=== PATIENT | female | born 1975 | race African-American/Black ===

== ENCOUNTER 2019-02-20 14:50 | Outpatient (RCR) | payer OTHER, SELFPAY | END 2019-05-21 23:59 | disposition home or self-care (01) | LOC: ANHDMC 14:50 | DX: E11.9 Type 2 diabetes mellitus without complications (principal); Z71.89 Other specified counseling | CPT/HCPCS: G0108; G0109 ==

== ENCOUNTER 2022-06-22 14:30 | Outpatient (RCR) | payer OTHER, SELFPAY | END 2022-07-04 23:59 | disposition home or self-care (01) | LOC: ANHDMC 14:30 | PROVIDERS: PCP Family Medicine; Visit Provider Family Medicine | DX: E11.9 Type 2 diabetes mellitus without complications (principal); Z71.89 Other specified counseling | CPT/HCPCS: 99199; G0108; G0109 ==

== ENCOUNTER 2022-09-01 14:53 | Outpatient (RCR) | payer OTHER, SELFPAY | END 2022-11-21 10:47 | disposition home or self-care (01) | LOC: ANHDMC 14:53 | PROVIDERS: PCP Family Medicine; Visit Provider Family Medicine | DX: E11.9 Type 2 diabetes mellitus without complications (principal); Z71.89 Other specified counseling | CPT/HCPCS: G0109 ==

== ENCOUNTER 2023-05-18 17:23 | Emergency (ER) | payer OTHER, SELFPAY ==
--- NOTE | ~2023-05-18 | CT_ITS ---
EXAMINATION: CT brain wo con DATE: 05/18/2023 18:08 INDICATION: Headache and possible loss of consciousness. TECHNIQUE: Computed tomography (CT) of the head was performed without intravenous contrast. Sagittal and coronal reconstructions were performed. The mA was adjusted according to patient size. Iterative reconstruction technique was employed. The dose-length product was 681.00 mGy-cm. COMPARISON: None FINDINGS: No acute intracranial hemorrhage, acute infarction or abnormal extra axial fluid collection. Ventricl es are normal and symmetric. No mass/mass effect. The orbits, paranasal sinuses and mastoid air cells are normal. IMPRESSION: 1. No acute intracranial process. Reviewed, dictated and finalized at location A. RE ADMINISTRATOR
[2023-05-18 17:24] VITALS: BP 139/78; PULSE 99; RESP 16; TEMP 36.4; O2SAT 99
[2023-05-18] MEDS: ACETAMINOPHEN 500 MG TABLET 1000 MG PO (17:59)
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
== END 2023-05-18 18:53 | disposition home or self-care (01) ==
PROVIDERS: Emergency Provider Physician Assistant; PCP Family Medicine
DX: S09.90XA Unspecified injury of head, initial encounter (principal); I10 Essential (primary) hypertension; E11.9 Type 2 diabetes mellitus without complications; E78.5 Hyperlipidemia, unspecified; M19.90 Unspecified osteoarthritis, unspecified site; X58.XXXA Exposure to other specified factors, initial encounter
CPT/HCPCS: 70450; 99284; A9270

== ENCOUNTER 2023-08-06 20:03 | Emergency (ER) | payer OTHER, SELFPAY ==
--- NOTE | ~2023-08-06 | CT_ITS ---
EXAMINATION: CT brain wo con DATE: 08/06/2023 20:55 INDICATION: Sudden onset headache. TECHNIQUE: Computed tomography (CT) of the head was performed without intravenous contrast. The mA wa s adjusted according to patient size. Iterative reconstruction technique was employed. The dose-lengt h product was 1059.33 mGy-cm. COMPARISON: Head CT 05/18/2023 FINDINGS: There is no intracranial hemorrhage, acute infarction, or abnormal intracranial mass lesion . The ventricles are normal in size. There is mild mucosal thickening in the ethmoid sinuses. The orb its are normal. The mastoid air cells are normal. IMPRESSION: 1. Normal brain. Reviewed, dictated and finalized at location E. IMPRESSION: 1. Normal brain.
[2023-08-06 20:05] VITALS: BP 140/90; PULSE 99; RESP 16; TEMP 36.8; O2SAT 100
--- NOTE | 2023-08-06 20:17 | PC.NURSE ---
patient states they have had a headache for roughly a month and has not tried any OTC medications. patient states they have a hx of migraines but the last one was years ago . they also states this one feels different and feels like a cold sensation in the occipital lobe area
--- NOTE | 2023-08-06 20:25 | ED.GENADULT ---
[facility] - General Adult General Chief complaint: Headache Stated complaint: headache, vision changes Time Seen by Provider: 08/06/23 20:24 Source: patient Mode of arrival: ambulatory Limitations: no limitations History of Present Illness HPI narrative: This is a 48-year-old female presents to the ED with chief complaint of sudden-onset headache this evening. Reports that she has been dealing with on and off headaches for the past month. Reports she was driving today and had a reports sudden onset headache that she is used to. Reports she also normally has headaches in the front today seemed a little bit in the back of the scalp. Endorses some intermittent blurred vision. States the sun was bothering her eyes which may have set the headache off. Denies diplopia. Denies syncope, neck pain, back pain, numbness, weakness, speech change. Related Data Allergies Allergy/AdvReac Type Severity Reaction Status Date / Time ibuprofen Allergy Severe Anaphylaxis Verified 03/02/19 13:34 latex Allergy Swelling Verified 03/02/19 13:35 nitroglycerin Allergy Swelling Verified 03/02/19 14:56 Penicillins Allergy Other Verified 03/02/19 13:35 Review of Systems Review of Systems: All systems as dictated in [facility] Past Medical History Medical History (Updated 08/07/23 @ 00:00 by Roni Stewart) Arthritis Diabetes HLD (hyperlipidemia) HTN (hypertension) Surgical History Surgical History (Updated 03/02/19 @ 14:37 by Jah Durham) No history of previous surgery Social History Social History (Updated 03/02/19 @ 14:46 by Jah Durham) Smoking status: Never smoker Exam Narrative: GENERAL: Well-appearing, well-nourished, and in no acute distress. HEAD: Normocephalic, atraumatic. Mild scalp tenderness throughout the entire scalp. EYES: PERRLA and EOMI. ENT: Nares clear, no rhinorrhea or epistaxis. Mucous membranes moist. Oropharynx without tonsillar hypertrophy exudate or other lesions. NECK: Supple. No adenopathy or masses. no meningeal signs CHEST: No respiratory distress. Clear to auscultation. No wheezes rales or rhonchi HEART: Regular rate and rhythm. No murmur heard. Normal peripheral pulses. ABDOMEN: Soft, nontender, nondistended, normal active bowel sounds. MSK: Normal range of motion. No edema. SKIN: Warm, dry, no rash. NEURO: Alert and oriented x3. No focal deficits. Cranial nerves 2-12 intact. 5/5 strength and sensation in the upper and lower extremities PSYCH: Normal mood and affect. Course Vital Signs Vital signs: Vital Signs Temperature 98.2 F 08/06/23 20:05 Pulse Rate 99 08/06/23 20:05 Respiratory Rate 16 08/06/23 20:05 Blood Pressure 140/90 08/06/23 20:05 Pulse Oximetry 100 08/06/23 20:05 Oxygen Delivery Room Air 08/06/23 20:05 Temperature 98.3 F 08/06/23 23:23 Pulse Rate 81 08/06/23 23:23 Respiratory Rate 17 08/06/23 23:23 Blood Pressure 131/85 08/06/23 23:23 Pulse Oximetry 100 08/06/23 23:23 Oxygen Delivery Room Air 08/06/23 20:05 Medical Decision Making MDM Narrative Medical decision making narrative: This is a 48-year-old female who presents to the ED for chief complaint headache intermittently for the past couple of weeks and worse today. Vitals are normal. Exam is benign. No meningeal signs. Lab work is normal. CT brain is unremarkable. Patient was given migraine cocktail and had good effect with this. Pt will be discharged in stable condition. Return precautions given and supportive measures discussed. Pt is understanding and agreeable with plan for discharge and follow-up with PCP. Vital Signs Vital Signs: Vital Signs Temperature 98.2 F 08/06/23 20:05 Pulse Rate 99 08/06/23 20:05 Respiratory Rate 16 08/06/23 20:05 Blood Pressure 140/90 08/06/23 20:05 Pulse Oximetry 100 08/06/23 20:05 Oxygen Delivery Room Air 08/06/23 20:05 Temperature 98.3 F 08/06/23 23:23 Pulse Rate 81 08/06/23 23
[2023-08-06 20:56] LABS: Basophils Absolute Auto 0.1 K/mm3 (0.0-0.1); Basophils Percent Auto 0.6 % (0.2-1.2); Eosinophils Absolute Auto 0.1 K/mm3 (0-0.3); Eosinophils Percent Auto 0.7 % (0-4.4); Hematocrit 40.2 % (37.0-47.0); Hemoglobin 12.4 g/dL (12.0-15.0); Immature Granulocyte Absolute 0.03 K/mm3 (0.00-0.031); Immature Granulocyte Percent A 0.4 % (0-0.5); Lymphocytes Absolute Auto 2.35 K/mm3 (0.9-3.2); Lymphocytes Percent Auto 27.4 % (18.3-44.2); Mean Corpuscular HGB Conc 30.8 g/dl (32-36); Mean Corpuscular Hemoglobin 24.8 pg (26-34); Mean Corpuscular Volume 80.2 fl (80-100); Mean Platelet Volume 11.3 fl (7.4-10.4); Monocytes Absolute Auto 0.6 K/mm3 (0.1-0.6); Monocytes Percent Auto 7.4 % (2.6-8.5); Neutrophils Absolute Auto 5.5 K/mm3 (1.3-6.7); Neutrophils Percent Auto 63.5 % (45.5-73.1); Platelet Count Result 262 k/mm3 (150-375); Red Blood Count 5.01 M/mm3 (4.2-5.4); Red Cell Distribution Width 14.7 % (11.5-14.5); White Blood Count 8.6 K/mm3 (4.5-10.0)
[2023-08-06 21:08] LABS: Alanine Aminotransferase 37 U/L (6-35); Albumin Level 4.3 g/dL (3.5-5.1); Alkaline Phosphatase 87 U/L (38-126); Anion Gap 5 mmol/L (4-12); Aspartate Amino Transferase 32 U/L (14-36); Bilirubin,Total 0.5 mg/dL (0.2-1.3); Blood Urea Nitrogen 11 mg/dL (7-17); Calcium 9.6 mg/dL (8.4-10.2); Carbon Dioxide 29 mmol/L (22-30); Chloride 103 mmol/L (98-107); Estimated CRCL calculation 124 ml/min; Estimated Glomerular Filt Rate > 60; Glucose 114 mg/dL (65-110); Potassium 3.4 mmol/L (3.4-5.0); Sodium 137 mmol/L (137-145)
[2023-08-06] MEDS: SODIUM CHLORIDE 0.9% IV 1,000 ML 999 ML IV CONT (21:36)
[2023-08-06] MEDS: PROCHLORPERAZINE EDISYLATE 10 MG/2 ML VIAL IV PUSH (21:36)
[2023-08-06] MEDS: ACETAMINOPHEN 500 MG TABLET 1000 MG PO (21:36)
[2023-08-06] MEDS: diphenhydrAMINE HCl INJ 50 MG/ML VIAL 25 MG IV PUSH (21:36)
[2023-08-06 23:23] VITALS: BP 131/85; PULSE 81; RESP 17; TEMP 36.8; O2SAT 100
== END 2023-08-06 23:10 | disposition home or self-care (01) ==
PROVIDERS: Emergency Provider Physician Assistant; PCP Family Medicine
DX: R51.9 Headache, unspecified (principal); I10 Essential (primary) hypertension; E11.9 Type 2 diabetes mellitus without complications; E78.5 Hyperlipidemia, unspecified; M19.90 Unspecified osteoarthritis, unspecified site
CPT/HCPCS: 36415; 70450; 80053; 85025; 96361; 96374; 96375; 99284; A9270; J0780; J1200; J7030

== ENCOUNTER 2023-08-07 23:43 | Emergency (ER) | payer OTHER, SELFPAY ==
--- NOTE | ~2023-08-07 | XR_ITS ---
EXAMINATION: XR chest 2V DATE: 08/08/2023 00:05 INDICATION: Epigastric abdominal pain. TECHNIQUE: Frontal and lateral views of the chest were obtained. COMPARISON: None. FINDINGS: There is no pneumonia, pleural effusion, or pneumothorax. The heart size is normal. IMPRESSION: 1. No acute cardiopulmonary disease. Reviewed, dictated and finalized at location E.
[2023-08-07 23:44] VITALS: BP 152/98; PULSE 93; RESP 16; TEMP 36.4; O2SAT 100
--- NOTE | 2023-08-07 23:44 | ECG_ITS ---
SEE SCANNED COPY FOR CONFIRMED REPORT MTDD
[2023-08-08 00:18] LABS: Basophils Absolute Auto 0.1 K/mm3 (0.0-0.1); Basophils Percent Auto 0.7 % (0.2-1.2); Eosinophils Absolute Auto 0.1 K/mm3 (0-0.3); Eosinophils Percent Auto 0.8 % (0-4.4); Hematocrit 41.9 % (37.0-47.0); Hemoglobin 12.5 g/dL (12.0-15.0); Immature Granulocyte Absolute 0.08 K/mm3 (0.00-0.031); Immature Granulocyte Percent A 0.9 % (0-0.5); Lymphocytes Absolute Auto 3.02 K/mm3 (0.9-3.2); Lymphocytes Percent Auto 35.1 % (18.3-44.2); Mean Corpuscular HGB Conc 29.8 g/dl (32-36); Mean Corpuscular Hemoglobin 24.4 pg (26-34); Mean Corpuscular Volume 81.8 fl (80-100); Mean Platelet Volume 11.4 fl (7.4-10.4); Monocytes Absolute Auto 0.7 K/mm3 (0.1-0.6); Monocytes Percent Auto 8.3 % (2.6-8.5); Neutrophils Absolute Auto 4.7 K/mm3 (1.3-6.7); Neutrophils Percent Auto 54.2 % (45.5-73.1); Platelet Count Result 279 k/mm3 (150-375); Red Blood Count 5.12 M/mm3 (4.2-5.4); Red Cell Distribution Width 14.6 % (11.5-14.5); White Blood Count 8.6 K/mm3 (4.5-10.0)
[2023-08-08 00:27] LABS: Alanine Aminotransferase 42 U/L (6-35); Albumin Level 4.5 g/dL (3.5-5.1); Alkaline Phosphatase 91 U/L (38-126); Anion Gap 7 mmol/L (4-12); Aspartate Amino Transferase 34 U/L (14-36); Bilirubin,Total 0.4 mg/dL (0.2-1.3); Blood Urea Nitrogen 13 mg/dL (7-17); Calcium 10.1 mg/dL (8.4-10.2); Carbon Dioxide 29 mmol/L (22-30); Chloride 102 mmol/L (98-107); Estimated Glomerular Filt Rate > 60; Glucose 85 mg/dL (65-110); INR 0.9; Lipase 54 U/L (23-300); Potassium 3.3 mmol/L (3.4-5.0); Prothrombin Time 12.8 Seconds (11.1-14.7); Sodium 138 mmol/L (137-145)
[2023-08-08 00:28] LABS: Partial Thromboplastin Time 31.5 Seconds (22.3-36.8)
[2023-08-08 00:31] LABS: Hypochromasia 1+; Ovalocytes 1+; Platelet Estimate Adequate (Adequate); Schistocytes None Seen
[2023-08-08 00:38] LABS: Troponin I < 0.012 ng/mL (0.000-0.034)
[2023-08-08 00:54] LABS: Appearance Urine Clear (Clear); Bilirubin Urine Negative (Negative); Blood Urine Negative (Negative); Color Urine Yellow (Yellow); Glucose Urine UA Negative (Negative); Ketones Urine Negative (Negative); Leukocyte Esterase Ur Negative LEU/UL (Negative); Nitrate Urine Negative (Negative); Protein Urine Negative (Negative); pH Urine 6.5 (5.0-9.0)
[2023-08-08 00:58] LABS: Add Urine Microscopic? NO
[2023-08-08 02:20] VITALS: BP 162/90; PULSE 92; RESP 16; O2SAT 97
[2023-08-08 02:47] LABS: D Dimer 0.34 ug/mL (<0.48)
[2023-08-08 02:48] LABS: NT Pro B Type Natriuretic Pept < 20 pg/mL (19.9-100)
--- NOTE | 2023-08-08 03:43 | ED.GENADULT ---
HPI - General Adult General Chief complaint: Chest Pain Stated complaint: cp Time Seen by Provider: 08/08/23 02:06 History of Present Illness HPI narrative: Patient is a 48-year-old female who presents emergency department with chief complaint of chest discomfort and headache patient states that she has had some issues with chest pain recently patient reports not improved by anything reports no diaphoresis denies radiation of the arms or legs. Patient reports no prior cardiac history patient does report that she has history of diabetes hyperlipidemia hypertension Related Data Allergies Allergy/AdvReac Type Severity Reaction Status Date / Time ibuprofen Allergy Severe Anaphylaxis Verified 03/02/19 13:34 latex Allergy Swelling Verified 03/02/19 13:35 nitroglycerin Allergy Swelling Verified 03/02/19 14:56 Penicillins Allergy Other Verified 03/02/19 13:35 Review of Systems Review of Systems: A 10 system review of systems was completed on the patient and is negative except for what is stated in the HPI. Nursing and ancillary documentation was reviewed. PMFSH Past Medical History Medical History Arthritis Diabetes HLD (hyperlipidemia) HTN (hypertension) Surgical History Surgical History No history of previous surgery Social History Social History Smoking status: Never smoker Exam Narrative: GENERAL: Well-appearing, well-nourished, and in no acute distress. HEAD: Normocephalic, atraumatic. EYES: PERRLA and EOMI. ENT: Nares clear, no rhinorrhea or epistaxis. Mucous membranes moist. NECK: Supple. CHEST: Clear to auscultation. No respiratory distress. HEART: Regular rate and rhythm. No murmur heard. Normal peripheral pulses. ABDOMEN: Soft, nontender, nondistended, normal active bowel sounds. EXTREMITIES: Normal range of motion. No edema. SKIN: Warm, dry, no rash. NEURO: No focal deficits. Alert and oriented x3. PSYCH: Normal mood and affect. Course Vital Signs Vital signs: Vital Signs Temperature 36.4 C 08/07/23 23:44 Pulse Rate 93 08/07/23 23:44 Respiratory Rate 16 08/07/23 23:44 Blood Pressure 152/98 H 04/22/24 23:44 Pulse Oximetry 100 08/07/23 23:44 Oxygen Delivery Room Air 08/07/23 23:44 Temperature 36.4 C 08/07/23 23:44 Pulse Rate 92 08/08/23 02:20 Respiratory Rate 16 08/08/23 02:20 Blood Pressure 162/90 H 08/08/23 02:20 Pulse Oximetry 97 08/08/23 02:20 Oxygen Delivery Room Air 08/07/23 23:44 Medical Decision Making [facility] Narrative Medical decision making narrative: Differential diagnosis includes ACS, dysrhythmia, electrolyte abnormality, pneumothorax, pneumonia Chest x-ray showed no focal infiltrate EKG showed no acute ischemic changes Urinalysis showed no evidence UTI electrolytes showed no acute abnormalities troponin initial 1 was negative CBC was within normal limits repeat troponin was negative Vital Signs Vital Signs: Vital Signs Temperature 36.4 C 08/07/23 23:44 Pulse Rate 93 08/07/23 23:44 Respiratory Rate 16 08/07/23 23:44 Blood Pressure 152/98 H 08/07/23 23:44 Pulse Oximetry 100 08/07/23 23:44 Oxygen Delivery Room Air 08/07/23 23:44 Temperature 36.4 C 08/07/23 23:44 Pulse Rate 92 08/08/23 02:20 Respiratory Rate 16 08/08/23 02:20 Blood Pressure 162/90 H 08/08/23 02:20 Pulse Oximetry 97 08/08/23 02:20 Oxygen Delivery Room Air 08/07/23 23:44 Lab Data 08/07/23 23:59 08/07/23 23:59 Labs: Lab Results 08/07/23 08/08/23 08/08/23 Range/Units 23:59 00:46 02:17 WBC 8.6 (4.5-10.0) K/mm3 RBC 5.12 (4.2-5.4) M/mm3 Hgb 12.5 (12.0-15.0) g/dL Hct 41.9 (37.0-47.0) % MCV 81.8 (80-100) fl MCH 24.4 L (26-34) pg MCHC 29.8 L (32-36) g/
[2023-08-08 03:48] LABS: Troponin I < 0.012 ng/mL (0.000-0.034)
[2023-08-08 04:34] VITALS: BP 162/100; PULSE 97; RESP 15; O2SAT 97
[2023-08-08] MEDS: LIDOCAINE 5% PATCH 1 PATCH TRANSDERM (04:34)
== END 2023-08-08 04:35 | disposition home or self-care (01) ==
PROVIDERS: Emergency Provider Emergency Medicine; PCP Family Medicine
DX: R07.9 Chest pain, unspecified (principal); M19.90 Unspecified osteoarthritis, unspecified site; E11.9 Type 2 diabetes mellitus without complications; E78.5 Hyperlipidemia, unspecified; I10 Essential (primary) hypertension
CPT/HCPCS: 36415; 71046; 80053; 81003; 83690; 83880; 84484; 85025; 85380; 85610; 85730; 93005; 99284; A9270

== ENCOUNTER 2023-08-23 06:24 | Emergency (ER) | payer OTHER, SELFPAY ==
--- NOTE | ~2023-08-23 | CT_ITS ---
EXAMINATION: CTA chest PE protocol DATE: 08/23/2023 09:45 INDICATION: Shortness of breath. TECHNIQUE: Computed tomography angiography (CTA) of the chest was performed with 100 mL Omnipaque-350 intravenous contrast timed to evaluate the pulmonary arteries. Coronal maximum intensity projection 3D-reconstructions were created by the technologist. Automated exposure control and iterative reconst ruction technique were employed. The dose-length product was 996.27 mGy-cm. COMPARISON: Chest 2 views 08/08/2023 FINDINGS: The lungs demonstrate mild atelectasis. There are a few small scattered nodules and groundg lass opacities involving the right middle lobe, lingula, and lower lobes, consistent with pneumonia. No pleural effusion. The heart size is normal. No pericardial effusion. There is no pulmonary embolus . There is moderate cervical spondylosis and mild thoracic spondylosis. IMPRESSION: 1. No pulmonary embolus. 2. Groundglass opacities and nodules in the inferior lungs, consistent with pneumonia. Reviewed, dictated and finalized at location A. IMPRESSION: 1. No pulmonary embolus. 2. Groundglass opacities and nodules in the inferior lungs, consistent with pne umonia.
[2023-08-23 06:35] VITALS: BP 139/80; PULSE 100; RESP 18; TEMP 36.6; O2SAT 95
--- NOTE | 2023-08-23 07:09 | ECG_ITS ---
SEE SCANNED COPY FOR CONFIRMED REPORT MTDD
[2023-08-23 07:15] VITALS: PULSE 66
[2023-08-23 07:31] LABS: Influenza A QL RT-PCR Negative (Negative); Influenza B QL RT-PCR Negative (Negative); RSV RNA, RT-PCR Negative (Negative); SARS-CoV-2 RNA PCR Positive (Negative)
--- NOTE | 2023-08-23 07:31 | ED.GENADULT ---
HPI - General Adult General Chief complaint: Unspecified Stated complaint: all over body pain, chills Time Seen by Provider: 08/23/23 06:57 History of Present Illness HPI narrative: 48-year-old female presents to the emergency department for evaluation body aches and chest pain. Patient states this morning she had onset of full body aches and then prior to arrival she began developing some left-sided chest pain. Patient does have a recent diagnosis paroxysmal atrial fibrillation. Patient does take metoprolol and is on Eliquis. On arrival emergency department patient is not in atrial fibrillation. Related Data Allergies Allergy/AdvReac Type Severity Reaction Status Date / Time ibuprofen Allergy Severe Anaphylaxis Verified 08/23/23 17:21 latex Allergy Swelling Verified 08/23/23 17:21 nitroglycerin Allergy Swelling Verified 08/23/23 17:21 Penicillins Allergy Other Verified 08/23/23 17:21 Review of Systems Review of Systems: All systems reviewed & are unremarkable except as noted in HPI and below PMFSH Past Medical History Medical History Arthritis Diabetes HLD (hyperlipidemia) HTN (hypertension) Surgical History Surgical History No history of previous surgery Social History Social History Smoking status: Never smoker Exam Narrative: APPEARANCE: Well appearing, no pain, no distress, well-nourished. HEAD: normocephalic, atraumatic. EYES: PERRLA/EOMI, conjunctivae clear. NOSE: Normal no drainage EARS:TMS clear with good light reflex. THROAT: Pharynx clear, no exudate. NECK: Supple. No adenopathy, no masses. RESPIRATORY: Airway patent, respirations nonlabored. Clear to auscultation bilaterally, no rales, rhonchi, wheezing. CARDIOVASCULAR: Regular rate and rhythm without murmurs rubs or gallops. ABDOMINAL: Soft, nontender, nondistended, normal bowel sounds MUSCULOSKELETAL: Moves all extremities. Strength/ROM intact, No edema, No calf tenderness. NEURO: Alert. Cranial nerves II through XII intact. Grossly intact SKIN: Warm, dry. Normal Color Course Vital Signs Vital signs: Vital Signs Temperature 97.9 F 08/23/23 06:35 Pulse Rate 100 08/23/23 06:35 Respiratory Rate 18 08/23/23 06:35 Blood Pressure 139/80 08/23/23 06:35 Pulse Oximetry 95 08/23/23 06:35 Temperature 97.9 F 08/23/23 06:35 Pulse Rate 82 08/23/23 12:15 Respiratory Rate 20 08/23/23 12:15 Blood Pressure 125/79 08/23/23 12:15 Pulse Oximetry 99 08/23/23 12:15 Medical Decision Making MDM Narrative Medical decision making narrative: 48-year-old female present to the emergency department for evaluation for body aches and intermittent chest pain. Patient was afebrile.. No acute abnormalities on the patient's CMP. Patient had negative serial troponins. Urine was negative for urinary tract infection. Patient was negative for influenza RSV strep was positive for COVID. Due to patient's history atrial fibrillation CTA was ordered to evaluate for pulmonary embolism this was negative. With patient's CT scan showing possible pneumonia which may be bacterial versus viral patient was started p.o. antibiotics. Patient was updated results of her workup patient is comfortable the plan for discharge close follow-up. Differential Diagnosis Differential Diagnosis: Pneumonia, COVID Vital Signs Vital Signs: Vital Signs Temperature 97.9 F 08/23/23 06:35 Pulse Rate 100 08/23/23 06:35 Respiratory Rate 18 08/23/23 06:35 Blood Pressure 139/80 08/23/23 06:35 Pulse Oximetry 95 08/23/23 06:35 Temperature 97.9 F 08/23/23 06:35 Pulse Rate 82 08/23/23 12:15 Respiratory Rate 20 08/23/23 12:15 Blood Pressure 125/79 08/23/23 12:15 Pulse Oximetry 99 08/23/23 12:15 Lab Data Lab results reviewed: Yes I rev
[2023-08-23 07:53] VITALS: RESP 17
[2023-08-23 07:56] LABS: Troponin I < 0.012 ng/mL (0.000-0.034)
[2023-08-23 07:58] LABS: Strep Group A RT-PCR NOT DETECTED (Negative)
[2023-08-23 08:50] LABS: Alanine Aminotransferase 53 U/L (6-35); Albumin Level 4.3 g/dL (3.5-5.1); Alkaline Phosphatase 68 U/L (38-126); Anion Gap 10 mmol/L (4-12); Aspartate Amino Transferase 54 U/L (14-36); Bilirubin,Total 0.7 mg/dL (0.2-1.3); Blood Urea Nitrogen 9 mg/dL (7-17); Calcium 9.4 mg/dL (8.4-10.2); Carbon Dioxide 23 mmol/L (22-30); Chloride 102 mmol/L (98-107); Estimated CRCL calculation 142 ml/min; Estimated Glomerular Filt Rate > 60; Glucose 224 mg/dL (65-110); Potassium 3.7 mmol/L (3.4-5.0); Sodium 135 mmol/L (137-145)
[2023-08-23 09:16] VITALS: BP 123/58; PULSE 72; RESP 16; O2SAT 98
--- NOTE | 2023-08-23 10:07 | ECG_ITS ---
SEE SCANNED COPY FOR CONFIRMED REPORT MTDD
[2023-08-23 10:25] LABS: Appearance Urine Cloudy (Clear); Bacteria Urine 3+ /hpf; Bilirubin Urine Negative (Negative); Blood Urine 1+ (Negative); Color Urine Yellow (Yellow); Glucose Urine UA Negative (Negative); Ketones Urine Negative (Negative); Leukocyte Esterase Ur Negative LEU/UL (Negative); Need Manual Microscopic Reviewed; Nitrate Urine Negative (Negative); Non Pathogenic Casts 0-2; Protein Urine Negative (Negative); RBC Urine 0-2 /hpf (0-2); Squamous Epithelial Cell Urine Few /hpf (Few); Urobilinogen Urine 0.2 mg/dL (<2.0); WBC Urine 0-5 /hpf (0-3); pH Urine 6.5 (5.0-9.0)
[2023-08-23 10:26] LABS: Add Urine Microscopic? YES; Specific Grav Ur 1.002 (1.001-1.035)
[2023-08-23 10:35] VITALS: BP 127/92; PULSE 90; RESP 16; O2SAT 100
[2023-08-23 10:44] LABS: Troponin I < 0.012 ng/mL (0.000-0.034)
[2023-08-23] MEDS: LIDOCAINE 5% PATCH 1 PATCH TRANSDERM (11:03)
[2023-08-23 11:08] LABS: Basophils Percent Auto 0.4 % (0.2-1.2); Hematocrit 41.6 % (37.0-47.0); Hemoglobin 12.7 g/dL (12.0-15.0); Immature Granulocyte Absolute 0.01 K/mm3 (0.00-0.031); Immature Granulocyte Percent A 0.4 % (0-0.5); Lymphocytes Percent Auto 21.4 % (18.3-44.2); Mean Corpuscular HGB Conc 30.5 g/dl (32-36); Mean Corpuscular Hemoglobin 24.2 pg (26-34); Mean Corpuscular Volume 79.4 fl (80-100); Mean Platelet Volume 12.2 fl (7.4-10.4); Monocytes Absolute Auto 0.2 K/mm3 (0.1-0.6); Monocytes Percent Auto 8.2 % (2.6-8.5); Neutrophils Percent Auto 69.6 % (45.5-73.1); Platelet Count Result 206 k/mm3 (150-375); Red Blood Count 5.24 M/mm3 (4.2-5.4); Red Cell Distribution Width 15.9 % (11.5-14.5); White Blood Count 2.8 K/mm3 (4.5-10.0)
[2023-08-23 12:15] VITALS: BP 125/79; PULSE 82; RESP 20; O2SAT 99
== END 2023-08-23 12:16 | disposition home or self-care (01) ==
PROVIDERS: Emergency Medicine; Emergency Provider Emergency Medicine
DX: U07.1 COVID-19 (principal); J18.9 Pneumonia, unspecified organism; I48.0 Paroxysmal atrial fibrillation; I10 Essential (primary) hypertension; E11.9 Type 2 diabetes mellitus without complications; E78.5 Hyperlipidemia, unspecified; M19.90 Unspecified osteoarthritis, unspecified site; Z79.01 Long term (current) use of anticoagulants
CPT/HCPCS: 36415; 71275; 80053; 81001; 81025; 84484; 85025; 87637; 87651; 93005; 99284; A9270; Q9967

== ENCOUNTER 2023-08-23 17:17 | Emergency (ER) | payer OTHER, SELFPAY ==
[2023-08-23 17:17] VITALS: BP 106/77; PULSE 113; RESP 16; TEMP 36.4; O2SAT 100
--- NOTE | 2023-08-23 18:36 | ED.WOUNDLAC ---
HPI - Wound/Laceration General Chief Complaint: Wound/Laceration Stated Complaint: cuts on feet Time Seen by Provider: 08/23/23 18:22 Source: patient Mode of arrival: ambulatory Limitations: no limitations History of Present Illness HPI narrative: Patient is a 48-year-old female, with past medical history of diabetes, who presents the ED with report of wounds to her feet. Patient was seen in the ED earlier today, diagnosed with COVID-19. States she did not notice the wounds on her feet at that time. She is a diabetic and was concerned and returned. 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 Denies fevers. Related Data Allergies Allergy/AdvReac Type Severity Reaction Status Date / Time ibuprofen Allergy Severe Anaphylaxis Verified 08/23/23 17:21 latex Allergy Swelling Verified 08/23/23 17:21 nitroglycerin Allergy Swelling Verified 08/23/23 17:21 Penicillins Allergy Other Verified 08/23/23 17:21 Review of Systems Review of Systems: CONSTITUTIONAL: Denies fever, chills, or sweats. MUSCULOSKELETAL: See HPI. NEUROLOGIC: Denies headache, dizziness, numbness, or weakness. All systems reviewed & are unremarkable except as noted in HPI and below PMFSH Past Medical History Medical History Arthritis Diabetes HLD (hyperlipidemia) HTN (hypertension) Surgical History Surgical History No history of previous surgery Social History Social History Smoking status: Never smoker Exam Narrative: GENERAL: Well appearing, obese with BMI of 38.4, non-toxic, in no acute distress. HEAD: Normocephalic, atraumatic. RESPIRATORY: Airway patent, respirations nonlabored. CARDIOVASCULAR: Regular rate and rhythm without murmurs, rubs, or gallops. Pedal pulses intact. MUSCULOSKELETAL: Moves all extremities. No gross deformities. SKIN: Warm, dry, normal color. Skin on feet is dry bilaterally, areas of callus formation. No wounds. No evidence of tinea pedis. NEURO: A&O X3. Speech clear. Cranial nerves II-XII grossly intact. Steady gait. No ataxic movements. PSYCHIATRIC: Appropriate mood and affect. Normal interaction. Course Vital Signs Vital signs: Vital Signs Temperature 97.6 F 08/23/23 17:17 Pulse Rate 113 H 08/23/23 17:17 Respiratory Rate 16 08/23/23 17:17 Blood Pressure 106/77 08/23/23 17:17 Pulse Oximetry 100 08/23/23 17:17 Oxygen Delivery Room Air 08/23/23 17:17 Temperature 97.8 F 08/23/23 19:07 Pulse Rate 71 08/23/23 19:07 Respiratory Rate 16 08/23/23 19:07 Blood Pressure 139/68 08/23/23 19:07 Pulse Oximetry 98 08/23/23 19:07 Oxygen Delivery Room Air 08/23/23 17:17 MDM - Wound/Laceration MDM Narrative Medical decision making narrative: Exam with dry skin, scattered small areas of callus formation. No wounds. Advised patient to follow-up with podiatry. Discharge Plan Discharge Clinical Impression: Dry skin Diabetes Qualifiers: Diabetes mellitus type: type 2 Diabetes mellitus correction insulin use: without terminal carman use Diabetes mellitus complication status: with other specified complication Qualified Code(s): E11.69 - Type 2 diabetes mellitus with other specified complication Patient Disposition: Home, Self-Care Condition: Stable Instructions: Antibiotic Form, Foot Care for People with Diabetes (ED) Additional Instructions: Follow-up with podiatry for further evaluation upon completion of your COVID-19 isolation. Prescriptions: No Action cefdinir 300 mg capsule 300 mg PO Q12H 7 Days Qty: 14 0RF azithromycin 250 mg tablet See Rx Instructions .ROUTE .COMPLEX Qty: 6 0RF Rx Instructions: For 250 mg dose pack: take 500 mg today (day 1), then 250 mg for 4 days (days 2-5) albuterol sulfate 90 mcg/actuation HFA aer
[2023-08-23 19:07] VITALS: BP 139/68; PULSE 71; RESP 16; TEMP 36.6; O2SAT 98
== END 2023-08-23 19:08 | disposition home or self-care (01) ==
PROVIDERS: Emergency Provider Physician Assistant
DX: E11.69 Type 2 diabetes mellitus with other specified complication (principal); L85.3 Xerosis cutis; U07.1 COVID-19; E78.5 Hyperlipidemia, unspecified; I10 Essential (primary) hypertension; M19.90 Unspecified osteoarthritis, unspecified site
CPT/HCPCS: 99281

== ENCOUNTER 2023-08-24 23:06 | Emergency (ER) | payer OTHER, SELFPAY ==
[2023-08-24 23:10] VITALS: BP 153/94; PULSE 89; RESP 18; TEMP 36.9; O2SAT 98
[2023-08-25 02:23] VITALS: BP 140/92; PULSE 89; RESP 14; O2SAT 100
[2023-08-25 02:31] VITALS: BP 149/90; PULSE 87; RESP 20; O2SAT 100
--- NOTE | 2023-08-25 02:31 | ED.GENADULT ---
HPI - General Adult General Chief complaint: Upper Respiratory Infection Stated complaint: multiple complaints Time Seen by Provider: 08/25/23 02:25 Source: patient Mode of arrival: ambulatory Limitations: no limitations History of Present Illness HPI narrative: 48-year-old female presenting with multiple complaints. She has been seen here multiple times recently. She is currently homeless living out of her car has been coming in for assorted reasons over the last few days. Today she is complaining of feeling like she might have an allergic reaction because she was having some rash she thought on his chest as well as some congestion and swelling around her eyes today. Also is concerned about her asthma issues. Related Data Allergies Allergy/AdvReac Type Severity Reaction Status Date / Time ibuprofen Allergy Severe Anaphylaxis Verified 08/25/23 02:31 latex Allergy Swelling Verified 08/25/23 02:31 nitroglycerin Allergy Swelling Verified 08/25/23 02:31 Penicillins Allergy Other Verified 08/25/23 02:31 Review of Systems Review of Systems: All systems reviewed & are unremarkable except as noted in HPI and below PMFSH Past Medical History Medical History Arthritis Diabetes HLD (hyperlipidemia) HTN (hypertension) Surgical History Surgical History No history of previous surgery Social History Social History Smoking status: Never smoker Exam Narrative: Constitutional: Generally well appearing, no acute distress Head: Atraumatic, no deformities. Eyes: Pupils equal, round, and reactive to light. Neck: Supple, no tracheal deviation, no JVD. ENMT: Mucous membranes moist Cardiovascular: S1, S2 auscultated. No murmurs, rubs, or gallops. No S3/S4. Normal Distal pulses. No peripheral edema. Respiratory: Lung sounds equal. No wheezes, rales, or rhonchi. Gastrointestinal: Abdomen was soft and non-tender. Non-distended. No rebound or guarding. Genitourinary: Deferred Musculoskeletal: Normal muscle tone and bulk. No obvious deformities or tenderness over extremities. Skin: No rashes. Neurological: Strength 5/5 in extremities. Cranial nerves I-XII grossly intact. Distal sensation intact. Mental Status: Awake, alert and oriented x3. Follows commands Course Vital Signs Vital signs: Vital Signs Temperature 36.9 C 08/24/23 23:10 Pulse Rate 89 08/24/23 23:10 Respiratory Rate 18 08/24/23 23:10 Blood Pressure 153/94 H 08/24/23 23:10 Pulse Oximetry 98 08/24/23 23:10 Temperature 36.9 C 08/24/23 23:10 Pulse Rate 89 08/24/23 23:10 Respiratory Rate 18 08/24/23 23:10 Blood Pressure 153/94 H 08/24/23 23:10 Pulse Oximetry 98 08/24/23 23:10 Medical Decision Making MDM Narrative Medical decision making narrative: 48-year-old female presenting with what she is concerned for is an allergic reaction. Reporting having some swelling under her eyes and a rash on her chest. On exam not seeing any of that. Vitals are regular. He well-appearing. Normal cardio respiratory exam. Will give a dose of dexamethasone for presumed allergic reaction. Discussed return precautions. The Pt feeling improved and would like to go home at this point. Return precautions were given to the patient include any new or worsening symptoms or development of and not limited to any chest pain, shortness of breath, lightheadedness, abdominal pain, fevers, chills. Patient understands and agrees. They are to follow-up with her PCP. All questions were answered. I reviewed the patient's vital signs, history, allergies, and labs and imaging workup. Vital Signs Vital Signs: Vital Signs Temperature 36.9 C 08/24/23 23:10 Pulse Rate 89 08/24/23 23:10 Respiratory Rate 18 08/24/23 23:10 Blood Pressure 153/94 H 08/24/23 23:10 Pulse Oximetry
[2023-08-25 02:32] VITALS: BP 149/90; PULSE 106; RESP 15; O2SAT 100; O2SAT 98
[2023-08-25] MEDS: dexAMETHasone SOD PHOS INJ 10 MG/ML 1 ML VIAL IV PUSH (02:36)
[2023-08-25 02:46] VITALS: BP 158/103; PULSE 91; RESP 18; O2SAT 100
== END 2023-08-25 02:54 | disposition home or self-care (01) ==
LOC: ANHED 08-25 02:36
PROVIDERS: Emergency Provider Emergency Medicine
DX: T78.40XA Allergy, unspecified, initial encounter (principal); X58.XXXA Exposure to other specified factors, initial encounter; I10 Essential (primary) hypertension; E11.9 Type 2 diabetes mellitus without complications; E78.5 Hyperlipidemia, unspecified; M19.90 Unspecified osteoarthritis, unspecified site; Z59.00 Homelessness unspecified
CPT/HCPCS: 96374; 99284; J1100

== ENCOUNTER 2023-11-08 12:48 | Emergency (ER) | payer OTHER, SELFPAY ==
--- NOTE | ~2023-11-08 | XR_ITS ---
XR chest 2V Ordering provider: Misa Cortes PA-C History: 48 years Female with . CP . Comparison: August 08, 2023 FINDINGS: MEDIASTINUM: The cardiac silhouette is not enlarged. LUNGS: No infiltrates, effusions or pneumothorax. OTHER: No free air under the diaphragm. IMPRESSION: No acute cardiopulmonary pathology. Reviewed, dictated and finalized at location A.
--- NOTE | ~2023-11-08 | CT_ITS ---
EXAMINATION: CT abdomen pelvis w con DATE: 11/08/2023 18:32 INDICATION: pain in abd, nausea TECHNIQUE: Computed tomography (CT) of the abdomen and pelvis was performed with 100 mL Omnipaque-350 intravenous contrast. Automated exposure control and iterative reconstruction technique were employe d. The dose-length product was 1562.94 mGy-cm. COMPARISON: None. FINDINGS: Lower thorax: Mild dependent scar/atelectasis. Liver: Subcentimeter right lobe hypodensity too small to characterize but likely represents a cyst or hemangioma. Biliary/Gallbladder: Gallbladder is normal. No bile duct dilation. Pancreas: No mass or duct dilation. Spleen: Normal. Adrenals:No mass. Kidneys: No suspicious mass, obstructing stone, or hydronephrosis. Left midpole simple cyst. Bilatera l subcentimeter hypodensities, too small to characterize but also likely represent cysts. Punctate no nobstructing left renal calcifications. GI tract: No small or large bowel dilation. Normal appendix. Diverticulosis without diverticulitis. Mesentery/Peritoneum: No ascites, mass, or free air. Retroperitoneum: No mass. Pelvis: The urinary bladder is mostly empty. Absent uterus. Bilateral ovaries not confidently visuali zed. Soft Tissues: Small fat-containing suprarenal umbilical and umbilical hernias. Bones: No acute osseous finding. IMPRESSION: No acute abdominopelvic process detected Reviewed, dictated and finalized at location K.
--- NOTE | ~2023-11-08 | CT_ITS ---
EXAMINATION: CT brain wo con DATE: 11/08/2023 15:29 INDICATION: Headache and nausea post head injury TECHNIQUE: Computed tomography (CT) of the head was performed without intravenous contrast. Sagittal and coronal reconstructions were performed. The mA was adjusted according to patient size. Iterative reconstruction technique was employed. The dose-length product was 681.00 mGy-cm. COMPARISON: head CT dated 08/06/2023 FINDINGS: No fracture. No acute intracranial hemorrhage, acute infarction or abnormal extra axial fluid collect ion. Symmetric prominence of the sulci consistent with mild diffuse cerebral volume loss. Ventricles are normal and symmetric. No mass/mass effect. The orbits, paranasal sinuses and mastoid air cells ar e normal. IMPRESSION: 1. No fracture or acute intracranial process. Reviewed, dictated and finalized at location A.
[2023-11-08 12:49] VITALS: BP 157/102; PULSE 97; RESP 18; TEMP 37; O2SAT 98
--- NOTE | 2023-11-08 15:07 | ECG_ITS ---
Test Date: 2023-11-08 15:12:23 Measurements Intervals [place] Rate: 72 P: 33 AR: 116 QRS: 23 QRSD: 98 T: 42 QT: 401 QTc: 441 Interpretive Statements SINUS RHYTHM WITH SINUS ARRHYTHMIA WITH SHORT AR INTERVAL BORDERLINE ECG No previous ECG available for comparison Electronically Signed On 11-08-2023 15:25:15 CDT by Tyrell Moreno D.O.
--- NOTE | 2023-11-08 15:08 | ED.ABDPAIN ---
HPI - Abdominal Pain General Chief Complaint: Abdominal Pain <ROSA Pollock Last Filed: 11/09/23 17:15> Stated Complaint: abd pain <Misa Cortes PA-C - Last Filed: 11/09/23 17:15> Time Seen by Provider: 11/08/23 15:08 <Misa Cortes PA-C - Last Filed: 11/09/23 17:15> Focused HPI: This is a 48 year old female that presents to the ER with multiple complaints. Reporting headache after a head injury. Also reporting dull, achy chest pain ongoing since morning. Reporting left-sided abdominal pain. GENERAL: Well-appearing, well-nourished, and in no acute distress. HEAD: Normocephalic, atraumatic. CHEST: Clear to auscultation. ?No respiratory distress. HEART: Regular rate and rhythm.? NEURO: ?Alert and oriented x3. Patient screened in triage and initial orders placed.? ?Additional care and disposition to be based upon?diagnostic testing and treatment. <Misa Cortes PA-C - Last Filed: 11/09/23 17:15> Source: patient <Azra Garsia PA-C - Last Filed: 11/08/23 22:07> Mode of arrival: ambulatory <Azra Garsia PA-C - Last Filed: 11/08/23 22:07> Limitations: no limitations <ROSA Hill Last Filed: 11/08/23 22:07> History of Present Illness HPI narrative: Agree with above HPI. Patient with multiple complaints. Reports pain across her chest since 6:00 a.m. this morning. Notes that she did not take any of her normal medications this morning. She does not have an explanation as to why. History of AFib, on Eliquis. Hx HTN, DM. She does report nausea and diffuse abdominal pain. Denies vomiting, diarrhea, constipation, fevers, SOB. Denies urinary complaints. Has not taken anything for her symptoms. <ROSA Hill Last Filed: 11/08/23 22:07> Related Data Allergies/Adverse Reactions: Allergies Allergy/AdvReac Type Severity Reaction Status Date / Time ibuprofen Allergy Severe Anaphylaxis Verified 08/25/23 02:31 latex Allergy Swelling Verified 08/25/23 02:31 nitroglycerin Allergy Swelling Verified 08/25/23 02:31 Penicillins Allergy Other Verified 08/25/23 02:31 <Misa Cortes PA-C - Last Filed: 11/09/23 17:15> Review of Systems Review of Systems: CONSTITUTIONAL: Denies fever, chills, or sweats. CARDIOVASCULAR: See HPI RESPIRATORY: Denies cough or dyspnea. GASTROINTESTINAL: See HPI GENITOURINARY: Denies dysuria or hematuria. <Azra Garsai PA-C - Last Filed: 11/08/23 22:07> All systems reviewed & are unremarkable except as noted in HPI and below <Azra Garsia PA-C - Last Filed: 11/08/23 22:07> [facility] Past Medical History Medical History: Medical History Arthritis Diabetes HLD (hyperlipidemia) HTN (hypertension) <Misa Cortes PA-C - Last Filed: 11/09/23 17:15> Surgical History Surgical History: Surgical History No history of previous surgery <Misa Cortes PA-C - Last Filed: 11/09/23 17:15> Social History Social History: Social History Smoking status: Never smoker <Misa Cortes PA-C - Last Filed: 11/09/23 17:15> Exam Narrative: GENERAL: Well appearing, obese with BMI of 37.0, non-toxic, in no acute distress. HEAD: Normocephalic, atraumatic. RESPIRATORY: Airway patent, respirations nonlabored. Clear to auscultation bilaterally, no rales, rhonchi, wheezing. CARDIOVASCULAR: Regular rate and rhythm without murmurs, rubs, or gallops. ABDOMINAL: Soft, mild diffuse nonfocal tenderness, no rebound, nondistended. Normoactive BS. MUSCULOSKELETAL: Moves all extremities. No gross deformities. TTP across anterior chest wall and in midsternal region, reproducing pain. SKIN: Warm, dry, normal color. NEURO: A&O X3. Speech clear. Cranial nerves II-XII grossly intact. Steady gait. N
[2023-11-08 15:34] LABS: Basophils Absolute Auto 0.1 K/mm3 (0.0-0.1); Basophils Percent Auto 0.6 % (0.2-1.2); Eosinophils Absolute Auto 0.1 K/mm3 (0-0.3); Eosinophils Percent Auto 0.6 % (0-4.4); Hemoglobin 12.3 g/dL (12.0-15.0); Immature Granulocyte Absolute 0.02 K/mm3 (0.00-0.031); Immature Granulocyte Percent A 0.2 % (0-0.5); Lymphocytes Absolute Auto 2.67 K/mm3 (0.9-3.2); Lymphocytes Percent Auto 28.3 % (18.3-44.2); Mean Corpuscular HGB Conc 30.8 g/dl (32-36); Mean Corpuscular Hemoglobin 24.9 pg (26-34); Mean Corpuscular Volume 81.1 fl (80-100); Mean Platelet Volume 11.2 fl (7.4-10.4); Monocytes Absolute Auto 0.6 K/mm3 (0.1-0.6); Monocytes Percent Auto 6.1 % (2.6-8.5); Neutrophils Absolute Auto 6.1 K/mm3 (1.3-6.7); Neutrophils Percent Auto 64.2 % (45.5-73.1); Platelet Count Result 274 k/mm3 (150-375); Red Blood Count 4.93 M/mm3 (4.2-5.4); White Blood Count 9.5 K/mm3 (4.5-10.0)
[2023-11-08 15:36] LABS: Alanine Aminotransferase 23 U/L (6-35); Albumin Level 4.4 g/dL (3.5-5.1); Alkaline Phosphatase 89 U/L (38-126); Anion Gap 11 mmol/L (4-12); Aspartate Amino Transferase 25 U/L (14-36); Bilirubin,Total 0.7 mg/dL (0.2-1.3); Blood Urea Nitrogen 12 mg/dL (7-17); Calcium 9.6 mg/dL (8.4-10.2); Carbon Dioxide 26 mmol/L (22-30); Chloride 105 mmol/L (98-107); Estimated CRCL calculation 107 ml/min; Estimated Glomerular Filt Rate > 60; Glucose 74 mg/dL (65-110); Lipase 63 U/L (23-300); Potassium 3.9 mmol/L (3.4-5.0); Sodium 142 mmol/L (137-145)
[2023-11-08 15:37] LABS: INR 1.1; Prothrombin Time 14.5 Seconds (11.1-14.7)
[2023-11-08 15:48] LABS: Troponin I < 0.012 ng/mL (0.000-0.034)
[2023-11-08 18:05] LABS: BEDSIDEPREGUCG Negative
--- NOTE | 2023-11-08 18:06 | ECG_ITS ---
Test Date: 2023-11-08 18:48:41 Measurements Intervals [place] Rate: 72 P: 32 MS: 131 QRS: 11 QRSD: 92 T: 30 QT: 417 QTc: 456 Interpretive Statements SINUS RHYTHM NORMAL ECG Compared to ECG 11/08/2023 15:12:23 NO SIGNIFICANT CHANGE Electronically Signed On 11-09-2023 06:17:12 CDT by Tyrell Moreno D.O.
[2023-11-08] MEDS: ACETAMINOPHEN 500 MG TABLET 1000 MG PO (18:07)
[2023-11-08 18:08] VITALS: PULSE 79
[2023-11-08] MEDS: METOPROLOL TARTRATE 25 MG TABLET PO (18:08)
[2023-11-08] MEDS: ONDANSETRON INJ 4 MG/2 ML VIAL IV PUSH (18:09)
[2023-11-08] MEDS: ASPIRIN 81 MG CHEWABLE TABLET 324 MG PO (18:11)
[2023-11-08 18:17] VITALS: BP 156/83; PULSE 82; RESP 16; O2SAT 100
[2023-11-08 18:21] LABS: Appearance Urine Cloudy (Clear); Bacteria Urine 2+ /hpf; Bilirubin Urine Negative (Negative); Blood Urine 2+ (Negative); Color Urine Dark Yellow (Yellow); Glucose Urine UA Negative (Negative); Ketones Urine 1+ mg/dL (Negative); Leukocyte Esterase Ur Negative LEU/UL (Negative); Need Manual Microscopic Reviewed; Nitrate Urine Negative (Negative); Non Pathogenic Casts 0-2; Protein Urine Trace mg/dL (Negative); RBC Urine >100 /hpf (0-2); Specific Grav Ur 1.023 (1.001-1.035); Squamous Epithelial Cell Urine None Seen /hpf (Few); WBC Urine 0-5 /hpf (0-3); pH Urine 5.5 (5.0-9.0)
[2023-11-08 18:23] LABS: Add Urine Microscopic? YES
--- NOTE | 2023-11-08 18:23 | PC.NURSE ---
patient is quietly talking to herself while staff is in the room doing tasks. able to hold a conversation with good eye contact. patient continues to mumble with any break in conversation.
[2023-11-08 18:36] LABS: Troponin I < 0.012 ng/mL (0.000-0.034)
[2023-11-08] MEDS: metFORMIN HCL 500 MG TABLET PO (19:04)
[2023-11-08] MEDS: LOSARTAN POTASSIUM 100 MG TABLET PO (19:04)
[2023-11-08] MEDS: APIXABAN 2.5 MG TABLET 5 MG PO (19:04)
== END 2023-11-08 19:56 | disposition home or self-care (01) ==
PROVIDERS: Physician Assistant; Emergency Provider Physician Assistant
DX: R07.89 Other chest pain (principal); R10.9 Unspecified abdominal pain; T46.5X6A Underdosing of other antihypertensive drugs, initial encounter; T38.3X6A Underdosing of insulin and oral hypoglycemic [antidiabetic] drugs, initial encounter; T45.516A Underdosing of anticoagulants, initial encounter; I10 Essential (primary) hypertension; E11.9 Type 2 diabetes mellitus without complications; I48.91 Unspecified atrial fibrillation; M19.90 Unspecified osteoarthritis, unspecified site; Z79.01 Long term (current) use of anticoagulants; Z79.84 Long term (current) use of oral hypoglycemic drugs; Z79.899 Other long term (current) drug therapy; R94.31 Abnormal electrocardiogram [ECG] [EKG]
CPT/HCPCS: 36415; 70450; 71046; 74177; 80053; 81001; 81025; 83690; 84484; 85025; 85610; 85730; 93005; 96374; 99284; A9270; J2405; Q9967

== ENCOUNTER 2023-11-12 18:10 | Emergency (ER) | payer OTHER, SELFPAY ==
[2023-11-12] VITALS (14 sets, daily range): BP systolic 130–157; BP diastolic 72–91; PULSE 56–78; RESP 17–22; O2SAT 98–100
--- NOTE | ~2023-11-12 | XR_ITS ---
XR chest 1V portable Ordering provider: Martin Chan APRN History: 48 years Female with . chest pain . Comparison: November 08, 2023 FINDINGS: MEDIASTINUM: The cardiac silhouette is not enlarged. LUNGS: No infiltrates, effusions or pneumothorax. OTHER: No free air under the diaphragm. Degenerative changes of the spine. IMPRESSION: No acute cardiopulmonary pathology. Reviewed, dictated and finalized at location A.
--- NOTE | 2023-11-12 18:07 | ED.CHESTPAIN ---
HPI - Chest Pain General Chief Complaint: Chest Pain Stated Complaint: cp Time Seen by Provider: 11/12/23 18:07 Source: patient Mode of arrival: ambulatory Limitations: no limitations History of Present Illness HPI narrative: Mahsa is a 48-year-old female patient presenting to the emergency room today with complaints midsternal chest pain. She rates her pain currently a 7/10. States the pain is sharp and she is having radiation of pain into her neck and down her right arm. She does report some associated shortness of breath. Symptoms started 3 hours ago when she was walking /shopping. EMS gave patient 324 mg of baby aspirin. Patient does have history of diabetes and history of AFib. Takes Eliquis daily. She denies smoking, recreational drug use, cardiac stents, or history of VT Related Data Allergies Allergy/AdvReac Type Severity Reaction Status Date / Time ibuprofen Allergy Severe Anaphylaxis Verified 11/12/23 18:17 latex Allergy Swelling Verified 11/12/23 18:17 lisinopril Allergy Wheezing Verified 11/12/23 18:20 nitroglycerin Allergy Swelling Verified 11/12/23 18:17 Penicillins Allergy Other Verified 11/12/23 18:17 Sulfa (Sulfonamide Allergy Swelling Verified 11/12/23 18:20 Antibiotics) Review of Systems Review of Systems: Pertinent positives per HPI. Patient denies any fever, chills, rash, headache, visual changes, dizziness, cough, runny nose, sore throat, palpitations, nausea, vomiting, diarrhea, constipation, abdominal pain, or any urinary issues. [facility] Past Medical History Medical History Arthritis Diabetes HLD (hyperlipidemia) HTN (hypertension) Surgical History Surgical History No history of previous surgery Social History Social History Smoking status: Never smoker Comments At the time of my signature, I reviewed and agree with the nursing past medical, surgical, social, and family history. There is no relevant family history pertinent to the patient complaint. Exam Narrative: General: Well-developed, obese, in no apparent distress Head: Normocephalic, atraumatic. Cardio: Regular rate and rhythm, s1 and s2 normal, no murmur appreciated. Resp: Clear to auscultation bilaterally, no rhonchi, rales, wheezing or rubs. Extremities: No deformity, no edema, no cyanosis, capillary refill less than 2 seconds, peripheral pulses palpable and strong. Integumentary: [place], warm, and dry, intact without lesion, no rashes. Course Course Emergency Course: Portions of this record may have been created with voice recognition software. Vital Signs Vital signs: Vital Signs Pulse Rate 74 11/12/23 18:03 Respiratory Rate 18 11/12/23 18:03 Blood Pressure 152/91 H 11/12/23 18:03 Pulse Oximetry 100 11/12/23 18:03 Oxygen Delivery Room Air 11/12/23 18:03 Pulse Rate 78 11/12/23 21:04 Respiratory Rate 18 11/12/23 21:04 Blood Pressure 157/79 H 11/12/23 21:04 Pulse Oximetry 100 11/12/23 21:04 Oxygen Delivery Room Air 11/12/23 19:15 Vital signs reviewed MDM - Chest Pain MDM Narrative Medical decision making narrative: At the time of visit patient is resting comfortably on the exam table. Patient appears to be nontoxic. EKG: EKG shows normal sinus rhythm with heart rate of 77 beats per minute without ST elevation, depression, or T-wave inversion. No changes on repeat EKG Labs: White blood cell count 7.8, H&H 11.2 and 36.1, platelet counts 239, anticoagulation stays within normal limits, D-dimers 0.33, chemistry panels unremarkable, BN peptide is less than 20, troponin is negative at less than 0.012, repeat 3 hour troponin is negative at less than 0.012 Diagnostics: Chest x-ray shows no acute cardiopulmonary process Plan: Heart score is 3. Patient has anemia. Discussed
--- NOTE | 2023-11-12 18:16 | ECG_ITS ---
Test Date: 2023-11-12 18:16:40 Measurements Intervals [place] Rate: 77 P: 40 SD: 121 QRS: 17 QRSD: 90 T: 37 QT: 402 QTc: 458 Interpretive Statements SINUS RHYTHM NORMAL ELECTROCARDIOGRAM Compared to ECG 11/08/2023 18:48:41 No significant changes Electronically Signed On 11-17-2023 10:41:33 CDT by Garfield Nelson M.D.
[2023-11-12 18:26] LABS: Basophils Percent Auto 0.5 % (0.2-1.2); Eosinophils Absolute Auto 0.1 K/mm3 (0-0.3); Hematocrit 36.1 % (37.0-47.0); Hemoglobin 11.2 g/dL (12.0-15.0); Immature Granulocyte Absolute 0.02 K/mm3 (0.00-0.031); Immature Granulocyte Percent A 0.3 % (0-0.5); Lymphocytes Absolute Auto 1.94 K/mm3 (0.9-3.2); Lymphocytes Percent Auto 24.8 % (18.3-44.2); Mean Corpuscular Hemoglobin 25.1 pg (26-34); Mean Corpuscular Volume 80.8 fl (80-100); Monocytes Absolute Auto 0.7 K/mm3 (0.1-0.6); Monocytes Percent Auto 9.1 % (2.6-8.5); Neutrophils Percent Auto 64.3 % (45.5-73.1); Platelet Count Result 239 k/mm3 (150-375); Red Blood Count 4.47 M/mm3 (4.2-5.4); Red Cell Distribution Width 16.7 % (11.5-14.5); White Blood Count 7.8 K/mm3 (4.5-10.0)
[2023-11-12 18:36] LABS: Alanine Aminotransferase 21 U/L (6-35); Albumin Level 4.1 g/dL (3.5-5.1); Alkaline Phosphatase 83 U/L (38-126); Anion Gap 8 mmol/L (4-12); Aspartate Amino Transferase 25 U/L (14-36); Bilirubin,Total 0.6 mg/dL (0.2-1.3); Blood Urea Nitrogen 13 mg/dL (7-17); Calcium 9.4 mg/dL (8.4-10.2); Carbon Dioxide 28 mmol/L (22-30); Chloride 105 mmol/L (98-107); Estimated CRCL calculation 106 ml/min; Estimated Glomerular Filt Rate > 60; Glucose 107 mg/dL (65-110); Potassium 3.7 mmol/L (3.4-5.0); Sodium 141 mmol/L (137-145)
[2023-11-12 18:37] LABS: INR 1.1; Prothrombin Time 14.4 Seconds (11.1-14.7)
[2023-11-12 18:38] LABS: Partial Thromboplastin Time 28.1 Seconds (22.3-36.8)
[2023-11-12 18:48] LABS: Troponin I < 0.012 ng/mL (0.000-0.034)
[2023-11-12 18:49] LABS: D Dimer 0.33 ug/mL (<0.48); NT Pro B Type Natriuretic Pept < 20 pg/mL (19.9-100)
--- NOTE | 2023-11-12 21:07 | ECG_ITS ---
Test Date: 2023-11-12 20:07:37 Measurements Intervals [place] Rate: 70 P: 33 MS: 118 QRS: 13 QRSD: 93 T: 31 QT: 414 QTc: 449 Interpretive Statements SINUS RHYTHM WITH SHORT MS INTERVAL EARLY PRECORDIAL R/S TRANSITION BASELINE ARTIFACT- I, II, AVR, AVL, AVF, V1-V6 BORDERLINE ECG Compared to ECG 11/08/2023 18:48:41 Short MS interval now present Electronically Signed On 11-12-2023 21:11:52 CDT by Tyrell Moreon D.O.
[2023-11-12 21:52] LABS: Troponin I < 0.012 ng/mL (0.000-0.034)
== END 2023-11-12 22:30 | disposition home or self-care (01) ==
PROVIDERS: Emergency Provider Nurse Practitioner Family
DX: R07.89 Other chest pain (principal); D64.9 Anemia, unspecified; I10 Essential (primary) hypertension; I48.91 Unspecified atrial fibrillation; E11.9 Type 2 diabetes mellitus without complications; E78.5 Hyperlipidemia, unspecified; M19.90 Unspecified osteoarthritis, unspecified site; Z79.01 Long term (current) use of anticoagulants; R94.31 Abnormal electrocardiogram [ECG] [EKG]
CPT/HCPCS: 36415; 71045; 80053; 83880; 84484; 85025; 85380; 85610; 85730; 93005; 99284

== ENCOUNTER 2023-12-02 08:55 | Emergency (ER) | payer OTHER, SELFPAY ==
--- NOTE | ~2023-12-02 | CT_ITS ---
EXAMINATION: CTA chest PE abdomen pel DATE: 12/02/2023 12:18 INDICATION: Chest pain and abdominal pain. TECHNIQUE: Computed tomography (CT) pulmonary angiogram of the chest was performed with 100 mL Omnipa que-350 intravenous contrast. Additional 3D reconstructions utilizing coronal maximum intensity proje ction (MIP) were performed. CT of the abdomen and pelvis was performed with intravenous contrast util izing the same contrast bolus following a short delay. Automated exposure control and iterative recon struction technique were employed. The dose-length product was 2343.69 mGy-cm. COMPARISON: None FINDINGS: Chest: No pulmonary embolism. Sensitivity decreased in some of the smaller subsegmental pulmonary arteries i n the upper and lower lung zones due to combination of streak and motion artifact. Mild discoid atele ctasis lingula. No pneumonia, pulmonary edema, pleural effusion or pneumothorax. Heart size is normal . No pericardial or pleural effusion. Thoracic aorta is normal in caliber with no dissection. No path ologically enlarged thoracic lymphadenopathy. Mild thoracic spondylosis. Abdomen/pelvis: 7 mm low-attenuation lesion in the right hepatic lobe which could represent a cyst or hemangioma. Gal lbladder, spleen, pancreas and bilateral adrenal glands are normal. Nonobstructing 3 mm stone at the lower pole of the left kidney. Bilateral renal cysts the largest on the left measuring 1.9 cm. There is moderate colonic sigmoid predominant diverticulosis without adjacent inflammatory change to sugges t diverticulitis. Normal small bowel and appendix. Bladder is normal. The uterus is not identified an d has likely been surgically resected. No free intraperitoneal gas or fluid. No pathologically enlarg ed abdominal or pelvic lymphadenopathy. Mild lumbar spondylosis. IMPRESSION: 1. No pulmonary embolism or other acute cardiopulmonary disease. Sensitivity is decreased in some of the smaller subsegmental pulmonary arteries due to streak and motion artifact. 2. 3 mm nonobstructing left renal stone. Reviewed, dictated and finalized at location A.
[2023-12-02 09:04] VITALS: BP 144/98; PULSE 98; RESP 13; TEMP 36.4; O2SAT 99
--- NOTE | 2023-12-02 11:22 | ECG_ITS ---
Test Date: 2023-12-02 11:37:10 Measurements Intervals [place] Rate: 79 P: 40 PA: 127 QRS: 20 QRSD: 98 T: 39 QT: 413 QTc: 475 Interpretive Statements SINUS RHYTHM NORMAL ELECTROCARDIOGRAM Compared to ECG 11/12/2023 20:07:37 Short PA interval no longer present Electronically Signed On 12-02-2023 13:49:43 CDT by Garfield Nelson M.D.
[2023-12-02 12:10] LABS: Basophils Absolute Auto 0.1 K/mm3 (0.0-0.1); Basophils Percent Auto 0.6 % (0.2-1.2); Eosinophils Absolute Auto 0.2 K/mm3 (0-0.3); Eosinophils Percent Auto 2.1 % (0-4.4); Hematocrit 39.3 % (37.0-47.0); Hemoglobin 12.3 g/dL (12.0-15.0); Immature Granulocyte Absolute 0.03 K/mm3 (0.00-0.031); Immature Granulocyte Percent A 0.4 % (0-0.5); Lymphocytes Absolute Auto 2.16 K/mm3 (0.9-3.2); Mean Corpuscular HGB Conc 31.3 g/dl (32-36); Mean Corpuscular Hemoglobin 25.5 pg (26-34); Mean Corpuscular Volume 81.4 fl (80-100); Mean Platelet Volume 11.7 fl (7.4-10.4); Monocytes Absolute Auto 0.7 K/mm3 (0.1-0.6); Monocytes Percent Auto 8.1 % (2.6-8.5); Neutrophils Percent Auto 61.8 % (45.5-73.1); Platelet Count Result 243 k/mm3 (150-375); Red Blood Count 4.83 M/mm3 (4.2-5.4); Red Cell Distribution Width 15.9 % (11.5-14.5)
[2023-12-02 12:18] LABS: Estimated CRCL calculation 112 ml/min; Estimated Glomerular Filt Rate > 60
[2023-12-02 12:22] LABS: INR 0.8; Prothrombin Time 11.8 Seconds (11.1-14.7)
[2023-12-02 12:23] LABS: Partial Thromboplastin Time 27.3 Seconds (22.3-36.8)
[2023-12-02 12:27] LABS: Alanine Aminotransferase 25 U/L (6-35); Albumin Level 4.2 g/dL (3.5-5.1); Alkaline Phosphatase 135 U/L (38-126); Anion Gap 10 mmol/L (4-12); Aspartate Amino Transferase 28 U/L (14-36); Bilirubin,Total 0.4 mg/dL (0.2-1.3); Blood Urea Nitrogen 14 mg/dL (7-17); Calcium 9.3 mg/dL (8.4-10.2); Carbon Dioxide 28 mmol/L (22-30); Chloride 99 mmol/L (98-107); Estimated CRCL calculation 129 ml/min; Estimated Glomerular Filt Rate > 60; Glucose 83 mg/dL (65-110); Lactic Acid Reflex 2.6 mmol/L (0.7-2.0); Lipase 102 U/L (23-300); Magnesium 1.8 mg/dL (1.6-2.3); Potassium 3.4 mmol/L (3.4-5.0); Sodium 137 mmol/L (137-145)
[2023-12-02 12:30] LABS: Add Urine Microscopic? NO; Appearance Urine Clear (Clear); Bilirubin Urine Negative (Negative); Blood Urine Negative (Negative); Color Urine Yellow (Yellow); Glucose Urine UA Negative (Negative); Ketones Urine Negative (Negative); Leukocyte Esterase Ur Negative LEU/UL (Negative); Nitrate Urine Negative (Negative); Protein Urine Negative (Negative); Specific Grav Ur 1.009 (1.001-1.035); pH Urine 5.5 (5.0-9.0)
[2023-12-02 12:34] LABS: Strep Group A RT-PCR NOT DETECTED (Negative)
[2023-12-02 12:38] LABS: NT Pro B Type Natriuretic Pept < 20 pg/mL (19.9-100); Troponin I < 0.012 ng/mL (0.000-0.034)
[2023-12-02 12:46] LABS: Influenza A QL RT-PCR Negative (Negative); Influenza B QL RT-PCR Negative (Negative); RSV RNA, RT-PCR Negative (Negative); SARS-CoV-2 RNA PCR Negative (Negative)
[2023-12-02 12:51] LABS: Amphetamine Screen Urine Negative (Negative); Barbiturate Screen Urine Negative (Negative); Benzodiazepines Screen Urine Negative (Negative); Cannabinoid Screen Urine Negative (Negative); Cocaine Screen Urine Negative (Negative); Methadone Screen Urine Negative (Negative); Opiate Screen Urine Negative (Negative); Phencyclidine Screen Urine Negative (Negative)
--- NOTE | 2023-12-02 13:55 | ED.GENADULT ---
HPI - General Adult General Chief complaint: Abdominal Pain Stated complaint: abd pain Time Seen by Provider: 12/02/23 11:18 History of Present Illness HPI narrative: patient is a 48-year-old female who presents emergency department with chief complaint of sore throat abdominal pain chest pain and multiple other complaints. The patient states the symptoms are not improved by anything reports she has been seen in the emergency department recently for chest discomfort but this feels a little different. The patient reports he has prior history of atrial fibrillation and reports that she has history of hypertension. Related Data Allergies Allergy/AdvReac Type Severity Reaction Status Date / Time ibuprofen Allergy Severe Anaphylaxis Verified 11/12/23 18:17 latex Allergy Swelling Verified 11/12/23 18:17 lisinopril Allergy Wheezing Verified 11/12/23 18:20 nitroglycerin Allergy Swelling Verified 11/12/23 18:17 Penicillins Allergy Other Verified 11/12/23 18:17 Sulfa (Sulfonamide Allergy Swelling Verified 11/12/23 18:20 Antibiotics) Review of Systems Review of Systems: A 10 system review of systems was completed on the patient and is negative except for what is stated in the HPI. Nursing and ancillary documentation was reviewed. [facility] Past Medical History Medical History Arthritis Diabetes HLD (hyperlipidemia) HTN (hypertension) Surgical History Surgical History No history of previous surgery Social History Social History Smoking status: Never smoker Exam Narrative: GENERAL: Well-appearing, well-nourished, and in no acute distress. HEAD: Normocephalic, atraumatic. EYES: PERRLA and EOMI. ENT: Nares clear, no rhinorrhea or epistaxis. Mucous membranes moist. NECK: Supple. CHEST: Clear to auscultation. No respiratory distress. HEART: Regular rate and rhythm. No murmur heard. Normal peripheral pulses. ABDOMEN: Soft, nontender, nondistended, normal active bowel sounds. EXTREMITIES: Normal range of motion. No edema. SKIN: Warm, dry, no rash. NEURO: No focal deficits. Alert and oriented x3. PSYCH: Normal mood and affect. Course Vital Signs Vital signs: Vital Signs Temperature 36.4 C L 12/02/23 09:04 Pulse Rate 98 12/02/23 09:04 Respiratory Rate 13 12/02/23 09:04 Blood Pressure 144/98 H 12/02/23 09:04 Pulse Oximetry 99 12/02/23 09:04 Temperature 36.4 C L 12/02/23 09:04 Pulse Rate 98 12/02/23 09:04 Respiratory Rate 13 12/02/23 09:04 Blood Pressure 144/98 H 12/02/23 09:04 Pulse Oximetry 99 12/02/23 09:04 Medical Decision Making MDM Narrative Medical decision making narrative: Differential diagnosis includes strep pharyngitis, pulmonary embolism, ACS, chest wall pain, atypical chest pain, abdominal pain, intra-abdominal infection, diverticulitis, colitis, constipation, UTI PA chest with abdomen pelvis showed 1. No pulmonary embolism or other acute cardiopulmonary disease. Sensitivity is decreased in some of the smaller subsegmental pulmonary arteries due to streak and motion artifact. 2. 3 mm nonobstructing left renal stone. laboratory studies showed normal urinalysis CBC was within normal limits CMP was within normal limits. Lactic acid was slightly elevated at 2.6. Urine drug screen was negative COVID flu and RSV were negative strep was negative EKG showed sinus rhythm rate of [address] elevation or ST depression Vital Signs Vital Signs: Vital Signs Temperature 36.4 C L 12/02/23 09:04 Pulse Rate 98 12/02/23 09:04 Respiratory Rate 13 12/02/23 09:04 Blood Pressure 144/98 H 12/02/23 09:04 Pulse Oximetry 99 12/02/23 09:04 Temperature 36.4 C L 12/02/23 09:04 Pulse Rate 98 12/02/23 09:04 Respiratory Rate 13 12/02/23 0
[2023-12-02 14:10] VITALS: BP 159/90; PULSE 100; RESP 16; O2SAT 100
[2023-12-02 15:07] LABS: Reflex Lactic Acid Yes or No Add Lactic
== END 2023-12-02 14:10 | disposition home or self-care (01) ==
PROVIDERS: Emergency Provider Emergency Medicine
DX: B34.9 Viral infection, unspecified (principal); R07.89 Other chest pain; R10.9 Unspecified abdominal pain; Z20.822 Contact with and (suspected) exposure to COVID-19; I48.91 Unspecified atrial fibrillation; I10 Essential (primary) hypertension; E11.9 Type 2 diabetes mellitus without complications; E78.5 Hyperlipidemia, unspecified; M19.90 Unspecified osteoarthritis, unspecified site; N20.0 Calculus of kidney
CPT/HCPCS: 36415; 71275; 74177; 80053; 80307; 81003; 83605; 83690; 83735; 83880; 84484; 85025; 85610; 85730; 87637; 87651; 93005; 99284; Q9967

== ENCOUNTER 2023-12-09 17:42 | Emergency (ER) | payer OTHER, SELFPAY ==
--- NOTE | ~2023-12-09 | CT_ITS ---
EXAMINATION: CT abdomen pelvis w con DATE: 12/10/2023 05:32 INDICATION: Low abdominal pain. TECHNIQUE: Computed tomography (CT) of the abdomen and pelvis was performed with 100 mL Omnipaque 350 intravenous contrast. Automated exposure control and iterative reconstruction technique were employe d. The dose-length product was 1871.27 mGy-cm. COMPARISON: CT abdomen and pelvis 12/02/2023 FINDINGS: The visualized portions of the lung bases demonstrate mild atelectasis. No pleural effusion . The heart size is normal. No pericardial effusion. The liver, gallbladder, spleen, pancreas, adrena l glands, and right kidney are normal. There is a 12 mm cyst in left kidney. There is a 3 mm stone in left kidney. There is diverticulosis of the colon without evidence of diverticulitis. There are no d ilated loops of bowel. The appendix is normal. There are no pathologically enlarged lymph nodes. Ther e is no free intraperitoneal fluid. There is a supraumbilical ventral hernia containing fat. There is mild thoracic and lumbar spondylosis. IMPRESSION: 1. Supraumbilical ventral hernia containing fat. Reviewed, dictated and finalized at location A.
--- NOTE | ~2023-12-09 | XR_ITS ---
EXAMINATION: XR chest 1V portable DATE: 12/10/2023 03:44 INDICATION: Chest pain. TECHNIQUE: A single frontal view of the chest was obtained. COMPARISON: Chest single view 11/12/2023, CT abdomen and pelvis 12/10/2023 FINDINGS: There is no pneumonia, pleural effusion, or pneumothorax. The heart size is normal. IMPRESSION: 1. No acute cardiopulmonary disease. Reviewed, dictated and finalized at location A.
[2023-12-09 18:15] VITALS: BP 152/94; PULSE 77; RESP 18; TEMP 36.7; O2SAT 100
[2023-12-10] VITALS (8 sets, daily range): BP systolic 124–138; BP diastolic 72–83; PULSE 62–90; RESP 12–18; O2SAT 95–100
--- NOTE | 2023-12-10 01:46 | PC.NURSE ---
Patient called for room assignment, no answer. Will call again.
--- NOTE | 2023-12-10 01:47 | PC.NURSE ---
Patient noted to be sleeping in waiting room, easily arousable.
--- NOTE | 2023-12-10 02:37 | ED.ABDPAIN ---
HPI - Abdominal Pain General Chief Complaint: Abdominal Pain Stated Complaint: abd pain Time Seen by Provider: 12/10/23 02:35 Source: patient Mode of arrival: ambulatory Limitations: no limitations History of Present Illness HPI narrative: Patient presents with complaint of low abdominal pain. States her back is throbbing. Also complaining of stabbind chest pain and stabbing pains in her neck which she states feels frozen. Symptoms began 1 hour prior to arrival. States this has never happened before. JASWANT was awhile ago, 1-2 days ago. LMP was in 2009; amenorrheic after hysterectomy. Does note she had some vaginal bleeding yesterday and today but no other discharge. LBM was firm but regular. Denies diarrhea or blood. States her urine was dark and has been having urinary urgency/frequency. Related Data Allergies Allergy/AdvReac Type Severity Reaction Status Date / Time ibuprofen Allergy Severe Anaphylaxis Verified 12/10/23 13:32 latex Allergy Swelling Verified 12/10/23 13:32 lisinopril Allergy Wheezing Verified 12/10/23 13:32 Penicillins Allergy Other Verified 12/10/23 13:32 Sulfa (Sulfonamide Allergy Swelling Verified 12/10/23 13:32 Antibiotics) [facility] Past Medical History Medical History (Updated 12/11/23 @ 00:00 by Background Daemon) Arthritis Diabetes HLD (hyperlipidemia) HTN (hypertension) Surgical History Surgical History History of hysterectomy 2009 Social History Social History Smoking status: Never smoker Exam Narrative: GENERAL: Well-appearing, well-nourished, and in no acute distress. HEAD: Normocephalic, atraumatic. EYES: Non injected, non icteric ENT: Nares clear, no rhinorrhea or epistaxis. NECK: Supple. CHEST: Speaking in full sentences. No respiratory distress. HEART: Regular rate and rhythm. . ABDOMEN: Soft, nondistended. Mild TTP in lower quadrants but without rigidity or guarding. Not peritoneal. EXTREMITIES: Normal range of motion. No lower extremity edema. SKIN: Warm, dry, no rash. NEURO: No focal deficits. Alert and oriented x3. PSYCH: Normal mood and affect. Course Vital Signs Vital signs: Vital Signs Temperature 98.1 F 12/09/23 18:15 Pulse Rate 77 12/09/23 18:15 Respiratory Rate 18 12/09/23 18:15 Blood Pressure 152/94 H 12/09/23 18:15 Pulse Oximetry 100 12/09/23 18:15 Temperature 98.1 F 12/09/23 18:15 Pulse Rate 66 12/10/23 06:14 Respiratory Rate 14 12/10/23 06:14 Blood Pressure 138/80 12/10/23 04:47 Pulse Oximetry 99 12/10/23 04:47 MDM - Abdominal Pain MDM Narrative Medical decision making narrative: Patient presents with multiple complaints. Initially in traige had endorsed abdominal pain. Also noting chest pain and stabbing pains in neck along with firm stools and some new onset vaginal bleeding though previously amenorrheic. Also urinary urgency/frequency. In the ED she is afebrile with VS notable for hypertension. Work up largely unremarkable. Had initially considered deferring imaging and treating symptomatically first, especially given patient had somewhat recently had imaging and her symptoms today don't fit a clear etiology, however she did have some tenderness to palpation of the lower quadrants so proceeded with imaging. Patient is reassessed at 6:[address] abdomen has resulted and is unremarkable. She states that she is having difficulty breathing after receiving the contrast from the CT scan. She states she has a history of asthma. Lungs are clear on auscultation bilaterally without appreciable wheezes but will administer albuterol treatment for symptoms. Patient discharged in stable condition. Differential Diagnosis Differential diagnosis: Likely abdominal pain, constipation, diverticulitis, endometriosis and small bowel obstruction Medical Records Attestation: I reviewed the pat
--- NOTE | 2023-12-10 03:16 | ECG_ITS ---
Test Date: 2023-12-10 04:02:09 Measurements Intervals [place] Rate: 64 P: 41 AL: 131 QRS: 18 QRSD: 93 T: 30 QT: 439 QTc: 455 Interpretive Statements SINUS RHYTHM NORMAL ELECTROCARDIOGRAM Compared to ECG 12/02/2023 11:37:10 No significant changes Electronically Signed On 12-11-2023 07:29:11 CDT by Garfield Nelson M.D.
[2023-12-10] MEDS: SODIUM CHLORIDE 0.9% IV 1,000 ML 999 ML IV CONT (04:08)
[2023-12-10] MEDS: MORPHINE SULFATE (*CRX) 4 MG/ML INJ IV PUSH (04:10)
[2023-12-10] MEDS: ASPIRIN 81 MG CHEWABLE TABLET 324 MG PO (04:11)
[2023-12-10 04:29] LABS: Basophils Percent Auto 0.6 % (0.2-1.2); Eosinophils Absolute Auto 0.1 K/mm3 (0-0.3); Eosinophils Percent Auto 2.1 % (0-4.4); Hematocrit 35.6 % (37.0-47.0); Hemoglobin 11.2 g/dL (12.0-15.0); Immature Granulocyte Absolute 0.02 K/mm3 (0.00-0.031); Immature Granulocyte Percent A 0.3 % (0-0.5); Lymphocytes Percent Auto 33.2 % (18.3-44.2); Mean Corpuscular HGB Conc 31.5 g/dl (32-36); Mean Corpuscular Hemoglobin 25.6 pg (26-34); Mean Corpuscular Volume 81.5 fl (80-100); Monocytes Absolute Auto 0.6 K/mm3 (0.1-0.6); Monocytes Percent Auto 8.7 % (2.6-8.5); Neutrophils Absolute Auto 3.5 K/mm3 (1.3-6.7); Neutrophils Percent Auto 55.1 % (45.5-73.1); Platelet Count Result 238 k/mm3 (150-375); Red Blood Count 4.37 M/mm3 (4.2-5.4); Red Cell Distribution Width 15.9 % (11.5-14.5); White Blood Count 6.3 K/mm3 (4.5-10.0)
[2023-12-10 04:40] LABS: Add Urine Microscopic? YES; Appearance Urine Cloudy (Clear); Bacteria Urine Rare /hpf; Bilirubin Urine Negative (Negative); Blood Urine Negative (Negative); Calcium Oxalate Crystals Urine Present /hpf; Color Urine Yellow (Yellow); Glucose Urine UA Negative (Negative); Ketones Urine Negative (Negative); Leukocyte Esterase Ur Negative LEU/UL (Negative); Need Manual Microscopic Reviewed; Nitrate Urine Negative (Negative); Non Pathogenic Casts 0-2; Protein Urine Negative (Negative); RBC Urine 0-2 /hpf (0-2); Specific Grav Ur 1.026 (1.001-1.035); Squamous Epithelial Cell Urine Occasional /hpf (Few); WBC Urine 0-5 /hpf (0-3); pH Urine 5.5 (5.0-9.0)
[2023-12-10 04:45] LABS: Alanine Aminotransferase 32 U/L (6-35); Albumin Level 3.8 g/dL (3.5-5.1); Alkaline Phosphatase 84 U/L (38-126); Anion Gap 6 mmol/L (4-12); Aspartate Amino Transferase 32 U/L (14-36); Bilirubin,Total 0.5 mg/dL (0.2-1.3); Blood Urea Nitrogen 15 mg/dL (7-17); Calcium 9.2 mg/dL (8.4-10.2); Carbon Dioxide 30 mmol/L (22-30); Chloride 104 mmol/L (98-107); Estimated Glomerular Filt Rate > 60; Glucose 144 mg/dL (65-110); Lipase 81 U/L (23-300); Potassium 3.3 mmol/L (3.4-5.0); Sodium 140 mmol/L (137-145)
[2023-12-10 04:57] LABS: Troponin I < 0.012 ng/mL (0.000-0.034)
[2023-12-10 05:04] LABS: Influenza A QL RT-PCR Negative (Negative); Influenza B QL RT-PCR Negative (Negative); SARS-CoV-2 RNA PCR Negative (Negative)
[2023-12-10] MEDS: ALBUTEROL SULFATE NEB 2.5 MG/3 ML INH INHALATION (06:07)
[2023-12-10] MEDS: POTASSIUM BICARBONATE 25 MEQ TABEF PO (06:34)
== END 2023-12-10 07:17 | disposition home or self-care (01) ==
PROVIDERS: Emergency Provider Student in an Organized Health Care Education/Training Program
DX: R10.30 Lower abdominal pain, unspecified (principal); D64.9 Anemia, unspecified; E87.6 Hypokalemia; R07.9 Chest pain, unspecified; K43.9 Ventral hernia without obstruction or gangrene; E11.65 Type 2 diabetes mellitus with hyperglycemia; I10 Essential (primary) hypertension; E78.5 Hyperlipidemia, unspecified; M19.90 Unspecified osteoarthritis, unspecified site; Z90.710 Acquired absence of both cervix and uterus
CPT/HCPCS: 36415; 71045; 74177; 80053; 81001; 83690; 84484; 85025; 87636; 93005; 94640; 96361; 96374; 99284; A9270; J2270; J7030; Q9967

== ENCOUNTER 2023-12-10 13:01 | Emergency (ER) | payer OTHER, SELFPAY ==
--- NOTE | 2023-12-10 13:07 | ECG_ITS ---
Test Date: 2023-12-10 13:07:47 Measurements Intervals [place] Rate: 81 P: 40 [place]: 115 QRS: 17 QRSD: 114 T: 37 QT: 396 QTc: 461 Interpretive Statements SINUS RHYTHM WITH SINUS ARRHYTHMIA WITH SHORT [place] INTERVAL NORMAL ELECTROCARDIOGRAM Compared to ECG 12/10/2023 04:02:09 NO DIFFERENCE Electronically Signed On 12-12-2023 07:09:44 CDT by Garfield Nelson M.D.
[2023-12-10 13:32] VITALS: BP 141/83; PULSE 82; RESP 16; TEMP 36.4; O2SAT 97
--- NOTE | 2023-12-10 17:33 | PC.NURSE ---
Patient did not answer page for repeat vitals and not seen in the waiting room
== END 2023-12-10 18:46 | disposition left against medical advice (07) ==
PROVIDERS: Emergency Provider Physician Assistant
DX: R07.9 Chest pain, unspecified (principal)
CPT/HCPCS: 93005; 99199

== ENCOUNTER 2023-12-11 00:53 | Emergency (ER) | payer OTHER, SELFPAY ==
[2023-12-11 01:11] VITALS: BP 154/76; PULSE 91; RESP 15; TEMP 36.6; O2SAT 100
== END 2023-12-11 07:52 | disposition left against medical advice (07) ==
LOC: ANHED 07:52
DX: N93.9 Abnormal uterine and vaginal bleeding, unspecified (principal)
CPT/HCPCS: 99199

== ENCOUNTER 2024-01-09 00:44 | Emergency (ER) | payer OTHER, SELFPAY ==
--- NOTE | ~2024-01-09 | XR_ITS ---
Clinical Indication: Chest pressure PA and lateral views of the chest: Comparison: 12/10/2023 Findings: The lungs are clear, without evidence of focal consolidation or pleural effusion. Cardiome diastinal silhouette is within normal limits. Bones and soft tissues are unremarkable. Impression: Normal chest. Reviewed, dictated and finalized at location . Impression: Normal chest.
[2024-01-09 00:44] VITALS: BP 156/89; PULSE 61; RESP 15; TEMP 36.4; O2SAT 100
--- NOTE | 2024-01-09 00:47 | ECG_ITS ---
Test Date: 2024-01-09 00:49:49 Measurements Intervals [place] Rate: 58 P: 48 [place]: 118 QRS: 30 QRSD: 97 T: 42 QT: 442 QTc: 435 Interpretive Statements SINUS BRADYCARDIA WITH SHORT [place] INTERVAL BASELINE ARTIFACT- I, II, III, AVR, AVL, AVF, V1-V6 BORDERLINE ECG Compared to ECG 12/10/2023 13:07:47 HEART RATE HAS DECREASED Electronically Signed On 01-09-2024 06:28:18 CDT by Tyrell Moreno D.O.
[2024-01-09 00:51] VITALS: O2SAT 97
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
[2024-01-09 01:05] LABS: Basophils Percent Auto 0.6 % (0.2-1.2); Eosinophils Absolute Auto 0.1 K/mm3 (0-0.3); Eosinophils Percent Auto 1.9 % (0-4.4); Hematocrit 39.3 % (37.0-47.0); Immature Granulocyte Absolute 0.01 K/mm3 (0.00-0.031); Immature Granulocyte Percent A 0.1 % (0-0.5); Lymphocytes Absolute Auto 2.62 K/mm3 (0.9-3.2); Lymphocytes Percent Auto 36.3 % (18.3-44.2); Mean Corpuscular HGB Conc 30.5 g/dl (32-36); Mean Corpuscular Hemoglobin 24.8 pg (26-34); Mean Corpuscular Volume 81.4 fl (80-100); Mean Platelet Volume 11.4 fl (7.4-10.4); Monocytes Absolute Auto 0.5 K/mm3 (0.1-0.6); Monocytes Percent Auto 6.8 % (2.6-8.5); Neutrophils Absolute Auto 3.9 K/mm3 (1.3-6.7); Neutrophils Percent Auto 54.3 % (45.5-73.1); Platelet Count Result 239 k/mm3 (150-375); Red Blood Count 4.83 M/mm3 (4.2-5.4); Red Cell Distribution Width 15.9 % (11.5-14.5); White Blood Count 7.2 K/mm3 (4.5-10.0)
[2024-01-09 01:14] LABS: Alanine Aminotransferase 27 U/L (6-35); Albumin Level 4.2 g/dL (3.5-5.1); Alkaline Phosphatase 95 U/L (38-126); Anion Gap 8 mmol/L (4-12); Aspartate Amino Transferase 32 U/L (14-36); Bilirubin,Total 0.2 mg/dL (0.2-1.3); Blood Urea Nitrogen 7 mg/dL (7-17); Calcium 9.3 mg/dL (8.4-10.2); Carbon Dioxide 31 mmol/L (22-30); Chloride 99 mmol/L (98-107); Estimated Glomerular Filt Rate > 60; Glucose 161 mg/dL (65-110); Lipase 65 U/L (23-300); Potassium 3.3 mmol/L (3.4-5.0); Sodium 138 mmol/L (137-145)
[2024-01-09 01:16] LABS: Partial Thromboplastin Time 26.1 Seconds (22.3-36.8)
[2024-01-09 01:25] LABS: NT Pro B Type Natriuretic Pept 149 pg/mL (19.9-100)
[2024-01-09 01:26] LABS: Troponin I < 0.012 ng/mL (0.000-0.034)
[2024-01-09] MEDS: ASPIRIN 81 MG CHEWABLE TABLET 324 MG PO (01:44)
[2024-01-09] MEDS: POTASSIUM CHLORIDE 20 MEQ ER TABLET PO (01:44)
[2024-01-09] MEDS: ACETAMINOPHEN 500 MG TABLET 1000 MG PO (01:44)
== END 2024-01-09 01:58 | disposition home or self-care (01) ==
PROVIDERS: Emergency Medicine; Emergency Provider Physician Assistant
DX: M94.0 Chondrocostal junction syndrome [Tietze] (principal); M19.90 Unspecified osteoarthritis, unspecified site; E11.9 Type 2 diabetes mellitus without complications; I10 Essential (primary) hypertension
CPT/HCPCS: 36415; 71046; 80053; 83690; 83735; 83880; 84484; 85025; 85610; 85730; 93005; 99284; A9270

== ENCOUNTER 2024-01-09 20:55 | Emergency (ER) | payer OTHER, SELFPAY ==
[2024-01-09 21:53] VITALS: BP 161/98; PULSE 70; RESP 16; TEMP 36.5; O2SAT 100
--- NOTE | 2024-01-10 04:18 | ED.GENADULT ---
HPI - General Adult General Chief complaint: Unspecified Stated complaint: neck pain Time Seen by Provider: 01/10/24 04:11 History of Present Illness HPI narrative: Patient is a 48-year-old female who presents to the emergency department this evening complaining of a sore throat and swollen glands in her neck. Patient admits that she has been having symptoms of a URI recently, denies any fevers or chills at home. Admits to a mild cough, denies any chest pain, admits to mild shortness of breath. Patient denies any additional symptoms or concerns at this time. Related Data Allergies Allergy/AdvReac Type Severity Reaction Status Date / Time ibuprofen Allergy Severe Anaphylaxis Verified 01/09/24 22:02 latex Allergy Swelling Verified 01/09/24 22:02 lisinopril Allergy Wheezing Verified 01/09/24 22:02 Penicillins Allergy Other Verified 01/09/24 22:02 Sulfa (Sulfonamide Allergy Swelling Verified 01/09/24 22:02 Antibiotics) Review of Systems Review of Systems: All systems are reviewed and are negative unless stated otherwise in the HPI. [facility] Past Medical History Medical History Arthritis Diabetes HLD (hyperlipidemia) HTN (hypertension) Surgical History Surgical History History of hysterectomy 2009 Social History Social History Smoking status: Never smoker Exam Narrative: General: Alert, awake, afebrile, in no acute distress. HEENT: PERRL, no rhinorrhea, no post nasal drip, oropharynx clear without exudate, no cervical lymphadenopathy. Cardiovascular: Regular rate and rhythm, no murmurs, rubs or gallops, no peripheral edema. Respiratory: Clear to auscultation bilaterally, no tachypnea, no wheezing, no rhonchi, no rubs, no respiratory distress. Abdomen: Soft, nontender, nondistended, no rebound, no guarding, no peritoneal signs. Musculoskeletal: No joint swelling or deformity, normal muscle tone. Skin: No rashes or petechia, no signs of infection. Neurological: Alert and oriented to person, place, and time. Follows all commands. No focal deficits, speech is clear and fluent. Course Vital Signs Vital signs: Vital Signs Temperature 97.7 F 01/09/24 21:53 Pulse Rate 70 01/09/24 21:53 Respiratory Rate 16 01/09/24 21:53 Blood Pressure 161/98 H 01/09/24 21:53 Pulse Oximetry 100 01/09/24 21:53 Oxygen Delivery Room Air 01/09/24 21:53 Temperature 97.7 F 01/09/24 21:53 Pulse Rate 70 01/10/24 05:45 Respiratory Rate 16 01/10/24 05:45 Blood Pressure 148/82 H 01/10/24 05:45 Pulse Oximetry 100 01/10/24 05:45 Oxygen Delivery Room Air 01/09/24 21:53 Medical Decision Making MDM Narrative Medical decision making narrative: The patient was evaluated by myself in the emergency department. History is obtained from patient who is an independent historian and physical exam was performed. External medical records were reviewed at this time. Viral swabs were obtained and noted to be negative. Patient was administered 200 mg of benzonatate. Differential diagnosis considerations include acute viral syndrome, COVID infection, influenza and infectious process such as pneumonia. Patient had a chest x-ray performed yesterday at our facility revealing a no acute cardiopulmonary process. Comorbidities impacting this visit include none. I have evaluated and discussed social determinants of health with the patient that could potentially impact subsequent diagnosis and treatment plans. On repeat assessment of the patient, reevaluation revealed that the patient is doing well and is in no acute distress. Patient symptoms have improved since she arrived to our emergency department. Repeat vital signs were all reviewed and noted to be stable. Differential diagnosis and treatment plan were discussed with the patient at
[2024-01-10 04:19] VITALS: RESP 16
[2024-01-10] MEDS: BENZONATATE 100 MG CAPSULE 200 MG PO (04:34)
[2024-01-10 05:23] LABS: Influenza A QL RT-PCR Negative (Negative); Influenza B QL RT-PCR Negative (Negative); SARS-CoV-2 RNA PCR Negative (Negative)
[2024-01-10 05:45] VITALS: BP 148/82; PULSE 70; RESP 16; O2SAT 100
== END 2024-01-10 05:48 | disposition home or self-care (01) ==
LOC: ANHED 01-10 04:30
PROVIDERS: Emergency Provider Emergency Medicine
DX: B34.9 Viral infection, unspecified (principal); Z20.822 Contact with and (suspected) exposure to COVID-19; M19.90 Unspecified osteoarthritis, unspecified site; E11.9 Type 2 diabetes mellitus without complications; E78.5 Hyperlipidemia, unspecified; I10 Essential (primary) hypertension
CPT/HCPCS: 36415; 71046; 80053; 83690; 83735; 83880; 84484; 85025; 85610; 85730; 87636; 93005; 99283; 99284; A9270

== ENCOUNTER 2024-01-24 21:18 | Emergency (ER) | payer OTHER, SELFPAY ==
[2024-01-24 21:29] VITALS: BP 171/90; PULSE 69; RESP 17; TEMP 36.5; O2SAT 100
[2024-01-24 21:53] VITALS: O2SAT 98
[2024-01-24 22:13] LABS: Influenza A QL RT-PCR Negative (Negative); Influenza B QL RT-PCR Negative (Negative); RSV RNA, RT-PCR Negative (Negative); SARS-CoV-2 RNA PCR Negative (Negative)
--- NOTE | 2024-01-24 22:43 | ED.GENADULT ---
[facility] - General Adult General Chief complaint: Upper Respiratory Infection Stated complaint: chest pain, stuffy nose Time Seen by Provider: 01/24/24 22:18 Source: patient Mode of arrival: ambulatory Limitations: no limitations History of Present Illness [facility] narrative: This is a 48-year-old female who presents to the ED for chief complaint of cough, chest and nasal congestion x2 days. Reports sinus pressure for the past 3 days. Reports the chest discomfort is due to the cough. She received her flu and COVID shot 4 days ago. Endorses subjective fevers. Denies productive cough, exertional chest pain, shortness of breath, back pain, abdominal pain, nausea, vomiting or sore throat. Related Data Allergies Allergy/AdvReac Type Severity Reaction Status Date / Time ibuprofen Allergy Severe Anaphylaxis Verified 01/09/24 22:02 latex Allergy Swelling Verified 01/09/24 22:02 lisinopril Allergy Wheezing Verified 01/09/24 22:02 Penicillins Allergy Other Verified 01/09/24 22:02 Sulfa (Sulfonamide Allergy Swelling Verified 01/09/24 22:02 Antibiotics) Review of Systems Review of Systems: All systems as dictated in [facility] Past Medical History Medical History Arthritis Diabetes HLD (hyperlipidemia) HTN (hypertension) Surgical History Surgical History History of hysterectomy 2009 Social History Social History Smoking status: Never smoker Exam Narrative: GENERAL: Well-appearing, well-nourished, and in no acute distress. HEAD: Normocephalic, atraumatic. EYES: PERRLA and EOMI. ENT: Nares clear, no rhinorrhea or epistaxis. Mucous membranes moist. Oropharynx without tonsillar hypertrophy exudate or other lesions. NECK: Supple. No adenopathy or masses. CHEST: No respiratory distress. Clear to auscultation. No wheezes rales or rhonchi HEART: Regular rate and rhythm. No murmur heard. Normal peripheral pulses. ABDOMEN: Soft, nontender, nondistended, normal active bowel sounds. MSK: Normal range of motion. No edema. SKIN: Warm, dry, no rash. NEURO: Alert and oriented x4. No focal deficits. PSYCH: Normal mood and affect. Course Vital Signs Vital signs: Vital Signs Temperature 97.7 F 01/24/24 21:29 Pulse Rate 69 01/24/24 21:29 Respiratory Rate 17 01/24/24 21:29 Blood Pressure 171/90 H 01/24/24 21:29 Pulse Oximetry 100 01/24/24 21:29 Oxygen Delivery Room Air 01/24/24 21:29 Temperature 97.7 F 01/24/24 21:29 Pulse Rate 69 01/24/24 21:29 Respiratory Rate 17 01/24/24 21:29 Blood Pressure 171/90 H 01/24/24 21:29 Pulse Oximetry 98 01/24/24 21:53 Oxygen Delivery Room Air 01/24/24 21:53 Medical Decision Making MDM Narrative Medical decision making narrative: This is a 48 yo female who presents to the ED for chief complaint of cough, congestion x2 days. Vitals showing elevated blood pressure but otherwise normal. Exam is benign. Viral swabs are negative. Presentation is consistent with viral URI. Patient will be discharged in stable condition. Supportive measures discussed and return precautions given. Patient is understanding and agreeable with plan for discharge with PCP follow-up. Vital Signs Vital Signs: Vital Signs Temperature 97.7 F 01/24/24 21:29 Pulse Rate 69 01/24/24 21:29 Respiratory Rate 17 01/24/24 21:29 Blood Pressure 171/90 H 01/24/24 21:29 Pulse Oximetry 100 01/24/24 21:29 Oxygen Delivery Room Air 01/24/24 21:29 Temperature 97.7 F 01/24/24 21:29 Pulse Rate 69 01/24/24 21:29 Respiratory Rate 17 01/24/24 21:29 Blood Pressure 171/90 H 01/24/24 21:29 Pulse Oximetry 98 01/24/24 21:53 Oxygen Delivery Room Air 01/24/24 21:53 Lab Data Labs: Lab Results 01/24/24 Range/Units 21:31 Influenza A (RT-PCR) Negative (Negative)
== END 2024-01-24 23:06 | disposition home or self-care (01) ==
LOC: ANHED 22:59
PROVIDERS: Emergency Medicine; Emergency Provider Physician Assistant
DX: J06.9 Acute upper respiratory infection, unspecified (principal); Z20.822 Contact with and (suspected) exposure to COVID-19; E11.9 Type 2 diabetes mellitus without complications; E78.5 Hyperlipidemia, unspecified; I10 Essential (primary) hypertension; M19.90 Unspecified osteoarthritis, unspecified site; Z90.710 Acquired absence of both cervix and uterus
CPT/HCPCS: 87637; 99283

== ENCOUNTER 2024-02-12 17:53 | Emergency (ER) | payer OTHER, SELFPAY ==
--- NOTE | ~2024-02-12 | XR_ITS ---
XR chest 2V Ordering provider: Misa Cortes PA-C History: 48 years Female with . dizziness HIGH BP . Comparison: January 09, 2024 FINDINGS: MEDIASTINUM: The cardiac silhouette is not enlarged. LUNGS: No infiltrates, effusions or pneumothorax. Slightly prominent markings bilaterally. OTHER: No free air under the diaphragm. IMPRESSION: No definite acute cardiopulmonary pathology. Reviewed, dictated and finalized at location A.
[2024-02-12 18:14] VITALS: BP 162/102; PULSE 100; RESP 20; TEMP 36.6; O2SAT 100
--- NOTE | 2024-02-12 18:38 | ED.GENADULT ---
HPI - General Adult General Chief complaint: Recheck/Abnormal Lab/Rx <Shasta Rodríguez Figueroa, GRADUATION COACH - Last Filed: 02/12/24 19:27> Stated complaint: elevated BP <Shastagill Figueroa GRADUATION COACH - Last Filed: 02/12/24 19:27> Time Seen by Provider: 02/12/24 18:25 <Shastagill Figueroa GRADUATION COACH - Last Filed: 02/12/24 19:27> Focused HPI: patient is a 48-year-old female presents to the ER with complaints dizziness and high blood pressure. She reports she went to her primary care provider earlier today, but they told her she they could not do anything for me so she decided to come to the ER for evaluation. Patient denies chest pain, shortness of breath, other signs/symptoms of infection. She reports history of high blood pressure and diabetes. Patient also endorses lower extremity swelling. GENERAL: Well-appearing, well-nourished, and in no acute distress. HEAD: Normocephalic, atraumatic. CHEST: Clear to auscultation. ?No respiratory distress. HEART: Regular rate and rhythm.?Mildly edematous bilateral lower extremities. NEURO: ?Alert and oriented x3. Patient screened in triage and initial orders placed.? ?Additional care and disposition to be based upon?diagnostic testing and treatment. <Shastagill Figueroa, GRADUATION COACH - Last Filed: 02/12/24 19:27> Focused HPI: Patient is a 48-year-old female presents to the ER with complaints dizziness and high blood pressure. She reports she went to her primary care provider earlier today, but they told her she they could not do anything for me so she decided to come to the ER for evaluation. Patient denies chest pain, shortness of breath, other signs/symptoms of infection. She reports history of high blood pressure and diabetes. Patient also endorses lower extremity swelling. GENERAL: Well-appearing, well-nourished, and in no acute distress. HEAD: Normocephalic, atraumatic. CHEST: Clear to auscultation. ?No respiratory distress. HEART: Regular rate and rhythm.?Mildly edematous bilateral lower extremities. NEURO: ?Alert and oriented x3. Patient screened in triage and initial orders placed.? ?Additional care and disposition to be based upon?diagnostic testing and treatment. <Misa Cortes PA-C - Last Filed: 02/13/24 02:02> Related Data Allergies/adverse reactions: Allergies Allergy/AdvReac Type Severity Reaction Status Date / Time ibuprofen Allergy Severe Anaphylaxis Verified 02/12/24 17:53 latex Allergy Swelling Verified 02/12/24 17:53 lisinopril Allergy Wheezing Verified 02/12/24 17:53 Penicillins Allergy Other Verified 02/12/24 17:53 Sulfa (Sulfonamide Allergy Swelling Verified 02/12/24 17:53 Antibiotics) <Shasta Figueroa APRN - Last Filed: 02/12/24 19:27> Review of Systems Review of Systems: CONSTITUTIONAL: Denies fever CARDIOVASCULAR: Denies chest pain RESPIRATORY: Denies dyspnea. <Misa Cortes PA-C - Last Filed: 02/13/24 02:02> All systems reviewed & are unremarkable except as noted in HPI and below <Misa Cortes PA-C - Last Filed: 02/13/24 02:02> PMFSH Past Medical History Medical History: Medical History Arthritis Diabetes HLD (hyperlipidemia) HTN (hypertension) <Shasta Figueroa APRN - Last Filed: 02/12/24 19:27> Surgical History Surgical History: Surgical History History of hysterectomy 2009 <Shasta Figueroa APRN - Last Filed: 02/12/24 19:27> Social History Social History: Social History Smoking status: Never smoker <Shasta Figueroa APRN - Last Filed: 02/12/24 19:27> Exam Narrative: GENERAL: Well-appearing, well-nourished, and in no acute distress. HEAD: Normocephalic, atraumatic. EYES: EOMI. ENT: Nares clear, no rhinorrhea or epistaxis. Mucous membranes moist. Oropharynx without tonsillar hypertrophy exudate or other lesions. NECK: Supple. No adenopathy or masses. No JVD CHEST: Clear to auscultation. No respiratory distress. No wheezes rales or rhonchi HEART: Regular rate and rhythm. No murmur heard. Normal peripheral pulses. EXTREMITIES: Normal range of motion. No edema. SKIN: Warm, dry, no rash. NEURO: No focal deficits. Alert and oriented x3. PSYCH: Normal mood and affect <Misa Cortes PA-C - Last Filed: 02/13/24 02:02> Course Course Emergency Course: Patient updated on her workup and agrees with plan of care <Misa Cortes PA-C - Last Filed: 02/13/24 02:02> Vital Signs Vital signs: Vital Signs Temperature 98 F 02/12/24 18:14 Pulse Rate 100 02/12/24 18:14 Respiratory Rate 20 02/12/24 18:14 Blood Pressure 162/102 H 02/12/24 18:14 Pulse Oximetry 100 02/12/24 18:14 Oxygen Delivery Room Air 02/12/24 18:14 Temperature 98 F 02/12/24 18:14 Pulse Rate 72 02/13/24 01:47 Respiratory Rate 17 02/13/24 01:47 Blood Pressure 132/74 02/13/24 01:47 Pulse Oximetry 100 02/13/24 01:47 Oxygen Delivery Room Air 02/12/24 18:14 <Shasta Figueroa APRN - Last Filed: 02/12/24 19:27> Vital Signs Temperature 98 F 02/12/24 18:14 Pulse Rate 100 02/12/24 18:14 Respiratory Rate 20 02/12/24 18:14 Blood Pressure 162/102 H 02/12/24 18:14 Pulse Oximetry 100 02/12/24 18:14 Oxygen Delivery Room Air 02/12/24 18:14 Temperature 98 F 02/12/24 18:14 Pulse Rate 72 02/13/24 01:47 Respiratory Rate 17 02/13/24 01:47 Blood Pressure 132/74 02/13/24 01:47 Pulse Oximetry 100 02/13/24 01:47 Oxygen Delivery Room Air 02/12/24 18:14 <Misa Cortes PA-C - Last Filed: 02/13/24 02:02> Medical Decision Making MDM Narrative Medical decision making narrative: Patient presents to the emergency department for elevated blood pressure. Reporting some dizziness and lower extremity edema. Recently has been out of her blood pressure medication. Patient is neurologically intact. Blood pressure 140s to 160s systolic. CBC and metabolic panel without concerning findings. Chest x-ray without acute cardiopulmonary abnormality. Baseline troponin is negative. Patient will be prescribed her blood pressure medications. Instructed to follow up with primary provider. She was given warnings to return to the ER <Misa Cortes PA-C - Last Filed: 02/13/24 02:02> Differential Diagnosis Differential Diagnosis: Hypertension, hypertensive urgency <Misa Cortes PA-C - Last Filed: 02/13/24 02:02> Vital Signs Vital Signs: Vital Signs Temperature 98 F 02/12/24 18:14 Pulse Rate 100 02/12/24 18:14 Respiratory Rate 20 02/12/24 18:14 Blood Pressure 162/102 H 02/12/24 18:14 Pulse Oximetry 100 02/12/24 18:14 Oxygen Delivery Room Air 02/12/24 18:14 Temperature 98 F 02/12/24 18:14 Pulse Rate 72 02/13/24 01:47 Respiratory Rate 17 02/13/24 01:47 Blood Pressure 132/74 02/13/24 01:47 Pulse Oximetry 100 02/13/24 01:47 Oxygen Delivery Room Air 02/12/24 18:14 <Shasta Figueroa APRN - Last Filed: 02/12/24 19:27> Vital Signs Temperature 98 F 02/12/24 18:14 Pulse Rate 100 02/12/24 18:14 Respiratory Rate 20 02/12/24 18:14 Blood Pressure 162/102 H 02/12/24 18:14 Pulse Oximetry 100 02/12/24 18:14 Oxygen Delivery Room Air 02/12/24 18:14 Temperature 98 F 02/12/24 18:14 Pulse Rate 72 02/13/24 01:47 Respiratory Rate 17 02/13/24 01:47 Blood Pressure 132/74 02/13/24 01:47 Pulse Oximetry 100 02/13/24 01:47 Oxygen Delivery Room Air 02/12/24 18:14 <Misa Cortes PA-C - Last Filed: 02/13/24 02:02> Lab Data Lab results reviewed: Yes I reviewed the patient's lab results. <Misa Cortes PA-C - Last Filed: 02/13/24 02:02> Result diagrams: 02/13/24 00:15 02/13/24 00:15 <Shasta Figueroa APRN - Last Filed: 02/12/24 19:27> Labs: Lab Results 02/12/24 02/13/24 Range/Units 20:52 00:15 WBC 6.9 (4.5-10.0) K/mm3 RBC 4.34 (4.2-5.4) M/mm3 Hgb 10.8 L (12.0-15.0) g/dL Hct 34.4 L (37.0-47.0) % MCV 79.3 L (80-100) fl MCH 24.9 L (26-34) pg MCHC 31.4 L (32-36) g/dl RDW 17.2 H (11.5-14.5) % Plt Count 220 (150-375) k/mm3 MPV 10.4 (7.4-10.4) fl Immature Gran % (Auto) 0.3 (0-0.5) % Neut % (Auto) 51.7 (45.5-73.1) % Lymph % (Auto) 35.9 (18.3-44.2) % [place]erry % (Auto) 10.2 H (2.6-8.5) % Eos % (Auto) 1.2 (0-4.4) % Baso % (Auto) 0.7 (0.2-1.2) % Lymph # (Auto) 2.49 (0.9-3.2) K/mm3 [place]erry # (Auto) 0.7 H (0.1-0.6) K/mm3 Eos # (Auto) 0.1 (0-0.3) K/mm3 Baso # (Auto) 0.1 (0.0-0.1) K/mm3 Abs Immat Gran (auto) 0.02 (0.00-0.031) K/mm3 Absolute Neuts (auto) 3.6 (1.3-6.7) K/mm3 Absolute Nucleated RBC 0.000 (0.0-0.012) K/mm3 Nucleated RBC % 0.0 (0.0-0.2) % PT 13.7 (11.1-14.7) Seconds INR 1.0 APTT 23.3 (22.3-36.8) Seconds Sodium 139 (137-145) mmol/L Potassium 3.7 (3.4-5.0) mmol/L Chloride 103 (98-107) mmol/L Carbon Dioxide 30 (22-30) mmol/L Anion Gap 6 (4-12) mmol/L BUN 16 (7-17) mg/dL Creatinine 0.70 (0.7-1.0) mg/dL Estim Creat Clear Calc 115 ml/min Estimated GFR > 60 (59 - ) Glucose 132 H (65-110) mg/dL Calcium 8.8 (8.4-10.2) mg/dL Total Bilirubin 0.5 (0.2-1.3) mg/dL AST 21 (14-36) U/L ALT 24 (6-35) U/L Alkaline Phosphatase 83 (38-126) U/L Troponin I < 0.012 (0.000-0.034) ng/mL NT-Pro-B Natriuret Pep < 20 (19.9-100) pg/mL Total Protein 7.0 (6.3-8.2) g/dL Albumin 3.8 (3.5-5.1) g/dL Urine Color Yellow (Yellow) Urine Appearance Cloudy H (Clear) Urine pH 6.0 (5.0-9.0) Ur Specific [place] 1.021 (1.001-1.035) Urine Protein Negative (Negative) mg/dL Urine Glucose (UA) Negative (Negative) mg/dL Urine Ketones Negative (Negative) mg/dL Ur Blood (Man) Negative (Negative) Urine Nitrate Negative (Negative) Urine Bilirubin Negative (Negative) Urine Urobilinogen 1.0 (<2.0) mg/dL Leukocyte Esterase Rfl Negative (Negative) YANCY/UL Urine RBC 3-5 H (0-2) /hpf Urine WBC 0-5 (0-3) /hpf Ur Squamous Epith Cells Occasional (Few) /hpf Calcium Oxalate Crystal Present (None) /hpf Urine Bacteria 1+ H /hpf Urine Casts 0-2 <Shasta Figueroa, GRADUATION COACH - Last Filed: 02/12/24 19:27> Lab Results 02/12/24 02/13/24 Range/Units 20:52 00:15 WBC 6.9 (4.5-10.0) K/mm3 RBC 4.34 (4.2-5.4) M/mm3 Hgb 10.8 L (12.0-15.0) g/dL Hct 34.4 L (37.0-47.0) % MCV 79.3 L (80-100) fl MCH 24.9 L (26-34) pg MCHC 31.4 L (32-36) g/dl RDW 17.2 H (11.5-14.5) % Plt Count 220 (150-375) k/mm3 MPV 10.4 (7.4-10.4) fl Immature Gran % (Auto) 0.3 (0-0.5) % Neut % (Auto) 51.7 (45.5-73.1) % Lymph % (Auto) 35.9 (18.3-44.2) % Ferry % (Auto) 10.2 H (2.6-8.5) % Eos % (Auto) 1.2 (0-4.4) % Baso % (Auto) 0.7 (0.2-1.2) % Lymph # (Auto) 2.49 (0.9-3.2) K/mm3 Ferry # (Auto) 0.7 H (0.1-0.6) K/mm3 Eos # (Auto) 0.1 (0-0.3) K/mm3 Baso # (Auto) 0.1 (0.0-0.1) K/mm3 Abs Immat Gran (auto) 0.02 (0.00-0.031) K/mm3 Absolute Neuts (auto) 3.6 (1.3-6.7) K/mm3 Absolute Nucleated RBC 0.000 (0.0-0.012) K/mm3 Nucleated RBC % 0.0 (0.0-0.2) % PT 13.7 (11.1-14.7) Seconds INR 1.0 APTT 23.3 (22.3-36.8) Seconds Sodium 139 (137-145) mmol/L Potassium 3.7 (3.4-5.0) mmol/L Chloride 103 (98-107) mmol/L Carbon Dioxide 30 (22-30) mmol/L Anion Gap 6 (4-12) mmol/L BUN 16 (7-17) mg/dL Creatinine 0.70 (0.7-1.0) mg/dL Estim Creat Clear Calc 115 ml/min Estimated GFR > 60 (59 - ) Glucose 132 H (65-110) mg/dL Calcium 8.8 (8.4-10.2) mg/dL Total Bilirubin 0.5 (0.2-1.3) mg/dL AST 21 (14-36) U/L ALT 24 (6-35) U/L Alkaline Phosphatase 83 (38-126) U/L Troponin I < 0.012 (0.000-0.034) ng/mL NT-Pro-B Natriuret Pep < 20 (19.9-100) pg/mL Total Protein 7.0 (6.3-8.2) g/dL Albumin 3.8 (3.5-5.1) g/dL Urine Color Yellow (Yellow) Urine Appearance Cloudy H (Clear) Urine pH 6.0 (5.0-9.0) Ur Specific [place] 1.021 (1.001-1.035) Urine Protein Negative (Negative) mg/dL Urine Glucose (UA) Negative (Negative) mg/dL Urine Ketones Negative (Negative) mg/dL Ur Blood (Man) Negative (Negative) Urine Nitrate Negative (Negative) Urine Bilirubin Negative (Negative) Urine Urobilinogen 1.0 (<2.0) mg/dL Leukocyte Esterase Rfl Negative (Negative) YANCY/UL Urine RBC 3-5 H (0-2) /hpf Urine WBC 0-5 (0-3) /hpf Ur Squamous Epith Cells Occasional (Few) /hpf Calcium Oxalate Crystal Present (None) /hpf Urine Bacteria 1+ H /hpf Urine Casts 0-2 <Misa Cortes PA-C - Last Filed: 02/13/24 02:02> Imaging Data Radiologist's impression: ITS Impressions Chest X-Ray 02/13/24 00:03 IMPRESSION: No definite acute cardiopulmonary pathology. <Misa Cortes PA-C - Last Filed: 02/13/24 02:02> Critical Care Time Critical Care Time Critical Care Time: No <Misa Cortes PA-C - Last Filed: 02/13/24 02:02> Discharge Plan Discharge Clinical Impression: HTN (hypertension) Qualifiers: Hypertension type: unspecified Qualified Code(s): I10 - Essential (primary) hypertension <Shasta Figueroa APRN - Last Filed: 02/12/24 19:27> Patient Disposition: Home, Self-Care <Shasta Figueroa APRN - Last Filed: 02/12/24 19:27> Condition: Stable <Shasta Figueroa APRN - Last Filed: 02/12/24 19:27> Instructions: Chronic Hypertension (ED) <Shasta Figueroa APRN - Last Filed: 02/12/24 19:27> Additional Instructions: Return to the Emergency Department if you experience fever, chest pain, shortness of breath, or any other symptoms that are concerning to you Take your home medications as prescribed Follow up with your primary care doctor <Shasta Figueroa APRN - Last Filed: 02/12/24 19:27> Prescriptions: New amlodipine 5 mg tablet 5 mg PO DAILY 30 Days Qty: 30 0RF metoprolol tartrate 25 mg tablet 12.5 mg PO BID 30 Days Qty: 30 0RF No Action cefdinir 300 mg capsule 300 mg PO Q12H 7 Days Qty: 14 0RF azithromycin 250 mg tablet See Rx Instructions .ROUTE .COMPLEX Qty: 6 0RF Rx Instructions: For 250 mg dose pack: take 500 mg today (day 1), then 250 mg for 4 days (days 2-5) albuterol sulfate 90 mcg/actuation HFA aerosol inhaler 1 inh inhalation QID PRN (Reason: shortness of breath or wheezing) Qty: 6.7 0RF guaifenesin 400 mg tablet 400 mg PO QID PRN (Reason: cough) Qty: 30 0RF hydroxyzine HCl 25 mg tablet 25 mg PO TID PRN (Reason: anxiety) Qty: 30 0RF acetaminophen 500 mg capsule 1,000 mg PO Q6H PRN (Reason: pain) Qty: 20 0RF cyclobenzaprine 10 mg tablet 10 mg PO TID PRN (Reason: muscle spasm) Qty: 14 0RF <Shasta Figueroa APRN - Last Filed: 02/12/24 19:27> Follow-up/Referrals: UNKNOWN,DOCTOR [Primary Care Provider] - <Shasta Figueroa, GRADUATION COACH - Last Filed: 02/12/24 19:27>
[2024-02-12 21:29] LABS: Add Urine Microscopic? YES; Appearance Urine Cloudy (Clear); Bacteria Urine 1+ /hpf; Bilirubin Urine Negative (Negative); Blood Urine Negative (Negative); Calcium Oxalate Crystals Urine Present /hpf; Color Urine Yellow (Yellow); Glucose Urine UA Negative (Negative); Ketones Urine Negative (Negative); Leukocyte Esterase Ur Negative LEU/UL (Negative); Nitrate Urine Negative (Negative); Non Pathogenic Casts 0-2; Protein Urine Negative (Negative); Specific Grav Ur 1.021 (1.001-1.035); Squamous Epithelial Cell Urine Occasional /hpf (Few); WBC Urine 0-5 /hpf (0-3)
[2024-02-13 00:20] LABS: Basophils Absolute Auto 0.1 K/mm3 (0.0-0.1); Basophils Percent Auto 0.7 % (0.2-1.2); Eosinophils Absolute Auto 0.1 K/mm3 (0-0.3); Eosinophils Percent Auto 1.2 % (0-4.4); Hematocrit 34.4 % (37.0-47.0); Hemoglobin 10.8 g/dL (12.0-15.0); Immature Granulocyte Absolute 0.02 K/mm3 (0.00-0.031); Immature Granulocyte Percent A 0.3 % (0-0.5); Lymphocytes Absolute Auto 2.49 K/mm3 (0.9-3.2); Lymphocytes Percent Auto 35.9 % (18.3-44.2); Mean Corpuscular HGB Conc 31.4 g/dl (32-36); Mean Corpuscular Hemoglobin 24.9 pg (26-34); Mean Corpuscular Volume 79.3 fl (80-100); Mean Platelet Volume 10.4 fl (7.4-10.4); Monocytes Absolute Auto 0.7 K/mm3 (0.1-0.6); Monocytes Percent Auto 10.2 % (2.6-8.5); Neutrophils Absolute Auto 3.6 K/mm3 (1.3-6.7); Neutrophils Percent Auto 51.7 % (45.5-73.1); Platelet Count Result 220 k/mm3 (150-375); Red Blood Count 4.34 M/mm3 (4.2-5.4); Red Cell Distribution Width 17.2 % (11.5-14.5); White Blood Count 6.9 K/mm3 (4.5-10.0)
[2024-02-13 00:30] LABS: Alanine Aminotransferase 24 U/L (6-35); Albumin Level 3.8 g/dL (3.5-5.1); Alkaline Phosphatase 83 U/L (38-126); Anion Gap 6 mmol/L (4-12); Aspartate Amino Transferase 21 U/L (14-36); Bilirubin,Total 0.5 mg/dL (0.2-1.3); Blood Urea Nitrogen 16 mg/dL (7-17); Calcium 8.8 mg/dL (8.4-10.2); Carbon Dioxide 30 mmol/L (22-30); Chloride 103 mmol/L (98-107); Estimated CRCL calculation 115 ml/min; Estimated Glomerular Filt Rate > 60; Glucose 132 mg/dL (65-110); Potassium 3.7 mmol/L (3.4-5.0); Sodium 139 mmol/L (137-145)
[2024-02-13 00:33] LABS: Partial Thromboplastin Time 23.3 Seconds (22.3-36.8); Prothrombin Time 13.7 Seconds (11.1-14.7)
[2024-02-13 00:41] LABS: NT Pro B Type Natriuretic Pept < 20 pg/mL (19.9-100); Troponin I < 0.012 ng/mL (0.000-0.034)
--- NOTE | 2024-02-13 01:01 | ECG_ITS ---
Test Date: 2024-02-13 01:39:51 Measurements Intervals [place] Rate: 66 P: -5 VT: 121 QRS: 2 QRSD: 94 T: 37 QT: 460 QTc: 482 Interpretive Statements SINUS RHYTHM WITH SINUS ARRHYTHMIA BASELINE ARTIFACT LIMITS INTERPRETATION Compared to ECG 01/09/2024 00:49:49 NO SIGNIFICANT CHANGES Electronically Signed On 02-13-2024 09:44:07 CDT by Marnie Lowe M.D.
[2024-02-13 01:47] VITALS: BP 132/74; PULSE 72; RESP 17; O2SAT 100
[2024-02-13 02:28] VITALS: BP 161/80; PULSE 69; RESP 17; O2SAT 100
== END 2024-02-13 02:34 | disposition home or self-care (01) ==
PROVIDERS: Registered Nurse; Emergency Provider Physician Assistant
DX: I10 Essential (primary) hypertension (principal); M19.90 Unspecified osteoarthritis, unspecified site; E11.9 Type 2 diabetes mellitus without complications; E78.5 Hyperlipidemia, unspecified
CPT/HCPCS: 36415; 71046; 80053; 81001; 83880; 84484; 85025; 85610; 85730; 93005; 99284

== ENCOUNTER 2024-09-30 16:57 | Emergency (ER) | payer OTHER, SELFPAY ==
[2024-09-30 17:09] VITALS: BP 151/90; PULSE 92; RESP 18; TEMP 36.8; O2SAT 100
--- OUTSIDE RECORDS SUMMARY | 2024-09-30 17:17 | XMS_ITS | Referral Summary ---
Author Organization [facility] at [facility] Address [address] [place] [id number] Care Team Providers Care International Exchange Coordinator Name Role Phone No, Physician Primary Care Provider [phone] Encounters Date Type Department Care Team Description 09/03/[address] [address] Maida Ace 09/01/2024 10:13 PM CDT - 09/02/2024 2:44 AM [facility] Emergency [address] [address] Left leg pain (Primary Dx) Discharge Disposition: Discharge to home or self care 07/11/2024 1:41 AM CDT - 07/11/2024 2:43 AM T Emergency [address] [address] Acute nonintractable headache, unspecified headache type (Primary Dx) Discharge Disposition: Discharge to home or self care 07/09/2024 2:43 AM CDT - 07/09/2024 5:16 AM [facility] Emergency [facility] [address] [place] [id number] Porter Londono Jr., MD Anxiety about health (Primary Dx); Personal history of noncompliance with medical treatment and regimen; Homeless; Chronic mental illness; Secondary hypertension Discharge Disposition: Discharge to home or self care from Last 3 Months Allergies Active Allergy Reactions Criticality Noted Date Comments Cinnamon Other (See comments) 07/10/2024 Rawness in the mouth Latex Anaphylaxis,Other (See comments),Shortness of breath,Unknown,Urtic aria High 04/05/2017 Reaction: Breathing Difficulty Lisinopril Angioedema High 02/20/2023 Other Other (See comments) 07/10/2024 Pecans cause mouth rawness Penicillins Anaphylaxis,Hives,Ot her (See comments),Rash High 04/05/2017 Reaction: Hives boils Sulfa (Sulfonamide Antibiotics) Dizziness,Nausea And Vomiting,Other (See comments),Hives,Unkn own Medium 04/05/2017 Reaction: Hives Sulfur Vomiting Low 05/28/2023 Medications apixaban (ELIQUIS) 5 mg tabletIndications :atrial fibrillation Take 1 tablet (5 mg total) by mouth 2 (two) times a day 60 tablet 1 5 Active hydrALAZINE (APRESOLINE) 50 mg tabletIndications :hypertension Take 1 tablet (50 mg total) by mouth 3 (three) times a day 90 tablet 1 5 Active mirtazapine (REMERON) 15 mg tablet Take 1 tablet (15 mg total) by mouth nightly as needed (Insomnia) 30 tablet 5 Active hydrOXYzine (ATARAX) 50 mg tablet Take 1 tablet (50 mg total) by mouth 3 (three) times a day as needed for anxiety 30 tablet 5 Active orphenadrine ER (NORFLEX) 100 mg 12 hr tabletIndications :Muscle Spasm Take 1 tablet (100 mg total) by mouth 2 (two) times a day for 14 days 28 tablet 5 Active albuterol HFA (PROVENTIL HFA,VENTOLIN HFA,PROAIR HFA) 90 mcg/actuation inhaler Inhale 2 puffs every 4 (four) hours as needed for wheezing 1 each 5 07/10/19 26 Active amLODIPine (NORVASC) 10 mg tablet Take 1 tablet (10 mg total) by mouth daily 30 tablet 5 Active aspirin 81 mg chewable tablet Take 1 tablet (81 mg total) by mouth daily 30 tablet 5 Active atorvastatin (LIPITOR) 40 mg tablet Take 1 tablet (40 mg total) by mouth nightly 30 tablet 5 Active fluticasone propionate (FLONASE) 50 mcg/actuation nasal spray Administer 2 sprays into each nostril daily as needed for rhinitis 1 each 5 Active gabapentin (NEURONTIN) 300 mg capsule Take 1 capsule (300 mg total) by mouth 3 (three) times a day for 20 days 60 capsule 5 Active glipiZIDE (GLUCOTROL) 10 mg tabletIndications :type 2 diabetes mellitus Take 1 tablet (10 mg total) by mouth with lunch 30 tablet Active lidocaine (LIDODERM) 5 % Place 1 patch on the skin daily for 12 hours Use patch for 12 hours on, 12 hours off. Discard after each use 10 patch Active metFORMIN (GLUCOPHAGE) 500 mg tablet Take 1 tablet (500 mg total) by mouth 2 (two) times a day with meals 60 tablet 5 Active OLANZapine (ZyPREXA) 10 mg tablet Take 1 tablet (10 mg total) by mouth nightly 30 tablet 5 Active metoprolol tartrate (LOPRESSOR) 25 mg immediate release tablet Take 2 tablets (50 mg total) by mouth 2 (two) times a day 60 tablet 5 Active acetaminophen (TYLENOL) 500 mg tablet Take 1 tablet (500 mg total) by mouth every 6 (six) hours as needed for pain 30 tablet 5 Active Active Problems Problem Noted Date Diagnosed Date Dental caries 05/07/2024 Hallucination 05/07/2024 Spinal stenosis 05/02/2024 Hypokalemia 05/01/2024 Schizophrenia 01/16/2024 Chest pain 01/15/2024 Chest pain, unspecified type 01/13/2024 Snoring 04/20/2023 PAF (paroxysmal atrial fibrillation) 04/20/2023 Atrial fibrillation with RVR 03/12/2023 Allergic conjunctivitis of both eyes 11/01/2018 Allergic rhinitis 11/01/2018 Angio-edema 11/01/2018 Moderate persistent asthma 11/01/2018 Vocal cord dysfunction 11/01/2018 Immunizations Immunization Administration Dates Next Due Hep B Vaccine 03/14/2023 Influenza, Quadrivalent, Spl it, Intramuscular 03/03/2019,01/07/2014 Pneumococcal Conjugate Pcv20 06/03/2022 Pneumococcal Polysaccharide PPV23 12/18/2015 Tdap 03/13/2023,05/20/2019,07/07/2009 Social History Tobacco Use Types Packs/Day Years Used Date Smoking Tobacco: Never Tobacco Cessation:Counseling Given: Not Answered Alcohol Use Standard Drinks/Week Comments Never 0 (1 standard drink = 0.6 oz pur e alcohol) [facility] Utilities Answer Date Recorded In the past 12 months has th e [employer], gas, oil, or water [employer] threatened to shut off services in your home? No 01/16/2024 Social Connection and Isolation Panel [NHANES] A nswer Date Recorded In a typical week, how many times do you talk on the phone with family, friends, or neighbors? Never 01/16/20 How often do you get togethe r with friends or relatives? Never 01/16/2024 How often do you attend [facility] or yazidi services? 1 to 4 times per year 01/16/2024 Do you belong to any clubs o r organizations such as orthodoxy groups, unions, fraternal or athletic groups, or school groups? Yes 01/16/2024 How often do you attend meet ings of the clubs or organizations you belong to? Never 01/16/2024 Are you , , di vorced, , never , or living with a partner? Never 01/16/2024 AUDIT-C Answer Date Recorded Q1: How often do you have a drink containing alcohol? Never 05/01/2024 Q2: How many drinks containi ng alcohol do you have on a typical day when you are drinking? Patient does not drink Q3: How often do you have si x or more drinks on one occasion? Never 05/01/2024 Overall Financial Resource Strain (CARDIA) Answe r Date Recorded How hard is it for you to pa y for the very basics like food, housing, medical care, and heating? Somewhat hard 01/16/2024 PHQ-2 Answer Date Recorded PHQ-2 Total Score 0 01/16/2024 Hunger Vital Sign Answer Date Recorded Within the past 12 months, y ou worried that your food would run out before you got the money to buy more. Sometimes true Within the past 12 months, t he food you bought just didn't last and you didn't have money to get more. Sometimes true 04/2023 PRAPARE - Transportation Answer Date Re corded In the past 12 months, has l ack of transportation kept you from medical appointments or from getting medications? Yes 04/2023 In the past 12 months, has l ack of transportation kept you from meetings, work, or from getting things needed for daily living? Yes 01/16/2024 Housing Stability Vital Sign Answer Miguelangel e Recorded In the last 12 months, was t here a time when you were not able to pay the mortgage or rent on time? Yes 07/24/2023 In the last 12 months, how many places have you lived? 2 07/24/2023 In the last 12 months, was t here a time when you did not have a steady place to sleep or slept in a fdc (including now)? Yes 07/24/2023 PHQ-9 Answer Date Recorded PHQ-9 Total Score 0 01/16/2024 Housing Stability Vital Sign Answer Miguelangel e Recorded In the last 12 months, was t here a time when you were not able to pay the mortgage or rent on time? Yes 01/16/2024 In the past 12 months, how m any times have you moved where you were living? 1 01/16/2024 At any time in the past [address] [facility], were you homeless or living in a fdc (including now)? Yes 01/16/2024 Personal Safety Answer Date Recorded Have you ever been in or are you currently in a harmful physical or emotional relationship or is someone making you feel afraid or unsafe? Denies 09/01/2024 Comments No Sex and Gender Information Value Date Recorded Sex Assigned at Not on file Legal Sex Female 5:27 AM INSECTICIDE MIXER Gender Identity Female 07/23/2023 6:46 PM CDT Sexual Orientation Not on file Last Filed Vital Signs Vital Sign Reading Time Taken Comments Blood Pressure 151/92 09/02/2024 6:56 AM CDT Pulse 73 09/02/2024 2:16 AM CDT Temperature 36.6 C (97.9 F) 09/02/2024 6:56 AM CDT Respiratory Rate 18 09/02/2024 6:56 AM CDT Oxygen Saturation 100% 09/02/2024 6:56 AM CDT Inhaled Oxygen Concentration - - Weight 103 kg (227 lb 1.2 oz) 07/10/2024 11:33 P M CDT Height 180 cm (5' 10.87) 07/10/2024 11:33 PM CD T Body Mass Index 31.79 07/10/2024 11:33 PM CDT Plan of Treatment Not on file Procedures Procedure Name Priority Date/Time Associated Diagnosis Comments EGFR STAT 09/02/2024 1:25 AM CDT DIFFERENTIAL AUTO STAT 09/02/2024 1:2 5 AM CDT D-DIMER, QUANTITATIVE STAT 09/02/2024 1:25 AM CDT COMPREHENSIVE METABOLIC PANEL STAT 09/02/2024 1:25 AM CDT CBC WITH AUTO DIFFERENTIAL STAT 09/02/2024 1:25 AM CDT POCT GLUCOSE DEVICE Routine 07/11/2024 2 :04 AM CDT HEMOGLOBIN A1C STAT 05/01/2024 6:39 AM INSECTICIDE MIXER LIPID PANEL Routine 01/14/2024 5:40 AM CDT SCREENING MAMMOGRAM BILATERAL W CHAPARRO Schedule Routine, Read Routine (OP Routine) 05/12/2023 7:52 AM INSECTICIDE MIXER Screening mammogram, encounter for from Last 3 Months or Most Recently Relevant to Health Maintenance Results * eGFR (09/02/2024 1:25 AM CDT) eGFR >90 >=60 mL/min/1. 73 m2 Comment: Interpretive Data Reference Interval Normal >/= 90 mL/min/1.73m2 Mildly decreased* 60 - 89 mL/min/1.73m2 Mildly to moderately decreased 45 - 59 mL/min/1.73m2 Moderately to severely decreased 30 - 44 mL/min/1.73m2 Severely decreased 15 - 29 mL/min/1.73m2 Kidney Failure < 15 mL/min/1.73m2 *Relative to young adult level Estimated glomerular filtration rate is determined by the 2020 CKD-EPI equation recommended by the National Kidney Foundation (A Unifying Approach to GFR Estimation: Recommendations of the NKF-ASK Task Force on Reassessing the Inclusion of Race in Diagnosing Kidney Disease, JASN 202). The CKD-EPI equation should not be used for patients with unstable renal function and has not been validated in children and those over 70. Current interpretive data was last reviewed 2021. Blood 09/02/2024 1:25 AM CDT 09/02/2024 1:29 AM CDT Priscilla ROJAS LAB BLOOD ORDERABLES Final Result [facility] [address] [facility] Department of Laboratories [place], [place] [id number] * Differential, auto (09/02/2024 1:25 AM CDT) Pathologist [facility] Neutrophil abs 4.09 1.50 - 6.50 K/cumm Imm gran abs 0.01 0.00 - 0.10 K/cumm [facility] Lymphocyte abs 2.61 0.80 - 3.30 K/cumm [facility] Monocyte abs 0.48 0.20 - 0.80 K/cumm [facility] Eosinophil abs 0.07 0.00 - 0.50 K/cumm [facility] Basophil abs 0.05 0.00 - 0.10 K/cumm [facility] Neutrophil pct 55.9 % [facility] Comment: Interpretive Data Percent cell count reference ranges are not reported, since discordance with absolute values may lead to misinterpretation of CBC data. Current Interpretive Data was last revised on 2017. Imm gran pct 0.1 % [facility] Comment: Interpretive Data Percent cell count reference ranges are not reported, since discordance with absolute values may lead to misinterpretation of CBC data. Current Interpretive Data was last revised on 2017. Lymphocyte pct 35.7 % [facility] Comment: Interpretive Data Percent cell count reference ranges are not reported, since discordance with absolute values may lead to misinterpretation of CBC data. Current Interpretive Data was last revised on 2017. Monocyte pct 6.6 % [facility] Comment: Interpretive Data Percent cell count reference ranges are not reported, since discordance with absolute values may lead to misinterpretation of CBC data. Current Interpretive Data was last revised on 2017. Eosinophil pct 1.0 % [facility] Comment: Interpretive Data Percent cell count reference ranges are not reported, since discordance with absolute values may lead to misinterpretation of CBC data. Current Interpretive Data was last revised on 2017. Basophil pct 0.7 % [facility] Comment: Interpretive Data Percent cell count reference ranges are not reported, since discordance with absolute values may lead to misinterpretation of CBC data. Current Interpretive Data was last revised on 2017. Blood 09/02/2024 1:25 AM CDT 09/02/2024 1:29 AM CDT Priscilla ROJAS LAB BLOOD ORDERABLES Final Result [facility] [address] [facility] [place] [address] * (ABNORMAL) CBC with auto differential (09/02/2024 1:25 AM CDT) WBC 7.31 3.80 - 9.90 K/cumm Hgb 12.9 11.9 - 15.5 g/dL [facility] Hct 40.8 35.6 - 45.5 % [facility] Plt 240 150 - 400 K/cumm [facility] MPV 11.1 9.1 - 12.3 fL [facility] RBC 5.14 3.90 - 5.20 M/cumm [facility] MCV 79.4(L) 81.3 - 96.4 fL [facility] MCH 25.1(L) 27.1 - 33.3 pg [facility] MCHC 31.6(L) 32.3 - 35.7 g/dL [facility] RDW CV 14.9 11.1 - 14.9 % [facility] RDW SD 43.1 35.7 - 48.1 fL [facility] NRBC abs 0.00 0.00 - 0.01 K/cumm [facility] Blood 09/02/2024 1:25 AM CDT 09/02/2024 1:29 AM CDT Priscilla ROJAS LAB BLOOD ORDERABLES Final Result Performing Organization Address [facility] Co de Phone Number [address] [address] * D-dimer, quantitative (09/02/2024 1:25 AM CDT) D-Dimer 330 <=499 ng/mL FEU Comment: Interpretive data FDA approved the D-dimer, in conjunction with a low or moderate pretest probability score, to exclude venous thromboembolic events (VTE) (PE and DVT) in outpatients when the D-dimer result is < 500 ng/ml FEU. Evidence supports using an age-adjusted D-dimer cut-off for outpatients older than 50 (age x 10) to improve specificity without sacrificing sensitivity. Example: age 68, VTE cut-off 680 ng/ml FEU. References; Schouten HT et al. Brit Med J. 2013;346:f2492. Dioni et al. Annals Int Med. 2015;163:701-11. Current interpretive data was last revised on 2019. Blood 09/02/2024 1:25 AM CDT 09/02/2024 1:29 AM CDT Priscilla ROJAS LAB BLOOD ORDERABLES Final Result Performing Organization Address [facility] Co de Phone Number [address] [place] [address] * Comprehensive metabolic panel (09/02/2024 1:25 AM CDT) Pathologist [facility] Sodium 139 135 - 145 mmol/L Potassium, pl 3.6 3.3 - 4.9 mmol/L [facility] Chloride 103 97 - 110 mmol/L [facility] CO2 25 22 - 32 mmol/L [facility] Anion gap 11 2 - 15 mmol/L [facility] BUN 17 6 - 25 mg/dL [facility] Creatinine 0.61 0.60 - 1.10 mg/dL [facility] Glucose 105 70 - 199 mg/dL [facility] Comment: Interpretive Data Fasting glucose >/= 126 mg/dl is diagnostic for diabetes. Fasting is defined as no caloric intake for at least 8 hours. Fasting glucose between 100 mg/dl to 125 mg/dl is diagnostic of prediabetes. In a patient with classic symptoms of hyperglycemia or hyperglycemic crisis, a random glucose >/= 200 mg/dl is diagnostic for diabetes. In the absence of unequivocal hyperglycemia, results should be confirmed by repeat testing. The classification and Diagnosis of Diabetes Diabetes Care 202; 46: S19-S40. Current interpretive data was last revised 2022. Calcium 9.1 8.5 - 10.3 mg/dL [facility] Bilirubin, total 0.2 0.1 - 1.2 mg/dL [facility] Protein, pl 7.0 6.5 - 8.5 g/dL [facility] Albumin 3.8 3.5 - 5.0 g/dL [facility] Alk phos 74 40 - 130 Units/L [facility] ALT 16 7 - 45 Units/L [facility] AST 19 10 - 45 Units/L [facility] Blood 09/02/2024 1:25 AM CDT 09/02/2024 1:29 AM CDT Priscilla ROJAS LAB BLOOD ORDERABLES Final Result Performing Organization Address [facility]/ZIP Co de Phone Number [address] [place] [address] * POCT glucose (07/11/2024 2:04 AM CDT) [facility] Signature Glucose, POC 118 70 - 199 mg/dL Blood 07/11/2024 2:04 AM CDT 07/11/2024 2:04 AM CDT Notinfile Unknown LAB POCT ORDERABLES - DEVICE F inal Result Performing Organization Address City/[facility]/ZIP Co de Phone Number [id number] [place] [address] * (ABNORMAL) Hemoglobin A1c (05/01/2024 6:39 AM INSECTICIDE MIXER) Hgb A1C 7.2(H) 4.0 - 5.6 % Estimated Average Glucose 160 mg/dL [facility] Comment: The ADA recommends reporting an estimated Average Glucose (eAG) with all Hemoglobin A1c results using the equation derived from a study of 507 normal and diabetic adults. Minority populations were underrepresented and children were not included. (Diabetes Care 31:1033-1010, 2008). The eAG is not equivalent to a fasting glucose. Blood 05/01/2024 6:39 AM INSECTICIDE MIXER 05/01/2024 6:41 AM INSECTICIDE MIXER us Valerie Melara MD LAB BLOOD ORDERABLES Final Result [facility] [address] [facility] [place] [address] * Lipid panel (01/14/2024 5:40 AM CDT) Cholesterol 168 30 - 199 mg/dL Comment: Interpretive Data Ages < or = 19 years Acceptable: <170 mg/dL Borderline high: 170-199 mg/dL High: >or= 200 mg/dL Ages > or = 20 years Desirable: <200 mg/dL Borderline high: 200-239 mg/dL High: >or= 240 mg/dL Literature References: 1. Expert Panel on Integrated Guidelines for Cardiovascular Health and Risk Reduction in Children and Adolescents. Pediatrics 2011;128:S213 2. NCEP Expert Panel. Circulation 2004;110:227 Current Interpretive Data was last revised on 2017. Testing performed by: [facility], [address] [place] [address]., [address] Triglycerides 90 <=149 mg/dL [facility] Comment: Interpretive Data Ages < or = 9 years Acceptable: <75 mg/dL Borderline high: 75-99 mg/dL High: >or= 100 mg/dL Ages 10 to 20 years Acceptable: <90 mg/dL Borderline high: 90-129 mg/dL High: >or= 130 mg/dL Ages > or = 20 years Desirable: <150 mg/dL Borderline high: 150-199 mg/dL High: 200-499 mg/dL Very high: >or= 499 mg/dL Literature References: 1. Expert Panel on Integrated Guidelines for Cardiovascular Health and Risk Reduction in Children and Adolescents. Pediatrics 2011;128:S213 2. NCEP Expert Panel. Circulation 2004;110:227 Current Interpretive Data was last revised on 2017. Testing performed by: [address] [address] HDL 50 >=40 mg/dL [facility] Comment: Interpretive Data Ages < or = 19 years Acceptable: >45 mg/dL Borderline low: 40-45 mg/dL Low: <40 mg/dL Ages > or = 20 years Desirable: >or= 60 mg/dL Low: <40 mg/dL Literature References: 1. Expert Panel on Integrated Guidelines for Cardiovascular Health and Risk Reduction in Children and Adolescents. Pediatrics 2011;128:S213 2. NCEP Expert Panel. Circulation 2004;110:227 Current Interpretive Data was last revised on 2017. Testing performed by: [address] [address] LDL, calculated 101 <=129 mg/dL [facility] Comment: Interpretive Data Ages < or = 19 years Acceptable: <110 mg/dL Borderline high: 110-129 mg/dL High: >or= 130 mg/dL Ages > or = 20 years Optimal: <100 mg/dL Near optimal: 100-129 mg/dL Borderline high: 130-159 mg/dL High: >160 mg/dL Calculated using the Rded LDL-C estimating equation. This equation was implemented on 2023. Prior to this date LDL-C was estimated using the Friedewald equation. Literature References: 1. Expert Panel on Integrated Guidelines for Cardiovascular Health and Risk Reduction in Children and Adolescents. Pediatrics 2011;128:S213 2. NCEP Expert Panel. Circulation 2004;110:227 3. Redd Bernardo al. ALEXA Cardiol. 2020 August 15;5(5):540-548. doi: 10.1001/jamacardio.2020.0013 Current Interpretive Data was last revised on 2023. Testing performed by: [address] [place]., [address] Non-HDL Cholesterol 118 mg/dL [facility] Comment: Interpretive Data Ages < or = 19 years Acceptable: <120 mg/dL Borderline high: 120-144 mg/dL High: >145 mg/dL Ages > or = 20 years When triglycerides are >200 mg/dL, Non-HDL cholesterol is a secondary target of therapy with treatment goals that are 30 mg/dL greater than the LDL cholesterol target. Literature References: 1. Expert Panel on Integrated Guidelines for Cardiovascular Health and Risk Reduction in Children and Adolescents. Pediatrics 2011;128:S213 2. NCEP Expert Panel. Circulation 2004;110:227 Current Interpretive Data was last revised on 2017. Testing performed by: [address] [address] Chol/HDL ratio 3 [facility] Comment:Testing performed by : [address] [address] Blood 01/14/2024 5:40 AM CDT 01/14/2024 5:58 AM CDT us Antelmo Martin MD LAB BLOOD ORDERABLES Final Result [facility] [address] [facility] [place] [address] * Screening Mammogram Bilateral W Chaparro (05/12/2023 7:52 AM INSECTICIDE MIXER) Anatomical Region Laterality Modality Breast Bilateral Mammography Impressions 05/17/2023 2:13 PM INSECTICIDE MIXER BI-RADS ATLAS category (overall): 2 - Benign There is no mammographic evidence of malignancy. A 1 year screening mammogram is recommended. The patient has been or will be contacted. We recommend annual screening mammography for women at average risk of breast cancer beginning at age 40, based on guidelines of the [place] [employer] (ACR Practice Parameter for the Performance of Screening and Diagnostic Mammography) and [place] [employer]. For women with and elevated risk of breast cancer, please refer to the ACR Practice Parameter for specific screening recommendations. The patient will be entered into a reminder system with a target due date of 1 year for her next screening exam. Narrative 05/17/2023 2:13 PM [employer]SECTICIDE MIXER Screening Mammogram Bilateral W Chaparro: 05/12/23 The study was acquired using full field digital technology and interpreted from soft copy. 2D digital mammographic views, as well as 3D digital tomosynthesis were performed in the CC and MLO projections. CLINICAL: Screening mammogram, encounter for. No relevant medical history has been documented for this patient. No known family history of breast cancer. COMPARISONS: 10/17/2022 Breast Imaging Screening Outside Reference 09/07/2021 Breast Imaging Screening Outside Reference 10/09/2018 Breast Imaging Screening Outside Reference 11/24/2016 Screening Mammogram Bilateral W Chaparro BREAST TISSUE: The breasts have scattered areas of fibroglandular density. FINDINGS: There are unchanged benign microcalcifications in both breasts. There is no new suspicious finding in either breast on mammogram. us Self Screening Mammogram IMG MAMMO PROCEDURES Fi nal Result from Last 3 Months or Most Recently Relevant to Health Maintenance Insurance Cecil [id number] [facility] Advance Directives For more information, please contact: [phone] * Full Code (Latest Code Status on File) Date Activated Date Inactivated Comments 05/01/2024 1:49 PM 05/07/2024 11:49 PM * Full Code Date Activated Date Inactivated Comments 01/13/2024 10:57 PM 01/17/2024 8:05 PM * Full Code Date Activated Date Inactivated Comments 07/24/2023 1:46 AM 07/26/2023 9:07 PM Care Teams International Exchange Coordinator Relationship Specialty Start Date End Date No, Physician PCP - General 09/02/24
--- OUTSIDE RECORDS SUMMARY | 2024-09-30 17:17 | XMS_ITS | Clinical Summary ---
Author Organization [facility] Address [address] [place] [address] Care Team Providers Care Application Dba Name Role Phone Shaheen Vann MD Primary Care Provider [phone] Source Comments [facility],non-owned Affiliates and Associated Physician Practices is amultiple site organization consisting of ambulatory clinics and hospital sitesin [place], [place], [place] and [place]. This disclosure is being madepursuant to the Care Everywhere program and may not contain all information available regarding this patient. Last updated 18.[facility] Allergies Active Allergy Reactions Criticality Noted Date Comments Linda Unknown 04/05/2017 Chicken Shortness of Breath High 04/05/2017 Also turkey Coconut Oil Unknown 04/05/2017 Any coconut Ibuprofen Urticaria Medium 05/24/2018 Latex Urticaria Medium 05/24/2018 Other [Other] Unknown 04/05/2017 Received name: Nuts Penicillins Other 05/24/2018 boils Sulfa Drugs Dizziness 05/24/2018 Medications * Be aware that medications may not be up to date on this document. Alwaysverify current medications with the patient. FLUTICASONE FUROATE NA Active famotidine (PEPCID) 20 MG tablet Take 20 mg by mouth once daily Active metFORMIN (GLUCOPHAGE) 500 MG tablet Take 500 mg by mouth 2 times daily with morning and evening meal Active hydrOXYzine hcl (ATARAX) 50 MG tablet Take 50 mg by mouth 4 times daily as needed for Itching Active trihexyphenidyl (ARTANE) 2 MG tablet Take 2 mg by mouth 3 times daily Active mirtazapine (REMERON) 15 MG tablet Take 15 mg by mouth at bedtime Active OLANZapine (ZYPREXA) 15 MG tablet Take 15 mg by mouth once daily Active azelastine (ASTELIN) 0.1 % nasal sprayIndications :Allergic rhinitis, unspecified seasonality, unspecified trigger Martinez 2 sprays into each nostril 2 times daily 1 Inhaler 11 9 Active cetirizine (ZYRTEC) 10 MG tablet Take 1 tablet by mouth once daily 5 9 Active hydroCHLOROthiaz abbie (HYDRODIURIL) 25 MG tablet Take 25 mg by mouth once daily 2 9 Active EPIPEN 0.3 MG/0.3ML auto-injector pen INJECT 0.3 ML INTO MUSCLE ONCE NEEDED FOR ANAPHYLAXIS 2 Each 9 Active albuterol (PROVENTIL;ANIKET SERGE) (2.5 MG/3ML) 0.083% nebulizer solution Inhale 2.5 mg by mouth every 4 hours as needed for Shortness of Breath or Wheezing 60 vial 1 9 Active omeprazole (PRILOSEC) 20 MG capsule Take 1 capsule by mouth 2 times daily,before breakfast and supper 9 Active VENTOLIN HFA 108 (90 Base) MCG/ACT inhaler Inhale 2 puffs by mouth every 4 hours as needed 9 Active diphenhydrAMINE (BENADRYL ALLERGY) 25 MG tablet Take 25 mg by mouth every 4 hours as needed for Itching Active Active Problems Problem Noted Date Diagnosed Date Moderate persistent asthma 11/01/2018 Vocal cord dysfunction 11/01/2018 Allergic rhinitis 11/01/2018 Allergic conjunctivitis of both eyes 11/01/2018 Angio-edema 11/01/2018 Social History Tobacco Use Types Packs/Day Years Used Date Smoking Tobacco: Never Smokeless Tobacco: Never Comments No Sex and Gender Information Value Date Recorded Sex Assigned at Not on file Legal Sex Female 9:18 AM CDT Gender Identity Not on file Sexual Orientation Not on file Last Filed Vital Signs Vital Sign Reading Time Taken Comments Blood Pressure 134/78 11/01/2018 3:10 PM CDT Pulse 114 11/01/2018 3:10 PM CDT Temperature 36.2 C (97.1 F) 06/28/2018 1:47 PM CDT Respiratory Rate 20 11/01/2018 3:10 PM CDT Oxygen Saturation 95% 11/01/2018 3:10 PM CDT Inhaled Oxygen Concentration - - Weight 130.6 kg (288 lb) 11/01/2018 3:10 PM CDT Height 180.3 cm (5' 11) 11/01/2018 3:10 PM CDT Body Mass Index 40.17 11/01/2018 3:10 PM CDT Plan of Treatment Health Maintenance Due Date Last Done Comments COLOGUARD (AGES 45-75) - COL ON CA SCREENING 1975 COLON MONITORING 1975 COLONOSCOPY - COLON CA SCREENING 1975 CT COLONOGRAPHY - COLON CA SCREENING 1975 Colorectal Cancer Screening 1975 FIT - COLON CA SCREENING 1975 FLEX SIG - COLON CA SCREENING 1975 LIPID TESTING 1975 MAMMOGRAM 1975 HIV SCREENING 1990 HEPATITIS C SCREENING 02/20/1993 DTAP/TDAP/TD VACCINES (1 - Tdap) 1994 HEPATITIS B VACCINE (1 of 3 - 19+ 3-dose series) 1994 PAP SMEAR 02/26/1996 SCREENING FOR DIABETES 10/11/2021 9, 10/11/2018, 04/17/2014 COVID-19 VACCINE (1 - 2023-2 5 season) 2023 DEPRESSION SCREENING 04/17/2024 INFLUENZA VACCINE (Season Ended) 2024 ZOSTER VACCINE (1 of 2) 2025 HIB VACCINE Aged Out No longer eligi ble based on patient's age to complete this topic HPV VACCINE Aged Out No longer eligi ble based on patient's age to complete this topic MENINGOCOCCAL (Group B) VACCINE SHARED DECISION-MAKING Aged Out No longer eligible based on patient's age to complete this topic MENINGOCOCCAL GROUPS A/C/Y/W VACCINE Aged Out No longer eligible b ased on patient's age to complete this topic Procedures Procedure Name Priority Date/Time Associated Diagnosis Comments COMPREHENSIVE METABOLIC PANEL STAT 04/17/2014 6:42 PM [facility]TY [facility]DER from Last 3 Months or Most Recently Relevant to Health Maintenance Results * (ABNORMAL) COMPREHENSIVE METABOLIC PANEL (04/17/2014 6:42 PM [facility]) Glucose 100 74 - 106 mg/dL 04/17/2014 7:07 PM [facility] Sodium 142 136 - 145 mmol/L 04/17/2014 7:07 PM [facility] Potassium 3.1(L) 3.5 - 5.1 mmol/L 04/17/2014 7:07 PM [facility] Chloride 105 98 - 107 mmol/L 04/17/2014 7:07 PM [facility] CO2 24 22 - 31 mmol/L 04/17/2014 7:07 PM [facility] Calcium 9.4 8.5 - 10.1 mg/dL 04/17/2014 7:07 PM [facility] Anion Gap 13 5 - 15 mmol/L 04/17/2014 7:07 PM [facility] BUN 25(H) 7 - 21 mg/dL 04/17/2014 7:07 PM [facility] Creatinine 0.71 0.50 - 1.30 mg/dL 04/17/2014 7:07 PM [facility] eGFR by MDRD >60 >60 mL/min/1.7 3m2 04/17/2014 7:07 PM [facility] eGFR by MDRD >60 >60 mL/min/1.7 3m2 04/17/2014 7:07 PM [facility] Alkaline Phosphatase 59 38 - 126 U/L 04/17/2014 7:07 PM [facility] ALT 38 12 - 78 U/L 04/17/2014 7:07 PM [facility] AST 58(H) 5 - 40 U/L 04/17/2014 7:07 PM [facility] Protein Total 8.2 6.4 - 8.2 gm/dL 04/17/2014 7:07 PM [facility] Albumin 3.9 3.4 - 5.0 gm/dL 04/17/2014 7:07 PM [facility] Bilirubin Total 1.0 0.2 - 1.0 mg/dL 04/17/2014 7:07 PM [facility] Blood BLOOD SPECIMEN / Unknown 04/17/2014 6:42 PM [facility] 04/17/2014 6:44 PM [facility] Gilson Brady DO LAB - CHEMISTRY ORDERABLES Fin al Result [facility] [address] [place] [address] from Last 3 Months or Most Recently Relevant to Health Maintenance Insurance [facility] [employer] [facility] Care Teams Application Dba Relationship Specialty Start Date End Date Shaheen Vann MD PCP - General 03/14/18
--- OUTSIDE RECORDS SUMMARY | 2024-09-30 17:17 | XMS_ITS ---
Author Organization [facility] Address [address] [place] [address] Care Team Providers Care Levelman Name Role Phone Mattie Boyle Primary Care Provider REASON FOR VISIT f/u for bug bites Encounters Encounter Location Date Provider Diagnosis [facility] [place] [address] 06/18/2024 Mattie Boyle Plan Of Treatment No Information Progress Notes * PEPITOVirgen CarveraDOB:02[birth year] (49 yo F)Acc No.[id number]:06/18/2024 UNLOCKED PROGRESS NOTE Progress Notes Patient: Mahsa MAYFIELD Provider: Alan Boyle APRN :1975 A ge:49 Y S ex:Female Date:06/18/2024 Phone: Address:[facility] Subjective: * Chief Complaints: * 1 . F/u for bug bites. * Medical History: Objective: * Vitals: Assessment: Plan: * Treatment: * * Electronic signature of Jaqueline Boyle [id number] on 09/30/2024 at 05:16 PM CDT Sign off status: Pending * Provider: Alan Boyle APRN Date: 0 06/18/2024 Generated for Miracle hearn/Anita/eTransmitting on: 09/30/2024 05:16 PM CDT
--- OUTSIDE RECORDS SUMMARY | 2024-09-30 17:17 | XMS_ITS | Clinical Summary ---
Author Organization [facility] Email Data Source [facility] Address [address] [address] Phone Care Team Providers Care Electromechanical Assembler Name Role Phone Shaheen Vann MD Primary Care Provider [phone] Allergies Active Allergy Reactions Criticality Noted Date Comments Penicillin G Rash 06/03/2023 Medications No known medications Active Problems No known active problems Social History Tobacco Use Types Packs/Day Years Used Date Smoking Tobacco: Never Smokeless Tobacco: Never Tobacco Cessation:Counseling Given: Not Answered Alcohol Use Standard Drinks/Week Comments Not Currently 0 (1 standard drink = 0.6 oz pur e alcohol) Comments No Sex and Gender Information Value Date Recorded Sex Assigned at Not on file Legal Sex Female 6:09 PM FLIGHT HOSTESS Gender Identity Not on file Sexual Orientation Not on file Last Filed Vital Signs Vital Sign Reading Time Taken Comments Blood Pressure 162/78 06/09/2023 6:15 AM FLIGHT HOSTESS Pulse 93 06/09/2023 6:15 AM FLIGHT HOSTESS Temperature 36.6 C (97.9 F) 06/09/2023 3:21 AM FLIGHT HOSTESS Respiratory Rate 18 06/09/2023 6:15 AM FLIGHT HOSTESS Oxygen Saturation 97% 06/09/2023 6:15 AM FLIGHT HOSTESS Inhaled Oxygen Concentration - - Weight 129.3 kg (285 lb) 06/09/2023 3:21 AM FLIGHT HOSTESS Height 180.3 cm (5' 11) 06/09/2023 3:21 AM FLIGHT HOSTESS Body Mass Index 39.75 06/09/2023 3:21 AM FLIGHT HOSTESS Plan of Treatment Health Maintenance Due Date Last Done Comments Hepatitis C Virus (HCV) Screening 1975 Colonoscopy 02/26/2020 Colorectal Cancer Screening 02/26/2020 Hepatitis B Immunization (2 of 3 - 19+ 3-dose series) 04/11/2023 03/14/2023 SARS-COV-2 Immunization ( - 2023- season) 2023 Mammogram 05/12/2024 05/12/2023, 11/24/2016 Influenza Immunization (Seas on Ended) 2024 03/28/2023, 03/03/2019, 01/07/2014 Respiratory Syncytial Virus (RSV) Immunization (Adult) (1 - 1-dose 75+ series) 2050 DTaP/Tdap/Td Immunization Discontinued 2022, 05/20/2019, 07/07/2009 TdaP Immunization Completed 03/13/2023, 05/20/2019, 07/07/2009 Pneumococcal Immunization Combined Aged Out 03/28/2023, 06/03/2022, 12/18/2015 No longer eligible based on patient's age to complete this topic Discussion re Starting/Frequency of Mammograms Completed 05/12/2023, 11/24/2016 Human Papillomavirus (HPV) Immunization Aged Out No longer eligible based on patient's age to complete this topic Meningococcal Immunization (ACWY) Aged Out No longer eligible based on patient's age to complete this topic Rotavirus Immunization Aged Out No lo nger eligible based on patient's age to complete this topic Insurance [place]ICAID [place] Care Teams Electromechanical Assembler Relationship Specialty Start Date End Date Shaheen Vann MD [address] [place] [address] PCP - General Family Medicine 05/27/23
--- OUTSIDE RECORDS SUMMARY | 2024-09-30 17:17 | XMS_ITS | Clinical Summary ---
Author Organization [facility] Address [address] [place] [address] Care Team Providers Care Planisher Name Role Phone No, Physician Primary Care Provider [phone] Allergies Active Allergy Reactions Criticality Noted Date [...] total) by mouth with lunch 30 tablet 5 Active lidocaine (LIDODERM) 5 % Place 1 patch on the skin daily for 12 hours Use patch for 12 hours on, 12 hours off. Discard after each use 10 patch 5 Active metFORMIN (GLUCOPHAGE) 500 mg tablet Take [...] 2 (two) times a day 60 tablet Active acetaminophen (TYLENOL) 500 mg tablet Take [...] persistent asthma 11/01/2018 Vocal cord dysfunction 11/01/2018 Encounters Date Type Department Care Team Description 09/03/[address] [address] Maida Ace 09/01/2024 10:13 PM CDT - 09/02/2024 2:44 AM T Emergency [address] [address] Left leg pain (Primary Dx) Discharge Disposition: Discharge to home or self care 07/11/2024 1:41 AM CDT - 07/11/2024 2:43 AM T Emergency [address] [address] Acute nonintractable headache, unspecified headache type (Primary Dx) Discharge Disposition: Discharge to home or self care 07/09/2024 2:43 AM CDT - 07/09/2024 5:[address] [facility] Emergency [facility] Emergency Department [address] [place] [id number] Porter Londono Jr., MD Anxiety about health (Primary Dx); Personal history of noncompliance with medical treatment and regimen; Homeless; Chronic mental illness; Secondary hypertension Discharge Disposition: Discharge to home or self care from Last 3 Months Immunizations Immunization Administration Dates Next Due Hep B Vaccine 03/14/2023 Influenza, Quadrivalent, Spl it, Intramuscular 03/03/2019,01/07/2014 Pneumococcal Conjugate Pcv20 06/03/2022 Pneumococcal Polysaccharide PPV23 12/18/2015 Tdap 03/13/2023,05/20/2019,07/07/2009 Surgical History Surgery Date Site/Laterality Comments HYSTERECTOMY Medical History Medical History Date Comments Diabetes mellitus (HCC) Hypertension Atrial fibrillation (HCC) Chronic anticoagulation Homeless Asthma Obesity Bipolar 1 disorder (HCC) Schizo affective schizophrenia (HCC) High cholesterol Social History Tobacco Use Types Packs/Day Years Used Date Smoking Tobacco: Never Tobacco Cessation:Counseling Given: Not Answered Alcohol Use Standard Drinks/Week Comments Never 0 (1 standard drink = 0.6 oz pur e alcohol) [facility] Utilities Answer Date Recorded In the past 12 months has th e Stitch, gas, oil, or water Bubbly threatened to shut off services in your home? No 01/16/2024 Social Connection and Isolation Panel [NHANES] A nswer Date Recorded In a typical week, how many times do you talk on the phone with family, friends, or neighbors? Never 01/16/20 How often do you get togethe r with friends or relatives? Never 01/16/2024 How often do you attend chur ch or orthodoxy services? 1 to 4 times per year 01/16/2024 Do you belong to any clubs o r organizations such as episcopalian groups, unions, fraternal or athletic groups, or [...] place to sleep or slept in a residential (including now)? Yes 07/24/2023 PHQ-9 Answer Date [...] any time in the past [address] [facility], were you homeless or living in a residential (including now)? Yes 01/16/2024 Personal Safety Answer Date Recorded Have you ever been in or are you currently in a harmful physical or emotional relationship or is someone making you feel afraid or unsafe? 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 BRUSH OPERATOR Gender Identity Female 07/23/2023 6:46 PM CDT Sexual Orientation Not on file Obstetrics History Para Term AB IAB SAB Ectopic Multiple Livin g Live Births 3 3 3 Date Outcome GA Total Labor Labor/2nd/3rd Weight Sex Type Anes PTL Lou A1 A5 Name Clin Term Term Term Last Filed Vital Signs Vital Sign Reading [...] 07/10/2024 11:33 PM CDT Plan of Treatment Health Maintenance Due Date Last Done Comments Albumin Creatinine Ratio, Urine 1975 Colon Cancer Screening-Colonoscopy 1975 Hepatitis C Screening 1975 Dilated Eye Exam 1975 Foot Exam 1975 Regular Well Visit/Exam 18-64 1993 Breast Cancer Screening-Mammogram 05/12/2024 05/12/2023, 05/12/2023, 11/24/2016 Hemoglobin A1C 10/29/2024 05/01/2024, 12/17, 07/25/2023, Additional history exists Influenza Vaccine (Season Ended) 2024 03/03/20 19, 01/07/2014 Depression Screening 01/12/2025 01/13/2024, 01/13/20 24 Lipid Panel 01/13/2025 01/14/2024, 07/16, 03/27/2019, Additional history exists eGFR 09/02/2025 09/02/2024, 06/15, 06/12/2024, Additional history exists DTaP/Tdap/Td Vaccine (5 - Td or Tdap) 02/07/2034 02/08/2024, 03/13/2023, 05/20/2019, Additional history exists Pneumococcal vaccine <65 Completed 06/03/2022, 05/2015 Hepatitis B Screening Completed 02/08/2024, 023 Procedures Procedure Name Priority Date/Time Associated Diagnosis Comments EGFR STAT 09/02/2024 1:25 AM CDT DIFFERENTIAL AUTO STAT 09/02/2024 1:2 5 AM CDT D-DIMER, QUANTITATIVE STAT 09/02/2024 1:25 AM CDT COMPREHENSIVE METABOLIC PANEL STAT 09/02/2024 1:25 AM CDT CBC WITH AUTO DIFFERENTIAL STAT 09/02/2024 1:25 AM CDT POCT GLUCOSE DEVICE Routine 07/11/2024 2 :04 AM CDT HEMOGLOBIN A1C STAT 05/01/2024 6:39 AM STEAM BRUSH OPERATOR LIPID PANEL Routine 01/14/2024 5:40 AM CDT SCREENING MAMMOGRAM BILATERAL W CHAPARRO Schedule Routine, Read Routine (OP Routine) 05/12/2023 7:52 AM STEAM BRUSH OPERATOR Screening mammogram, encounter for from Last 3 [...] of Race in Diagnosing Kidney Disease, JASN 2020). The CKD-EPI equation should not be used for patients with unstable renal function and has not been validated in children and those over 70. Current interpretive data was last reviewed 2021. Blood 09/02/2024 1:25 AM CDT 09/02/2024 1:29 AM CDT Priscilla ROJAS LAB BLOOD ORDERABLES Final Result [facility] [address] [facility] [address] [facility] Department [place] [address] * Differential, auto (09/02/2024 1:25 AM CDT) Pathologist [facility] Neutrophil abs 4.09 1.50 - 6.50 K/cumm Imm gran abs 0.01 0.00 - 0.10 K/cumm [facility] Lymphocyte abs 2.61 0.80 - 3.30 K/cumm [facility] Monocyte abs 0.48 0.20 - 0.80 K/cumm [facility] Eosinophil abs 0.07 0.00 - 0.50 K/cumm [facility] Basophil abs 0.05 0.00 - 0.10 K/cumm [facility] Neutrophil pct 55.9 % [facility] Comment: Interpretive Data Percent cell count reference ranges are not reported, since discordance with absolute values may lead to misinterpretation of CBC data. Current Interpretive Data was last revised on 2017. Imm gran pct 0.1 % [facility] Comment: Interpretive Data Percent cell count reference ranges are not reported, since discordance with absolute values may lead to misinterpretation of CBC data. Current Interpretive Data was last revised on 2017. Lymphocyte pct 35.7 % [facility] Comment: Interpretive Data Percent cell count reference ranges are not reported, since discordance with absolute values may lead to misinterpretation of CBC data. Current Interpretive Data was last revised on 2017. Monocyte pct 6.6 % [facility] Comment: Interpretive Data Percent cell count reference ranges are not reported, since discordance with absolute values may lead to misinterpretation of CBC data. Current Interpretive Data was last revised on 2017. Eosinophil pct 1.0 % [facility] Comment: Interpretive Data Percent cell count reference ranges are not reported, since discordance with absolute values may lead to misinterpretation of CBC data. Current Interpretive Data was last revised on 2017. Basophil pct 0.7 % [facility] Comment: Interpretive Data Percent cell count reference ranges are not reported, since discordance with absolute values may lead to misinterpretation of CBC data. Current Interpretive Data was last revised on 2017. Blood 09/02/2024 1:25 AM CDT 09/02/2024 1:29 AM CDT Priscilla ROJAS LAB BLOOD ORDERABLES Final Result Performing Organization Address [facility] Co de Phone Number NISHA [address] [facility] [place] [address] * (ABNORMAL) CBC with auto differential (09/02/2024 1:25 AM CDT) Pathologist [facility] WBC 7.31 3.80 - 9.90 K/cumm Hgb 12.9 11.9 - 15.5 g/dL [facility] Hct 40.8 35.6 - 45.5 % [facility] Plt 240 150 - 400 K/cumm [facility] MPV 11.1 9.1 - 12.3 fL [facility] RBC 5.14 3.90 - 5.20 M/cumm [facility] MCV 79.4(L) 81.3 - 96.4 fL [facility] MCH 25.1(L) 27.1 - 33.3 pg [facility] MCHC 31.6(L) 32.3 - 35.7 g/dL [facility] RDW CV 14.9 11.1 - 14.9 % [facility] RDW SD 43.1 35.7 - 48.1 fL [facility] NRBC abs 0.00 0.00 - 0.01 K/cumm [facility] Blood 09/02/2024 1:25 AM CDT 09/02/2024 1:29 AM CDT Priscilla ROJAS LAB BLOOD ORDERABLES Final Result Performing Organization Address City/[facility]/ZIP Co de Phone Number NISHA [address] [facility] Department [place] [address] * D-dimer, quantitative (09/02/2024 1:25 AM CDT) [facility] D-Dimer 330 <=499 ng/mL FEU Comment: Interpretive [...] 68, VTE cut-off 680 ng/ml FEU. References; Schoutcrista HT et al. Brit Med J. 2013;346:f2492. Dioni GLORIA et al. Annals Int Med. 2015;163:701-11. Current interpretive data was last revised on 2019. Blood 09/02/2024 1:25 AM CDT 09/02/2024 1:29 AM CDT Priscilla ROJAS LAB BLOOD ORDERABLES Final Result NISHA [address] [facility] [address] [place] [address] * Comprehensive metabolic panel (09/02/2024 1:25 AM CDT) [facility] Sodium 139 135 - 145 mmol/L Potassium, pl 3.6 3.3 - 4.9 mmol/L [facility] Chloride 103 97 - 110 mmol/L [facility] CO2 25 22 - 32 mmol/L [facility] Anion gap 11 2 - 15 mmol/L [facility] BUN 17 6 - 25 mg/dL [facility] Creatinine 0.61 0.60 - 1.10 mg/dL [facility] Glucose 105 70 - 199 mg/dL [facility] Comment: Interpretive Data Fasting glucose >/= 126 [...] 2022. Calcium 9.1 8.5 - 10.3 mg/dL [facility] Bilirubin, total 0.2 0.1 - 1.2 mg/dL [facility] Protein, pl 7.0 6.5 - 8.5 g/dL [facility] Albumin 3.8 3.5 - 5.0 g/dL [facility] Alk phos 74 40 - 130 Units/L [facility] ALT 16 7 - 45 Units/L [facility] AST 19 10 - 45 Units/L [facility] Blood 09/02/2024 1:25 AM CDT 09/02/2024 1:29 AM CDT Priscilla ROJAS LAB BLOOD ORDERABLES Final Result Performing Organization Address [facility]/ZIP Co de Phone Number [address] [employer] [place], [place] [id number] * POCT glucose (07/11/2024 2:04 AM CDT) [facility] Glucose, POC 118 70 - 199 mg/dL Blood 07/11/2024 2:04 AM CDT 07/11/2024 2:04 AM CDT Notinfile Unknown LAB POCT ORDERABLES - DEVICE F inal Result Performing Organization Address [facility]/ZIP Co de Phone Number [address] [place] [address] * (ABNORMAL) Hemoglobin A1c (05/01/2024 6:39 AM STEAM BRUSH OPERATOR) [facility] Hgb A1C 7.2(H) 4.0 - 5.6 % Estimated Average Glucose 160 mg/dL [facility] Comment: The ADA recommends reporting an estimated Average Glucose (eAG) with all Hemoglobin A1c results using the equation derived from a study of 507 normal and diabetic adults. Minority populations were underrepresented and children were not included. (Diabetes Care 31:0822-9611, 2008). The eAG is not equivalent to a fasting glucose. Blood 05/01/2024 6:39 AM STEAM BRUSH OPERATOR 05/01/2024 6:41 AM STEAM BRUSH OPERATOR Valerie Melara MD LAB BLOOD ORDERABLES Final Result NISHA [address] [facility] [address] [facility] Department [place] [address] * Lipid panel (01/14/2024 5:40 AM CDT) [...] last revised on 2017. Testing performed by: [facility], [address] [place] [address]., [address] Triglycerides 90 <=149 mg/dL NISHA Comment: Interpretive [...] last revised on 2017. Testing performed by: [facility], [address] [place] [address]., [address] HDL 50 >=40 mg/dL NISHA SALAS Comment: Interpretive Data Ages [...] last revised on 2017. Testing performed by: [address] [address] LDL, calculated 101 <=129 mg/dL NISHA Comment: Interpretive Data Ages < or = 19 years Acceptable: <110 mg/dL Borderline high: 110-129 mg/dL High: >or= 130 mg/dL Ages > or = 20 years Optimal: <100 mg/dL Near optimal: 100-129 mg/dL Borderline high: 130-159 mg/dL High: >160 mg/dL Calculated using the Redd LDL-C estimating equation. This equation was implemented on 2023. Prior to this date LDL-C was estimated using the Friedewald equation. Literature References: 1. Expert Panel on Integrated Guidelines for Cardiovascular Health and Risk Reduction in Children and Adolescents. Pediatrics 2011;128:S213 2. NCEP Expert Panel. Circulation 2004;110:227 3. Redd Bernardo al. ALEXA Cardiol. 2019August 15;5(5):540-548. doi: 10.1001/jamacardio.2020.0013 Current Interpretive Data was last revised on 2023. Testing performed by: [facility], [address] [place] [address]., [address] Non-HDL Cholesterol 118 mg/dL NISHA SALAS Comment: [...] last revised on 2017. Testing performed by: [facility], [address] [place] [address]., [address] Chol/HDL ratio 3 NISHA SALAS Comment:Testing performed by : [facility], [address] [place] [address]., [address] Blood 01/14/2024 5:40 AM CDT 01/14/2024 5:58 AM CDT us Antelmo Martin MD LAB BLOOD ORDERABLES Final Result NISHA SALAS [address] [facility] Department [place] [address] * Screening Mammogram Bilateral W Chaparro (05/12/2023 7:52 AM STEAM BRUSH OPERATOR) Anatomical Region Laterality Modality Breast Bilateral Mammography Impressions 05/17/2023 2:13 PM STEAM BRUSH OPERATOR BI-RADS ATLAS category (overall): 2 - Benign There is no mammographic evidence of malignancy. A 1 year screening mammogram is recommended. The patient has been or will be contacted. We recommend annual screening mammography for women at average risk of breast cancer beginning at age 40, based on guidelines of the [employer] [place] [employer] (ACR Practice Parameter for the Performance of Screening and Diagnostic Mammography) and [employer] [place] [employer]. For women with and elevated risk of breast cancer, please refer to the ACR Practice Parameter for specific screening recommendations. The patient will be entered into a reminder system with a target due date of 1 year for her next screening exam. Narrative 05/17/2023 2:13 PM STEAM BRUSH OPERATOR Screening Mammogram Bilateral W Chaparro: 05/12/23 The [...] Most Recently Relevant to Health Maintenance Insurance [facility] Advance Directives For more information, please contact: [phone] * Full Code (Latest Code Status on File) Date Activated Date Inactivated Comments 05/01/2024 1:49 PM 05/07/2024 11:49 PM * Full Code Date Activated Date Inactivated Comments 01/13/2024 10:57 PM 01/17/2024 8:05 PM * Full Code Date Activated Date Inactivated Comments 07/24/2023 1:46 AM 07/26/2023 9:07 PM Care Teams Planisher Relationship Specialty Start Date End Date No, Physician PCP - General 09/02/24
--- OUTSIDE RECORDS SUMMARY | 2024-09-30 17:17 | XMS_ITS | Patient Health Record ---
Author Organization [facility] Address [address] [place] [address] Care Team Providers Care Change Management Coordinator Name Role Phone Mattie Boyle Primary Care Provider Cast Kristophergill Unavailable [phone] Nani Lazo Unavailable [phone] Angelica Sullivan Unavailable Kathy Daniels Unavailable [phone] Allergies Allergen (clinical drug ingredient) Drug/Non Drug Allergy documented on EMR Reaction Allergy Type Onset Date Status MSM Unknown Drug Allergy Active glucosamine Glucosamine Unknown Drug Allergy Act caron sulfacetamide Sulfacetamide Unknown Drug Allergy Active Results Component Value Reference Range Notes 12 Panel Urine Drug Screen Reviewed date:06/28/2024 10:40:10 AM Interpretation: Performing Lab: Notes/Report: THC neg JUAN neg MOP (OPI) neg AMP neg MET neg BAR neg BZO neg MDMA neg MTD neg OXY neg PCP neg BUP neg Breathalyzer Reviewed date:05/29/2024 01:43:26 PM Interpretation: Performing Lab: Notes/Report: MEGHANN 0.000 Test, Urine Reviewed date:05/27/2024 12:48:27 PM Interpretation: Performing Lab: Notes/Report: Test, Urine neg Negative - Negative QuantiFERON-TB Gold Plus ([id number]) Reviewed date:05/30/2024 07:54:09 AM Interpretation:Negative Performing Lab:[facility], [address] [facility], [place], Phone - [phone], Director - [facility] Notes/Report: QuantiFERON Incubation Incubation performed. QuantiFERON-TB Gold Plus Negative Negative No response to M tuberculosis antigens detected. Infection with M tuberculosis is unlikely, but high risk individuals should be considered for additional testing (ATS/IDSA/CDC Clinical Practice Guidelines, 2017). The reference range is an Antigen minus Nil result of <0.35 IU/mL. Chemiluminescence immunoassay methodology QuantiFERON Criteria QuantiFERON-TB Gold Plus is a qualitative indirect test for M tuberculosis infection (including disease) and is intended for use in conjunction with risk assessment, radiography, and other medical and diagnostic evaluations. The QuantiFERON-TB Gold Plus result is determined by subtracting the Nil value from either TB antigen (Ag) value. The Mitogen tube serves as a control for the test. QuantiFERON TB1 Ag Value 0.01 QuantiFERON TB2 Ag Value 0.01 QuantiFERON Nil Value 0.02 QuantiFERON Mitogen Value >10.00 CBC With Differential/Platel et* Reviewed date:06/09/2024 05:05:15 PM Interpretation: Performing Lab:[facility] [place], [address] [facility], Phone - [phone], Director - Yael Notes/Report: WBC 7.4 3.4-10.8 x10E3/uL RBC 5.01 3.77-5.28 x10E6/uL Hemoglobin 12.3 11.1-15.9 g/dL Hematocrit 39.3 34.0-46.6 % MCV 78 79-97 fL MCH 24.6 26.6-33.0 pg MCHC 31.3 31.5-35.7 g/dL RDW 16.8 11.7-15.4 % Platelets 280 150-450 x10E3/uL Neutrophils 66 Not Estab. % Lymphs 25 Not Estab. % Monocytes 8 Not Estab. % Eos 0 Not Estab. % Basos 1 Not Estab. % Neutrophils (Absolute) 4.9 1.4-7.0 x10E3/uL Lymphs (Absolute) 1.8 0.7-3.1 x10E3/uL Monocytes(Absolute) 0.6 0.1-0.9 x10E3/uL Eos (Absolute) 0.0 0.0-0.4 x10E3/uL Baso (Absolute) 0.0 0.0-0.2 x10E3/uL Immature Granulocytes 0 Not Estab. % Immature Grans (Abs) 0.0 0.0-0.1 x10E3/uL CMP 14 Comprehensive Metabol ic Panel* Reviewed date:06/09/2024 05:05:14 PM Interpretation: Performing Lab:[address], Phone - [phone], Director - [facility] Notes/Report: Glucose 115 70-99 mg/dL BUN 14 6-24 mg/dL Creatinine 0.70 0.57-1.00 mg/dL eGFR 106 >59 mL/min/1.73 BUN/Creatinine Ratio 20 9-23 Sodium 142 134-144 mmol/L Potassium 3.7 3.5-5.2 mmol/L Chloride 98 96-106 mmol/L Carbon Dioxide, Total 30 20-29 mmol/L Calcium 9.7 8.7-10.2 mg/dL Protein, Total 6.3 6.0-8.5 g/dL Albumin 4.1 3.9-4.9 g/dL Globulin, Total 2.2 1.5-4.5 g/dL Bilirubin, Total 0.3 0.0-1.2 mg/dL Alkaline Phosphatase 84 44-121 IU/L AST (SGOT) 29 0-40 IU/L ALT (SGPT) 47 0-32 IU/L Hemoglobin A1c* Reviewed date:06/09/2024 05:05:14 PM Interpretation: Performing Lab:[facility], Phone - [phone], Director - [facility] Notes/Report: Hemoglobin A1c 7.5 4.8-5.6 % . Prediabetes: 5.7 - 6.4 Diabetes: >6.4 Glycemic control for adults with diabetes: <7.0 TSH Rfx on Abnormal to Free T4 Reviewed date:06/09/2024 05:05:14 PM Interpretation: Performing Lab:[facility], Phone - [phone], [facility] - [facility] Notes/Report: TSH 0.750 0.450-4.500 uIU/mL Lipid Panel* Reviewed date:06/09/2024 05:05:14 PM Interpretation: Performing Lab:[facility], Phone - [phone], [facility] Notes/Report: Cholesterol, Total 166 100-199 mg/dL Triglycerides 76 0-149 mg/dL HDL Cholesterol 67 >39 mg/dL VLDL Cholesterol Vince 14 5-40 mg/dL LDL Chol Calc (NIH) 85 0-99 mg/dL Reason For Referral Reason patient is homeless, needs housing but she is very delusional/psychotic currently. Diagnosis 1 Homeless (Z59.00) Referral Organization [facility] Referring Provider First Name Nani Referring Provider Last Name Violet Referring Provider Speciality Psychiatry Referred Provider Specialty [facility] [place] Clinical Notes JoseAlberta freeman Amanda 06/10/2024 11:42:40 AM >HN called the client. Client is on the unit. HN discussing housing options with the client. HN completed the [facility] [employer] application and submitted it by mail. HN also was able to complete the Benefit Access Pass and submit it to Dr. Turcios to be signed off on for a disability bus pass to assist with transportation. Referral Priority Routine Medications Medication SIG (Take, Route, Frequency, Duration) Notes Start Date End Date Status metFORMIN HCl 500 MG 1 tablet with a meal Orally Once a day for 30 days 06/09/2024 Active hydroCHLOROthiazide 25 MG 2 tablet in e morning Orally Once a day Active Fluticasone Propionate 50 MCG/ACT ADMINISTER 2 SPRAYS INTO EACH NOSTRIL DAILY NEEDED FOR RHINITIS. Nasal for 30 Days Active Fxczf-S-Bafn 1.5 % as directed Mouth/Throat once daily Not-Taking Benzonatate 100 MG y mouth every 8 hrs as needed Orally Not-Taking OLANZapine 5 MG 1 tablet at bedtime Orally Once a day for 30 days patient on CRU, please deliver 06/05/2024 Active predniSONE 20 MG 1 tablet Orally Once a day for 4 days Not-Taking Aristada 882 MG/3.2ML 3.2 mL Intramuscular 05/21/2024 Active Aspirin 81 81 MG 1 tablet Orally Once a day Active Multivitamin Adult - 1 tablet Orally Once a day Active hydrOXYzine HCl 50 MG 1 tab by mouth 3 times a day Orally Active Lidocaine 5 % External for 30 Days Active Albuterol Sulfate HFA 108 (90 Base) MCG/ACT 1 puff as needed Inhalation every 4 hrs Active Social History Tobacco Use: Social History Observation Description Date Details (start date - stop date) Never Smoker NA - NA PRAPARE Question Answer Notes Date Completed/Updated: 05/27/2024 What is your current housing situation? I have h ousing Are you worried about losing your housing? Yes What is the highest level of school that you have finished? More than high school What is your current work situation? Oth erwise unemployed but not seeking work (ex. 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 Check all that apply Food,Clothing,Utilities,Medicine or any health care (medical, dental, mental health or vision) Has lack of transportation k ept you from medical appointments, meetings, work or from getting things needed for daily living? Yes, it has kept me from medical appointments or from getting my medications,Yes, it has kept me from non-medical meetings, appointments, work, or getting things needed for daily living How often do you see or talk to people that you care about and feel close to? (For example: talking to friends on the phone, visiting friends or family, going to christianity or club meetings) Less than once a week How stressed are you? Stress is when someone feels tense, nervous, anxious, or can\t sleep at night because their mind is troubled Quite a bit In the past year have you sp ent more than 2 nights in a row in a [facility], senior living, correction center, or juvenile correctional facility? No Are you a refugee? I choose not to answer this q uestion What country are you from? I choose not to answe r this question Do you feel physically and e motionally safe where you currently live? No In the past year, have you b een afraid of your partner or ex-partner? Yes PRAPARE Score: 15 Tobacco Control (Standard) Question Answer Notes Tobacco use: Nonsmoker Problems Problem Type SNOMED Code ICD Code Onset Dates Problem Status W/U Status Risk Notes Problem Bipolar 1 disorder (381168986) Bipolar 1 disorder (F31.9) Active confirmed Dx self-reporte dia Dockery strugguled to identify her symptoms, treatment providers, and current treatment for mental health. Problem Schizophrenia (46480791) Schizophrenia (F20.9) Active confirmed Problem Generalized anxiety disorder (61887505) CECILY (generalized anxiety disorder) (F41.1) Active confirmed Problem Diabetes mellitus (24649730) Diabetes mellitus (E11.9) Active confirmed Vital Signs Heart Rate 99 /min 06/03/2024 Temperature 98.9 degrees Fahrenheit 05/27/2024 Respiratory Rate 16 /min 06/03/2024 Blood pressure diastolic 102 mm Hg 06/03/2024 Oximetry 98 % 06/03/2024 Height 71 in 06/03/2024 Blood pressure systolic 152 mm Hg 06/03/2024 Weight 232 lbs 06/03/2024 BMI 32.35 kg/m2 06/03/2024 Encounters Encounter Location Date Provider Diagnosis [facility] [address] [place] [address] 06/05/2024 Mattie Boyle [facility] [address] [place] [address] 05/27/2024 Mattie Boyle Adult general medical exam Z00.00 and Nutritional counseling Z71.3 [facility] [address] [place] [address] 05/27/2024 Kathy Estradaey Bipolar 1 disorder F31.[address] [address] 05/29/2024 Nani Violet CECILY (generalized anxiety disorder) F41.1 [facility] [place] [address] 06/03/2024 Mattie Boyle Nutritional counseling Z71.3 ; Establishing care with new doctor, encounter for Z71.89 ; Screening for deficiency anemia Z13.0 ; Screening for metabolic disorder Z13.228 ; Screening for diabetes mellitus Z13.1 ; Screening for thyroid disorder Z13.29 and Screening for hyperlipidemia Z13.[address] [address] 06/05/2024 Nani Violet CECILY (generalized anxiety disorder) F41.1 and Schizophrenia F20.[address] [address] 07/15/2024 Angelica Sullivan [address] [place] [address] 05/29/2024 Carmencita Cast [facility] [place] [address] 06/05/2024 Nani Lazo [address] [place] [address] 06/09/2024 Mattie Boyle Diabetes mellitus E11.9 [facility] [address] [place] [address] 06/10/2024 Carmencita Cast Assessments Encounter Date Diagnosis (ICD Code) Assessment Notes Treatment Notes Treatment Clinical Notes Section Notes 05/27/2024 Adult general medical exam (ICD-10 - Z00.00) 05/27/2024 Bipolar 1 disorder (ICD-10 - F31.9) Dx self-reported . Nahed strugguled to identify her symptoms, treatment providers, and current treatment for mental health. 05/29/2024 CECILY (generalized anxiety disorder) (ICD-10 - F41.1) Continue hydroxyzine. Take as prescribed. Reviewed purpose (reduce anxiety and/or promote sleep), benefits, and risks - including sedation and dry mouth. Call for problems with medication, side effects or need for dosage change. 06/03/2024 Establishing care with new doctor, encounter for (ICD-10 - Z71.89) 06/03/2024 Nutritional counseling (ICD-10 - Z71.3) 06/05/2024 Schizophrenia (ICD-10 - F20.9) Start Olanzapine. Take as prescribed. Reviewed purpose (mood stability), benefits, and risks - low blood pressure, metabolic syndrome with high cholesterol or high blood sugars, change in cardiac conduction, nausea, vomiting, temporary or permanent movement disorders, and akathisia. Explained that no medication can be guaranteed to be 100% safe for baby or mother. Call for problems with medication, side effects or need for dosage change. 06/05/2024 CECILY (generalized anxiety disorder) (ICD-10 - F41.1) 06/09/2024 Diabetes mellitus (ICD-10 - E11.9) 06/03/2024 Screening for deficiency anemia (ICD-10 - Z13.0) 05/27/2024 Nutritional counseling (ICD-10 - Z71.3) 06/03/2024 Screening for metabolic disorder (ICD-10 - Z13.228) 06/03/2024 Screening for diabetes mellitus (ICD-10 - Z13.1) 06/03/2024 Screening for thyroid disorder (ICD-10 - Z13.29) 06/03/2024 Screening for hyperlipidemia (ICD-10 - Z13.220) 05/27/2024 Jessie Bragg particiapted in the assessment, but had difficulty identifying her treatment goals while on the unit. She stated she needs assistance with housing and following up with her landlord. Mahsa was visually responding to internal stimuli while engaging in the assessment. Gely would benefit from continued support and assistance with symptom recognition, symptom management, and coping skills. 05/29/2024 Other May self-administer medications or be administered own oral medications per [facility] protocols. Provided informed consent with understanding of side effects, adverse effects, risks and benefits as well as alternative treatments as previously discussed and with the above recommended medications & other aspects of the treatment program. Agrees to return sooner if symptoms worsen or suicidal or homicidal ideations occur. Plan: -Continue Hydroxyzine 50 mg 1 tab TID PRN *no refill needed, being prescribed by [facility] PCP -Follow up: PRN [] Hard Rx handed to patient [] Rx phoned into pharmacy [] Rx faxed/e-prescribed into pharmacy [x] PDMP Reviewed [] GeneSight Reviewed Encouraged by Nani Lazo [facility]: [] consider utilizing therapist/counselor /hospital social worker/psychologist , referral given [x] continue with therapist/counselor /hospital social worker/psychologist Psychoeducation: -Treatment options discussed in detail with patient/guardian verbalizing understanding of treatment rationales. -Side effects and benefits of all medications prescribed discussed at length between psychiatric prescribing provider and patient/guardian along with the risks associated of xpsl-jn-mbow interactions, including but not limited to prescription medications, OTC medications, vitamins, minerals and herbal supplements. -Patient/Guardian and provider dialogue showcased verbalized understanding from patient on rationales of medication risk vs benefits. -Information with neurobiology of presenting neurotransmitter disorder, mood stability, sleep hygiene and 7-8 hours of uninterrupted sleep per night with wakeful and refreshed awakening and day long alertness discussed. -Reduction of stress and anxiety to aid in focus and concentration discussed, again, with patient/guardian physically nodding, voicing understanding, and engaged in treatment plan with Nani Valerioian [facility]. -Perceiving complete understanding of rationale by patient/guardian and willingness to adhere to formulated plan of care by prescriber with patient/guardian buy-in, willingness to participate actively in plan of care and willing to take charge of own care. -Although geared for female patients, all patients/guardians are informed by prescribing provider of risks of medications that could potentially be taken by female/women within their [place] of influence and that women who use medicine during have a higher chance of having a baby with defects. -Patient/Guardian denies being and/or knowing of women who are at present and denies wanting to become in the foreseeable future, 0-6 months from now. -Patient/Guardian again informed of the risk of pharmaceutical medications consumed during and how there are potential negative effects on the developing fetus. -Patient/Guardian verbalizes understanding of rationale and physically nods head in agreement that if a should occur, to consult with provider, TAR WORKER and/or Nurse Insole Department Worker to determine if prescribed medications should or should not be continued. -Instructions regarding both the medical/pharmacolog ical and non-pharmacologic aspects of the treatments employed were given, and the patient/guardian seemed to understand this. Risks and benefits of treatment, and of non-treatment, were also discussed. The patient/guardian understands the more frequent side effects associated with the medications. -The use of psychotherapy was addressed today and will continue on an as needed basis for the foreseeable future. The choice is, of course, ultimately left to the patient/guardian. -Patient/Guardian was encouraged to make a follow-up appointment for the next visit. -Additional treatment was discussed and has been addressed on an ongoing basis within the context of this patient's illness, resources, progress, and other appropriate factors. Being compliant with a regular exercise routine, consistent medication use, ongoing psychotherapy, eating and sleeping well, as well as the importance of handling stress, was discussed. 06/03/2024 Other Patient may self-administe r their own medications or may self-administe r their own oral medications per [facility] Protocol. 06/05/2024 Other May self-administer medications or be administered own oral medications per [facility] protocols. Provided informed consent with understanding of side effects, adverse effects, risks and benefits as well as alternative treatments as previously discussed and with the above recommended medications & other aspects of the treatment program. Agrees to return sooner if symptoms worsen or suicidal or homicidal ideations occur. Unable to complete full AIMS due to nature of appt, denies any irregular muscle movements or facial tics; no irregular movements observed during Zoom appt. Plan: -Start Olanzapine 5 mg QHS -Continue Hydroxyzine 50 mg 1 tab TID PRN -Continue Aristada 882 mg inj. (last dose given 05/21/24, next due 06/18/24) *referral sent for housing assistance -Follow up: 1 week [] Hard Rx handed to patient [] Rx phoned into pharmacy [x] Rx faxed/e-prescribed into pharmacy [x] PDMP Reviewed [] GeneSight Reviewed Encouraged by Nani MARESHNP-BC to: [] consider utilizing therapist/counselor /hospital social worker/psychologist , referral given [x] continue with therapist/counselor /hospital social worker/psychologist Psychoeducation: -Treatment options discussed in detail with patient/guardian verbalizing understanding of treatment rationales. -Side effects and benefits of all medications prescribed discussed at length between psychiatric prescribing provider and patient/guardian along with the risks associated of eulp-mz-fuiu interactions, including but not limited to prescription medications, OTC medications, vitamins, minerals and herbal supplements. -Patient/Guardian and provider dialogue showcased verbalized understanding from patient on rationales of medication risk vs benefits. -Information with neurobiology of presenting neurotransmitter disorder, mood stability, sleep hygiene and 7-8 hours of uninterrupted sleep per night with wakeful and refreshed awakening and day long alertness discussed. -Reduction of stress and anxiety to aid in focus and concentration discussed, again, with patient/guardian physically nodding, voicing understanding, and engaged in treatment plan with Nani SOMERSP-BC. -Perceiving complete understanding of rationale by patient/guardian and willingness to adhere to formulated plan of care by prescriber with patient/guardian buy-in, willingness to participate actively in plan of care and willing to take charge of own care. -Although geared for female patients, all patients/guardians are informed by prescribing provider of risks of medications that could potentially be taken by female/women within their [place] of influence and that women who use medicine during have a higher chance of having a baby with defects. -Patient/Guardian denies being and/or knowing of women who are at present and denies wanting to become in the foreseeable future, 0-6 months from now. -Patient/Guardian again informed of the risk of pharmaceutical medications consumed during and how there are potential negative effects on the developing fetus. -Patient/Guardian verbalizes understanding of rationale and physically nods head in agreement that if a should occur, to consult with provider, TAR WORKER and/or Nurse Insole Department Worker to determine if prescribed medications should or should not be continued. -Instructions regarding both the medical/pharmacolog ical and non-pharmacologic aspects of the treatments employed were given, and the patient/guardian seemed to understand this. Risks and benefits of treatment, and of non-treatment, were also discussed. The patient/guardian understands the more frequent side effects associated with the medications. -The use of psychotherapy was addressed today and will continue on an as needed basis for the foreseeable future. The choice is, of course, ultimately left to the patient/guardian. -Patient/Guardian was encouraged to make a follow-up appointment for the next visit. -Additional treatment was discussed and has been addressed on an ongoing basis within the context of this patient's illness, resources, progress, and other appropriate factors. Being compliant with a regular exercise routine, consistent medication use, ongoing psychotherapy, eating and sleeping well, as well as the importance of handling stress, was discussed. Plan Of Treatment Future Test Test Name Order Date Hemoglobin A1c* 09/02/2024 Insurance Providers Payer Name Payer Address Payer Phone Subscriber Number Group Number Insured Name Patient Relationship to Insured Coverage Start Date Coverage End Date [employer] [address] [place] [address] [id number] Mahsa Patterson Self - patient is the insured 4 [employer] [address] [place] [address] [id number] Mahsa Patterson Self - patient is the insured 4 [employer]IST[employer] PROFESSOR OF PHILOSOPHY [address] [place] [address] [id number] Mahsa Patterson Self - patient is the insured 5 Medical (General) History Medical History History ICD Code hypertension Diabetes mellitus asthma Surgical History Surgery Date(Month/Year) 1999 Hospitalization History Reason Date(Month/Year) mental health 06/11
[2024-09-30 17:35] VITALS: BP 150/92; PULSE 90; RESP 18; TEMP 37; O2SAT 100
[2024-09-30] MEDS: predniSONE 20 MG TABLET 40 MG PO (19:11)
--- OUTSIDE RECORDS SUMMARY | 2024-09-30 19:21 | XMS_ITS | Clinical Summary ---
Author Organization [facility] [employer] [facility] Address [address] [address] Phone Care Team Providers Care Active Directory Administrator Name Role Phone Shaheen Vann MD Primary Care Provider [phone] Allergies Active Allergy Reactions Criticality Noted Date [...] on file Legal Sex Female 6:09 PM PARTS RUNNER Gender Identity Not on file Sexual Orientation Not on file Last Filed Vital Signs Vital Sign Reading Time Taken Comments Blood Pressure 162/78 06/09/2023 6:15 AM PARTS RUNNER Pulse 93 06/09/2023 6:15 AM PARTS RUNNER Temperature 36.6 C (97.9 F) 06/09/2023 3:21 AM PARTS RUNNER Respiratory Rate 18 06/09/2023 6:15 AM PARTS RUNNER Oxygen Saturation 97% 06/09/2023 6:15 AM PARTS RUNNER Inhaled Oxygen Concentration - - Weight 129.3 kg (285 lb) 06/09/2023 3:21 AM PARTS RUNNER Height 180.3 cm (5' 11) 06/09/2023 3:21 AM PARTS RUNNER Body Mass Index 39.75 06/09/2023 3:21 AM PARTS RUNNER Plan of Treatment Health Maintenance Due Date [...] age to complete this topic Insurance [place]ID [place] Care Teams Active Directory Administrator Relationship Specialty Start Date End Date Shaheen Vann MD [address] [place] [address] PCP - General Family Medicine 05/27/23
--- OUTSIDE RECORDS SUMMARY | 2024-09-30 19:22 | XMS_ITS | Referral Summary ---
Author Organization [facility] at [facility] Address [address] [place] [id number] Care Team Providers Care Turf Sales Person Name Role Phone No, Physician Primary Care Provider [phone] Encounters Date Type Department Care Team Description 09/03/[address] [address] Maida Ace 09/01/2024 10:13 PM CDT - 09/02/2024 2:[address] [facility] Emergency [address] [address] Left leg pain (Primary Dx) Discharge Disposition: Discharge to home or self care 07/11/2024 1:41 AM CDT - 07/11/2024 2:43 AM T Emergency [address] [address] Acute nonintractable headache, unspecified headache type (Primary Dx) Discharge Disposition: Discharge to home or self care 07/09/2024 2:43 AM CDT - 07/09/2024 5:[address] [facility] Emergency [facility] Emergency Department [address] [place] [address] Porter Londono Jr., MD Anxiety about [...] = 0.6 oz pur e alcohol) [facility] Utilities Answer Date Recorded In the past 12 months has th e [employer], gas, oil, or water [employer] threatened to shut off services in your home? No 01/16/2024 Social Connection and Isolation Panel [NHANES] A nswer Date Recorded In a typical week, how many times do you talk on the phone with family, friends, or neighbors? Never 01/16/20 How often do you get togethe r with friends or relatives? Never 01/16/2024 How often do you attend [facility] or zoroastrianism services? 1 to 4 times per year 01/16/2024 Do you belong to any clubs o r organizations such as nondenominational groups, unions, fraternal or athletic groups, or [...] place to sleep or slept in a care home (including now)? Yes 07/24/2023 PHQ-9 Answer Date [...] any time in the past 12 m [facility], were you homeless or living in a care home (including now)? Yes 01/16/2024 Personal Safety Answer Date Recorded Have you ever been in or are you currently in a harmful physical or emotional relationship or is someone making you feel afraid or unsafe? Denies 09/01/2024 Comments No Sex and Gender Information Value Date Recorded Sex Assigned at Not on file Legal Sex Female 5:27 AM MANAGER TECHNICAL SALES Gender Identity Female 07/23/2023 6:46 PM CDT [...] CDT HEMOGLOBIN A1C STAT 05/01/2024 6:39 AM MANAGER TECHNICAL SALES LIPID PANEL Routine 01/14/2024 5:40 AM CDT SCREENING MAMMOGRAM BILATERAL W CHAPARRO Schedule Routine, Read Routine (OP Routine) 05/12/2023 7:52 AM MANAGER TECHNICAL SALES Screening mammogram, encounter for from Last 3 [...] Priscilla ROJAS LAB BLOOD ORDERABLES Final Result [facility] [address] [facility] Department of Laboratories [place], [place] [id number] * Differential, auto (09/02/2024 1:25 AM CDT) Pathologist [facility] Neutrophil abs 4.09 1.50 - 6.50 K/cumm Imm gran abs 0.01 0.00 - 0.10 K/cumm [facility] Lymphocyte abs 2.61 0.80 - 3.30 K/cumm [facility] Monocyte abs 0.48 0.20 - 0.80 K/cumm [facility] Eosinophil abs 0.07 0.00 - 0.50 K/cumm [facility] Basophil abs 0.05 0.00 - 0.10 K/cumm [facility] Neutrophil pct 55.9 % [facility] Comment: Interpretive Data Percent cell count reference ranges are not reported, since discordance with absolute values may lead to misinterpretation of CBC data. Current Interpretive Data was last revised on 2017. Imm gran pct 0.1 % [facility] Comment: Interpretive Data Percent cell count reference ranges are not reported, since discordance with absolute values may lead to misinterpretation of CBC data. Current Interpretive Data was last revised on 2017. Lymphocyte pct 35.7 % [facility] Comment: Interpretive Data Percent cell count reference ranges are not reported, since discordance with absolute values may lead to misinterpretation of CBC data. Current Interpretive Data was last revised on 2017. Monocyte pct 6.6 % [facility] Comment: Interpretive Data Percent cell count reference ranges are not reported, since discordance with absolute values may lead to misinterpretation of CBC data. Current Interpretive Data was last revised on 2017. Eosinophil pct 1.0 % [facility] Comment: Interpretive Data Percent cell count reference ranges are not reported, since discordance with absolute values may lead to misinterpretation of CBC data. Current Interpretive Data was last revised on 2017. Basophil pct 0.7 % [facility] Comment: Interpretive Data Percent cell count reference ranges are not reported, since discordance with absolute values may lead to misinterpretation of CBC data. Current Interpretive Data was last revised on 2017. Blood 09/02/2024 1:25 AM CDT 09/02/2024 1:29 AM CDT Priscilla ROJAS LAB BLOOD ORDERABLES Final Result [facility] [address] [facility] Department [place] [address] * (ABNORMAL) CBC with auto differential (09/02/2024 1:25 AM CDT) WBC 7.31 3.80 - 9.90 K/cumm Hgb 12.9 11.9 - 15.5 g/dL [facility] Hct 40.8 35.6 - 45.5 % [facility] Plt 240 150 - 400 K/cumm [facility] MPV 11.1 9.1 - 12.3 fL [facility] RBC 5.14 3.90 - 5.20 M/cumm [facility] MCV 79.4(L) 81.3 - 96.4 fL [facility] MCH 25.1(L) 27.1 - 33.3 pg [facility] MCHC 31.6(L) 32.3 - 35.7 g/dL [facility] RDW CV 14.9 11.1 - 14.9 % [facility] RDW SD 43.1 35.7 - 48.1 fL [facility] NRBC abs 0.00 0.00 - 0.01 K/cumm [facility] Blood 09/02/2024 1:25 AM CDT 09/02/2024 1:29 AM CDT Priscilla ROJAS LAB BLOOD ORDERABLES Final Result Performing Organization Address [facility] Co de Phone Number [address] [address] * D-dimer, quantitative (09/02/2024 1:25 AM CDT) [...] BLOOD ORDERABLES Final Result Performing Organization Address [facility] Co de Phone Number [address] [place] [address] * Comprehensive metabolic panel (09/02/2024 1:25 AM CDT) Pathologist [facility] Sodium 139 135 - 145 mmol/L Potassium, pl 3.6 3.3 - 4.9 mmol/L [facility] Chloride 103 97 - 110 mmol/L [facility] CO2 25 22 - 32 mmol/L [facility] Anion gap 11 2 - 15 mmol/L [facility] BUN 17 6 - 25 mg/dL [facility] Creatinine 0.61 0.60 - 1.10 mg/dL [facility] Glucose 105 70 - 199 mg/dL [facility] Comment: Interpretive Data Fasting glucose >/= [...] 2022. Calcium 9.1 8.5 - 10.3 mg/dL [facility] Bilirubin, total 0.2 0.1 - 1.2 mg/dL [facility] Protein, pl 7.0 6.5 - 8.5 g/dL [facility] Albumin 3.8 3.5 - 5.0 g/dL [facility] Alk phos 74 40 - 130 Units/L [facility] ALT 16 7 - 45 Units/L [facility] AST 19 10 - 45 Units/L [facility] Blood 09/02/2024 1:25 AM CDT 09/02/2024 1:29 AM CDT Priscilla ROJAS LAB BLOOD ORDERABLES Final Result Performing Organization Address [facility]/ZIP Co de Phone Number [address] Department [place] [address] * POCT glucose (07/11/2024 2:04 AM CDT) [facility] Signature Glucose, POC 118 70 - 199 mg/dL Blood 07/11/2024 2:04 AM CDT 07/11/2024 2:04 AM CDT Notinfile Unknown LAB POCT ORDERABLES - DEVICE F inal Result Performing Organization Address City/[facility]/ZIP Co de Phone Number NISHA [facility] [place] [address] * (ABNORMAL) Hemoglobin A1c (05/01/2024 6:39 AM MANAGER TECHNICAL SALES) Hgb A1C 7.2(H) 4.0 - 5.6 % Estimated Average Glucose 160 mg/dL [facility] Comment: The ADA recommends reporting an estimated Average Glucose (eAG) with all Hemoglobin A1c results using the equation derived from a study of 507 normal and diabetic adults. Minority populations were underrepresented and children were not included. (Diabetes Care 31:8763-1119, 2008). The eAG is not equivalent to a fasting glucose. Blood 05/01/2024 6:39 AM MANAGER TECHNICAL SALES 05/01/2024 6:41 AM MANAGER TECHNICAL SALES us Valerie Melara MD LAB BLOOD ORDERABLES Final Result [facility] [address] [facility] [place] [employer] [address] * Lipid panel (01/14/2024 5:40 AM CDT) [...] last revised on 2017. Testing performed by: [facility], [address] [place] [address]., [address] Triglycerides 90 <=149 mg/dL [facility] Comment: Interpretive [...] last revised on 2017. Testing performed by: [address] [address] HDL 50 >=40 mg/dL [facility] Comment: Interpretive Data Ages < or [...] last revised on 2017. Testing performed by: [address] [address] LDL, calculated 101 <=129 mg/dL [facility] Comment: [...] last revised on 2023. Testing performed by: [address] [place]., [address] Non-HDL Cholesterol 118 mg/dL [facility] Comment: [...] last revised on 2017. Testing performed by: [address] [address] Chol/HDL ratio 3 [facility] Comment:Testing performed by : [address] [address] Blood 01/14/2024 5:40 AM CDT 01/14/2024 5:58 AM CDT us Antelmo Martin MD LAB BLOOD ORDERABLES Final Result [facility] [address] [facility] Department [place] [address] * Screening Mammogram Bilateral W Chaparro (05/12/2023 7:52 AM MANAGER TECHNICAL SALES) Anatomical Region Laterality Modality Breast Bilateral Mammography Impressions 05/17/2023 2:13 PM MANAGER TECHNICAL SALES BI-RADS ATLAS category (overall): 2 - Benign There is no mammographic evidence of malignancy. A 1 year screening mammogram is recommended. The patient has been or will be contacted. We recommend annual screening mammography for women at average risk of breast cancer beginning at age 40, based on guidelines of the [employer] [employer] (ACR Practice Parameter for the Performance of Screening and Diagnostic Mammography) and [employer]. For women with and elevated risk of breast cancer, please refer to the ACR Practice Parameter for specific screening recommendations. The patient will be entered into a reminder system with a target due date of 1 year for her next screening exam. Narrative 05/17/2023 2:13 PM MANAGER TECHNICAL SALES Screening Mammogram Bilateral W Chaparro: 05/12/23 The [...] Recently Relevant to Health Maintenance Insurance Cecil [id number] [facility] Advance Directives For more information, please contact: [phone] * Full Code (Latest Code Status on File) Date Activated Date Inactivated Comments 05/01/2024 1:49 PM 05/07/2024 11:49 PM * Full Code Date Activated Date Inactivated Comments 01/13/2024 10:57 PM 01/17/2024 8:05 PM * Full Code Date Activated Date Inactivated Comments 07/24/2023 1:46 AM 07/26/2023 9:07 PM Care Teams Turf Sales Person Relationship Specialty Start Date End Date No, Physician PCP - General 09/02/24
--- OUTSIDE RECORDS SUMMARY | 2024-09-30 19:22 | XMS_ITS | Clinical Summary ---
Author Organization [facility] at [facility] Address [address] [place] [address] Care Team Providers Care Repair Mechanic Name Role Phone No, Physician Primary Care Provider [phone] Allergies Active Allergy Reactions Criticality Noted Date [...] Type Department Care Team Description 09/03/[address] [address] Maida Ace 09/01/2024 10:13 PM CDT - 09/02/2024 2:44 AM T Emergency [address] [address] Left leg pain (Primary Dx) Discharge Disposition: Discharge to home or self care 07/11/2024 1:41 AM CDT - 07/11/2024 2:43 AM T Emergency [address] [address] Acute nonintractable headache, unspecified headache type (Primary Dx) Discharge Disposition: Discharge to home or self care 07/09/2024 2:43 AM CDT - 07/09/2024 5:16 AM [facility] Emergency [facility] Emergency Department [address] [place] [address] Porter Londono Jr., MD Anxiety about health [...] drink = 0.6 oz pur e alcohol) [facility] Utilities Answer Date Recorded In the past 12 months has th e [employer], gas, oil, or water [employer] threatened to shut off services in your home? No 01/16/2024 Social Connection and Isolation Panel [NHANES] A nswer Date Recorded In a typical week, how many times do you talk on the phone with family, friends, or neighbors? Never 01/16/20 How often do you get togethe r with friends or relatives? Never 01/16/2024 How often do you attend chur ch or judaism services? 1 to 4 times per year 01/16/2024 Do you belong to any clubs o r organizations such as pentecostal groups, unions, fraternal or athletic groups, or [...] place to sleep or slept in a assisted (including now)? Yes 07/24/2023 PHQ-9 Answer Date [...] any time in the past 12 m [facility], were you homeless or living in a assisted (including now)? Yes 01/16/2024 Personal Safety Answer Date Recorded Have you ever been in or are you currently in a harmful physical or emotional relationship or is someone making you feel afraid or unsafe? Denies 09/01/2024 Comments No Sex and Gender Information Value Date Recorded Sex Assigned at Not on file Legal Sex Female 5:27 AM COMPLIANCE SPECIALIST Gender Identity Female 07/23/2023 6:46 PM CDT [...] CDT HEMOGLOBIN A1C STAT 05/01/2024 6:39 AM COMPLIANCE SPECIALIST LIPID PANEL Routine 01/14/2024 5:40 AM CDT SCREENING MAMMOGRAM BILATERAL W CHAPARRO Schedule Routine, Read Routine (OP Routine) 05/12/2023 7:52 AM COMPLIANCE SPECIALIST Screening mammogram, encounter for from Last 3 [...] Priscilla ROJAS LAB BLOOD ORDERABLES Final Result [facility] [address] [facility] Department [place] [address] * Differential, auto (09/02/2024 1:25 AM CDT) Pathologist [facility] Neutrophil abs 4.09 1.50 - 6.50 K/cumm Imm gran abs 0.01 0.00 - 0.10 K/cumm [facility] Lymphocyte abs 2.61 0.80 - 3.30 K/cumm [facility] Monocyte abs 0.48 0.20 - 0.80 K/cumm [facility] Eosinophil abs 0.07 0.00 - 0.50 K/cumm [facility] Basophil abs 0.05 0.00 - 0.10 K/cumm [facility] Neutrophil pct 55.9 % [facility] Comment: Interpretive Data Percent cell count reference ranges are not reported, since discordance with absolute values may lead to misinterpretation of CBC data. Current Interpretive Data was last revised on 2017. Imm gran pct 0.1 % [facility] Comment: Interpretive Data Percent cell count reference ranges are not reported, since discordance with absolute values may lead to misinterpretation of CBC data. Current Interpretive Data was last revised on 2017. Lymphocyte pct 35.7 % [facility] Comment: Interpretive Data Percent cell count reference ranges are not reported, since discordance with absolute values may lead to misinterpretation of CBC data. Current Interpretive Data was last revised on 2017. Monocyte pct 6.6 % [facility] Comment: Interpretive Data Percent cell count reference ranges are not reported, since discordance with absolute values may lead to misinterpretation of CBC data. Current Interpretive Data was last revised on 2017. Eosinophil pct 1.0 % [facility] Comment: Interpretive Data Percent cell count reference ranges are not reported, since discordance with absolute values may lead to misinterpretation of CBC data. Current Interpretive Data was last revised on 2017. Basophil pct 0.7 % [facility] Comment: Interpretive Data Percent cell count reference ranges are not reported, since discordance with absolute values may lead to misinterpretation of CBC data. Current Interpretive Data was last revised on 2017. Blood 09/02/2024 1:25 AM CDT 09/02/2024 1:29 AM CDT Priscilla ROJAS LAB BLOOD ORDERABLES Final Result Performing Organization Address [facility] Co de Phone Number NISHA [address] [facility] [place] [address] * (ABNORMAL) CBC with auto differential (09/02/2024 1:25 AM CDT) Pathologist [facility] WBC 7.31 3.80 - 9.90 K/cumm Hgb 12.9 11.9 - 15.5 g/dL [facility] Hct 40.8 35.6 - 45.5 % [facility] Plt 240 150 - 400 K/cumm [facility] MPV 11.1 9.1 - 12.3 fL [facility] RBC 5.14 3.90 - 5.20 M/cumm [facility] MCV 79.4(L) 81.3 - 96.4 fL [facility] MCH 25.1(L) 27.1 - 33.3 pg [facility] MCHC 31.6(L) 32.3 - 35.7 g/dL [facility] RDW CV 14.9 11.1 - 14.9 % [facility] RDW SD 43.1 35.7 - 48.1 fL [facility] NRBC abs 0.00 0.00 - 0.01 K/cumm [facility] Blood 09/02/2024 1:25 AM CDT 09/02/2024 1:29 AM CDT Priscilla ROJAS LAB BLOOD ORDERABLES Final Result Performing Organization Address City/[facility]/ZIP Co de Phone Number NISHA [address] [facility] Department [place] [address] * D-dimer, quantitative (09/02/2024 1:25 AM CDT) [facility] D-Dimer 330 <=499 ng/mL FEU Comment: Interpretive [...] LAB BLOOD ORDERABLES Final Result [facility] [address] [facility] Department [place] [address] * Comprehensive metabolic panel (09/02/2024 1:25 AM CDT) [facility] Sodium 139 135 - 145 mmol/L Potassium, pl 3.6 3.3 - 4.9 mmol/L [facility] Chloride 103 97 - 110 mmol/L [facility] CO2 25 22 - 32 mmol/L [facility] Anion gap 11 2 - 15 mmol/L [facility] BUN 17 6 - 25 mg/dL [facility] Creatinine 0.61 0.60 - 1.10 mg/dL [facility] Glucose 105 70 - 199 mg/dL [facility] Comment: Interpretive Data Fasting glucose >/= 126 [...] 2022. Calcium 9.1 8.5 - 10.3 mg/dL [facility] Bilirubin, total 0.2 0.1 - 1.2 mg/dL [facility] Protein, pl 7.0 6.5 - 8.5 g/dL [facility] Albumin 3.8 3.5 - 5.0 g/dL [facility] Alk phos 74 40 - 130 Units/L [facility] ALT 16 7 - 45 Units/L [facility] AST 19 10 - 45 Units/L [facility] Blood 09/02/2024 1:25 AM CDT 09/02/2024 1:29 AM CDT Priscilla ROJAS LAB BLOOD ORDERABLES Final Result Performing Organization Address [facility]/ZIP Co de Phone Number [address] [employer] [place], [place] [id number] * POCT glucose (07/11/2024 2:04 AM CDT) [facility] Glucose, POC 118 70 - 199 mg/dL Blood 07/11/2024 2:04 AM CDT 07/11/2024 2:04 AM CDT Notinfile Unknown LAB POCT ORDERABLES - DEVICE F inal Result Performing Organization Address [facility]/ZIP Co de Phone Number [address] [place] [address] * (ABNORMAL) Hemoglobin A1c (05/01/2024 6:39 AM COMPLIANCE SPECIALIST) [facility] Hgb A1C 7.2(H) 4.0 - 5.6 % Estimated Average Glucose 160 mg/dL [facility] Comment: The ADA recommends reporting an estimated Average Glucose (eAG) with all Hemoglobin A1c results using the equation derived from a study of 507 normal and diabetic adults. Minority populations were underrepresented and children were not included. (Diabetes Care 31:0537-5509, 2008). The eAG is not equivalent to a fasting glucose. Blood 05/01/2024 6:39 AM COMPLIANCE SPECIALIST 05/01/2024 6:41 AM COMPLIANCE SPECIALIST Valerie Melara MD LAB BLOOD ORDERABLES Final Result [facility] [address] [facility] Department [place] [address] * Lipid panel (01/14/2024 5:40 AM CDT) [...] last revised on 2017. Testing performed by: [facility], [address] [place] [address]., [address] Triglycerides 90 <=149 mg/dL [facility] Comment: Interpretive [...] last revised on 2017. Testing performed by: [facility], [address] [place] [address]., [address] HDL 50 >=40 mg/dL [facility] Comment: [...] last revised on 2017. Testing performed by: [address] [address] LDL, calculated 101 <=129 mg/dL [facility] Comment: [...] last revised on 2023. Testing performed by: [facility], [address] [place] [address]., [address] Non-HDL Cholesterol 118 mg/dL [facility] SALAS Comment: [...] last revised on 2017. Testing performed by: [facility], [address] [place] [address]., [address] Chol/HDL ratio 3 [facility]AS Comment:Testing performed by : [facility], [address] [place] [address]., [address] Blood 01/14/2024 5:40 AM CDT 01/14/2024 5:58 AM CDT us Antelmo Martin MD LAB BLOOD ORDERABLES Final Result [facility] [address] [facility] [place] [address] * Screening Mammogram Bilateral W Chaparro (05/12/2023 7:52 AM COMPLIANCE SPECIALIST) Anatomical Region Laterality Modality Breast Bilateral Mammography Impressions 05/17/2023 2:13 PM COMPLIANCE SPECIALIST BI-RADS ATLAS category (overall): 2 - Benign There is no mammographic evidence of malignancy. A 1 year screening mammogram is recommended. The patient has been or will be contacted. We recommend annual screening mammography for women at average risk of breast cancer beginning at age 40, based on guidelines of the [place] [employer] (ACR Practice Parameter for the Performance of Screening and Diagnostic Mammography) and [place] [employer]. For women with and elevated risk of breast cancer, please refer to the ACR Practice Parameter for specific screening recommendations. The patient will be entered into a reminder system with a target due date of 1 year for her next screening exam. Narrative 05/17/2023 2:13 PM COMPLIANCE SPECIALIST Screening Mammogram Bilateral W Chaparro: 05/12/23 The [...] Most Recently Relevant to Health Maintenance Insurance [facility] Advance Directives For more information, please contact: [phone] * Full Code (Latest Code Status on File) Date Activated Date Inactivated Comments 05/01/2024 1:49 PM 05/07/2024 11:49 PM * Full Code Date Activated Date Inactivated Comments 01/13/2024 10:57 PM 01/17/2024 8:05 PM * Full Code Date Activated Date Inactivated Comments 07/24/2023 1:46 AM 07/26/2023 9:07 PM Care Teams Repair Mechanic Relationship Specialty Start Date End Date No, Physician PCP - General 09/02/24
--- OUTSIDE RECORDS SUMMARY | 2024-09-30 19:22 | XMS_ITS | Clinical Summary ---
Author Organization [facility] [employer] Address [address] [place] [address] Care Team Providers Care Chairman President And Chief Executive Officer Name Role Phone Shaheen Vann MD Primary Care Provider [phone] Source Comments [facility] [employer],non-owned Affiliates and Associated Physician Practices is amultiple site organization consisting of ambulatory clinics and hospital sitesin [place], [place], [place] and [place]. This disclosure is being madepursuant to the Care Everywhere program and may not contain all information available regarding this patient. Last updated 18.[facility] [employer] Allergies Active Allergy Reactions Criticality Noted Date [...] sprayIndications :Allergic rhinitis, unspecified seasonality, unspecified trigger [place] 2 sprays into each nostril 2 times [...] COMPREHENSIVE METABOLIC PANEL STAT 04/17/2014 6:42 PM [employer] from Last 3 Months or Most Recently Relevant to Health Maintenance Results * (ABNORMAL) COMPREHENSIVE METABOLIC PANEL (04/17/2014 6:42 PM [facility]) Glucose 100 74 - 106 mg/dL 04/17/2014 7:07 PM [facility] Sodium 142 136 - 145 mmol/L 04/17/2014 7:07 PM [facility] Potassium 3.1(L) 3.5 - 5.1 mmol/L 04/17/2014 7:07 PM [facility] Chloride 105 98 - 107 mmol/L 04/17/2014 7:07 PM [facility] CO2 24 22 - 31 mmol/L 04/17/2014 7:07 PM [facility] Calcium 9.4 8.5 - 10.1 mg/dL 04/17/2014 7:07 PM [facility] Anion Gap 13 5 - 15 mmol/L 04/17/2014 7:07 PM [facility] BUN 25(H) 7 - 21 mg/dL 04/17/2014 7:07 PM [facility] Creatinine 0.71 0.50 - 1.30 mg/dL 04/17/2014 7:07 PM [facility] eGFR by MDRD >60 >60 mL/min/1.7 3m2 04/17/2014 7:07 PM [facility] eGFR by MDRD >60 >60 mL/min/1.7 3m2 04/17/2014 7:07 PM [facility] Alkaline Phosphatase 59 38 - 126 U/L 04/17/2014 7:07 PM [facility] ALT 38 12 - 78 U/L 04/17/2014 7:07 PM [facility] AST 58(H) 5 - 40 U/L 04/17/2014 7:07 PM [facility] Protein Total 8.2 6.4 - 8.2 gm/dL 04/17/2014 7:07 PM [facility] Albumin 3.9 3.4 - 5.0 gm/dL 04/17/2014 7:07 PM [facility] Bilirubin Total 1.0 0.2 - 1.0 mg/dL 04/17/2014 7:07 PM [facility] Blood BLOOD SPECIMEN / Unknown 04/17/2014 6:42 PM [employer] 04/17/2014 6:44 PM [employer] Gilson Brady DO LAB - CHEMISTRY ORDERABLES Fin al Result [facility] [address] [place] [address] from Last 3 Months or Most Recently Relevant to Health Maintenance Insurance [facility] [employer] [facility] Care Teams Chairman President And Chief Executive Officer Relationship Specialty Start Date End Date Shaheen Vann MD PCP - General 03/14/18
--- NOTE | 2024-09-30 22:07 | ED_ITS ---
HPI - Skin/Abscess/Foreign Bdy General Chief complaint: Skin/Abscess/Foreign Body Stated complaint: bug bites and allergies Time Seen by Provider: 09/30/24 19:02 History of Present Illness HPI narrative: Patient has multiple insect bites and her legs are swollen from this; she gets a significant allergic reaction with bites and has in the past required epipen. Related Data Allergies Allergy/AdvReac Type Severity Reaction Status Date / Time ibuprofen Allergy Severe Anaphylaxis Verified 02/12/24 17:53 latex Allergy Swelling Verified 02/12/24 17:53 lisinopril Allergy Wheezing Verified 02/12/24 17:53 Penicillins Allergy Other Verified 02/12/24 17:53 Sulfa (Sulfonamide Allergy Swelling Verified 02/12/24 17:53 Antibiotics) Review of Systems Review of Systems: All systems reviewed & are unremarkable except as noted in HPI and below PMFSH Past Medical History Medical History Arthritis Diabetes HLD (hyperlipidemia) HTN (hypertension) Surgical History Surgical History History of hysterectomy 2009 Social History Social History Smoking status: Never smoker Exam Narrative: EXAMINATION OF ORGAN SYSTEMS/BODY AREAS: Constitutional: Vital signs per nursing GENERAL:[No acute distress, non-toxic appearing.] HEAD: Normal with no signs of head trauma. EYES: EOMI, conjunctiva normal ENT: Hearing grossly intact LUNGS: Nonlabored breathing. HEART: [Regular rate and rhythm] ABD: [Soft], [nontender to palpation] EXT: Swelling bilateral legs equally SKIN: Multiple raised red lesions consistent with insect stings, around the lower legs, also neck and face NEURO: [Alert and oriented x 3. No gross focal sensory or strength deficits.] PSYCH: Normal affect Course Vital Signs Vital signs: Vital Signs Temperature 98.3 F 09/30/24 17:09 Pulse Rate 92 09/30/24 17:09 Respiratory Rate 18 09/30/24 17:09 Blood Pressure 151/90 H 09/30/24 17:09 Pulse Oximetry 100 09/30/24 17:09 Oxygen Delivery Room Air 09/30/24 17:09 Temperature 98.6 F 09/30/24 17:35 Pulse Rate 90 09/30/24 17:35 Respiratory Rate 18 09/30/24 17:35 Blood Pressure 150/92 H 09/30/24 17:35 Pulse Oximetry 100 09/30/24 17:35 Oxygen Delivery Room Air 09/30/24 17:35 MDM - Skin/Abscess/Foreign Bdy MDM Narrative Medical decision making narrative: Patient presents here with insect bites and swelling to her legs, this often happens when she gets bug bites since she is highly allergic. Did consider possible other cause such as scabies or bedbugs however the distribution does not seem quite like scabies. She does have swelling to both legs, not unilateral and no redness or tenderness. Given the extent of her symptoms I did offer steroids, patient would also like to have liquid Benadryl and Toradol since that has worked for her in the past so I have prescribed this. I did also offer a few days of Lasix in case it helps with pedal edema. Follow-up to PCP provided with return precautions. Discharge Plan Discharge Clinical Impression: Bug bite, Allergic reaction to insect bite, Pedal edema Patient Disposition: Home Condition: Stable Instructions: Insect Bite or Sting (ED), Leg Edema (ED) Additional Instructions: Please follow up with your PCP and come back to the ER for any further issues. Try the medications as prescribed. Patient Language: Tristanian Prescriptions: New loratadine 10 mg tablet 10 mg PO DAILY Qty: 30 0RF ketorolac 10 mg tablet 10 mg PO Q6H PRN (Reason: pain) Qty: 20 0RF Rx Instructions: maximum total duration of 5 days from all oral, intranasal, or parenteral formulations diphenhydramine HCl [Benadryl Allergy] 12.5 mg/5 mL liquid 25 mg PO Q6-8H PRN (Reason: allergic reaction) Qty: 200 0RF prednisone 20 mg tablet 40 mg PO DAILY 5 Days Qty: 10 0RF furosemide [Lasix] 20 mg tablet 20 mg PO DAILY Qty: 5 0RF No Action cefdinir 300 mg capsule 300 mg PO Q12H 7 Days Qty: 14 0RF azithromycin 250 mg tablet See Rx Instructions .ROUTE .COMPLEX Qty: 6 0RF Rx Instructions: For 250 mg dose pack: take 500 mg today (day 1), then 250 mg for 4 days (days 2-5) albuterol sulfate 90 mcg/actuation HFA aerosol inhaler 1 inh inhalation QID PRN (Reason: shortness of breath or wheezing) Qty: 6.7 0RF guaifenesin 400 mg tablet 400 mg PO QID PRN (Reason: cough) Qty: 30 0RF hydroxyzine HCl 25 mg tablet 25 mg PO TID PRN (Reason: anxiety) Qty: 30 0RF amlodipine 5 mg tablet 5 mg PO DAILY 30 Days Qty: 30 0RF metoprolol tartrate 25 mg tablet 12.5 mg PO BID 30 Days Qty: 30 0RF acetaminophen 500 mg capsule 1,000 mg PO Q6H PRN (Reason: pain) Qty: 20 0RF cyclobenzaprine 10 mg tablet 10 mg PO TID PRN (Reason: muscle spasm) Qty: 14 0RF Follow-up/Referrals: Thierry Chauhan MD [Physician] - 2 Days UNKNOWN,DOCTOR [Primary Care Provider] -
== END 2024-09-30 19:38 | disposition home or self-care (01) ==
PROVIDERS: Emergency Provider Emergency Medicine
DX: T63.481A Toxic effect of venom of other arthropod, accidental (unintentional), initial encounter (principal); S80.862A Insect bite (nonvenomous), left lower leg, initial encounter; S80.861A Insect bite (nonvenomous), right lower leg, initial encounter; S10.96XA Insect bite of unspecified part of neck, initial encounter; S00.86XA Insect bite (nonvenomous) of other part of head, initial encounter; R60.0 Localized edema; I10 Essential (primary) hypertension; E11.9 Type 2 diabetes mellitus without complications; E78.5 Hyperlipidemia, unspecified; M19.90 Unspecified osteoarthritis, unspecified site; Z90.710 Acquired absence of both cervix and uterus; W57.XXXA Bitten or stung by nonvenomous insect and other nonvenomous arthropods, initial encounter
CPT/HCPCS: 99283; J7512

== ENCOUNTER 2024-12-06 19:29 | Emergency (ER) | payer OTHER, SELFPAY ==
--- OUTSIDE RECORDS SUMMARY | 2024-12-03 04:00 | XMS_ITS ---
Author Organization [facility] Address [address] [place] [address] Care Team Providers Care Enrichment Director Name Role Phone Mattie Boyle Primary Care Provider [phone] Anuradha Lazogail Unavailable [phone] Allergies Allergen (clinical drug ingredient) Drug/Non Drug [...] every 8 hrs as needed Orally Not-Taking Azqjf-U-Wsjj 1.5 % as directed Mouth/Throat once daily [...] Encounter Location Date Provider Diagnosis [facility] [address], [place] [address] 12/03/2024 Nani Lazo Plan Of Treatment No Information Progress Notes * Teresa BEYERB:[birth year] (49 yo F)Acc No.[id number]:12/03/2024 UNLOCKED PROGRESS NOTE Patient: Mahsa MAYFIELD Provider: Gill Lazo, MSN, SKIP MINER BLASTING, PMHNP- :1975 A ge:49 Y S ex:Female Date:12/03/2024 Phone: Address:[facility] Pcp:Mattie Boyle Subjective: * Chief Complaints: * 1 . Psych Evaluation. * Medical History: H ypertension, Diabetes mellitus, Asthma. * Surgical History: c -section 1999. * Hospitalization/Major Diagno stic Procedure: [facility] 06/11. * Family History: F ather: . [...] meal Orally Once a day , Not-Taking Vgibr-Z-Mrcy 1.5 % Solution as directed Mouth/Throat once daily , Not-Taking Benzonatate 100 MG Capsule y mouth every 8 hrs as needed Orally , Not-Taking predniSONE 20 MG Tablet 1 tablet Orally Once a day for 4 days * Allergies: S ulfacetamide, MSM, Glucosamine. Objective: * Vitals: Assessment: Plan: * Treatment: * * Electronic signature of Maryanne Lazo on 12/06/2024 at 07:31 PM CDT Sign off status: Pending * Provider: Gill Lazo, MSN, SKIP MINER BLASTING, PMHNP-BC Date: 12/03/2024 Generated for Printing/Faxing/eTransmitting on: 12/06/2024 07:31 PM CDT
--- OUTSIDE RECORDS SUMMARY | 2024-12-06 19:31 | XMS_ITS | Patient Health Record ---
Author Organization [facility] Address [address] [place] [address] Care Team Providers Care Iron Installer Name Role Phone Mattie Boyle Primary Care Provider Cast Kristophergill Unavailable [phone] Nani Lazo Unavailable [phone] Angelica Sullivan Unavailable Kathy Daniels Unavailable [phone] Allergies Allergen (clinical drug ingredient) Drug/Non Drug Allergy documented on EMR Reaction Allergy Type Onset Date Status MSM Unknown Drug Allergy Active glucosamine Glucosamine Unknown Drug Allergy Act caron sulfacetamide Sulfacetamide Unknown Drug Allergy Active Results Component Value Reference Range Notes Breathalyzer Reviewed date:05/29/2024 01:43:26 PM Interpretation: Performing Lab: Notes/Report: MEGHANN 0.000 12 Panel Urine Drug Screen Reviewed date:06/28/2024 10:40:10 AM Interpretation: Performing Lab: Notes/Report: THC neg JUAN neg MOP (OPI) neg AMP neg MET neg BAR neg BZO neg MDMA neg MTD neg OXY neg PCP neg BUP neg QuantiFERON-TB Gold Plus ([id number]) Reviewed date:05/30/2024 07:54:09 AM Interpretation:Negative [facility]forming [facility], [address] [facility], Phone - [phone], Director - PhDRicchiuti Notes/Report: QuantiFERON Incubation Incubation performed. QuantiFERON-TB Gold [...] Nil Value 0.02 QuantiFERON Mitogen Value >10.00 Test, Urine Reviewed date:05/27/2024 12:48:27 PM Interpretation: Performing Lab: Notes/Report: Test, Urine neg Negative - Negative Lipid Panel* Reviewed date:06/09/2024 05:05:14 PM Interpretation: Performing Lab:[facility] [address] [place], [place] [address]ox [facility], Phone - [phone], Director - [facility] Notes/Report: Cholesterol, Total 166 100-199 mg/dL Triglycerides 76 0-149 mg/dL HDL Cholesterol 67 >39 mg/dL VLDL Cholesterol Vince 14 5-40 mg/dL LDL Chol Calc (NIH) 85 0-99 mg/dL TSH Rfx on Abnormal to Free T4 Reviewed date:06/09/2024 05:05:14 PM Interpretation: Performing Lab:[facility] [address] [place] [address], Phone - [phone], Director - [facility] Notes/Report: TSH 0.750 0.450-4.500 uIU/mL Hemoglobin A1c* Reviewed date:06/09/2024 05:05:14 PM Interpretation: Performing Lab:[facility] [address], Phone - [phone], Director - [facility] Notes/Report: Hemoglobin A1c 7.5 4.8-5.6 % . Prediabetes: 5.7 - 6.4 Diabetes: >6.4 Glycemic control for adults with diabetes: <7.0 CMP 14 Comprehensive Metabol ic Panel* Reviewed date:06/09/2024 05:05:14 PM Interpretation: Performing Lab:[facility] [place], [address] [place] [address], Phone - [phone], Director - [facility] Notes/Report: Glucose 115 70-99 mg/dL BUN 14 [...] 0-40 IU/L ALT (SGPT) 47 0-32 IU/L CBC With Differential/Platel et* Reviewed date:06/09/2024 05:05:15 PM Interpretation: Performing Lab:[facility] [place], [address] [facility], [place], Phone - [phone], Director - Yael Notes/Report: WBC 7.4 3.4-10.8 [...] % Immature Grans (Abs) 0.0 0.0-0.1 x10E3/uL Reason For Referral Reason patient is homeless, needs housing but she is very delusional/psychotic currently. Diagnosis 1 Homeless (Z59.00) Referral Organization [facility] Referring Provider First Name Nani Referring Provider Last Name Violet Referring Provider Speciality Psychiatry Referred Provider Specialty Behavioral [facility] Clinical Notes Alberta Garcia 06/10/2024 11:42:40 AM >HN called the client. Client is on the unit. HN discussing housing options with the client. HN completed the [facility] [employer] application and submitted it by mail. HN also was able to complete the Benefit Access Pass and submit it to Dr. Turcios to be signed off on for a disability bus pass to assist with transportation. Referral Priority Routine Medications Medication SIG (Take, Route, Frequency, Duration) Notes Start Date End Date Status Benzonatate 100 MG y mouth every 8 hrs as needed Orally Not-Taking Scxtr-H-Jbnx 1.5 % as directed Mouth/Throat once daily [...] 1 tablet Orally Once a day Active metFORMIN HCl 500 MG 1 tablet with a meal Orally Once a day; Duration: 30 days 06/09/2024 Active Aspirin 81 81 MG 1 tablet Orally Once a day Active Aristada 882 MG/3.2ML 3.2 mL Intramuscular 05/21/2024 Active OLANZapine 5 MG 1 tablet at bedtime Orally Once a day; Duration: 30 days patient on CRU, please deliver 06/05/2024 Active hydrOXYzine HCl 50 MG 1 tab by mouth 3 times a day Orally Active predniSONE 20 MG 1 tablet Orally Once a day for 4 days Not-Taking Problems Problem Type SNOMED Code ICD Code Onset Dates Problem Status W/U Status Risk Notes Problem Bipolar 1 disorder (003639993) Bipolar 1 disorder (F31.9) Active confirmed Dx self-reporte dia Brushpili strugguled to identify her symptoms, treatment providers, and current treatment for mental health. Problem Schizophrenia (F20.9) Active confirmed Problem Generalized anxiety disorder (89223137) CECILY (generalized anxiety disorder) (F41.1) Active confirmed Problem Diabetes mellitus (49915727) Diabetes mellitus (E11.9) Active confirmed Vital Signs Heart Rate 99 /min 06/03/2024 Temperature 98.9 degrees Fahrenheit 05/27/2024 Respiratory Rate 16 /min 06/03/2024 Blood pressure diastolic 102 mm Hg 06/03/2024 Oximetry 98 % 06/03/2024 Height 71 in 06/03/2024 Blood pressure systolic 152 mm Hg 06/03/2024 Weight 232 lbs 06/03/2024 BMI 32.35 kg/m2 06/03/2024 Encounters Encounter Location Date Provider Diagnosis [facility] [address] [place] [address] 06/05/2024 Mattie Boyle [place] [address] 05/27/2024 Mattie Boyle Adult general medical exam Z00.00 and Nutritional counseling Z71.3 [place] [address] 05/27/2024 Kathy Daniels Bipolar [address] disorder F31[address] [address] 05/29/2024 Nani Violet CECILY (generalized anxiety disorder) F41.1 [facility] [address] [place] [address] 06/03/2024 Mattie Boyle Nutritional counseling Z71.3 ; Establishing care with new doctor, encounter for Z71.89 ; Screening for deficiency anemia Z13.0 ; Screening for metabolic disorder Z13.228 ; Screening for diabetes mellitus Z13.1 ; Screening for thyroid disorder Z13.29 and Screening for hyperlipidemia Z13.[address] [address] 06/05/2024 Nani Violet CECILY (generalized anxiety disorder) F41.1 and Schizophrenia F20.[address] [address] 07/15/2024 Angelica Sullivan [address] [place] [address] 05/29/2024 Carmencita Cast [facility] [address] [place] [address] 06/05/2024 Nani Lazo [address] [place] [address] 06/09/2024 Mattie Montana Diabetes mellitus E11.9 [facility] [address] [place] [address] 06/10/2024 Carmencita Cast Assessments Encounter Date Diagnosis (ICD Code) Assessment Notes Treatment Notes Treatment Clinical Notes Section Notes 06/09/2024 Diabetes mellitus (ICD-10 - E11.9) 06/05/2024 Schizophrenia (ICD-10 - F20.9) Start Olanzapine. [...] CECILY (generalized anxiety disorder) (ICD-10 - F41.1) 06/03/2024 Establishing care with new doctor, encounter for (ICD-10 - Z71.89) 06/03/2024 Nutritional counseling (ICD-10 - Z71.3) 05/29/2024 CECILY (generalized anxiety disorder) (ICD-10 - F41.1) Continue hydroxyzine. Take as prescribed. Reviewed purpose (reduce anxiety and/or promote sleep), benefits, and risks - including sedation and dry mouth. Call for problems with medication, side effects or need for dosage change. 05/27/2024 Bipolar 1 disorder (ICD-10 - F31.9) Dx self-reported . Nahed strugguled to identify her symptoms, treatment providers, and current treatment for mental health. 05/27/2024 Adult general medical exam (ICD-10 - Z00.00) 05/27/2024 Nutritional counseling (ICD-10 - Z71.3) 06/03/2024 Screening for deficiency anemia (ICD-10 - Z13.0) 06/03/2024 Screening for metabolic disorder (ICD-10 - Z13.228) 06/03/2024 Screening for diabetes mellitus (ICD-10 - Z13.1) 06/03/2024 Screening for thyroid disorder (ICD-10 - Z13.29) 06/03/2024 Screening for hyperlipidemia (ICD-10 - Z13.220) 05/27/2024 Other Mahsa particiapted in the assessment, but had difficulty identifying her treatment goals while on the unit. She stated she needs assistance with housing and following up with her landlord. Masha was visually responding to internal stimuli while engaging in the assessment. Gely would benefit from continued support and assistance with symptom recognition, symptom management, and coping skills. 05/29/2024 Other May self-administer medications or be administered own oral medications per [facility] protocols. Provided informed consent with understanding of side effects, adverse effects, risks and benefits as well as alternative treatments as previously discussed and with the above recommended medications & other aspects of the treatment program. Agrees to return sooner if symptoms worsen or suicidal or homicidal ideations occur. Plan: -Continue Hydroxyzine 50 mg 1 tab TID PRN *no refill needed, being prescribed by [facility] PCP -Follow up: PRN [] Hard Rx handed to patient [] Rx phoned into pharmacy [] Rx faxed/e-prescribed into pharmacy [x] PDMP Reviewed [] [employer] Reviewed Encouraged by Nani Lazo HNP- to: [] consider utilizing therapist/counselor /hospital social worker/psychologist , referral given [x] continue with therapist/counselor /hospital social worker/psychologist Psychoeducation: -Treatment options discussed in detail with patient/guardian verbalizing understanding of treatment rationales. -Side effects and benefits of all medications prescribed discussed at length between psychiatric prescribing provider and patient/guardian along with the risks associated of oxmu-it-ytrh interactions, including but not limited to prescription [...] and engaged in treatment plan with Nani Lazo [facility]. -Perceiving complete understanding of rationale by patient/guardian and willingness to adhere to formulated plan of care by prescriber with patient/guardian buy-in, willingness to participate actively in plan of care and willing to take charge of own care. -Although geared for female patients, all patients/guardians are informed by prescribing provider of risks of medications that could potentially be taken by female/women within their [place] and that women who use [...] a should occur, to consult with provider, FOOT SETTER and/or Nurse Carry Out Clerk to determine if prescribed medications should or [...] self-administe r their own oral medications per [facility] Protocol. 06/05/2024 Other May self-administer medications or be administered own oral medications per [facility] protocols. Provided informed consent with understanding of [...] patient/guardian along with the risks associated of kffk-ty-wcmo interactions, including but not limited to prescription [...] and engaged in treatment plan with Nani MARESHNP-BC. -Perceiving complete understanding of rationale by patient/guardian and willingness to adhere to formulated plan of care by prescriber with patient/guardian buy-in, willingness to participate actively in plan of care and willing to take charge of own care. -Although geared for female patients, all patients/guardians are informed by prescribing provider of risks of medications that could potentially be taken by female/women within their [place] and that women who use [...] a should occur, to consult with provider, FOOT SETTER and/or Nurse Carry Out Clerk to determine if prescribed medications should or [...] Insured Coverage Start Date Coverage End Date [employer] [address] [place] [address] [id number] Mahsa Patterson Self - patient is the insured 4 [employer] [address] [place] [address] [id number] Mahsa Patterson Self - patient is the insured 4 [employer] [facility] [address] [place] [phone] [id number] Mahsa Patterson Self - patient is the insured 5 Medical (General) History Medical History History ICD Code hypertension Diabetes mellitus asthma Surgical History Surgery Date(Month/Year) 1999 Hospitalization History Reason Date(Month/Year) mental health 06/11
--- OUTSIDE RECORDS SUMMARY | 2024-12-06 19:31 | XMS_ITS | Clinical Summary ---
Author Organization [facility] Address [address] [place] [address] Care Team Providers Care Cupola Mechanic Name Role Phone Shaheen Vann MD Unavailable [phone] Christopher Aldana MD Unavailable [phone] None, Provider MD Primary Care Provider Unavaila ble Allergies Active Allergy Reactions Criticality Noted Date Comments Latex Unknown 04/05/2017 Penicillins Hives Medium 04/05/2017 Medications mirtazapine (REMERON) 30 MG tablet Take 1 tablet (30 mg total) by mouth nightly at bedtime. 023 Active OLANZapine (ZYPREXA) 15 MG tablet Take 1 tablet (15 mg total) by mouth nightly at bedtime. 023 Active omeprazole (PRILOSEC) 40 MG capsule Take 1 capsule (40 mg total) by mouth daily. 023 Active TRULICITY 1.5 MG/0.5ML injection Inject 1.5 mg into the skin once a week. 023 Active lisinopril (PRINIVIL) 5 MG tablet 024 Active famotidine (PEPCID) 40 MG tablet Take 0.5 tablets (20 mg total) by mouth 2 (two) times daily as needed. 30 tablet 024 Active metFORMIN (GLUCOPHAGE) 500 MG tablet Take 1 tablet (500 mg total) by mouth 2 (two) times daily with meals. 60 tablet Active psyllium (KONSYL) 100 % Pack Take 1 packet by mouth daily. May substitute with any fiber supplement 30 packet Active Lidocaine-Hydroco rt, Perianal, (LIDOCORT) 3-0.5 % Cream Apply 1 Application topically 2 (two) times daily as needed. 28.3 g Active ondansetron (ZOFRAN-ODT) 4 MG disintegrating tablet Take 1 tablet (4 mg total) by mouth every 8 (eight) hours as needed. 1 tablet Active cetirizine (ZYRTEC) 10 MG tablet Take 1 tablet (10 mg total) by mouth daily. 20 tablet 024 Active azelastine (ASTELIN) 0.1 % nasal spray 1 spray by Nasal route 2 (two) times daily. 30 mL Active fluticasone propionate (FLONASE) 50 MCG/ACT nasal spray 1-2 sprays by Nasal route daily. 1-2 sprays in each nostril qd; Start: 2 sprays in each nostril qd x1wk; Max: 2 sprays in each nostril/day 16 g 024 Active metoprolol tartrate (LOPRESSOR) 25 MG tablet Take 1 tablet (25 mg total) by mouth 2 (two) times daily. 180 tablet 024 Active lidocaine (LIDO MAGALIE) 4 % patch Place 1 patch onto the skin daily. Remove & Discard patch within 12 hours or as directed by 30 patch Active albuterol sulfate HFA 108 (90 Base) MCG/ACT inhaler Inhale 2 puffs into the lungs every 6 (six) hours as needed for Wheezing or Shortness of breath. 18 g 024 Active amLODIPine (NORVASC) 10 MG tablet Take 1 tablet (10 mg total) by mouth daily. 30 tablet 025 Active hydroCHLOROthiazi de (MICROZIDE) 12.5 MG capsule Take 1 capsule (12.5 mg total) by mouth every morning. 30 capsule 025 Active tiZANidine (ZANAFLEX) 2 MG tablet Take 1 tablet (2 mg total) by mouth nightly as needed. 8 tablet Active diphenhydrAMINE (BENADRYL) 25 MG tablet Take 1 tablet (25 mg total) by mouth every 8 (eight) hours as needed for Itching. 30 tablet 025 2024 Active hydroCHLOROthiazi de (HYDRODIURIL) 25 MG tablet Take 1 tablet (25 mg total) by mouth every morning. 30 tablet Active potassium chloride CR (KLOR-CON M) 20 MEQ tablet Take 1 tablet (20 mEq total) by mouth daily for 30 days. 30 tablet 025 2024 Active hydrOXYzine (ATARAX) 25 MG tablet Take 1 tablet (25 mg total) by mouth 3 (three) times daily as needed. 30 tablet 025 2024 Active COMPRESSION STOCKINGSIndicati ons:Venous stasis dermatitis Use as directed for swelling 1 Container Active triamcinolone (KENALOG) 0.1 % cream Apply topically 2 (two) times daily. 45 g 025 Active triamcinolone (KENALOG) 0.1 % cream Apply topically 2 (two) times daily. Do not use for more than one week 60 g 024 2024 Discontinued triamcinolone (KENALOG) 0.1 % cream Apply topically 2 (two) times daily. 45 g 025 2024 Discontinued Active Problems Problem Noted Date Diagnosed Date PAF (paroxysmal atrial fibrillation) ([facility]) 04/20/2023 Snoring 04/20/2023 Atrial fibrillation with RVR ([facility]) 1 05/12/2022 Angio-edema 11/01/2018 Encounters Date Type Department Care Team Description 12/02/2024 11:30 PM CDT - 12/03/2024 12:12 AM CDT Emergency [facility] [place] [address] Nasra Narayanan PA Insect Bite Discharge Disposition: Home or Self Care (Routine Discharge) 12/02/2024 Travel 11/29/2024 8:51 AM CDT - 11/29/2024 11:28 AM CDT Emergency [facility] [place] [address] Narinder Patino PA Leg Pain Discharge Disposition: Home or Self Care (Routine Discharge) 11/29/2024 Travel 11/21/2024 8:43 PM CDT - 11/22/2024 12:24 AM CDT Emergency [facility] [place] [address] Marilyn Lopez MD Pleuritic Chest Pain Discharge Disposition: Home or Self Care (Routine Discharge) 11/21/2024 Travel 11/09/2024 6:09 AM CDT - 11/09/2024 6:55 AM CDT Emergency [facility] [place] [address] Savannah Arguello MD Insect Bite Discharge Disposition: Home or Self Care (Routine Discharge) 11/09/2024 Travel 10/31/2024 1:06 PM CDT - 10/31/2024 5:34 PM CDT Emergency [facility] [place] [address] Narinder Patino PA Edema Discharge Disposition: Left Against Medical Advice 10/31/2024 Travel 09/05/2024 12:34 AM CDT - 09/05/2024 3:25 AM CDT Emergency [facility] [place] [address] Gonzalo Grady MD,PHD Toe Pain Discharge Disposition: Home or Self Care (Routine Discharge) 09/05/2024 Travel from Last 3 Months Immunizations Immunization Administration Dates Next Due Hepatitis B(Engerix B Adult) 02/08/2024,03/14/20 Tdap (Boostrix) 02/08/2024,03/13/2023 Family History Medical History Relation Comments Hypertension Father Stroke Father Asthma Mother Bronchitis Mother COPD Mother Glaucoma Mother Stroke Mother Relation Status Comments Father (Age 77) Mother (Age 58) Social History Tobacco Use Types Packs/Day Years Used Date Smoking Tobacco: Never Smokeless Tobacco: Never Tobacco Cessation:Counseling Given: Not Answered Alcohol Use Standard Drinks/Week Comments Yes 0 (1 standard drink = 0.6 oz pur e alcohol) x1 shot/day [facility] Utilities Answer Date Recorded In the past 12 months has th e [employer], [employer], oil, or water [email or web address] threatened to shut off services in your home? No 03/13/2023 Humiliation, Afraid, Rape, and Kick questionnair e Answer Date Recorded Within the last year, have y ou been afraid of your partner or ex-partner? No 03/13/2023 Within the last year, have y ou been humiliated or emotionally abused in other ways by your partner or ex-partner? No Within the last year, have y ou been kicked, hit, slapped, or otherwise physically hurt by your partner or ex-partner? No 03/13/2023 Within the last year, have y ou been raped or forced to have any kind of sexual activity by your partner or ex-partner? No 03/13/2023 Overall Financial Resource Strain (CARDIA) Answe r Date Recorded How hard is it for you to pa y for the very basics like food, housing, medical care, and heating? Not hard at all 03/13/2023 Hunger Vital Sign Answer Date Recorded Within the past 12 months, y ou worried that your food would run out before you got the money to buy more. Never true 03/13/20 23 Within the past 12 months, t he food you bought just didn't last and you didn't have money to get more. Never true 03/13/2023 PRAPARE - Transportation Answer Date Re corded In the past 12 months, has l ack of transportation kept you from medical appointments or from getting medications? No 02/16 In the past 12 months, has l ack of transportation kept you from meetings, work, or from getting things needed for daily living? No 03/13/2023 Housing Stability Vital Sign Answer Miguelangel e Recorded In the last 12 months, was t here a time when you were not able to pay the mortgage or rent on time? No 03/13/2023 In the last 12 months, how many places have you lived? 1 03/13/2023 In the last 12 months, was t here a time when you did not have a steady place to sleep or slept in a penitentiary (including now)? No 03/13/2023 Housing Stability Vital Sign Answer Miguelangel e Recorded In the last 12 months, was t here a time when you were not able to pay the mortgage or rent on time? No 03/13/2023 Number of Times Moved in the Last Year Not on fi le 03/13/2023 Homeless in the Last Year Not on file 2022 Comments No Sex and Gender Information Value Date Recorded Sex Assigned at Female 06/26/2024 2:11 PM CDT Legal Sex Female 10:53 PM CDT Gender Identity Not on file Sexual Orientation Not on file Last Filed Vital Signs Vital Sign Reading Time Taken Comments Blood Pressure 173/112 12/02/2024 10:44 PM CDT Pulse 77 12/02/2024 10:44 PM CDT Temperature 37 C (98.6 F) 12/02/2024 10:44 PM CDT Respiratory Rate 18 12/02/2024 10:44 PM CDT Oxygen Saturation 100% 12/02/2024 10:44 PM CDT Inhaled Oxygen Concentration - - Weight 95.3 kg (210 lb) 12/02/2024 10:44 PM CDT Height 180.3 cm (5' 11) 12/02/2024 10:44 PM CDT Body Mass Index 29.29 12/02/2024 10:44 PM CDT Plan of Treatment Health Maintenance Due Date Last Done Comments Colorectal Cancer Screening Colonoscopy (10 Years) 1975 Annual Physical 1978 Hepatitis C 1993 COVID-19 Vaccine ( season) 2023 Hepatitis B Vaccines (3 of 3 - 19+ 3-dose series) 04/04/2024 02/08/2024, 03/14/2023 PHQ-2 (Physician [place]) 04/17/2024 Mammogram Screening 05/12/2025 05/12/2023, 7 DTaP, Tdap and Td Vaccines (5 - Td or Tdap) 02/07/2034 02/08/2024, 03/13/2023, 05/20/2019, Additional history exists Pneumococcal Vaccine: Pediatrics (0 to 5 Years) and At-Risk Patients (6 to 49 Years) Completed 03/28/2023, 06/03/2022, 12/18/2015 Meningococcal B Vaccine Aged Out No l onger eligible based on patient's age to complete this topic Meningococcal Vaccine Aged Out No merlin nadira eligible based on patient's age to complete this topic RSV Immunizations Under 20 Months Aged Out No longer eligible based on patient's age to complete this topic Procedures Procedure Name Priority Date/Time Associated Diagnosis Comments USV LINDA DUPLEX LOW EXT LETICIA STAT 11/29/2024 11:18 AM CDT D-DIMER, QUANTITATIVE STAT 11/29/2024 8:58 AM CDT PRO-BRAIN NATRIURETIC PEPTIDE STAT 11/29/2024 8:58 AM CDT COMPREHENSIVE METABOLIC PANEL STAT 11/29/2024 8:58 AM CDT CBC W/DIFF AUTOMATED STAT 11/29/2024 8:58 AM CDT TROPONIN, QUANT STAT 11/21/2024 11:25 PM CDT CTA CHEST PE PROTOCOL STAT 11/21/2024 10:17 PM CDT D-DIMER, QUANTITATIVE STAT 11/21/2024 8:52 PM CDT TROPONIN, QUANT STAT 11/21/2024 8:52 PM CDT COMPREHENSIVE METABOLIC PANEL STAT 11/21/2024 8:52 PM CDT CBC W/DIFF AUTOMATED STAT 11/21/2024 8:52 PM CDT XR CHEST PORTABLE STAT 11/21/2024 8:2 1 PM CDT ECG 12-LEAD STAT 11/21/2024 8:07 PM CDT XR CHEST PA+LAT STAT 10/31/2024 2:07 PM CDT PRO-BRAIN NATRIURETIC PEPTIDE STAT 10/31/2024 1:37 PM CDT TROPONIN, QUANT STAT 10/31/2024 1:37 PM CDT COMPREHENSIVE METABOLIC PANEL STAT 10/31/2024 1:37 PM CDT CBC W/DIFF AUTOMATED STAT 10/31/2024 1:37 PM CDT ECG 12-LEAD Routine 10/31/2024 1:36 PM CDT ECG 12-LEAD STAT 09/05/2024 2:10 AM CDT XR CHEST PORTABLE STAT 09/05/2024 1:4 1 AM CDT CHORIONIC GONADOTROPIN HCG QL STAT 09/05/2024 1:15 AM CDT MAGNESIUM STAT 09/05/2024 1:15 AM CDT D-DIMER, QUANTITATIVE STAT 09/05/2024 1:15 AM CDT TROPONIN, QUANT STAT 09/05/2024 1:15 AM CDT COMPREHENSIVE METABOLIC PANEL STAT 09/05/2024 1:15 AM CDT CBC W/DIFF AUTOMATED STAT 09/05/2024 1:15 AM CDT from Last 3 Months Results * USV LINDA DUPLEX LOW EXT LETICIA (11/29/2024 11:18 AM CDT) Anatomical Region Laterality Modality Extremity Vascular Ultraso und 11/29/2024 10:4 4 AM CDT Narrative 11/29/2024 6:31 PM CDT VENOUS DUPLEX IMAGING BILATERAL LOWER EXTREMITY VASCULAR LAB Pat.Name: MAHSA EBYER Pat.ID: [id number] .Date: 11/29/2024 Exam Time: 10:44:00 AM Study Type:ELIU VS Venous Duplex Legs LETICIA Height: 71 in Age: 11 1975,49Y Sex: F Sonogrphr: Smith Godoy Margy Pat. Stat.:Inpatient Room: ER 2 History / Clinical:bilateral lower extremity swellining, elevated D-dimer Procedures: [place] scale, Color Doppler imaging, Doppler Spectral Analysis Race: B ++++++++++++++++++++++++++++++++++++ SUMMARY: ++++++++++++++++++++++++++++++++++++ Right leg: There are NO apparent, deep or superficial vein, ACUTE character venous filling defects visualized in the femoral, popliteal, deep calf or proximal saphenous veins. Resting venous flow is normal phasic proximally. Left leg: There are NO apparent, deep or superficial vein, ACUTE character venous filling defects visualized in the femoral, popliteal, deep calf or proximal saphenous veins. Resting venous flow is normal phasic proximally. CONCLUSION: No evidence of deep maurice thrombosis in the bilateral lower extremities. <Electronic Signature> 11/29/2024 06:31 PM Placido Fortune M.D. Procedure Note Placido Fortune MD - 11/29/2024 VENOUS DUPLEX IMAGING BILATERAL LOWER EXTREMITY VASCULAR LAB Pat.Name: MAHSA BEYER Pat.ID: [id number] .Date: 11/29/2024 Exam Time: 10:44:00 AM Study Type:ELIU VS Venous Duplex Legs LETICIA Height: 71 in Age: 11 1975,49Y Sex: F Sonogrphr: Smith Godoy Margy Pat. Stat.:Inpatient Room: ER 2 History / Clinical:bilateral lower extremity swellining, elevated D-dimer Procedures: [place] scale, Color Doppler imaging, Doppler Spectral Analysis Race: B ++++++++++++++++++++++++++++++++++++ SUMMARY: ++++++++++++++++++++++++++++++++++++ Right leg: There are NO apparent, deep or superficial vein, ACUTE character venous filling defects visualized in the femoral, popliteal, deep calf or proximal saphenous veins. Resting venous flow is normal phasic proximally. Left leg: There are NO apparent, deep or superficial vein, ACUTE character venous filling defects visualized in the femoral, popliteal, deep calf or proximal saphenous veins. Resting venous flow is normal phasic proximally. CONCLUSION: No evidence of deep maurice thrombosis in the bilateral lower extremities. <Electronic Signature> 11/29/2024 06:31 PM Placido Fortune M.D. [facility] Final Resul t * PRO-BRAIN NATRIURETIC PEPTIDE (11/29/2024 8:58 AM CDT) Only the most recent of2 resultswithin the time period is included. [facility] PRO-B TYPE NATRIURETIC PEPTIDE 26 <125 PG/ML 11/29/2024 9:58 AM CDT [facility] Comment: CUT POINTS ESTABLISHED BY INTERNATIONAL [employer] ON NT PROBNP (ICON) STUDY (2006). AGE INDEPENDENT: <300 PG/ML HAS A 99% NEGATIVE PREDICTIVE VALUE FOR EXCLUDING ACUTE CHF <50 YEARS: >450 PG/ML IS CONSISTENT WITH ACUTE CHF 50-75 YEARS: >900 PG/ML IS CONSISTENT WITH ACUTE CHF >75 YEARS: >1800 PG/ML IS CONSISTENT WITH ACUTE CHF IN PATIENTS WITH RENAL INSUFFICIENCY (GFR <60), >1200 PG/ML YIELDS A DIAGNOSTIC SENSITIVITY AND SPECIFICITY OF 89% AND 72% FOR ACUTE CHF. 11/29/2024 8:58 AM CDT [facility] Final Resul t [facility] [address] [place] [address], [place] [phone] * (ABNORMAL) COMPREHENSIVE METABOLIC PANEL (11/29/2024 8:58 AM CDT) Only the most recent of4 resultswithin the time period is included. [facility] GLUCOSE 145(H) 70 - 99 MG/DL 11/29/2024 9:58 AM CDT [facility] BUN 13 7 - 18 MG/DL 11/29/2024 9:58 AM CDT [facility] CREATININE S/P/B 0.68 0.55 - 1.02 MG/DL 11/29/2024 9:58 AM CDT [facility] SODIUM S/P/B 141 136 - 145 MMOL/L 11/29/2024 9:58 AM CDT [facility] POTASSIUM S/P/B 3.8 3.5 - 5.1 MMOL/L 11/29/2024 9:58 AM CDT [facility] CHLORIDE S/P/B 108 97 - 115 MMOL/L 11/29/2024 9:58 AM CDT [facility] CO2 30.9 21 - 32 MMOL/L 11/29/2024 9:58 AM CDT [facility] CALCIUM S/P/B 8.9 8.5 - 10.1 MG/DL 11/29/2024 9:58 AM CDT [facility] BILIRUBIN TOTAL S/P/B 0.4 0.2 - 1.2 MG/DL 11/29/2024 9:58 AM CDT [facility] Comment: THIS ASSAY IS NOT RECOMMENDED FOR PATIENTS UNDERGOING TREATMENT WITH ELTROMBOPAG DUE TO THE POTENTIAL FOR FALSELY ELEVATED RESULTS. TOTAL PROTEIN S/P/B 7.1 6.4 - 8.2 G/DL 11/29/2024 9:58 AM CDT [facility] ALBUMIN S/P/B 3.3(L) 3.4 - 5.0 G/DL 11/29/2024 9:58 AM CDT [facility] AST 22 15 - 37 U/L 11/29/2024 9:58 AM CDT [facility] ALT 27 14 - 55 U/L 11/29/2024 9:58 AM CDT [facility] ALKALINE PHOSPHATASE S/P/B 102 50 - 136 U/L 11/29/2024 9:58 AM CDT [facility] ANION GAP 2.1 2 - 10 MMOL/L 11/29/2024 9:58 AM CDT [facility] BUN CREATININE RATIO 19.1 6 - 26 11/29/2024 9:58 AM CDT [facility] A/G RATIO 0.9(L) 1.0 - 2.0 RATIO 11/29/2024 9:58 AM CDT [facility] GFR ESTIMATE >90 >90 ML/MIN/1.7 3 M2 11/29/2024 9:58 AM CDT [facility] Comment: NOTE: eGFR is not calculated for patients <18 years of age or gender unknown. This is an estimated GFR calculation using the new CKD EPI creatinine equation without race and so does not require a correction factor for race. This estimated GFR should not be used for calculating drug doses. 11/29/2024 8:58 AM CDT us [facility] Final Resul t [facility] [address] [place] [address], * (ABNORMAL) D-DIMER, QUANTITATIVE (11/29/2024 8:58 AM CDT) Only the most recent of3 resultswithin the time period is included. D-DIMER 641(HH) 0 - 500 ng{FEU}/mL 11/29/2024 9:59 AM CDT [facility] Comment: D-Dimer values less than or equal to 500 ng/mL FEU have a negative predictive value of >95% for exclusion of deep vein thrombosis and pulmonary embolism. In patients over 50 (who tend to have higher normal baseline D-Dimer values), recent studies suggest age-adjusted D-Dimer cutoff values (calculated as: age [years] x 10 ng/mL) result in equivalent outcomes and no additional false negative findings. Successful Call: DDIMR called 11/29/2024 09:59 AM to EMERGENCY ROOM ([id number]/CLIF BRENNER) by [id number]. Read Back: Yes 11/29/2024 8:58 AM CDT us [facility] Final Resul t [facility] [address] [place] [address], [place] [phone] * (ABNORMAL) CBC W/DIFF AUTOMATED (11/29/2024 8:58 AM CDT) Only the most recent of4 resultswithin the time period is included. WBC 5.88 4.5 - 11.0 x10'3/uL 11/29/2024 10:09 AM CDT [facility] RBC 4.60 4.20 - 5.40 x10'6/uL 11/29/2024 10:09 AM CDT [facility] HGB 11.7(L) 12.0 - 16.0 G/DL 11/29/2024 10:09 AM CDT [facility] HCT 37.3(L) 38.0 - 48.0 % 11/29/2024 10:09 AM CDT [facility] MCV 81.1 81.0 - 99.0 FL 11/29/2024 10:09 AM CDT [facility] MCH 25.4(L) 27.0 - 31.0 PG 11/29/2024 10:09 AM CDT [facility] MCHC 31.4(L) 32.0 - 36.0 G/DL 11/29/2024 10:09 AM T [facility] RDW 16.2(H) 11.5 - 14.5 % 11/29/2024 10:09 AM CDT [facility] PLT 213 130 - 400 x10'3/uL 11/29/2024 10:09 AM T [facility] MPV 11.3 9.3 - 12.2 FL 11/29/2024 10:09 AM T [facility] DIFFERENTIAL TYPE AUTOMATED DIFFERENTIAL 11/29/2024 10:09 AM T [facility] NEUTROPHILS % 69.4 % 11/29/2024 10:09 AM T [facility] LYMPHOCYTES % 21.6 % 11/29/2024 10:09 AM T [facility] MONOCYTES % 7.0 % 11/29/2024 10:09 AM T [facility] EOSINOPHILS 1.2 % 11/29/2024 10:09 AM T [facility] BASOPHILS 0.5 % 11/29/2024 10:09 AM T [facility] IMMATURE GRANS % 0.3 % 11/30/19 10:09 AM CDT [facility] ABS. NEUTROPHILS 4.08 1.80 - 7.70 x10'3/uL 11/29/2024 10:09 AM T [facility] ABS. LYMPHOCYTES 1.27 1.00 - 4.80 x10'3/uL 11/29/2024 10:09 AM T [facility] ABS. MONOCYTES 0.41 0.24 - 0.86 x10'3/uL 11/29/2024 10:09 AM CDT [facility] ABS. EOSINOPHILS 0.07 0.04 - 0.36 x10'3/uL 11/29/2024 10:09 AM CDT [facility] ABS. BASOPHILS 0.03 0.01 - 0.08 x10'3/uL 11/29/2024 10:09 AM CDT [facility] ABS. IMMATURE GRANULOCYTES 0.02 0.00 - 0.49 x10'3/uL 11/29/2024 10:09 AM CDT [facility] 11/29/2024 8:58 AM CDT [facility] Final Resul t Performing Organization Address City/[facility]/ZIP Co de Phone Number [facility] [address] [place] [id number], * TROPONIN, QUANT (11/21/2024 11:25 PM CDT) Only the most recent of4 resultswithin the time period is included. TROPONIN I HIGH SENSITIVITY 7 <54 ng/L 11/21/2024 11:55 PM CDT [facility] Comment: HIGH DOSES OF BIOTIN, TROPONIN-SPECIFIC AUTOANTIBODIES, AND ANTIBODY THERAPY CONTAINING HAMA MAY INTERFERE WITH THIS TEST RESULT. CORRELATION TO CLINICAL HISTORY AND PRESENTATION RECOMMENDED. 11/21/2024 11:2 5 PM CDT [facility] Final Result [facility] [address] [place] [id number], [place] [phone] * CTA CHEST PE PROTOCOL (11/21/2024 10:17 PM CDT) Anatomical Region Laterality Modality Chest Computed Tomogra phy 11/21/2024 10:2 0 PM CDT Impressions 11/21/2024 10:26 PM CDT IMPRESSION: 1. Suboptimal bolus timing resulting in suboptimal evaluation of the segmental and subsegmental pulmonary arterial tree. No evidence is seen to suggest central or lobar pulmonary thromboembolic disease or right ventricular strain. 2. Mild scattered bronchial wall thickening with associated minimal mosaic attenuation suggesting bronchitis. Referred By: Interpreted By: Michele Calderon DO, 11/21/2024 10:20 PM Narrative 11/21/2024 10:26 PM CDT [address] [address] EXAMINATION: CTA CHEST PE PROTOCOL EXAM DATE: 11/21/2024 10:09 PM CLINICAL HISTORY: Chest pain and shortness of breath, elevated d-dimer. COMPARISON: Chest radiographs 8 7:25 AM and 10/31/2024 and CTA chest 11/30/2023. TECHNIQUE: Axial CT angiography of the chest was performed following intravenous administration of 80 mL of Isovue 370. Coronal and sagittal reformatted images were obtained and reviewed. Coronal maximum intensity projection sequences (MIPS) sequences were obtained and reviewed. A radiation dose lowering technique was used for this procedure, which may include, but is not limited to, dose reduction technique, automated exposure control, the use of iterative reconstruction, ALARA (As Low As Reasonably Achievable) techniques, and Image Gently techniques. FINDINGS: PULMONARY ARTERIAL TREE: Suboptimal bolus timing degrades evaluation of the segmental and subsegmental pulmonary arterial tree. No evidence is seen to suggest central or lobar pulmonary thromboembolic disease. No CT evidence is seen to suggest right ventricular strain MEDIASTINUM: The heart is normal in size without pericardial effusion. The thoracic aorta is normal in caliber. There is no mediastinal, hilar, internal mammary chain, or axillary adenopathy. PLEURAL SPACES: There is no pleural effusion or pneumothorax. LUNGS: There is no focal pulmonary consolidation. There is mild scattered bronchial wall thickening with associated minimal mosaic attenuation, suggesting bronchitis. ABDOMEN: The visualized upper abdomen demonstrates no acute abnormality. MUSCULOSKELETAL: Degenerative arthritis affects the visualized lower cervical spine. Minimal degenerative disc disease affects the upper to mid thoracic spine. A vertebral body hemangioma is noted at T8. Procedure Note Michele Calderon DO - 11/21/2024 [facility] [address], [place] [address] EXAMINATION: CTA CHEST PE PROTOCOL EXAM DATE: 11/21/2024 10:09 PM CLINICAL HISTORY: Chest pain and shortness of breath, elevated d-dimer. COMPARISON: Chest radiographs 8 7:25 AM and 10/31/2024 and CTA chest11/30/2023. TECHNIQUE: Axial CT angiography of the chest was performed followingintravenous administration of 80 mL of Isovue 370. Coronal and sagittalreformatted images were obtained and reviewed. Coronal maximum intensityprojection sequences (MIPS) sequences were obtained and reviewed. Aradiation dose lowering technique was used for this procedure, which mayinclude, but is not limited to, dose reduction technique, automatedexposure control, the use of iterative reconstruction, ALARA (As Low AsReasonably Achievable) techniques, and Image Gently techniques. FINDINGS: PULMONARY ARTERIAL TREE: Suboptimal bolus timing degrades evaluation of the segmental andsubsegmental pulmonary arterial tree. No evidence is seen to suggestcentral or lobar pulmonary thromboembolic disease. No CT evidence is seento suggest right ventricular strain MEDIASTINUM: The heart is normal in size without pericardial effusion. The thoracicaorta is normal in caliber. There is no mediastinal, hilar, internalmammary chain, or axillary adenopathy. PLEURAL SPACES: There is no pleural effusion or pneumothorax. LUNGS: There is no focal pulmonary consolidation. There is mild scatteredbronchial wall thickening with associated minimal mosaic attenuation,suggesting bronchitis. ABDOMEN: The visualized upper abdomen demonstrates no acute abnormality. MUSCULOSKELETAL: Degenerative arthritis affects the visualized lower cervical spine.Minimal degenerative disc disease affects the upper to mid thoracic spine.A vertebral body hemangioma is noted at T8. IMPRESSION: 1. Suboptimal bolus timing resulting in suboptimal evaluation of thesegmental and subsegmental pulmonary arterial tree. No evidence is seento suggest central or lobar pulmonary thromboembolic disease or rightventricular strain. 2. Mild scattered bronchial wall thickening with associated minimalmosaic attenuation suggesting bronchitis. Referred By: Interpreted By: Michele Calderon DO, 11/21/2024 10:20 PM Marilyn Lopez MD CT Final Resul t * XR CHEST PORTABLE (11/21/2024 8:21 PM CDT) Only the most recent of2 resultswithin the time period is included. Anatomical Region Laterality Modality Chest Radiographic Adilia ging 11/21/2024 8:24 PM CDT Impressions 11/21/2024 8:25 PM CDT Impression: No acute findings. Referred By: Interpreted By: Rasta Abel MD, 11/21/2024 8:24 PM Narrative 11/21/2024 8:25 PM CDT [place] [id number] Examination: Chest 1 view portable History: Chest pain DATE/TIME: 11/21/2024 8:11 PM Comparison: October 31, 2024 Technique: AP upright portable view of the chest was obtained. Findings: Heart size, mediastinal contours and pulmonary vasculature are within normal limits. No pulmonary consolidation, pleural effusion or pneumothorax. No acute osseous abnormality. Procedure Note Rasta Abel MD - 11/21/2024 [place] [address] Examination: Chest 1 view portable History: Chest pain DATE/TIME: 11/21/2024 8:11 PM Comparison: October 31, 2024 Technique: AP upright portable view of the chest was obtained. Findings: Heart size, mediastinal contours and pulmonary vasculature arewithin normal limits. No pulmonary consolidation, pleural effusion orpneumothorax. No acute osseous abnormality. Impression: No acute findings. Referred By: Interpreted By: Rasta Abel MD, 11/21/2024 8:24 PM us [facility] Final Result * ECG 12 lead (11/21/2024 8:07 PM CDT) Only the most recent of3 resultswithin the time period is included. 11/21/2024 8:07 PM CDT Narrative [facility] ([place] - 11/22/2024 6:15 AM CDT [facility] [address] Test Date: 2024-11-21 Pat Name: MAHSA BEYER Department: 41 Room: [facility] Gender: Female [employer] Maker: : 1975 Requested By: NASRA NARAYANAN Order Number: [id number] Reading MD: Jerrod De Luna Measurements Intervals [place] Rate: 91 P: 42 AL: 122 QRS: 17 QRSD: 93 T: 41 QT: 347 QTc: 428 Interpretive Statements SINUS RHYTHM Compared to ECG 10/31/2024 13:36:57 No significant changes No ischemic changes Preliminary EKG Interpretation by BOB Dominguez Procedure Note Jerrod De Luna MD - 11/22/2024 [facility] [address] Test Date: 2024-11-21 Pat Name: MAHSA BEYER Department: 41 Room: [facility] Gender: Female [employer] Maker: : 1975 Requested By: NASRA NARAYANAN Order Number: [id number] Reading MD: Jerrod De Luna Measurements Intervals [place] Rate: 91 P: 42 AL: 122 QRS: 17 QRSD: 93 T: 41 QT: 347 QTc: 428 Interpretive Statements SINUS RHYTHM Compared to ECG 10/31/2024 13:36:57 No significant changes No ischemic changes Preliminary EKG Interpretation by BOB Dominguez us [facility] ECG ORDERABLES Final Result [facility] ([place] * XR CHEST PA+LAT (10/31/2024 2:07 PM CDT) Anatomical Region Laterality Modality Chest Radiographic Adilia ging 10/31/2024 2:15 PM CDT Impressions 10/31/2024 2:17 PM CDT =====IMPRESSION:===== No acute findings. Ordered By: NARINDER PATINO Interpreted By: Placido Morel MD, 10/31/2024 2:15 PM Narrative 10/31/2024 2:17 PM CDT [place] [address] Examination: Chest x-ray 2 view Exam date/time: 10/31/2024 1:02 PM Reason For Exam: edema. Hypertension and atrial fibrillation. Comparison: 09/05/2024 Findings: Normal cardiac size. Slightly tortuous aorta. Pulmonary vessels are within normal limits. No acute airspace consolidation, pleural effusion or pneumothorax. Multiple external artifacts are noted. Mild thoracic spondylosis. Procedure Note Placido Morel MD - 10/31/2024 [place] [address] Examination: Chest x-ray 2 view Exam date/time: 10/31/2024 1:02 PM Reason For Exam: edema. Hypertension and atrial fibrillation. Comparison: 09/05/2024 Findings: Normal cardiac size. Slightly tortuous aorta. Pulmonary vesselsare within normal limits. No acute airspace consolidation, pleuraleffusion or pneumothorax. Multiple external artifacts are noted. Mildthoracic spondylosis. =====IMPRESSION:===== No acute findings. Ordered By: NARINDER PATINO Interpreted By: Placido Morel MD, 10/31/2024 2:15 PM Narinder Patino PA [facility] Final Resul t * Qualitative HCG (09/05/2024 1:15 AM CDT) PREG SCREEN-SERUM NEGATIVE 09/05/2024 2:18 AM CDT [facility] 09/05/2024 1:15 AM CDT Gonzalo Grady MD,PHD LABORATORY Final Resu lt Performing Organization Address [facility] Co de Phone Number [facility] [address] [place] [id number], [place] [phone] * MAGNESIUM (09/05/2024 1:15 AM CDT) MAGNESIUM 2.2 1.8 - 2.4 MG/DL 09/05/2024 1:56 AM CDT [facility] 09/05/2024 1:15 AM CDT Gonzalo Grady MD,PHD LABORATORY Final Resu lt Performing Organization Address City/[facility] Co de Phone Number [facility] [address] [place] [phone], [place] [phone] from Last 3 Months Insurance [employer] Advance Directives * Full Code (Latest Code Status on File) Date Activated Date Inactivated Comments 03/12/2023 9:58 PM 03/15/2023 1:00 PM Care Teams Cupola Mechanic Relationship Specialty Start Date End Date None, Provider, PCP - General UNKNOWN PHYSICIAN SPECIALTY 06/29/24 Shaheen Vann MD 08/04/23 Christopher Aldana MD [address] [address] Referring Physician OTOLARYNGOLOGY 04/08/23
--- OUTSIDE RECORDS SUMMARY | 2024-12-06 19:32 | XMS_ITS | Clinical Summary ---
Author Organization [facility] [employer] Address [address] [place] [address] Care Team Providers Care Cnc Milling Machinist Name Role Phone Shaheen Vann MD Primary Care Provider [phone] Source Comments [facility] [employer],non-owned Affiliates and Associated Physician Practices is amultiple site organization consisting of ambulatory clinics and hospital sitesin [place], [place], [place] and [place]. This disclosure is being madepursuant to the Care Everywhere program and may not contain all information available regarding this patient. Last updated 18.[facility] [employer] Allergies Active Allergy Reactions Criticality Noted Date [...] sprayIndications :Allergic rhinitis, unspecified seasonality, unspecified trigger [place] 2 sprays into each nostril 2 times [...] of 3 - 19+ 3-dose series) 1994 SCREENING FOR DIABETES 10/11/2021 9, 10/11/2018, 04/17/2014 COVID-19 VACCINE (1 - 2023-2 5 season) 2023 DEPRESSION SCREENING 04/17/2024 INFLUENZA VACCINE (#1) 2024 ZOSTER VACCINE (1 of 2) 2025 [...] COMPREHENSIVE METABOLIC PANEL STAT 04/17/2014 6:42 PM TOBACCO CURER from Last 3 Months or Most Recently Relevant to Health Maintenance Results * (ABNORMAL) COMPREHENSIVE METABOLIC PANEL (04/17/2014 6:42 PM [facility]) [facility] Glucose 100 74 - 106 mg/dL 04/17/2014 7:07 PM [facility] Sodium 142 136 - 145 mmol/L 04/17/2014 7:07 PM [facility] Potassium 3.1(L) 3.5 - 5.1 mmol/L 04/17/2014 7:07 PM [facility] Chloride 105 98 - 107 mmol/L 04/17/2014 7:07 PM [facility] CO2 24 22 - 31 mmol/L 04/17/2014 7:07 PM [facility] Calcium 9.4 8.5 - 10.1 mg/dL 04/17/2014 7:07 PM [facility] Anion Gap 13 5 - 15 mmol/L 04/17/2014 7:07 PM [facility] BUN 25(H) 7 - 21 mg/dL 04/17/2014 7:07 PM [facility] Creatinine 0.71 0.50 - 1.30 mg/dL 04/17/2014 7:07 PM [facility] eGFR by MDRD >60 >60 mL/min/1.7 3m2 04/17/2014 7:07 PM [facility] eGFR by MDRD >60 >60 mL/min/1.7 3m2 04/17/2014 7:07 PM [facility] Alkaline Phosphatase 59 38 - 126 U/L 04/17/2014 7:07 PM [facility] ALT 38 12 - 78 U/L 04/17/2014 7:07 PM [facility] AST 58(H) 5 - 40 U/L 04/17/2014 7:07 PM [facility] Protein Total 8.2 6.4 - 8.2 gm/dL 04/17/2014 7:07 PM [facility] Albumin 3.9 3.4 - 5.0 gm/dL 04/17/2014 7:07 PM [facility] Bilirubin Total 1.0 0.2 - 1.0 mg/dL 04/17/2014 7:07 PM [facility] Blood BLOOD SPECIMEN / Unknown 04/17/2014 6:42 PM [facility] 04/17/2014 6:44 PM TOBACCO CURER Gilson Brady DO LAB - CHEMISTRY ORDERABLES Fin al Result [facility] [address] [place] [address] from Last 3 Months or Most Recently Relevant to Health Maintenance Insurance [facility] [employer] [facility] Care Address: [facility] [id number] [place] [phone] [facility] Care Teams Cnc Milling Machinist Relationship Specialty Start Date End Date Shaheen Vann MD PCP - General 03/14/18
--- OUTSIDE RECORDS SUMMARY | 2024-12-06 19:32 | XMS_ITS | Clinical Summary ---
Author Organization [facility] Address [address] [place] [address] Care Team Providers Care Instrument Assembly Supervisor Name Role Phone No, Physician Primary Care Provider [phone] Allergies Active Allergy Reactions Criticality Noted Date [...] Encounters Date Type Department Care Team Description 10/23/2024 12:13 AM CDT - 10/23/2024 2:24 AM T Emergency [address] [address] Acute nonintractable headache, unspecified headache type (Primary Dx); Lower extremity edema; Acute midline low back pain without sciatica; Chest pain, unspecified type Discharge Disposition: Discharge to home or self care 10/09/2024 9:30 PM CDT - 10/09/2024 9:32 PM [facility] Emergency [facility] Emergency Department [address] [place] [id number] Insect bite, unspecified site, initial encounter (Primary Dx) Discharge Disposition: Discharge to home [...] drink = 0.6 oz pur e alcohol) [facility] Utilities Answer Date Recorded In the past 12 months has th e electric, gas, oil, or water company threatened to shut off services in your home? No 01/16/2024 Social Connection and Isolation Panel Answer Date Recorded In a typical week, how many times do you talk on the phone with family, friends, or neighbors? Never 01/16/20 How often do you get togethe r with friends or relatives? Never 01/16/2024 How often do you attend chur ch or islam services? 1 to 4 times per year 01/16/2024 Do you belong to any clubs o r organizations such as buddhist groups, unions, fraternal or athletic groups, or [...] or slept in a penitentiary (including now)? Yes 07/24/2023 PHQ-9 Answer Date [...] in the past 12 m [facility], were you homeless or living in a penitentiary (including now)? Yes 01/16/2024 Personal Safety Answer Date Recorded Have you ever been in or are you currently in a harmful physical or emotional relationship or is someone making you feel afraid or unsafe? Denies 10/22/2024 Comments No Sex and Gender Information Value Date Recorded Sex Assigned at Not on file Legal Sex Female 5:27 AM RADIATION PROTECTION TECHNICIAN Gender Identity Female 07/23/2023 6:46 PM CDT Sexual Orientation Not on file Obstetrics History Para Term AB IAB SAB Ectopic Multiple Livin g Live Births 3 3 3 Date Outcome GA Total Labor Labor/2nd/3rd Weight Sex Type Anes PTL Lou A1 A5 Name Clin Term Term Term Last Filed Vital Signs Vital Sign Reading Time Taken Comments Blood Pressure 145/94 10/23/2024 2:20 AM CDT Pulse 82 10/23/2024 2:20 AM CDT Temperature 36.6 C (97.9 F) 10/22/2024 11:17 PM CDT Respiratory Rate 20 10/23/2024 2:20 AM CDT Oxygen Saturation 100% 10/23/2024 2:20 AM CDT Inhaled Oxygen Concentration - - Weight 115.6 kg (254 lb 13.6 oz) 10/09/2024 6:13 PM CDT Height 180.3 cm (5' 11) 10/09/2024 6:13 PM CDT Body Mass Index 35.54 10/09/2024 6:13 PM CDT Plan of Treatment Health Maintenance Due Date Last Done Comments Albumin Creatinine Ratio, Urine 1975 Colon Cancer Screening-Colonoscopy 1975 Hepatitis C Screening 1975 Dilated Eye Exam 1975 Foot Exam 1975 Regular Well Visit/Exam 18-64 1993 Breast Cancer Screening-Mammogram 05/12/2024 05/12/2023, 05/12/2023, 11/24/2016 Hemoglobin A1C 10/29/2024 05/01/2024, 12/17, 07/25/2023, Additional history exists Influenza Vaccine (#1) 2024 03/03/2019, 2013 Depression Screening 01/12/2025 01/13/2024, 01/13/20 24 Lipid Panel 01/13/2025 01/14/2024, 07/16, 03/27/2019, Additional history exists eGFR 10/22/2025 10/22/2024, 08/15, 06/25/2024, Additional history exists DTaP/Tdap/Td Vaccine (5 - Td or Tdap) 02/07/2034 02/08/2024, 03/13/2023, 05/20/2019, Additional history exists Pneumococcal vaccine <65 Completed 06/03/2022, 05/2015 Hepatitis B Screening Completed 02/08/2024, 023 Procedures Procedure Name Priority Date/Time Associated Diagnosis Comments URINALYSIS AND REFLEX TO MICROSCOPIC AND CULTURE STAT 10/23/2024 1:[address] CHEST PE W CONTRAST ED 10/23/2024 1:[address] HEAD WO CONTRAST ED 10/23/2024 1 :02 AM CDT PRO B-TYPE NATRIURETIC PEPTIDE Timed 10/23/2024 12:19 AM CDT TROPONIN T HIGH-SENSITIVITY 2-HOUR Timed 10/23/2024 12:19 AM CDT XR CHEST 1 VIEW ED 10/22/2024 10:25 PM CDT ECG 12-LEAD STAT 10/22/2024 9:49 PM CDT EGFR STAT 10/22/2024 9:45 PM CDT DIFFERENTIAL AUTO STAT 10/22/2024 9:4 5 PM CDT TROPONIN T HIGH-SENSITIVITY SERIES (BASELINE, 2HR, 4HR, 6HR) STAT 10/22/2024 9:45 PM CDT CBC WITH AUTO DIFFERENTIAL STAT 10/22/2024 9:45 PM CDT COMPREHENSIVE METABOLIC PANEL STAT 10/22/2024 9:45 PM CDT HEMOGLOBIN A1C STAT 05/01/2024 6:39 AM RADIATION PROTECTION TECHNICIAN LIPID PANEL Routine 01/14/2024 5:40 AM CDT SCREENING MAMMOGRAM BILATERAL W CHAPARRO Schedule Routine, Read Routine (OP Routine) 05/12/2023 7:52 AM RADIATION PROTECTION TECHNICIAN Screening mammogram, encounter for from Last 3 Months or Most Recently Relevant to Health Maintenance Results * Urinalysis reflex to microscopic and culture Urine (10/23/2024 1:07 AM CDT) Color, ur Straw Yellow Clarity, ur Clear Clear NISHA Specific gravity, ur 1.013 1.003 - 1.030 NISHA pH, urine 7.5 NISHA Comment: Interpretive Data U rine pH is affected by diet, medications, systemic acid-base disturbances, and renal tubular function. pH may affect urinary stone formation. For example, urine pH below 6.0 may help reduce the tendency for calcium phosphate stones and pH greater than 6.0 may reduce the tendency for uric acid stone formation. Source: [facility] Current Interpretive Data was last revised on 2017 Protein, ur ql Negative Negative [facility] Glucose, ur ql Negative Negative [facility] Ketones, ur Negative Negative [facility] Bilirubin, ur Negative Negative [facility] Blood, ur Negative Negative [facility] Urobilinogen, ur <2.0 <2.0 mg/dL [facility] Nitrite, ur Negative Negative [facility] Leukocyte esterase, ur Negative Negative [facility] UA reflex comment Reflex conditions for microscopic UA and culture not met. [facility] Urine 10/23/2024 1:07 AM CDT 10/23/2024 1:16 AM CDT us [facility] LAB MICROBIOLOGY - GENERAL O RDERABLES Final Result [facility] [address] [facility] Department [place] [address] * CT Chest PE (CTA) W Contrast (10/23/2024 1:02 AM CDT) Anatomical Region Laterality Modality Body N/A Computed Tomogra phy 10/23/2024 1:18 AM CDT Narrative 10/23/2024 1:21 AM CDT EXAM DESCRIPTION: CT CHEST PE (CTA) W CONTRAST REASON FOR STUDY: chest pain, SOB, lower extremity edema Mahsa Patterson is a 49 y.o. female presenting to the ED c/o Headache on top of head onset 2 days ago Denies history of headaches Back pain - no recent injury or urinary frequency Ankle swelling x2 days SOB onset this afternoon Chest pain midsternal nonradiating intermittent x2 days Denies nausea, vomiting, Hx hysterectomy TECHNIQUE: CT angiogram of the chest performed with intravenous contrast using helical scanning technique with dynamic intravenous contrast injection. Reconstructed coronal and sagittal MPR images reviewed. All images stored on PACS. 3D MIP images rendered on scanning unit and reviewed at time of interpretation. Automated exposure control was used as a dose optimization technique for this examination. CONTRAST TYPE/DOSE: 80mL of IOVERSOL 350 MG IODINE/ML INTRAVENOUS SYRINGE injected via intravenous COMPARISON: 04/15/2014 FINDINGS: VASCULATURE: No identified pulmonary emboli. LUNGS: No nodules or masses. No pneumonia. PLEURA: No effusion. No pneumothorax. MEDIASTINUM/MARY ANN: No identified masses or abnormal nodes. HEART: Heart size is normal with no pericardial effusion. AXILLA: No adenopathy. CHEST WALL: No masses. No subcutaneous air. HARDWARE/LINES/TUBES: None. UPPER ABDOMEN: No significant abnormality. MUSCULOSKELETAL: No significant abnormality. OTHER: No significant abnormality. IMPRESSION: No evidence of pulmonary embolism. Normal CT of the chest. THIS IS AN ELECTRONICALLY VERIFIED FINAL REPORT 10/23/2024 1:21 AM - Electronically signed by Benjamin Palma M.D. KT T: Report ID: [id number] Reading Location: [id number] Procedure Note Benjamin Palma MD - 10/23/2024 EXAM DESCRIPTION: CT CHEST PE (CTA) W CONTRAST REASON FOR STUDY: chest pain, SOB, lower extremity edema Mahsa Patterson is a 49 y.o. female presenting to the ED c/oHeadache on top of head onset 2 days ago Denies history of headaches Back pain -no recent injury or urinary frequency Ankle swelling x2 days SOB onsetthis afternoon Chest pain midsternal nonradiating intermittent x2 daysDenies nausea, vomiting, Hx hysterectomy TECHNIQUE: CT angiogram of the chest performed with intravenous contrastusing helical scanning technique with dynamic intravenous contrast injection. Reconstructed coronal and sagittal MPR images reviewed. All images storedon PACS. 3D MIP images rendered on scanning unit and reviewed at time of interpretation. Automated exposure control was used as a doseoptimization technique for this examination. CONTRAST TYPE/DOSE: 80mL of IOVERSOL 350 MG IODINE/ML INTRAVENOUSSYRINGE injected via intravenous COMPARISON: 04/15/2014 FINDINGS: VASCULATURE: No identified pulmonary emboli. LUNGS: No nodules or masses. No pneumonia. PLEURA: No effusion. No pneumothorax. MEDIASTINUM/MARY ANN: No identified masses or abnormal nodes. HEART: Heart size is normal with no pericardial effusion. AXILLA: No adenopathy. CHEST WALL: No masses. No subcutaneous air. HARDWARE/LINES/TUBES: None. UPPER ABDOMEN: No significant abnormality. MUSCULOSKELETAL: No significant abnormality. OTHER: No significant abnormality. IMPRESSION: No evidence of pulmonary embolism. Normal CT of the chest. THIS IS AN ELECTRONICALLY VERIFIED FINAL REPORT 10/23/2024 1:21 AM - Electronically signed by Benjamin Palma M.D. KT T: Report ID: [id number] Reading Location: [id number] [facility] IMG CT PROCEDURES Final Resu lt * CT Head WO Contrast (10/23/2024 1:02 AM CDT) Anatomical Region Laterality Modality Head and Neck N/A Computed Tomogra phy 10/23/2024 1:11 AM CDT Narrative 10/23/2024 1:18 AM CDT EXAM DESCRIPTION: CT HEAD WO CONTRAST REASON FOR STUDY: Headache, increasing frequency or severity Mahsa Patterson is a 49 y.o. female presenting to the ED c/o Headache on top of head onset 2 days ago Denies history of headaches Back pain - no recent injury or urinary frequency Ankle swelling x2 days SOB onset this afternoon Chest pain midsternal nonradiating intermittent x2 days Denies nausea, vomiting, Hx hysterectomy TECHNIQUE: Axial images acquired through the brain without intravenous contrast. Images stored on PACS. Automated exposure control was used as a dose optimization technique for this examination. COMPARISON: 06/25/2024 FINDINGS: BRAIN: No hemorrhage, edema or mass effect. No recent infarct. Normal white matter. EXTRA-AXIAL SPACES: No fluid collections. No masses. CALVARIUM: No fracture. SINUSES/MASTOIDS: No fluid or mucosal thickening. ORBITS: No significant abnormality. OTHER: No other significant abnormality. IMPRESSION: No acute intracranial findings. THIS IS AN ELECTRONICALLY VERIFIED FINAL REPORT 10/23/2024 1:18 AM - Electronically signed by Benjamin Palma M.D. KT T: Report ID: [id number] Reading Location: [id number] Procedure Note Benjamin Palma MD - 10/23/2024 EXAM DESCRIPTION: CT HEAD WO CONTRAST REASON FOR STUDY: Headache, increasing frequency or severity Mahsa Patterson is a 49 y.o. female presenting to the ED c/oHeadache on top of head onset 2 days ago Denies history of headaches Back pain -no recent injury or urinary frequency Ankle swelling x2 days SOB onsetthis afternoon Chest pain midsternal nonradiating intermittent x2 daysDenies nausea, vomiting, Hx hysterectomy TECHNIQUE: Axial images acquired through the brain without intravenous contrast. Images stored on PACS. Automated exposure control was used asa dose optimization technique for this examination. COMPARISON: 06/25/2024 FINDINGS: BRAIN: No hemorrhage, edema or mass effect. No recent infarct. Normal white matter. EXTRA-AXIAL SPACES: No fluid collections. No masses. CALVARIUM: No fracture. SINUSES/MASTOIDS: No fluid or mucosal thickening. ORBITS: No significant abnormality. OTHER: No other significant abnormality. IMPRESSION: No acute intracranial findings. THIS IS AN ELECTRONICALLY VERIFIED FINAL REPORT 10/23/2024 1:18 AM - Electronically signed by Benjamin Palma M.D. KT T: Report ID: [id number] Reading Location: [id number] Panch[facility] ROJAS IMG CT PROCEDURES Final Resu lt * Troponin T high-sensitivity 2-hour (10/23/2024 12:19 AM CDT) Trop T hs 6 <=14 ng/L Comment: Interpretive Data For further hscTnT resources including the diagnostic algorithm and an aid in interpretation, copy and paste this link: https://nrl.testcatalog.org/show/hsTrop Current Interpretive Data last revised 2020. Trop T hs delta -1 ng/L NISHA SALAS Trop T hs interp Insignificant NISHA SALAS Blood 10/23/2024 12:1 9 AM CDT 10/23/2024 12:30 AM CDT [facility] LAB BLOOD ORDERABLES Final R esult NISHA SALAS [address] [facility] Department [place] [address] * Pro B-type natriuretic peptide (10/23/2024 12:19 AM CDT) NT-proBNP <36 <=300 pg/mL Comment: Interpretive Comments: A. Dyspnea in Acute Care Setting All Ages: < 300 pg/ml, acute heart failure unlikely. < 50 yrs: 300 - 450 pg/ml, further investigation warranted. > 450 pg/ml, acute heart failure likely. 50 - 74 yrs: 300 - 900 pg/ml, further investigation warranted. > 900 pg/ml, acute heart failure likely . > or = 75 yrs: 450 - 1800 pg/ml, further investigation warranted. > 1800 pg/ml, acute heart failure likely. B. Non-acute Setting < 75 yrs < 125 pg/ml, rules out heart failure. > or = 125 pg/ml, further investigation warranted. > or = 75 yrs < 450 pg/ml, rules out heart failure. > or = 450 pg/ml, further investigation warranted. - Knowledge of each individual patient's NT-proBNP range may be more useful than using similar cut-points for every patient. Please note that marked elevations in NT-proBNP levels may be observed in state other than Left Ventricular Congestive Failure, including: acute coronary syndromes, right heart strain/failure (including pulmonary embolism and cor pulmonale), critical illness, renal failure, as well as advanced age. - References: 1. Portia LARA et.al. Eur Heart J. 2006:27:330-337. 2. Lanie RW, Shaq AM. J. AM Lili Cardiol: Cardiovasc Imag. 2009;2: 216- 225. Interpretive Data Last Revised Date: 2017. Blood 10/23/2024 12:1 9 AM CDT 10/23/2024 12:30 AM CDT us [facility] LAB BLOOD ORDERABLES Final R esult NISHA [facility] [address] [facility] [facility] Department [place] [address] * XR Chest 1 Vw Portable (If patient hemodynamically UNstable or UNable to ambulate) (10/22/2024 10:25 PM CDT) Anatomical Region Laterality Modality Body, Chest N/A Computed Radiogr aphy 10/22/2024 11:1 6 PM CDT Narrative 10/22/2024 11:18 PM CDT EXAM DESCRIPTION: XR CHEST 1 VIEW REASON FOR STUDY: Shortness of breath PT ambulates to ED For multiple complaints. 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 Pt denies any injuries and states nothing makes the sob better or worse. PT denies any chest pain at this time. Pt denies any cough. PT rates pain 5/10. WR pt TECHNIQUE: Single radiographic view of the chest. COMPARISON: Chest x-ray of June 12, 2024. FINDINGS: LUNGS/PLEURA: Lungs are mildly hypoventilatory. There are diffusely increased pulmonary vascular markings through out the lungs bilaterally, new from previous. HEART/MEDIASTINUM: Cardiac silhouette is normal. Remaining mediastinal silhouettes are unremarkable. HARDWARE/LINES/TUBES: None. BONES: No acute findings. IMPRESSION: New pulmonary vascular congestion. Hypoventilatory chest. THIS IS AN ELECTRONICALLY VERIFIED FINAL REPORT 10/22/2024 11:18 PM - Electronically signed by Gretel Koo M.D. SN T: Report ID: [id number] Reading Location: [place] [address] Procedure Note Gretel Koo MD - 10/22/2024 EXAM DESCRIPTION: XR CHEST 1 VIEW REASON FOR STUDY: Shortness of breath PT ambulates to ED For multiple complaints. Pt states approx 2-3 hours ptashe began to feel sob, dizzy, headache, and low back pain. Pt denies anyinjuries and states nothing makes the sob better or worse. PT denies any chest painat this time. Pt denies any cough. PT rates pain 5/10. WR pt TECHNIQUE: Single radiographic view of the chest. COMPARISON: Chest x-ray of June 12, 2024. FINDINGS: LUNGS/PLEURA: Lungs are mildly hypoventilatory. There are diffusely increased pulmonary vascular markings through out the lungs bilaterally, new from previous. HEART/MEDIASTINUM: Cardiac silhouette is normal. Remaining mediastinal silhouettes are unremarkable. HARDWARE/LINES/TUBES: None. BONES: No acute findings. IMPRESSION: New pulmonary vascular congestion. Hypoventilatory chest. THIS IS AN ELECTRONICALLY VERIFIED FINAL REPORT 10/22/2024 11:18 PM - Electronically signed by Gretel Koo M.D. SN T: Report ID: [id number] Reading Location: [place] [address] [facility] IMG XR PROCEDURES Final Resu lt * ECG 12 lead (10/22/2024 9:49 PM CDT) Ventricular Rate EKG/Min 77 BPM [facility] Atrial Rate 77 BPM [facility] OR-Interval (MSEC) 98 ms [facility] QRS-Interval (MSEC) 80 ms [facility] QT-Interval (MSEC) 392 ms [facility] QTc 443 ms [facility] P [place] 10 degrees [facility] R [place] 14 degrees [facility] T [place] 34 degrees [facility] Diagnosis Sinus rhythm with short OR Otherwise normal ECG When compared with ECG of 12-JUN-2024 23:56, No significant change was found Confirmed by MD RICARDA, CATHERINE ([id number]) on 10/24/2024 10:22:08 AM [facility] 10/22/2024 9:49 PM CDT 10/24/2024 10:22 AM CDT us Panchito ROJAS ECG ORDERABLES Final Result [facility] * Troponin T high-sensitivity series (baseline, 2hr, 4hr, 6hr) (10/22/2024 9:45 PM CDT) Trop T hs 7 <=14 ng/L Comment: Interpretive Data For further hscTnT resources including the diagnostic algorithm and an aid in interpretation, copy and paste this link: https://nrl.testcatalog.org/show/hsTrop Current Interpretive Data last revised 2020. Blood 10/22/2024 9:45 PM CDT 10/22/2024 9:46 PM CDT [facility] LAB BLOOD ORDERABLES Final R esult Performing Organization Address City/[facility] Co de Phone Number NISHA [address] [place] [address] * eGFR (10/22/2024 9:45 PM CDT) eGFR >90 >=60 mL/min/1. 73 m2 [...] interpretive data was last reviewed 2021. Blood 10/22/2024 9:45 PM CDT 10/22/2024 9:46 PM CDT [facility] LAB BLOOD ORDERABLES Final R esult Performing Organization Address City/[facility]/ZIP Co de Phone Number NISHA [address] [place] [address] * Differential, auto (10/22/2024 9:45 PM CDT) Neutrophil abs 3.65 1.50 - 6.50 K/cumm Imm gran abs 0.01 0.00 - 0.10 K/cumm [facility] Lymphocyte abs 2.79 0.80 - 3.30 K/cumm [facility] Monocyte abs 0.53 0.20 - 0.80 K/cumm [facility] Eosinophil abs 0.11 0.00 - 0.50 K/cumm [facility] Basophil abs 0.05 0.00 - 0.10 K/cumm [facility] Neutrophil pct 51.2 % [facility] Comment: Interpretive Data Percent cell count reference ranges are not reported, since discordance with absolute values may lead to misinterpretation of CBC data. Current Interpretive Data was last revised on 2017. Imm gran pct 0.1 % [facility] Comment: Interpretive Data Percent cell count reference ranges are not reported, since discordance with absolute values may lead to misinterpretation of CBC data. Current Interpretive Data was last revised on 2017. Lymphocyte pct 39.1 % [facility] Comment: Interpretive Data Percent cell count reference ranges are not reported, since discordance with absolute values may lead to misinterpretation of CBC data. Current Interpretive Data was last revised on 2017. Monocyte pct 7.4 % [facility] Comment: Interpretive Data Percent cell count reference ranges are not reported, since discordance with absolute values may lead to misinterpretation of CBC data. Current Interpretive Data was last revised on 2017. Eosinophil pct 1.5 % [facility] Comment: Interpretive Data Percent cell count reference ranges are not reported, since discordance with absolute values may lead to misinterpretation of CBC data. Current Interpretive Data was last revised on 2017. Basophil pct 0.7 % [facility] Comment: Interpretive Data Percent cell count reference ranges are not reported, since discordance with absolute values may lead to misinterpretation of CBC data. Current Interpretive Data was last revised on 2017. Blood 10/22/2024 9:45 PM CDT 10/22/2024 9:46 PM CDT us [facility] LAB BLOOD ORDERABLES Final R esult NISHA [address] [facility] Department [place] [address] * (ABNORMAL) CBC with auto differential (10/22/2024 9:45 PM CDT) [facility] WBC 7.14 3.80 - 9.90 K/cumm Hgb 11.9 11.9 - 15.5 g/dL [facility] Hct 38.3 35.6 - 45.5 % [facility] Plt 216 150 - 400 K/cumm [facility] MPV 10.9 9.1 - 12.3 fL [facility] RBC 4.78 3.90 - 5.20 M/cumm [facility] MCV 80.1(L) 81.3 - 96.4 fL [facility] MCH 24.9(L) 27.1 - 33.3 pg [facility] MCHC 31.1(L) 32.3 - 35.7 g/dL [facility] RDW CV 15.9(H) 11.1 - 14.9 % [facility] RDW SD 46.7 35.7 - 48.1 fL [facility] NRBC abs 0.00 0.00 - 0.01 K/cumm [facility] Blood 10/22/2024 9:45 PM CDT 10/22/2024 9:46 PM CDT us [facility] LAB BLOOD ORDERABLES Final R esult [facility] [address] [facility] Department [place] [address] * Comprehensive metabolic panel (10/22/2024 9:45 PM CDT) [facility] Sodium 142 135 - 145 mmol/L Potassium, pl 4.2 3.3 - 4.9 mmol/L [facility] Chloride 103 97 - 110 mmol/L [facility] CO2 30 22 - 32 mmol/L [facility] Anion gap 9 2 - 15 mmol/L [facility] BUN 18 6 - 25 mg/dL [facility] Creatinine 0.69 0.60 - 1.10 mg/dL [facility] Glucose 115 70 - 199 mg/dL [facility] Comment: Interpretive Data Fasting glucose >/= [...] classification and Diagnosis of Diabetes Diabetes Care 2021; 46: S19-S40. Current interpretive data was last revised 2022. Calcium 9.8 8.5 - 10.3 mg/dL [facility] Bilirubin, total 0.2 0.1 - 1.2 mg/dL [facility] Protein, pl 7.2 6.5 - 8.5 g/dL [facility] Albumin 4.4 3.5 - 5.0 g/dL [facility] Alk phos 104 40 - 130 Units/L [facility] ALT 21 7 - 45 Units/L [facility] AST 23 10 - 45 Units/L [facility] Blood 10/22/2024 9:45 PM CDT 10/22/2024 9:46 PM CDT us [facility] LAB BLOOD ORDERABLES Final R esult Performing Organization Address City/[facility]/ZIP Co de Phone Number [facility] [address] [facility] Department [place] [address] * (ABNORMAL) Hemoglobin A1c (05/01/2024 6:39 AM RADIATION PROTECTION TECHNICIAN) Hgb A1C 7.2(H) 4.0 - 5.6 % Estimated Average Glucose 160 mg/dL [facility] Comment: The ADA recommends reporting an estimated Average Glucose (eAG) with all Hemoglobin A1c results using the equation derived from a study of 507 normal and diabetic adults. Minority populations were underrepresented and children were not included. (Diabetes Care 31:1588-5108, 2008). The eAG is not equivalent to a fasting glucose. Blood 05/01/2024 6:39 AM RADIATION PROTECTION TECHNICIAN 05/01/2024 6:41 AM RADIATION PROTECTION TECHNICIAN Valerie Melara MD LAB BLOOD ORDERABLES Final Result [facility] [address] [facility] Department [place] [address] * Lipid panel (01/14/2024 5:40 AM CDT) [facility] Signature Cholesterol 168 30 - 199 mg/dL Comment: [...] last revised on 2017. Testing performed by: [address] [address] Triglycerides 90 <=149 mg/dL NISHA Comment: Interpretive [...] last revised on 2017. Testing performed by: [address] [address] HDL 50 >=40 mg/dL NISHA Comment: Interpretive Data Ages < [...] last revised on 2017. Testing performed by: [address] [address] LDL, calculated 101 <=129 mg/dL NISHA SALAS Comment: Interpretive Data Ages [...] NCEP Expert Panel. Circulation 2004;110:227 3. Redd Foreman et al. ALEXA Cardiol. 2019August 15;5(5):540-548. doi: 10.1001/jamacardio.2020.0013 Current Interpretive Data was last revised on 2023. Testing performed by: [address] [address] Non-HDL Cholesterol 118 mg/dL NISHA Comment: Interpretive Data Ages < [...] last revised on 2017. Testing performed by: [address] [address] Chol/HDL ratio 3 NISHA Comment:Testing performed by : [address] [address] Blood 01/14/2024 5:40 AM CDT 01/14/2024 5:58 AM CDT us Antelmo Martin MD LAB BLOOD ORDERABLES Final Result [facility] [address] [facility] Department [place] [address] * Screening Mammogram Bilateral W Chaparro (05/12/2023 7:52 AM RADIATION PROTECTION TECHNICIAN) Anatomical Region Laterality Modality Breast Bilateral Mammography Impressions 05/17/2023 2:13 PM RADIATION PROTECTION TECHNICIAN BI-RADS ATLAS category (overall): 2 - Benign There is no mammographic evidence of malignancy. A 1 year screening mammogram is recommended. The patient has been or will be contacted. We recommend annual screening mammography for women at average risk of breast cancer beginning at age 40, based on guidelines of the [employer] (ACR Practice Parameter for the Performance of Screening and Diagnostic Mammography) and [employer]. For women with and elevated risk of breast cancer, please refer to the ACR Practice Parameter for specific screening recommendations. The patient will be entered into a reminder system with a target due date of 1 year for her next screening exam. Narrative 05/17/2023 2:13 PM RADIATION PROTECTION TECHNICIAN Screening Mammogram Bilateral W Chaparro: 05/12/23 The [...] Most Recently Relevant to Health Maintenance [place] [address] [place] [address] [facility] Advance Directives For more information, please contact: [phone] * Full Code (Latest Code Status on File) Date Activated Date Inactivated Comments 05/01/2024 1:49 PM 05/07/2024 11:49 PM * Full Code Date Activated Date Inactivated Comments 01/13/2024 10:57 PM 01/17/2024 8:05 PM * Full Code Date Activated Date Inactivated Comments 07/24/2023 1:46 AM 07/26/2023 9:07 PM Care Teams Instrument Assembly Supervisor Relationship Specialty Start Date End Date No, Physician PCP - General 09/02/24
--- OUTSIDE RECORDS SUMMARY | 2024-12-06 19:32 | XMS_ITS | Clinical Summary ---
Author Organization [facility] [facility] Address [address] [address] Phone Care Team Providers Care Infertility Medical Assistant Name Role Phone Shaheen Vann MD Primary Care Provider [phone] Allergies Active Allergy Reactions Criticality Noted Date [...] on file Legal Sex Female 6:09 PM TELECOM FIELD TECHNICIAN Gender Identity Not on file Sexual Orientation Not on file Last Filed Vital Signs Vital Sign Reading Time Taken Comments Blood Pressure 162/78 06/09/2023 6:15 AM TELECOM FIELD TECHNICIAN Pulse 93 06/09/2023 6:15 AM TELECOM FIELD TECHNICIAN Temperature 36.6 C (97.9 F) 06/09/2023 3:21 AM TELECOM FIELD TECHNICIAN Respiratory Rate 18 06/09/2023 6:15 AM TELECOM FIELD TECHNICIAN Oxygen Saturation 97% 06/09/2023 6:15 AM TELECOM FIELD TECHNICIAN Inhaled Oxygen Concentration - - Weight 129.3 kg (285 lb) 06/09/2023 3:21 AM TELECOM FIELD TECHNICIAN Height 180.3 cm (5' 11) 06/09/2023 3:21 AM TELECOM FIELD TECHNICIAN Body Mass Index 39.75 06/09/2023 3:21 AM TELECOM FIELD TECHNICIAN Plan of Treatment Health Maintenance Due Date Last Done Comments Hepatitis C Virus (HCV) Screening 1975 Cologuard 02/26/2020 Colonoscopy 02/26/2020 Colorectal Cancer Screening 02/26/2020 Immunochemical Fecal Occult Blood 02/26/2020 Hepatitis B Immunization (2 of 3 - 19+ 3-dose series) 04/11/2023 03/14/2023 SARS-COV-2 Immunization (1 - season) 2023 Mammogram 05/12/2024 05/12/2023, 11/24/2016 Influenza Immunization (#1) 12/16/202403/17, 03/03/2019, 01/07/2014 Respiratory Syncytial Virus (RSV) Immunization [...] age to complete this topic Insurance MEDICAID [place] Care Teams Infertility Medical Assistant Relationship Specialty Start Date End Date Shaheen Vann MD [address] [place] [address] PCP - General Family Medicine 05/27/23
[2024-12-06 19:59] VITALS: BP 169/103; PULSE 84; RESP 18; TEMP 36.8; O2SAT 100
[2024-12-06 20:30] VITALS: PULSE 79; RESP 17; O2SAT 100
[2024-12-06 20:41] LABS: Hematocrit 37.7 % (37.0-47.0); Hemoglobin 11.4 g/dL (12.0-15.0); Immature Granulocyte Percent A 0.3 % (0-0.5); Lymphocytes Absolute Auto 1.96 K/mm3 (0.9-3.2); Mean Corpuscular HGB Conc 30.2 g/dl (32-36); Mean Corpuscular Hemoglobin 24.5 pg (26-34); Mean Corpuscular Volume 81.1 fl (80-100); Nucleated Red Blood Cells Absolute Auto 0.000 K/mm3 (0.0-0.012); Nucleated Red Blood Cells Perc 0.0 % (0.0-0.2); Platelet Count Result 225 k/mm3 (150-375); Red Blood Count 4.65 M/mm3 (4.2-5.4); White Blood Count 7.1 K/mm3 (4.5-10.0)
[2024-12-06 20:47] LABS: SPREG INTERNAL CONTROL Positive; Serum Qual hCG Negative
[2024-12-06 20:53] LABS: Alanine Aminotransferase 22 U/L (6-35); Albumin Level 3.9 g/dL (3.5-5.1); Alkaline Phosphatase 70 U/L (38-126); Anion Gap 4 mmol/L (4-12); Aspartate Amino Transferase 34 U/L (14-36); Bilirubin,Total 0.6 mg/dL (0.2-1.3); Blood Urea Nitrogen 8 mg/dL (7-17); Calcium 9.3 mg/dL (8.4-10.2); Carbon Dioxide 31 mmol/L (22-30); Chloride 105 mmol/L (98-107); Estimated CRCL calculation 102 ml/min; Estimated Glomerular Filt Rate > 60; Glucose 121 mg/dL (65-110); Lipase 46 U/L (23-300); Magnesium 2.2 mg/dL (1.6-2.3); Potassium 3.6 mmol/L (3.4-5.0); Sodium 140 mmol/L (137-145); Total Protein 7.0 g/dL (6.3-8.2)
[2024-12-06 21:01] LABS: BEDSIDEPREGUCG Negative (Negative)
[2024-12-06 21:08] LABS: Add Urine Microscopic? YES; Appearance Urine Cloudy (Clear); Glucose Urine UA Negative (Negative); Leukocyte Esterase Ur Negative LEU/UL (Negative); Need Manual Microscopic Reviewed; Nitrate Urine Negative (Negative); Specific Grav Ur 1.018 (1.001-1.035)
--- NOTE | 2024-12-06 21:16 | ED_ITS ---
HPI - Abdominal Pain General Chief Complaint: Abdominal Pain Stated Complaint: hip pain Time Seen by Provider: 12/06/24 20:16 History of Present Illness HPI narrative: Patient is a 49-year-old female who presents the emergency department this evening complaining of a rash to her inguinal region. States that she has had this happened in the past and was diagnosed with the niece infection. Admits that she is borderline diabetic. Also states that she has been having some foul-smelling urine and mild dysuria associated with suprapubic radiating to her right flank. Patient does not appear to be in any distress and is resting comfortably. Denies any history of kidney stones. Denies any fevers or chills. Admits to mild diarrhea for the past few days but denies any nausea or vomiting. No additional symptoms or concerns at this time. Related Data Allergies Allergy/AdvReac Type Severity Reaction Status Date / Time ibuprofen Allergy Severe Anaphylaxis Verified 12/06/24 20:10 latex Allergy Swelling Verified 02/12/24 17:53 lisinopril Allergy Wheezing Verified 12/06/24 20:10 Penicillins Allergy Other Verified 12/06/24 20:10 Sulfa (Sulfonamide Allergy Swelling Verified 12/06/24 20:10 Antibiotics) Review of Systems 2 Review of Systems: All systems are reviewed and are negative unless stated otherwise in the HPI. [facility] Past Medical History Medical History Arthritis Diabetes HLD (hyperlipidemia) HTN (hypertension) Surgical History Surgical History History of hysterectomy 2009 Social History Social History Smoking status: Never smoker Exam 2 Narrative: General: Alert, awake, afebrile, in no acute distress. HEENT: PERRL, no rhinorrhea, no post nasal drip, oropharynx clear. Neck: Trachea midline, no JVD, no lymphadenopathy. Cardiovascular: Regular rate and rhythm, no murmurs, rubs or gallops, no peripheral edema. Respiratory: Clear to auscultation bilaterally, no tachypnea, no wheezing, no rhonchi, no rubs, no respiratory distress. Abdomen: Soft, nontender, nondistended, no rebound, no guarding, no peritoneal signs. Musculoskeletal: No joint swelling or deformity, normal muscle tone. Skin: Mild skin rash to the bilateral inguinal regions resembling yeast infection. Psychiatric: Alert and oriented, normal behavior and judgment for situation. Neurological: Alert and oriented to person, place, and time. Follows all commands. No focal deficits, speech is clear and fluent. Course Vital Signs Vital signs: Vital Signs Temperature 98.2 F 12/06/24 19:59 Pulse Rate 84 12/06/24 19:59 Respiratory Rate 18 12/06/24 19:59 Blood Pressure 169/103 H 12/06/24 19:59 Pulse Oximetry 100 12/06/24 19:59 Oxygen Delivery Room Air 12/06/24 19:59 Temperature 98.2 F 12/06/24 19:59 Pulse Rate 79 12/06/24 20:30 Respiratory Rate 17 12/06/24 20:30 Blood Pressure 169/103 H 12/06/24 19:59 Pulse Oximetry 100 12/06/24 20:30 Oxygen Delivery Room Air 12/06/24 19:59 MDM - Abdominal Pain MDM Narrative Medical decision making narrative: The patient was evaluated by myself in the emergency department. History is obtained from patient who is an independent historian and physical exam was performed. External medical records were reviewed at this time. IV was established and pertinent tests were ordered. Patient was administered 1 g of oral Tylenol for pain as she is allergic to ibuprofen. Laboratory results obtained revealing No acute process. Urinalysis did reveal urinary tract infection and patient was administered her 1st dose of antibiotic with 1g of IV Roceph at this time for her UTI. Differential diagnosis considerations include urinary tract infection, pyelonephritis, [place] yeast infection, musculoskeletal strain. Comorbidities impacting this visit include none. I have evaluated and discussed social determinants of health with the patient that could potentially impact subsequent diagnosis and treatment plans. On repeat assessment of the patient, reevaluation revealed that the patient is doing well and is in no acute distress. Patient symptoms have improved since she arrived to our emergency department. Repeat vital signs were all reviewed and noted to be stable. Differential diagnosis and treatment plan were discussed with the patient at bedside. Patient agrees with discussion and after shared medical decision making agrees with discharge. All questions were answered to the patient's satisfaction. Patient will follow up with her PCP in 3-5 days. Scripts for Keflex and son powder were sent to patient's pharmacy to take as prescribed. Patient was provided with strict return precautions and instructed to return to the emergency department if any new or worsening symptoms develop. The patient was discharged in stable condition. Lab Data 12/06/24 20:35 12/06/24 20:35 Labs: Lab Results 12/06/24 12/06/24 12/06/24 Range/Units 20:35 20:54 20:59 WBC 7.1 (4.5-10.0) K/mm3 RBC 4.65 (4.2-5.4) M/mm3 Hgb 11.4 L (12.0-15.0) g/dL Hct 37.7 (37.0-47.0) % MCV 81.1 (80-100) fl MCH 24.5 L (26-34) pg MCHC 30.2 L (32-36) g/dl RDW 15.9 H (11.5-14.5) % Plt Count 225 (150-375) k/mm3 MPV 11.1 H (7.4-10.4) fl Immature Gran % (Auto) 0.3 (0-0.5) % Neut % (Auto) 61.0 (45.5-73.1) % Lymph % (Auto) 27.8 (18.3-44.2) % [place] % (Auto) 9.6 H (2.6-8.5) % Eos % (Auto) 0.6 (0-4.4) % Baso % (Auto) 0.7 (0.2-1.2) % Lymph # (Auto) 1.96 (0.9-3.2) K/mm3 [place] # (Auto) 0.7 H (0.1-0.6) K/mm3 Eos # (Auto) 0.0 (0-0.3) K/mm3 Baso # (Auto) 0.1 (0.0-0.1) K/mm3 Abs Immat Gran (auto) 0.02 (0.00-0.031) K/mm3 Absolute Neuts (auto) 4.3 (1.3-6.7) K/mm3 Absolute Nucleated RBC 0.000 (0.0-0.012) K/mm3 Nucleated RBC % 0.0 (0.0-0.2) % Sodium 140 (137-145) mmol/L Potassium 3.6 (3.4-5.0) mmol/L Chloride 105 (98-107) mmol/L Carbon Dioxide 31 H (22-30) mmol/L Anion Gap 4 (4-12) mmol/L BUN 8 D (7-17) mg/dL Creatinine 0.74 (0.7-1.0) mg/dL Estim Creat Clear Calc 102 ml/min Estimated GFR > 60 (59 - ) Glucose 121 H (65-110) mg/dL Calcium 9.3 (8.4-10.2) mg/dL Magnesium 2.2 (1.6-2.3) mg/dL Total Bilirubin 0.6 (0.2-1.3) mg/dL AST 34 (14-36) U/L ALT 22 (6-35) U/L Alkaline Phosphatase 70 (38-126) U/L Total Protein 7.0 (6.3-8.2) g/dL Albumin 3.9 (3.5-5.1) g/dL Lipase 46 (23-300) U/L Serum HCG, Qual Negative Urine Color Yellow (Yellow) Urine Appearance Cloudy H (Clear) Urine pH 7.5 (5.0-9.0) Ur Specific [place] 1.018 (1.001-1.035) Urine Protein Trace (Negative) mg/dL Urine Glucose (UA) Negative (Negative) mg/dL Urine Ketones Negative (Negative) mg/dL Ur Blood (Man) Negative (Negative) Urine Nitrate Negative (Negative) Urine Bilirubin Negative (Negative) Urine Urobilinogen 1.0 (<2.0) mg/dL Add Ur Microanalysis Reviewed Leukocyte Esterase Rfl Negative (Negative) YANCY/UL Urine RBC 0-2 (0-2) /hpf Urine WBC 11-20 H (0-3) /hpf Ur Squamous Epith Cells Many H (Few) /hpf Urine Bacteria 4+ H /hpf Urine Casts 3-5 POC Urine HCG, Qual Negative (Negative) Discharge Plan Discharge Clinical Impression: Skin yeast infection, UTI (urinary tract infection) Patient Disposition: Home Condition: Improved Instructions: Antibiotic Form, Urinary Tract Infection in Women (DC), Skin Yeast Infection (ED) Additional Instructions: Please follow-up with your family doctor within the next 3-5 days. Return emergency department if any new or worsening symptoms develop. Take the prescribed antibiotic as instructed for urinary tract infection and using statin powder to help with your inguinal yeast infection. Patient Language: Gabonese Prescriptions: New nystatin 100,000 unit/gram powder 1 applic topical TID Qty: 30 0RF cephalexin 500 mg capsule 500 mg PO Q12H 5 Days Qty: 10 0RF No Action cefdinir 300 mg capsule 300 mg PO Q12H 7 Days Qty: 14 0RF azithromycin 250 mg tablet See Rx Instructions .ROUTE .COMPLEX Qty: 6 0RF Rx Instructions: For 250 mg dose pack: take 500 mg today (day 1), then 250 mg for 4 days (days 2-5) albuterol sulfate 90 mcg/actuation HFA aerosol inhaler 1 inh inhalation QID PRN (Reason: shortness of breath or wheezing) Qty: 6.7 0RF guaifenesin 400 mg tablet 400 mg PO QID PRN (Reason: cough) Qty: 30 0RF hydroxyzine HCl 25 mg tablet 25 mg PO TID PRN (Reason: anxiety) Qty: 30 0RF amlodipine 5 mg tablet 5 mg PO DAILY 30 Days Qty: 30 0RF metoprolol tartrate 25 mg tablet 12.5 mg PO BID 30 Days Qty: 30 0RF loratadine 10 mg tablet 10 mg PO DAILY Qty: 30 0RF ketorolac 10 mg tablet 10 mg PO Q6H PRN (Reason: pain) Qty: 20 0RF Rx Instructions: maximum total duration of 5 days from all oral, intranasal, or parenteral formulations diphenhydramine HCl [Benadryl Allergy] 12.5 mg/5 mL liquid 25 mg PO Q6-8H PRN (Reason: allergic reaction) Qty: 200 0RF prednisone 20 mg tablet 40 mg PO DAILY 5 Days Qty: 10 0RF furosemide [Lasix] 20 mg tablet 20 mg PO DAILY Qty: 5 0RF acetaminophen 500 mg capsule 1,000 mg PO Q6H PRN (Reason: pain) Qty: 20 0RF cyclobenzaprine 10 mg tablet 10 mg PO TID PRN (Reason: muscle spasm) Qty: 14 0RF Follow-up/Referrals: UNKNOWN,DOCTOR [Primary Care Provider] - 1 Week Time of Disposition: 21:11
[2024-12-06] MEDS: ACETAMINOPHEN 500 MG TABLET 1000 MG PO (21:23)
[2024-12-06] MEDS: cefTRIAXone 1 GM in SODIUM CHLORIDE 0.9% IV 50 ML 100 ML IVPB (21:24)
[2024-12-06 21:42] VITALS: BP 134/87; PULSE 77; RESP 18; O2SAT 100
== END 2024-12-06 21:44 | disposition home or self-care (01) ==
PROVIDERS: Emergency Provider Emergency Medicine
DX: B37.2 Candidiasis of skin and nail (principal); N39.0 Urinary tract infection, site not specified; I10 Essential (primary) hypertension; E78.5 Hyperlipidemia, unspecified; R73.03 Prediabetes; M19.90 Unspecified osteoarthritis, unspecified site; Z90.710 Acquired absence of both cervix and uterus; Z79.899 Other long term (current) drug therapy
CPT/HCPCS: 36415; 80053; 81001; 81025; 83690; 83735; 84703; 85025; 96365; 99284; A9270; J0696

== ENCOUNTER 2024-12-22 03:41 | Emergency (ER) | payer OTHER, SELFPAY ==
--- OUTSIDE RECORDS SUMMARY | 2024-12-03 04:00 | XMS_ITS ---
Author Organization [facility] Address [address] [place] [address] Care Team Providers Care Odd Piece Checker Name Role Phone Mattie Boyle Primary Care Provider Anuradha Lazogail Unavailable [phone] Allergies Allergen (clinical drug ingredient) Drug/Non Drug Allergy documented on EMR Reaction Allergy Type Onset Date Status MSM Unknown Drug Allergy Active glucosamine Glucosamine Unknown Drug Allergy Act caron sulfacetamide Sulfacetamide Unknown Drug Allergy Active REASON FOR VISIT Psych Evaluation Medications Medication SIG (Take, Route, Frequency, Duration) Notes Start Date End Date Status metFORMIN HCl 500 MG 1 tablet with a meal Orally Once a day; Duration: 30 days 06/09/2024 Active Aristada 882 MG/3.2ML 3.2 mL Intramuscular 05/21/2024 Active OLANZapine 5 MG 1 tablet at bedtime Orally Once a day; Duration: 30 days patient on CRU, please deliver 06/05/2024 Active hydrOXYzine HCl 50 MG 1 tab by mouth 3 times a day Orally Active predniSONE 20 MG 1 tablet Orally Once a day for 4 days Not-Taking Benzonatate 100 MG y mouth every 8 hrs as needed Orally Not-Taking Agvqw-W-Ilxv 1.5 % as directed Mouth/Throat once daily Not-Taking Fluticasone Propionate 50 MCG/ACT ADMINISTER 2 SPRAYS INTO EACH NOSTRIL DAILY NEEDED FOR RHINITIS. Nasal; Duration: 30 Days Active hydroCHLOROthiazide 25 MG 2 tablet in th e morning Orally Once a day Active Albuterol Sulfate HFA 108 (90 Base) MCG/ACT 1 puff as needed Inhalation every 4 hrs Active Lidocaine 5 % External; Duration: 30 Days Active Multivitamin Adult - 1 tablet Orally Once a day Active Aspirin 81 81 MG 1 tablet Orally Once a day Active Encounters Encounter Location Date Provider Diagnosis [facility] [address] [address] 12/03/2024 Nani Lazo Plan Of Treatment No Information Progress Notes * Teresa BEYERB:[birth year] (49 yo F)Acc No.[id number]:12/03/2024 UNLOCKED PROGRESS NOTE Patient: Mahsa MAYFIELD Provider: Gill Lazo, MSN, VENIPUNCTURIST, PMHNP- :1975 A ge:49 Y S ex:Female Date:12/03/2024 Phone: Address:[id number] Pcp:Mattie Boyle Subjective: * Chief Complaints: * 1 . Psych Evaluation. * Medical History: H ypertension, Diabetes mellitus, Asthma. * Surgical History: c -section 1999. * Hospitalization/Major Diagno stic Procedure: [facility] 06/11. * Family History: F ather: . M other: . 1 brother(s) , 1 sister(s) . 1 son(s) - healthy. . * Social History: P rimary Social History: L iving Arrangement L iving Arrangement: D ependent Living, L iving with: Kade rodas, I s this a supportive environment? Y es. A lcohol Use A lcohol Use Frequency: Never. I llicit Substance Usage I llicit Substance Usage: N o. E mployment Status?Employment Status: O n Disability. * Medications: T aking Aspirin 81 81 MG Tablet Chewable 1 tablet Orally Once a day , Taking Multivitamin Adult - Tablet 1 tablet Orally Once a day , Taking Lidocaine 5 % Patch External , Taking Albuterol Sulfate HFA 108 (90 Base) MCG/ACT Aerosol Solution 1 puff as needed Inhalation every 4 hrs , Taking hydroCHLOROthiazide 25 MG Tablet 2 tablet in the morning Orally Once a day , Taking Fluticasone Propionate 50 MCG/ACT Suspension ADMINISTER 2 SPRAYS INTO EACH NOSTRIL DAILY NEEDED FOR RHINITIS. Nasal , Taking hydrOXYzine HCl 50 MG Tablet 1 tab by mouth 3 times a day Orally , Taking OLANZapine 5 MG Tablet 1 tablet at bedtime Orally Once a day , Notes to Pharmacist: patient on CRU, please deliver, Taking Aristada 882 MG/3.2ML Prefilled Syringe 3.2 mL Intramuscular , Taking metFORMIN HCl 500 MG Tablet 1 tablet with a meal Orally Once a day , Not-Taking Wmhpu-X-Sgfo 1.5 % Solution as directed Mouth/Throat once daily , Not-Taking Benzonatate 100 MG Capsule y mouth every 8 hrs as needed Orally , Not-Taking predniSONE 20 MG Tablet 1 tablet Orally Once a day for 4 days * Allergies: S ulfacetamide, MSM, Glucosamine. Objective: * Vitals: Assessment: Plan: * Treatment: * * Electronic signature of Maryanne Lazo on 12/22/2024 at 08:18 AM CDT Sign off status: Pending * Provider: Gill Lazo, MSN, VENIPUNCTURIST, PMHNP-BC Date: 12/03/2024 Generated for Printing/Faxing/eTransmitting on: 12/22/2024 08:18 AM CDT
--- NOTE | ~2024-12-22 | CT_ITS ---
EXAMINATION: CT abdomen pelvis wo con, 12/22/2024 8:08 CDT HISTORY: Hematuria and abdominal pain COMPARISON: Comparison 12/10/2023. TECHNIQUE: CT scan of the abdomen and pelvis was performed without IV contrast. One or more of the following dose reduction techniques were used: automated exposure control, adjustment of the mA and/or kV according to patient size, use of iterative reconstruction technique. Unless otherwise stated, incidental findings do not require dedicated follow up imaging FINDINGS: CT abdomen: LUNG BASES: The lung bases are clear. The visualized portions of the heart and pericardium are unremarkable. LIVER: Unremarkable, liver contours intact, no lesions. SPLEEN: Unremarkable, no splenomegaly. KIDNEYS: Right Kidney: Unremarkable. No calculi. No hydronephrosis. Left Kidney: Left kidney midpole 2 mm renal calculus, no hydronephrosis or hydroureter multiple phleboliths are noted in the pelvis. ADRENAL GLANDS: Unremarkable. PANCREAS: Unremarkable. GALLBLADDER/BILIARY: Unremarkable. No biliary dilatation. STOMACH AND ESOPHAGUS: Visualized stomach and esophagus within normal limits. BOWEL/MESENTERY: Moderate fecal content. Moderate diverticulosis. No colitis or diverticulitis. Appendix normal. Mesentery normal. Small bowel normal. ADENOPATHY/RETROPERITONEUM: No lymphadenopathy. AORTA/VASCULATURE: Normal caliber aorta. FREE FLUID OR FREE AIR: No free fluid.. CT pelvis: SOLID ORGANS/REPRODUCTIVE: Posthysterectomy. No adnexal mass. BLADDER: Within normal limits. OSSEOUS STRUCTURES: No acute osseous abnormality.No suspicious lesions. OVERLYING SOFT TISSUES: Small supraumbilical fat-containing ventral hernia, defect abdominal wall 1 cm. IMPRESSION: 1. No acute intra-abdominal process. Incidental findings as above Reviewed, dictated and finalized at location A.
[2024-12-22 03:52] VITALS: BP 161/89; PULSE 72; RESP 16; TEMP 36.5; O2SAT 100
[2024-12-22 03:56] LABS: BEDSIDEPREGUCG Negative (Negative)
[2024-12-22 04:06] LABS: Add Urine Microscopic? YES; Appearance Urine Cloudy (Clear); Glucose Urine UA Negative (Negative); Leukocyte Esterase Ur Negative LEU/UL (Negative); Nitrate Urine Negative (Negative); Non Pathogenic Casts 0-2; Specific Grav Ur 1.008 (1.001-1.035)
[2024-12-22 07:15] VITALS: BP 159/102; PULSE 73; RESP 18; O2SAT 98
[2024-12-22 07:45] VITALS: PULSE 66; RESP 19; O2SAT 99
--- OUTSIDE RECORDS SUMMARY | 2024-12-22 08:19 | XMS_ITS | Clinical Summary ---
Author Organization [facility] Address [address] [place] [address] Care Team Providers Care Nursery Teacher Name Role Phone Shaheen Vann MD Primary Care Provider [phone] Source Comments [facility],non-owned Affiliates and Associated Physician Practices is amultiple site organization consisting of ambulatory clinics and hospital sitesin [place], [place], [place] and [place]. This disclosure is being madepursuant to the Care Everywhere program and may not contain all information available regarding this patient. Last updated 18.[facility] Allergies Active Allergy Reactions Criticality Noted Date [...] sprayIndications :Allergic rhinitis, unspecified seasonality, unspecified trigger [place] 2 sprays into each nostril 2 times [...] 19+ 3-dose series) 1994 SCREENING FOR DIABETES 05/24/2018 04/17/2014 DEPRESSION SCREENING 04/17/2024 COVID-19 VACCINE (1 - 2023-2 5 season) 2024 INFLUENZA VACCINE (#1) 2024 ZOSTER VACCINE (1 of 2) 2025 HIB VACCINE Aged Out No longer eligi ble based on patient's age to complete this topic HPV VACCINE Aged Out No longer eligi ble based on patient's age to complete this topic MENINGOCOCCAL (Group B) VACC INE SHARED DECISION-MAKING Aged Out No longer eligibl e based on patient's age to complete this topic MENINGOCOCCAL GROUPS A/C/Y/W VACCINE Aged Out No longer eligible b ased on patient's age to complete this topic Procedures Procedure Name Priority Date/Time Associated Diagnosis Comments COMPREHENSIVE METABOLIC PANEL STAT 04/17/2014 6:42 PM TANK PUMPER from Last 3 Months or Most Recently Relevant to Health Maintenance Results * (ABNORMAL) COMPREHENSIVE METABOLIC PANEL (04/17/2014 6:42 PM [facility]) [facility] Glucose 100 74 - 106 mg/dL 04/17/2014 7:07 PM [facility] Sodium 142 136 - 145 mmol/L 04/17/2014 7:07 PM [facility] Potassium 3.1(L) 3.5 - 5.1 mmol/L 04/17/2014 7:07 PM [facility] Chloride 105 98 - 107 mmol/L 04/17/2014 7:07 PM [facility] CO2 24 22 - 31 mmol/L 04/17/2014 7:07 PM [facility] Calcium 9.4 8.5 - 10.1 mg/dL 04/17/2014 7:07 PM [facility] Anion Gap 13 5 - 15 mmol/L 04/17/2014 7:07 PM [facility] BUN 25(H) 7 - 21 mg/dL 04/17/2014 7:07 PM [facility] Creatinine 0.71 0.50 - 1.30 mg/dL 04/17/2014 7:07 PM [facility] eGFR by MDRD >60 >60 mL/min/1.7 3m2 04/17/2014 7:07 PM [facility] eGFR by MDRD >60 >60 mL/min/1.7 3m2 04/17/2014 7:07 PM [facility] Alkaline Phosphatase 59 38 - 126 U/L 04/17/2014 7:07 PM [facility] ALT 38 12 - 78 U/L 04/17/2014 7:07 PM [facility] AST 58(H) 5 - 40 U/L 04/17/2014 7:07 PM [facility] Protein Total 8.2 6.4 - 8.2 gm/dL 04/17/2014 7:07 PM [facility] Albumin 3.9 3.4 - 5.0 gm/dL 04/17/2014 7:07 PM [facility] Bilirubin Total 1.0 0.2 - 1.0 mg/dL 04/17/2014 7:07 PM [facility] Blood BLOOD SPECIMEN / Unknown 04/17/2014 6:42 PM TANK PUMPER 04/17/2014 6:44 PM [facility] us Gilson Brady DO LAB - CHEMISTRY ORDERABLES Fin al Result [facility] [address] [place] [address] from Last 3 Months or Most Recently Relevant to Health Maintenance Insurance [facility] [employer] [employer] Care Teams Nursery Teacher Relationship Specialty Start Date End Date Shaheen Vann MD PCP - General 03/14/18
--- OUTSIDE RECORDS SUMMARY | 2024-12-22 08:19 | XMS_ITS | Clinical Summary ---
Author Organization [facility] Address [address] [place] [address] Care Team Providers Care Replanting Machine Crew Name Role Phone No, Physician Primary Care Provider [phone] Allergies Active Allergy Reactions Criticality Noted Date [...] Encounters Date Type Department Care Team Description 12/18/2024 1:35 AM CDT - 12/18/2024 5:03 AM [facility] Emergency [address] [address] Acute nonintractable headache, unspecified headache type (Primary Dx); Hypertension, unspecified type Discharge Disposition: Discharge to home or self care 10/23/2024 12:13 AM T - 10/23/2024 2:[address] [address] Acute nonintractable headache, unspecified headache type (Primary Dx); Lower extremity edema; Acute midline low back pain without sciatica; Chest pain, unspecified type Discharge Disposition: Discharge to home or self care 10/09/2024 9:30 PM CDT - 10/09/2024 9:32 PM [facility] Emergency [facility] Emergency Department [address] [place] [address] Insect bite, unspecified site, initial encounter (Primary [...] drink = 0.6 oz pur e alcohol) [facility] Utilities Answer Date Recorded In the past 12 months has th [address] electric, gas, oil, or water company threatened to shut off services in your home? No 01/16/2024 Social Connection and Isolation Panel Answer Date Recorded In a typical week, how many times do you talk on the phone with family, friends, or neighbors? Never 01/16/20 How often do you get togethe r with friends or relatives? Never 01/16/2024 How often do you attend [facility] or roman catholic services? 1 to 4 times per year 01/16/2024 Do you belong to any clubs o r organizations such as congregational groups, unions, fraternal or athletic groups, or [...] place to sleep or slept in a group home (including now)? Yes 07/24/2023 PHQ-9 Answer [...] any time in the past 12 m [facility], were you homeless or living in a group home (including now)? Yes 01/16/2024 Personal Safety Answer Date Recorded Have you ever been in or are you currently in a harmful physical or emotional relationship or is someone making you feel afraid or unsafe? Denies 12/18/2024 Comments No Sex and Gender Information Value Date Recorded Sex Assigned at Not on file Legal Sex Female 5:27 AM PRISON OFFICER Gender Identity Female 07/23/2023 6:46 PM CDT Sexual Orientation Not on file Obstetrics History Para Term AB IAB SAB Ectopic Multiple Livin g Live Births 3 3 3 Date Outcome GA Total Labor Labor/2nd/3rd Weight Sex Type Anes PTL Lou A1 A5 Name Clin Term Term Term Last Filed Vital Signs Vital Sign Reading Time Taken Comments Blood Pressure 147/84 12/18/2024 4:50 AM CDT Pulse 98 12/18/2024 4:50 AM CDT Temperature 36.5 C (97.7 F) 12/17/2024 11:59 PM CDT Respiratory Rate 18 12/18/2024 4:50 AM CDT Oxygen Saturation 97% 12/17/2024 11:59 PM CDT Inhaled Oxygen Concentration - - Weight 86.2 kg (190 lb) 12/18/2024 1:47 AM CDT Height 180.3 cm (5' 11) 12/18/2024 1:47 AM CDT Body Mass Index 26.5 12/18/2024 1:47 AM CDT Plan of Treatment Health Maintenance Due Date Last Done Comments Albumin Creatinine Ratio, Urine 1975 Colon Cancer Screening-Colonoscopy 1975 Hepatitis C Screening 1975 Dilated Eye Exam 1975 Foot Exam 1975 Regular Well Visit/Exam 18-64 1993 Breast Cancer Screening-Mammogram 05/12/2024 05/12/2023, 05/12/2023, 11/24/2016 Hemoglobin A1C 10/29/2024 05/01/2024, 12/17, 07/25/2023, Additional history exists Influenza Vaccine (#1) 2024 , 03/03/2019, 01/07/2014 Depression Screening 01/12/2025 01/13/2024, 01/13/20 24 Lipid Panel 01/13/2025 01/14/2024, 04, 03/27/2019, Additional history exists eGFR 10/22/2025 10/22/2024, 08/15, 06/25/2024, Additional history exists DTaP/Tdap/Td Vaccine (5 - Td or Tdap) 02/07/2034 02/08/2024, 03/13/2023, 05/20/2019, Additional history exists Pneumococcal vaccine <65 Completed 06/03/2022, 05/2015 Hepatitis B Screening Completed 02/08/2024, 023 Procedures Procedure Name Priority Date/Time Associated Diagnosis Comments URINALYSIS AND REFLEX TO MICROSCOPIC AND CULTURE STAT 12/18/2024 2:50 AM CDT URINALYSIS AND REFLEX TO MICROSCOPIC AND CULTURE [...] CDT HEMOGLOBIN A1C STAT 05/01/2024 6:39 AM PRISON OFFICER LIPID PANEL Routine 01/14/2024 5:40 AM CDT SCREENING MAMMOGRAM BILATERAL W CHAPARRO Schedule Routine, Read Routine (OP Routine) 05/12/2023 7:52 AM PRISON OFFICER Screening mammogram, encounter for from Last 3 Months or Most Recently Relevant to Health Maintenance Results * Urinalysis reflex to microscopic and culture Urine (12/18/2024 2:50 AM CDT) Color, ur Straw Yellow Clarity, ur Clear Clear [facility] Specific gravity, ur 1.004 1.003 - 1.030 [facility] pH, urine 7.5 [facility] Comment: Interpretive Data U rine pH is affected by diet, medications, systemic acid-base disturbances, and renal tubular function. pH may affect urinary stone formation. For example, urine pH below 6.0 may help reduce the tendency for calcium phosphate stones and pH greater than 6.0 may reduce the tendency for uric acid stone formation. Source: [facility] Current Interpretive Data was last revised on 2017 Protein, ur ql Negative Negative [facility] Glucose, ur ql Negative Negative [facility] Ketones, ur Negative Negative [facility] Bilirubin, ur Negative Negative [facility] Blood, ur Negative Negative [facility] Urobilinogen, ur <2.0 <2.0 mg/dL [facility] Nitrite, ur Negative Negative [facility] Leukocyte esterase, ur Negative Negative [facility] UA reflex comment Reflex conditions for microscopic UA and culture not met. [facility] Urine 12/18/2024 2:50 AM CDT 12/18/2024 2:53 AM CDT [facility]anch[facility] LAB MICROBIOLOGY - GENERAL O RDERABLES Final Result [facility] [address] [facility] Department [place] [address] * Urinalysis reflex to microscopic and culture Urine (10/23/2024 1:07 AM CDT) Color, ur Straw Yellow Clarity, ur Clear Clear [facility] Specific gravity, ur 1.013 1.003 - 1.030 [facility] pH, urine 7.5 [facility] Comment: Interpretive Data U rine pH is affected by diet, medications, systemic acid-base disturbances, and renal tubular function. pH may affect urinary stone formation. For example, urine pH below 6.0 may help reduce the tendency for calcium phosphate stones and pH greater than 6.0 may reduce the tendency for uric acid stone formation. Source: [facility] Current Interpretive Data was last revised on 2017 Protein, ur ql Negative Negative [facility] Glucose, ur ql Negative Negative [facility] Ketones, ur Negative Negative [facility] Bilirubin, ur Negative Negative [facility] Blood, ur Negative Negative [facility] Urobilinogen, ur <2.0 <2.0 mg/dL [facility] Nitrite, ur Negative Negative [facility] Leukocyte esterase, ur Negative Negative [facility] UA reflex comment Reflex conditions for microscopic UA and culture not met. [facility] Urine 10/23/2024 1:07 AM CDT 10/23/2024 1:16 AM CDT us [facility] MICROBIOLOGY - GENERAL O RDERABLES Final Result [facility] [address] [facility] Department [place] [address] * CT Chest PE (CTA) W Contrast [...] Benjamin Palma M.D. KT T: Report ID: [id number] Reading Location: [place] [address] Procedure Note Benjamin Palma MD - 10/23/2024 [...] Benjamin Palma M.D. KT T: Report ID: [id number] Reading Location: [id number] Panchito Brandt BOB IMG CT PROCEDURES Final Resu lt * [...] Benjamin Palma M.D. KT T: Report ID: [id number] Reading Location: [id number] Procedure Note Benjamin Palma MD - 10/23/2024 [...] Benjamin Palma M.D. KT T: Report ID: [id number] Reading Location: [id number] Panchito ROJAS IMG CT PROCEDURES Final Resu [...] BLOOD ORDERABLES Final R esult [facility]ISHA SALAS [address] [facility] [place] [address] * Pro B-type natriuretic peptide (10/23/2024 12:19 [...] Heart J. 2006:27:330-337. 2. Lanie RW, Shaq COYLE. J. AM Lili Cardiol: Cardiovasc Imag. 2009;2: 216- 225. Interpretive Data Last Revised Date: 2017. Blood 10/23/2024 12:1 9 AM CDT 10/23/2024 12:30 AM CDT us Panchito ROJ[facility] LAB BLOOD ORDERABLES Final R esult NISHA [address] [facility] Department [place] [address] * XR Chest 1 Vw Portable (If patient hemodynamically UNstable or UNable to ambulate) (10/22/2024 10:25 PM CDT) Anatomical Region Laterality Modality Body, Chest N/A Computed Radiogr aphy 10/22/2024 11:1 6 PM CDT Narrative 10/22/2024 11:18 PM CDT EXAM DESCRIPTION: XR CHEST 1 VIEW REASON FOR STUDY: Shortness of breath PT ambulates to ED For multiple complaints. 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 SN T: Report ID: [id number] Reading Location: [id number] Procedure Note Gretel Koo MD - 10/22/2024 [...] Gretel Koo M.D. SN T: Report ID: [id number] Reading Location: [place] [address] Panch[facility] ROJAS IMG XR PROCEDURES Final Resu lt * ECG 12 lead (10/22/2024 9:49 PM CDT) Ventricular Rate EKG/Min [address] [facility] Atrial Rate 77 BPM [facility] GA-Interval (MSEC) [address] [facility] QRS-Interval (MSEC) [address] [facility] QT-Interval (MSEC) 392 ms [facility] QTc 443 ms [facility] P [place] 10 degrees [facility] R [place] 14 degrees [facility] T [place] 34 degrees [facility] Diagnosis Sinus rhythm with short [place] Otherwise normal ECG When compared with ECG of 12-JUN-2024 23:56, No significant change was found Confirmed by MD RICARDA, CATHERINE ([id number]) on 10/24/2024 10:22:08 AM [facility] 10/22/2024 9:49 PM CDT 10/24/2024 10:22 AM CDT Panchito ROJAS ECG ORDERABLES Final Result [facility] * Troponin T high-sensitivity series (baseline, 2hr, [...] ORDERABLES Final R esult Performing Organization Address [facility] Co de Phone Number NISHA [address] [address] * eGFR (10/22/2024 9:45 PM CDT) Pathologist [facility] eGFR >90 >=60 mL/min/1. 73 m2 Comment: [...] 9:45 PM CDT 10/22/2024 9:46 PM CDT Pacnhito ROJAS LAB BLOOD ORDERABLES Final R esult Performing Organization Address City/[facility]/ZIP Co de Phone Number NISHA [address] [place] [address] * Differential, auto (10/22/2024 9:45 PM CDT) Pathologist [facility] Neutrophil abs 3.65 1.50 - 6.50 K/cumm Imm gran abs 0.01 0.00 - 0.10 K/cumm [facility] Lymphocyte abs 2.79 0.80 - 3.30 K/cumm [facility] Monocyte abs 0.53 0.20 - 0.80 K/cumm [facility] Eosinophil abs 0.11 0.00 - 0.50 K/cumm [facility] Basophil abs 0.05 0.00 - 0.10 K/cumm [facility] Neutrophil pct 51.2 % [facility] Comment: Interpretive Data Percent cell count reference ranges are not reported, since discordance with absolute values may lead to misinterpretation of CBC data. Current Interpretive Data was last revised on 2017. Imm gran pct 0.1 % [facility] Comment: Interpretive Data Percent cell count reference ranges are not reported, since discordance with absolute values may lead to misinterpretation of CBC data. Current Interpretive Data was last revised on 2017. Lymphocyte pct 39.1 % [facility] Comment: Interpretive Data Percent cell count reference ranges are not reported, since discordance with absolute values may lead to misinterpretation of CBC data. Current Interpretive Data was last revised on 2017. Monocyte pct 7.4 % [facility] Comment: Interpretive Data Percent cell count reference ranges are not reported, since discordance with absolute values may lead to misinterpretation of CBC data. Current Interpretive Data was last revised on 2017. Eosinophil pct 1.5 % [facility] Comment: Interpretive Data Percent cell count reference ranges are not reported, since discordance with absolute values may lead to misinterpretation of CBC data. Current Interpretive Data was last revised on 2017. Basophil pct 0.7 % [facility] Comment: Interpretive Data Percent cell count reference ranges are not reported, since discordance with absolute values may lead to misinterpretation of CBC data. Current Interpretive Data was last revised on 2017. Blood 10/22/2024 9:45 PM CDT 10/22/2024 9:46 PM CDT Panchito ROJAS LAB BLOOD ORDERABLES Final R esult NISHA SALAS [address] [facility] Department [place] [address] * (ABNORMAL) CBC with auto differential (10/22/2024 9:45 PM CDT) WBC 7.14 3.80 - 9.90 K/cumm Hgb 11.9 11.9 - 15.5 g/dL [facility] Hct 38.3 35.6 - 45.5 % [facility] Plt 216 150 - 400 K/cumm [facility] MPV 10.9 9.1 - 12.3 fL [facility] RBC 4.78 3.90 - 5.20 M/cumm [facility] MCV 80.1(L) 81.3 - 96.4 fL [facility] MCH 24.9(L) 27.1 - 33.3 pg [facility] MCHC 31.1(L) 32.3 - 35.7 g/dL [facility] RDW CV 15.9(H) 11.1 - 14.9 % [facility] RDW SD 46.7 35.7 - 48.1 fL [facility] NRBC abs 0.00 0.00 - 0.01 K/cumm [facility] Blood 10/22/2024 9:45 PM CDT 10/22/2024 9:46 PM CDT us Panchito ROJAS LAB BLOOD ORDERABLES Final R esult [facility] [address] [facility] Department [place] [address] * Comprehensive metabolic panel (10/22/2024 9:45 PM CDT) [facility] Sodium 142 135 - 145 mmol/L Potassium, pl 4.2 3.3 - 4.9 mmol/L [facility] Chloride 103 97 - 110 mmol/L [facility] CO2 30 22 - 32 mmol/L [facility] Anion gap 9 2 - 15 mmol/L [facility] BUN 18 6 - 25 mg/dL [facility] Creatinine 0.69 0.60 - 1.10 mg/dL [facility] Glucose 115 70 - 199 mg/dL [facility] Comment: Interpretive Data Fasting glucose >/= [...] 2022. Calcium 9.8 8.5 - 10.3 mg/dL [facility] Bilirubin, total 0.2 0.1 - 1.2 mg/dL [facility] Protein, pl 7.2 6.5 - 8.5 g/dL [facility] Albumin 4.4 3.5 - 5.0 g/dL [facility] Alk phos 104 40 - 130 Units/L [facility] ALT 21 7 - 45 Units/L [facility] AST 23 10 - 45 Units/L [facility] Blood 10/22/2024 9:45 PM CDT 10/22/2024 9:46 PM CDT Panchito ROJAS LAB BLOOD ORDERABLES Final R esult Performing Organization Address [facility] de Phone Number [address] [place] [address] * (ABNORMAL) Hemoglobin A1c (05/01/2024 6:39 AM PRISON OFFICER) [facility] Signature Hgb A1C 7.2(H) 4.0 - 5.6 % Estimated Average Glucose 160 mg/dL [facility] Comment: The ADA recommends reporting an estimated Average Glucose (eAG) with all Hemoglobin A1c results using the equation derived from a study of 507 normal and diabetic adults. Minority populations were underrepresented and children were not included. (Diabetes Care 31:3023-6096, 2008). The eAG is not equivalent to a fasting glucose. Blood 05/01/2024 6:39 AM PRISON OFFICER 05/01/2024 6:41 AM PRISON OFFICER Valerie Melara MD LAB BLOOD ORDERABLES Final Result Performing Organization Address [facility]/ZIP Co de Phone Number [facility] [address] [facility] [place] [address] * Lipid panel (01/14/2024 5:40 AM CDT) [...] last revised on 2017. Testing performed by: [address] [address] Triglycerides 90 <=149 mg/dL [facility] Comment: Interpretive Data Ages < or = [...] last revised on 2017. Testing performed by: [address] [address] HDL 50 >=40 mg/dL [facility] Comment: Interpretive [...] last revised on 2017. Testing performed by: [address] [address] LDL, calculated 101 <=129 mg/dL [facility]HA SALAS [...] 3. Redd Foreman et al. [employer] Cardiol. 2020 August 15;5(5):540-548. doi: [email or web address] Current Interpretive Data was last revised on 2023. Testing performed by: [address] [address] Non-HDL Cholesterol 118 mg/dL [facility] Comment: Interpretive [...] last revised on 2017. Testing performed by: [address] [address] Chol/HDL ratio 3 [facility] Comment:Testing performed by : [address] [address] Blood 01/14/2024 5:40 AM CDT 01/14/2024 5:58 AM CDT us Antelmo Martin MD LAB BLOOD ORDERABLES Final Result NISHA MH [address] [facility] Department [place] [address] * Screening Mammogram Bilateral W Chaparro (05/12/2023 7:52 AM PRISON OFFICER) Anatomical Region Laterality Modality Breast Bilateral Mammography Impressions 05/17/2023 2:13 PM PRISON OFFICER BI-RADS ATLAS category (overall): 2 - Benign There is no mammographic evidence of malignancy. A 1 year screening mammogram is recommended. The patient has been or will be contacted. We recommend annual screening mammography for women at average risk of breast cancer beginning at age 40, based on guidelines of the [employer] (ACR Practice Parameter for the Performance of Screening and Diagnostic Mammography) and [employer]. For women with and elevated risk of breast cancer, please refer to the ACR Practice Parameter for specific screening recommendations. The patient will be entered into a reminder system with a target due date of 1 year for her next screening exam. Narrative 05/17/2023 2:13 PM PRISON OFFICER Screening Mammogram Bilateral W Chaparro: 05/12/23 The [...] Most Recently Relevant to Health Maintenance Insurance [facility] Advance Directives For more information, please contact: [phone] * Full Code (Latest Code Status on File) Date Activated Date Inactivated Comments 05/01/2024 1:49 PM 05/07/2024 11:49 PM * Full Code Date Activated Date Inactivated Comments 01/13/2024 10:57 PM 01/17/2024 8:05 PM * Full Code Date Activated Date Inactivated Comments 07/24/2023 1:46 AM 07/26/2023 9:07 PM Care Teams Replanting Machine Crew Relationship Specialty Start Date End Date No, Physician PCP - General 09/02/24
--- OUTSIDE RECORDS SUMMARY | 2024-12-22 08:19 | XMS_ITS | Clinical Summary ---
Author Organization [facility] [employer] [facility] Address [address] [address] Phone Care Team Providers Care Data Warehouse Architect Name Role Phone Shaheen Vann MD Primary Care Provider [phone] Allergies Active Allergy Reactions Criticality Noted Date [...] on file Legal Sex Female 6:09 PM MEDICAL RECORDS SPECIALIST Gender Identity Not on file Sexual Orientation Not on file Last Filed Vital Signs Vital Sign Reading Time Taken Comments Blood Pressure 162/78 06/09/2023 6:15 AM MEDICAL RECORDS SPECIALIST Pulse 93 06/09/2023 6:15 AM MEDICAL RECORDS SPECIALIST Temperature 36.6 C (97.9 F) 06/09/2023 3:21 AM MEDICAL RECORDS SPECIALIST Respiratory Rate 18 06/09/2023 6:15 AM MEDICAL RECORDS SPECIALIST Oxygen Saturation 97% 06/09/2023 6:15 AM MEDICAL RECORDS SPECIALIST Inhaled Oxygen Concentration - - Weight 129.3 kg (285 lb) 06/09/2023 3:21 AM MEDICAL RECORDS SPECIALIST Height 180.3 cm (5' 11) 06/09/2023 3:21 AM MEDICAL RECORDS SPECIALIST Body Mass Index 39.75 06/09/2023 3:21 AM MEDICAL RECORDS SPECIALIST Plan of Treatment Health Maintenance Due Date Last Done Comments Hepatitis C Virus (HCV) Screening 1975 Cologuard 02/26/2020 Colonoscopy 02/26/2020 Colorectal Cancer Screening 02/26/2020 Immunochemical Fecal Occult Blood 02/26/2020 Hepatitis B Immunization (2 of 3 - 19+ 3-dose series) 04/11/2023 03/14/2023 Mammogram 05/12/2024 05/12/2023, 11/24/2016 Influenza Immunization (#1) 12/16/202403/17, 03/03/2019, 01/07/2014 SARS-COV-2 Immunization ( - 2023- season) 2024 Respiratory Syncytial Virus (RSV) Immunization (Adult) (1 [...] this topic Insurance [place] Care Teams Data Warehouse Architect Relationship Specialty Start Date End Date Shaheen Vann MD [address] [place] [address] PCP - General Family Medicine 05/27/23
--- OUTSIDE RECORDS SUMMARY | 2024-12-22 08:19 | XMS_ITS | Patient Health Record ---
Author Organization [facility] Address [address] [place] [address] Care Team Providers Care Wrapper Rewinder Name Role Phone Mattie Boyle Primary Care Provider CastRafaelmohinigill Unavailable [phone] Nani Lazo Unavailable [phone] Angelica Sullivan Unavailable Kathy Daniels Unavailable [phone] Allergies Allergen (clinical drug ingredient) Drug/Non Drug [...] neg OXY neg PCP neg BUP neg Test, Urine Reviewed date:05/27/2024 12:48:27 PM Interpretation: Performing Lab: Notes/Report: Test, Urine neg Negative - Negative QuantiFERON-TB Gold Plus ([id number]) Reviewed date:05/30/2024 07:54:09 AM Interpretation:Negative Performing [facility], [address] [facility], Phone - [phone], Director - PhDRicchilai Notes/Report: QuantiFERON Incubation Incubation performed. QuantiFERON-TB Gold [...] Nil Value 0.02 QuantiFERON Mitogen Value >10.00 Breathalyzer Reviewed date:05/29/2024 01:43:26 PM Interpretation: Performing Lab: Notes/Report: MEGHANN 0.000 CBC With Differential/Platel et* Reviewed date:06/09/2024 05:05:15 PM Interpretation: Performing Lab:[facility], [address] [facility], Phone - [phone], Director - Yael Notes/Report: WBC 7.4 3.4-10.8 [...] Panel* Reviewed date:06/09/2024 05:05:14 PM Interpretation: Performing Lab:[address], Phone - [phone], Director - [facility] Notes/Report: Glucose 115 70-99 mg/dL BUN [...] A1c* Reviewed date:06/09/2024 05:05:14 PM Interpretation: Performing Lab:[facility], Phone - [phone], Director - [facility] Notes/Report: Hemoglobin A1c 7.5 4.8-5.6 % . Prediabetes: 5.7 - 6.4 Diabetes: >6.4 Glycemic control for adults with diabetes: <7.0 TSH Rfx on Abnormal to Free T4 Reviewed date:06/09/2024 05:05:14 PM Interpretation: Performing Lab:[facility], Phone - [phone], [facility] - [facility] Notes/Report: TSH 0.750 0.450-4.500 uIU/mL Lipid Panel* Reviewed date:06/09/2024 05:05:14 PM Interpretation: Performing Lab:[facility], Phone - [phone], Director - [facility] Notes/Report: Cholesterol, Total 166 100-199 mg/dL Triglycerides 76 0-149 mg/dL HDL Cholesterol 67 >39 mg/dL VLDL Cholesterol Vince 14 5-40 mg/dL LDL Chol Calc (NIH) 85 0-99 mg/dL Reason For Referral Reason patient is homeless, needs housing but she is very delusional/psychotic currently. Diagnosis 1 Homeless (Z59.00) Referral Organization [facility] Referring Provider First Name Nani Referring Provider Last Name Violet Referring Provider Speciality Psychiatry Referred Provider Specialty Behavioral H [facility] Clinical Notes Alberta Garcia 06/10/2024 11:42:40 AM >HN called the client. Client is on the unit. HN discussing housing options with the client. HN completed the [facility] [employer] application and submitted it by mail. [...] every 8 hrs as needed Orally Not-Taking Ljpnc-K-Obtg 1.5 % as directed Mouth/Throat once daily [...] Status Risk Notes Problem Bipolar 1 disorder (659844000) Bipolar 1 disorder (F31.9) Active confirmed Dx self-reporte dia Brushpili strugguled to identify her symptoms, treatment providers, and current treatment for mental health. Problem Schizophrenia (65806372) Schizophrenia (F20.9) Active confirmed Problem Generalized anxiety disorder (54463030) CECILY (generalized anxiety disorder) (F41.1) Active confirmed Problem Diabetes mellitus (33967116) Diabetes mellitus (E11.9) Active confirmed Vital Signs Heart Rate 99 /min 06/03/2024 Temperature 98.9 degrees Fahrenheit 05/27/2024 Respiratory Rate 16 /min 06/03/2024 Blood pressure diastolic 102 mm Hg 06/03/2024 Oximetry 98 % 06/03/2024 Height 71 in 06/03/2024 Blood pressure systolic 152 mm Hg 06/03/2024 Weight 232 lbs 06/03/2024 BMI 32.35 kg/m2 06/03/2024 Encounters Encounter Location Date Provider Diagnosis [facility] [address] [place] [address] 06/05/2024 Mattie Boyle [facility] [address] [place] [address] 05/27/2024 Mattie Boyle Adult general medical exam Z00.00 and Nutritional counseling Z71.3 [facility] [address] [facility] [place] [address] 05/27/2024 Kathy Daniels Bipolar [address]31[address] [address] 05/29/2024 Nani Violet CECILY (generalized anxiety disorder) F41.1 [facility] [address] [place] [address] 06/03/2024 Mattie Boyle Nutritional counseling Z71.3 ; Establishing care with new doctor, encounter for Z71.89 ; Screening for deficiency anemia Z13.0 ; Screening for metabolic disorder Z13.228 ; Screening for diabetes mellitus Z13.1 ; Screening for thyroid disorder Z13.29 and Screening for hyperlipidemia Z13.[address] [address] 06/05/2024 Nani Violet CECILY (generalized anxiety disorder) F41.1 and Schizophrenia F20.[address] [address] 07/15/2024 Angelica Sullivan [address] [place] [address] 05/29/2024 Carmencita Cast [facility] [address] [place] [address] 06/05/2024 Nani Lazo [address] [place] [address] 06/09/2024 Mattie Montana Diabetes mellitus E11.9 [facility] [address] [place] [address] 06/10/2024 Carmencita Cast Assessments Encounter Date Diagnosis [...] or be administered own oral medications per [facility] protocols. Provided informed consent with understanding of side effects, adverse effects, risks and benefits as well as alternative treatments as previously discussed and with the above recommended medications & other aspects of the treatment program. Agrees to return sooner if symptoms worsen or suicidal or homicidal ideations occur. Plan: -Continue Hydroxyzine 50 mg 1 tab TID PRN *no refill needed, being prescribed by [facility] PCP -Follow up: PRN [] Hard Rx handed to patient [] Rx phoned into pharmacy [] Rx faxed/e-prescribed into pharmacy [x] PDMP Reviewed [] [employer] Reviewed Encouraged by Nani Lazo PMHNP- to: [] consider utilizing therapist/counselor /psychiatric social worker supervisor/psychologist , referral given [x] continue with therapist/counselor /psychiatric social worker supervisor/psychologist Psychoeducation: -Treatment options discussed in detail with patient/guardian verbalizing understanding of treatment rationales. -Side effects and benefits of all medications prescribed discussed at length between psychiatric prescribing provider and patient/guardian along with the risks associated of vkaw-dc-ikap interactions, including but not limited to prescription [...] engaged in treatment plan with Nani Lazo [facility]. -Perceiving complete understanding of rationale by patient/guardian and willingness to adhere to formulated plan of care by prescriber with patient/guardian buy-in, willingness to participate actively in plan of care and willing to take charge of own care. -Although geared for female patients, all patients/guardians are informed by prescribing provider of risks of medications that could potentially be taken by female/women within their [place] of influence and that women who use [...] a should occur, to consult with provider, UNIT ASSISTANT and/or Nurse Site Controller to determine if prescribed medications should or [...] self-administe r their own oral medications per [facility] Protocol. 06/05/2024 Other May self-administer medications or be administered own oral medications per [facility] protocols. Provided informed consent with understanding of [...] Nani MARESHNP-BC to: [] consider utilizing therapist/counselor /psychiatric social worker supervisor/psychologist , referral given [x] continue with therapist/counselor /psychiatric social worker supervisor/psychologist Psychoeducation: -Treatment options discussed in detail with patient/guardian verbalizing understanding of treatment rationales. -Side effects and benefits of all medications prescribed discussed at length between psychiatric prescribing provider and patient/guardian along with the risks associated of mdju-bf-nroh interactions, including but not limited to prescription [...] potentially be taken by female/women within their [place] of influence and that women who use [...] a should occur, to consult with provider, UNIT ASSISTANT and/or Nurse Site Controller to determine if prescribed medications should or [...] Insured Coverage Start Date Coverage End Date [employer] [address] [place] [address] [id number] Mahsa Patterson Self - patient is the insured 4 [employer] [address] [place] [address] [id number] Mahsa Patterson Self - patient is the insured 4 [employer] [address] [place] [address] [id number] Mahsa Patterson Self - patient is the insured 5 Medical (General) History Medical History History ICD Code hypertension Diabetes mellitus asthma Surgical History Surgery Date(Month/Year) 1999 Hospitalization History Reason Date(Month/Year) mental health 06/11
--- OUTSIDE RECORDS SUMMARY | 2024-12-22 08:19 | XMS_ITS | Clinical Summary ---
Author Organization [facility] Address [address] [place] [address] Care Team Providers Care Fireperson Name Role Phone Shaheen Vann MD Unavailable [phone] Christopher Aldana MD Unavailable [phone] None, Provider MD Primary Care Provider Unavaila [...] mouth nightly as needed. 8 tablet Active hydroCHLOROthiazi de (HYDRODIURIL) 25 MG tablet Take 1 tablet (25 mg total) by mouth every morning. 30 tablet Active potassium chloride CR (KLOR-CON M) 20 MEQ tablet Take 1 tablet (20 mEq total) by mouth daily for 30 days. 30 tablet 025 2024 Active COMPRESSION STOCKINGSIndicati ons:Venous stasis dermatitis Use as directed for swelling 1 Container Active triamcinolone (KENALOG) 0.1 % cream Apply topically 2 (two) times daily. 45 g Active triamcinolone (KENALOG) 0.1 % cream Apply topically 2 (two) times daily. Do not use for more than one week 60 g 024 2024 Discontinued diphenhydrAMINE (BENADRYL) 25 MG tablet Take 1 tablet (25 mg total) by mouth every 8 (eight) hours as needed for Itching. 30 tablet 025 2024 triamcinolone (KENALOG) 0.1 % cream Apply topically 2 (two) times daily. 45 g 025 2024 Discontinued hydrOXYzine (ATARAX) 25 MG tablet Take 1 tablet (25 mg total) by mouth 3 (three) times daily as needed. 30 tablet 025 2024 Active Problems Problem Noted Date Diagnosed Date PAF (paroxysmal atrial fibrillation) ([facility]) 04/20/2023 Snoring 04/20/2023 Atrial fibrillation with RVR ([facility]) 1 05/12/2022 Angio-edema 11/01/2018 Encounters Date Type Department Care Team Description 12/15/2024 7:30 PM CDT - 12/15/2024 11:48 PM CDT Emergency [facility] [place] [address] Nasra Narayanan PA Leg Swelling Discharge Disposition: Home or Self Care (Routine Discharge) 12/15/2024 Travel 12/02/2024 11:30 PM CDT - 12/03/2024 12:12 AM CDT Emergency [facility] [place] [address] Nasra Narayanan PA Insect Bite Discharge Disposition: Home or Self Care (Routine Discharge) 12/02/2024 Travel 11/29/2024 8:51 AM CDT - 11/29/2024 11:28 AM CDT Emergency [facility] [place] [address] [place] [address] Narinder Patino PA Leg Pain Discharge Disposition: Home or Self Care (Routine Discharge) 11/29/2024 Travel 11/21/2024 8:43 PM CDT - 11/22/2024 12:24 AM CDT Emergency [facility] [place] [place] [address] Marilyn Lopez MD Pleuritic Chest Pain Discharge Disposition: Home or Self Care (Routine Discharge) 11/21/2024 Travel 11/09/2024 6:09 AM CDT - 11/09/2024 6:55 AM CDT Emergency [facility] [place] [address] [place] [address] Savannah Arguello MD Insect Bite Discharge Disposition: Home or Self Care (Routine Discharge) 11/09/2024 Travel 10/31/2024 1:06 PM CDT - 10/31/2024 5:34 PM CDT Emergency [facility] [place] [address] [place] [address] Narinder Patino PA Edema Discharge Disposition: Left Against Medical Advice 10/31/2024 Travel from Last 3 Months Immunizations Immunization [...] 0.6 oz pur e alcohol) x1 shot/day [facility] Utilities Answer Date Recorded In the past 12 months has th e [employer], oil, or water AIT threatened to shut off services in your [...] place to sleep or slept in a detention (including now)? No 03/13/2023 Housing Stability Vital [...] Sign Reading Time Taken Comments Blood Pressure 174/101 12/15/2024 11:00 PM CDT Pulse 80 12/15/2024 11:00 PM CDT Temperature 37.1 C (98.7 F) 12/15/2024 11:00 PM CDT Respiratory Rate 18 12/15/2024 11:00 PM CDT Oxygen Saturation 100% 12/15/2024 11:00 PM CDT Inhaled Oxygen Concentration - - Weight 95.3 kg (210 lb) 12/15/2024 6:42 PM CDT Height 180.3 cm (5' 11) 12/15/2024 6:42 PM CDT Body Mass Index 29.29 12/15/2024 6:42 PM CDT Plan of Treatment Health Maintenance Due Date Last Done Comments Colorectal Cancer Screening Colonoscopy (10 Years) 1975 Annual Physical 1978 Hepatitis C 1993 Hepatitis B Vaccines (3 of 3 - 19+ 3-dose series) 04/04/2024 02/08/2024, 03/14/2023 PHQ-2 (Physician [place]) 04/17/2024 COVID-19 Vaccine ( season) 2024 Mammogram Screening 05/12/2025 05/12/2023, 08/10/201 7 DTaP, Tdap and Td Vaccines (5 [...] Procedure Name Priority Date/Time Associated Diagnosis Comments CT ABD+PEL WO CON STAT 12/15/2024 9:1 1 PM CDT PRO-BRAIN NATRIURETIC PEPTIDE STAT 12/15/2024 8:03 PM CDT COMPREHENSIVE METABOLIC PANEL STAT 12/15/2024 8:03 PM CDT CBC W/DIFF AUTOMATED STAT 12/15/2024 8:03 PM CDT CORONAVIRUS (COVID 19) STAT 7:47 PM CDT CULTURE, GENITAL W/ GRAM STAIN STAT 12/15/2024 7:47 PM CDT HC URINALYSIS AUTO W/O MICRO STAT 12/15/2024 7:47 PM CDT XR CHEST PORTABLE STAT 12/15/2024 6:5 8 PM CDT USV LINDA DUPLEX LOW EXT LETICIA STAT [...] ECG 12-LEAD Routine 10/31/2024 1:36 PM CDT from Last 3 Months Results * CT ABD+PEL WO CON (12/15/2024 9:11 PM CDT) Anatomical Region Laterality Modality Abdomen Computed Tomogra phy 12/15/2024 10:2 6 PM CDT Impressions 12/15/2024 10:29 PM CDT IMPRESSION: 1. No definite acute CT findings within the abdomen or pelvis. 2. Nonobstructing punctate calculus involving the inferior pole the left kidney. 3. Diverticulosis of the sigmoid colon without evidence of diverticulitis. Ordered By: NASRA NARAYANAN Interpreted By: Placido Goodwin MD, 12/15/2024 10:26 PM Narrative 12/15/2024 10:29 PM [address] [address] Examination: CT ABD+PEL WO CON, 12/15/2024 8:47 PM. Technique: Computed tomographic images of the abdomen and pelvis were obtained without intravenous contrast. Additional coronal and sagittal reformatted images were generated at a separate workstation. A dose lowering technique was used for this procedure, which may include, but is not limited to, dose reduction technique, automated exposure control, the use of iterative reconstruction, and ALARA (As Low As Reasonably Achievable) / Image Gently techniques. Clinical history: pelvic pain, febrile Comparison: CT abdomen and pelvis 12/23/2023 Findings: Atelectasis in the lung bases. Heart size is normal. ABDOMEN: The liver is normal in size. There is a 1 cm hypodensity within the right hepatic lobe, likely a cyst. The gallbladder is relatively decompressed. Layering sludge seen within the gallbladder lumen. No bile duct dilation. No peripancreatic inflammatory change. The pancreas is not well evaluated without intravenous contrast. The spleen is normal in size. There is no adrenal mass. There is no perinephric abnormality. There is a 1.9 cm left renal cyst. Punctate calculus involving the inferior pole the left kidney. No hydronephrosis. Caliber the abdominal aorta is normal. No retroperitoneal adenopathy. PELVIS: The appendix is normal. No bowel dilation or wall thickening. Diverticulosis of the sigmoid colon without evidence of diverticulitis. Pelvic phleboliths. Hysterectomy. Urinary bladder is grossly normal. No acute fracture nor destructive process of the visualized osseous structures. Intervertebral disc height loss at L2-3 and L3-4 with endplate degenerative changes at these levels. No acute fracture. Hemangioma of the T8 vertebral body. Procedure Note Placido Goodwin MD - 12/15/[address] [address] Examination: CT ABD+PEL WO CON, 12/15/2024 8:47 PM. Technique: Computed tomographic images of the abdomen and pelvis wereobtained without intravenous contrast. Additional coronal and sagittalreformatted images were generated at a separate workstation. A doselowering technique was used for this procedure, which may include, but isnot limited to, dose reduction technique, automated exposure control, theuse of iterative reconstruction, and ALARA (As Low As ReasonablyAchievable) / Image Gently techniques. Clinical history: pelvic pain, febrile Comparison: CT abdomen and pelvis 12/23/2023 Findings: Atelectasis in the lung bases. Heart size is normal. ABDOMEN: The liver is normal in size. There is a 1 cm hypodensity withinthe right hepatic lobe, likely a cyst. The gallbladder is relativelydecompressed. Layering sludge seen within the gallbladder lumen. No bileduct dilation. No peripancreatic inflammatory change. The pancreas is notwell evaluated without intravenous contrast. The spleen is normal in size.There is no adrenal mass. There is no perinephric abnormality. There is a1.9 cm left renal cyst. Punctate calculus involving the inferior pole theleft kidney. No hydronephrosis. Caliber the abdominal aorta is normal. Noretroperitoneal adenopathy. PELVIS: The appendix is normal. No bowel dilation or wall thickening.Diverticulosis of the sigmoid colon without evidence of diverticulitis.Pelvic phleboliths. Hysterectomy. Urinary bladder is grossly normal. Noacute fracture nor destructive process of the visualized osseousstructures. Intervertebral disc height loss at L2-3 and L3-4 with endplatedegenerative changes at these levels. No acute fracture. Hemangioma of theT8 vertebral body. IMPRESSION: 1. No definite acute CT findings within the abdomen or pelvis. 2. Nonobstructing punctate calculus involving the inferior pole the leftkidney. 3. Diverticulosis of the sigmoid colon without evidence ofdiverticulitis. Ordered By: NASRA NARAYANAN Interpreted By: Placido Goodwin MD, 12/15/2024 10:[address] Final Result * PRO-BRAIN NATRIURETIC PEPTIDE (12/15/2024 8:03 PM CDT) Only the most recent of3 resultswithin the time period is included. PRO-B TYPE NATRIURETIC PEPTIDE 67 <125 PG/ML 12/15/2024 8:38 PM CDT [facility] Comment: CUT POINTS ESTABLISHED BY INTERNATIONAL [...] OF 89% AND 72% FOR ACUTE CHF. 12/15/2024 8:03 PM CDT [facility] Final Result [facility] [address] [place] [address], [place] [phone] * (ABNORMAL) COMPREHENSIVE METABOLIC PANEL (12/15/2024 8:03 PM CDT) Only the most recent of4 resultswithin the time period is included. GLUCOSE 101(H) 70 - 99 MG/DL 12/15/2024 8:38 PM CDT [facility] BUN 8 7 - 18 MG/DL 12/15/2024 8:38 PM CDT [facility] CREATININE S/P/B 0.82 0.55 - 1.02 MG/DL 12/15/2024 8:38 PM CDT [facility] SODIUM S/P/B 137 136 - 145 MMOL/L 12/15/2024 8:38 PM CDT [facility] POTASSIUM S/P/B 4.2 3.5 - 5.1 MMOL/L 12/15/2024 8:38 PM CDT [facility] Comment:SLIGHT HEMOLYSIS, RE SULT MAY BE AFFECTED. CHLORIDE S/P/B 105 97 - 115 MMOL/L 12/15/2024 8:38 PM CDT [facility] CO2 28.1 21 - 32 MMOL/L 12/15/2024 8:38 PM CDT [facility] CALCIUM S/P/B 9.5 8.5 - 10.1 MG/DL 12/15/2024 8:38 PM CDT [facility] BILIRUBIN TOTAL S/P/B 0.8 0.2 - 1.2 MG/DL 12/15/2024 8:38 PM CDT [facility] Comment: THIS ASSAY IS NOT RECOMMENDED FOR PATIENTS UNDERGOING TREATMENT WITH ELTROMBOPAG DUE TO THE POTENTIAL FOR FALSELY ELEVATED RESULTS. TOTAL PROTEIN S/P/B 7.9 6.4 - 8.2 G/DL 12/15/2024 8:38 PM CDT [facility] ALBUMIN S/P/B 3.7 3.4 - 5.0 G/DL 12/15/2024 8:38 PM CDT [facility] AST 31 15 - 37 U/L 12/15/2024 8:38 PM T [facility] Comment:SLIGHT HEMOLYSIS, RE SULT MAY BE AFFECTED. ALT 28 14 - 55 U/L 12/15/2024 8:38 PM CDT [facility] ALKALINE PHOSPHATASE S/P/B 84 50 - 136 U/L 12/15/2024 8:38 PM CDT [facility] ANION GAP 3.9 2 - 10 MMOL/L 12/15/2024 8:38 PM CDT [facility] BUN CREATININE RATIO 9.8 6 - 26 12/15/2024 8:38 PM CDT [facility] A/G RATIO 0.9(L) 1.0 - 2.0 RATIO 12/15/2024 8:38 PM CDT [facility] GFR ESTIMATE 88(L) >90 ML/MIN/1.7 3 M2 12/15/2024 8:38 PM CDT [facility] Comment: NOTE: eGFR is not calculated for patients <18 years of age or gender unknown. This is an estimated GFR calculation using the new CKD EPI creatinine equation without race and so does not require a correction factor for race. This estimated GFR should not be used for calculating drug doses. 12/15/2024 8:03 PM CDT us [facility] Final Result [facility] [address] [place] [address], [place] [phone] * (ABNORMAL) CBC W/DIFF AUTOMATED (12/15/2024 8:03 PM CDT) Only the most recent of4 resultswithin the time period is included. WBC 7.17 4.5 - 11.0 x10'3/uL 12/15/2024 8:18 PM CDT [facility] RBC 5.30 4.20 - 5.40 x10'6/uL 12/15/2024 8:18 PM CDT [facility] HGB 13.2 12.0 - 16.0 G/DL 12/15/2024 8:18 PM CDT [facility] HCT 41.8 38.0 - 48.0 % 12/15/2024 8:18 PM CDT [facility] MCV 78.9(L) 81.0 - 99.0 FL 12/15/2024 8:18 PM CDT [facility] MCH 24.9(L) 27.0 - 31.0 PG 12/15/2024 8:18 PM CDT [facility] MCHC 31.6(L) 32.0 - 36.0 G/DL 12/15/2024 8:18 PM CDT [facility] RDW 15.7(H) 11.5 - 14.5 % 12/15/2024 8:18 PM CDT [facility] PLT 224 130 - 400 x10'3/uL 12/15/2024 8:18 PM CDT [facility] MPV 11.3 9.3 - 12.2 FL 12/15/2024 8:18 PM CDT [facility] DIFFERENTIAL TYPE AUTOMATED DIFFERENTIAL 12/15/2024 8:18 PM CDT [facility] NEUTROPHILS % 71.4 % 12/15/2024 8:18 PM CDT [facility] LYMPHOCYTES % 18.3 % 12/15/2024 8:18 PM CDT [facility] MONOCYTES % 8.6 % 12/15/2024 8:18 PM CDT [facility] EOSINOPHILS 0.3 % 12/15/2024 8:18 PM CDT [facility] BASOPHILS 0.8 % 12/15/2024 8:18 PM CDT [facility] IMMATURE GRANS % 0.6 % 12/16/19 8:18 PM CDT [facility] ABS. NEUTROPHILS 5.12 1.80 - 7.70 x10'3/uL 12/15/2024 8:18 PM CDT [facility] ABS. LYMPHOCYTES 1.31 1.00 - 4.80 x10'3/uL 12/15/2024 8:18 PM CDT [facility] ABS. MONOCYTES 0.62 0.24 - 0.86 x10'3/uL 12/15/2024 8:18 PM CDT [facility] ABS. EOSINOPHILS 0.02(L) 0.04 - 0.36 x10'3/uL 12/15/2024 8:18 PM CDT [facility] ABS. BASOPHILS 0.06 0.01 - 0.08 x10'3/uL 12/15/2024 8:18 PM CDT [facility] ABS. IMMATURE GRANULOCYTES 0.04 0.00 - 0.49 x10'3/uL 12/15/2024 8:18 PM CDT [facility] 12/15/2024 8:03 PM CDT [facility] Final Result [facility] [address] [place] [address], [place] [phone] * CULTURE, GENITAL W/ GRAM STAIN (12/15/2024 7:47 PM CDT) SPEC DESCRIPTION VAGINAL SPECIMEN 12/15/2024 7:42 PM CDT [facility] SPECIAL REQUESTS NO SPECIAL REQUEST 12/15/2024 7:42 PM CDT [facility] GRAM STAIN RESULT NEGATIVE FOR BACTERIAL VAGINOSIS 12/15/2024 8:33 PM CDT [facility] GRAM STAIN RESULT NO YEAST SEEN 12/15/2024 8:33 PM CDT [facility] CULTURE RESULT HEAVY GROWTH OF NORMAL PAVAN PRESENT 12/17/2024 9:28 AM CDT [facility] VAGINAL STRUCTURE / Unknown 12/15/2024 7:47 PM CDT 12/15/2024 7:58 PM CDT [facility] MICROBIOLOGY - GENERAL ORDERAB LES Final Result Performing Organization Address City/[facility]/ZIP Co de Phone Number [facility] [address] [place] [address], [place] [phone] * CORONAVIRUS (COVID 19) (12/15/2024 7:47 PM CDT) CORONAVIRUS SARS COV 2 RNA NEGATIVE NEGATIVE 12/15/2024 8:28 PM CDT [facility] Comment: NEGATIVE RESULTS DO NOT RULE OUT COVID 19 AND SHOULD NOT BE USED THE SOLE BASIS FOR TREATMENT OR PATIENT MANAGEMENT DECISIONS, INCLUDING INFECTION CONTROL DECISIONS. NEGATIVE RESULTS SHOULD BE CONSIDERED IN THE CONTEXT OF A PATIENT'S RECENT EXPOSURES, HISTORY AND THE PRESENCE OF CLINICAL SIGNS AND SYMPTOMS CONSISTENT WITH COVID 19. THE ID NOW COVID-19 2.0 TEST HAS BEEN AUTHORIZED BY THE FDA UNDER EAU FOR USE BY AUTHORIZED LABORATORIES. PERFORMED BY NUCLEIC ACID AMPLIFICATION FOR MOLECULAR QUALITATIVE DETECTION OF SARS-COV-2. SPECIMEN TYPE NASAL 12/15/2024 7:42 PM CDT [facility] NASAL STRUCTURE / Unknown 12/15/2024 7:47 PM CDT [facility] MICROBIOLOGY - GENERAL ORDERAB LES Final Result [facility] [address] [place] [address], [place] [phone] * URINALYSIS (12/15/2024 7:47 PM CDT) SPECIMEN TYPE URINE CLEAN CATCH 12/15/2024 7:42 PM CDT [facility] COLOR (U) LIGHT YELLOW 12/15/2024 8:07 PM CDT [facility] TRANSPARENCY CLEAR 12/15/2024 8:07 PM CDT [facility] SPECIFIC GRAVITY (U) 1.015 1.001 - 1.030 12/15/2024 8:07 PM CDT [facility] U PH 7.5 5.0 - 9.0 12/15/2024 8:07 PM CDT [facility] LEUKOCYTES (U) NEGATIVE NEGATIVE 12/15/2024 8:07 PM CDT [facility] NITRITES NEGATIVE NEGATIVE 12/15/2024 8:07 PM CDT [facility] PROTEIN RANDOM (U) NEGATIVE <30 MG/DL 12/15/2024 8:07 PM CDT [facility] GLUCOSE (U) NORMAL NORMAL MG/DL 12/15/2024 8:07 PM CDT [facility] KETONES MG/DL (U) NEGATIVE NEGATIVE MG/DL 12/15/2024 8:07 PM CDT [facility] UROBILINOGEN NORMAL NORMAL MG/DL 12/15/2024 8:07 PM CDT [facility] BILIRUBIN (U) NEGATIVE NEGATIVE MG/DL 12/15/2024 8:07 PM CDT [facility] BLOOD (U) NEGATIVE NEGATIVE 12/15/2024 8:07 PM CDT [facility] URINE SPECIMEN OBTAINED BY CLEAN CATCH PROCEDURE / Unknown 12/15/2024 7:47 PM CDT us Nasra [facility] URINE ORDERABLES Final Result [facility] [address] [place] [address], * XR CHEST PORTABLE (12/15/2024 6:58 PM CDT) Only the most recent of2 resultswithin the time period is included. Anatomical Region Laterality Modality Chest Radiographic Adilia ging 12/15/2024 8:02 PM CDT Impressions 12/15/2024 8:06 PM CDT IMPRESSION: Suboptimal due to low lung volumes with expected findings. Otherwise no definite acute pulmonary process radiographically demonstrated. Stable and chronic appearing findings, as detailed above Ordered By: NASRA NARAYANAN Interpreted By: Margarita Rodríguez MD, 12/15/2024 8:02 PM Narrative 12/15/2024 8:06 PM CDT [facility] [address] [place], [place] [address] EXAM: CHEST RADIOGRAPH Exam Date: 12/15/2024 6:38 PM INDICATION: Cough, shortness of breath, fever, bilateral leg swelling, fever TECHNIQUE: Upright Portable AP view COMPARISON: CXR 11/21/2024 FINDINGS: Suboptimal due to low lung volumes with expected appearance of the cardiac mediastinal silhouette. This appears similar to the prior exam. Stable mild diffuse interstitial prominence. No overt congestion. No focal lung consolidation. No new significant central peribronchial cuffing. Artifact versus nonspecific minimal bilateral basilar opacities may represent atelectasis and/or small effusions. Some osseous degenerative changes noted. Procedure Note Margarita Rodríguez MD - [facility] [address] [place], [place] [address] EXAM: CHEST RADIOGRAPH Exam Date: 12/15/2024 6:38 PM INDICATION: Cough, shortness of breath, fever, bilateral leg swelling,fever TECHNIQUE: Upright Portable AP view COMPARISON: CXR 11/21/2024 FINDINGS: Suboptimal due to low lung volumes with expected appearance of the cardiacmediastinal silhouette. This appears similar to the prior exam. Stablemild diffuse interstitial prominence. No overt congestion. No focal lungconsolidation. No new significant central peribronchial cuffing. Artifactversus nonspecific minimal bilateral basilar opacities may representatelectasis and/or small effusions. Some osseous degenerative changesnoted. IMPRESSION: Suboptimal due to low lung volumes with expected findings. Otherwise no definite acute pulmonary process radiographicallydemonstrated. Stable and chronic appearing findings, as detailed above Ordered By: NASRA NARAYANAN Interpreted By: Margarita Rodríguez MD, 12/15/2024 8:02 PM us Nasra Narayanan PA GENERAL IMAGING Final Result * USV LINDA DUPLEX LOW EXT LETICIA (11/29/2024 11:18 AM CDT) Anatomical Region Laterality Modality Extremity Vascular Ultraso und 11/29/2024 10:4 4 AM CDT Narrative 11/29/2024 6:31 PM CDT VENOUS DUPLEX IMAGING BILATERAL [facility]OWER [facility] Pat.Name: MAHSA BEYER Pat.ID: [id number] .Date: 11/29/2024 Exam Time: 10:44:00 AM Study Type:ELIU VS Venous Duplex Legs LETICIA Height: 71 in Age: 11 1975,49Y Sex: F Sonogrphr: Smith Godoy RVT Pat. Stat.:Inpatient Room: ER 2 History / [...] [facility] Pat.Name: MAHSA BEYER Pat.ID: [id number] .Date: 11/29/2024 Exam Time: 10:44:00 AM Study Type:ELIU VS Venous Duplex Legs LETICIA Height: 71 in Age: 11 1975,49Y Sex: F Sonogrphr: Smith Godoy RVT Pat. Stat.:Inpatient Room: ER 2 History / [...] 06:31 PM Placido Fortune M.D. [facility] Final Resul t * (ABNORMAL) D-DIMER, QUANTITATIVE (11/29/2024 8:58 AM CDT) Only the most recent of2 resultswithin the time period is included. [facility] D-DIMER 641(HH) 0 - 500 ng{FEU}/mL 11/29/2024 9:59 AM CDT [facility] Comment: D-Dimer values less than or [...] called 11/29/2024 09:59 AM to EMERGENCY ROOM ([id number]/CLIF BRENNER) by [id number]. Read Back: Yes 11/29/2024 8:58 AM CDT [facility] Final Resul t [facility] [address] [place] [address], [place] [phone] * TROPONIN, QUANT (11/21/2024 11:25 PM CDT) Only the most recent of3 resultswithin the time period is included. [facility] TROPONIN I HIGH SENSITIVITY 7 <54 ng/L 11/21/2024 11:55 PM CDT [facility] Comment: HIGH DOSES OF BIOTIN, TROPONIN-SPECIFIC AUTOANTIBODIES, AND ANTIBODY THERAPY CONTAINING HAMA MAY INTERFERE WITH THIS TEST RESULT. CORRELATION TO CLINICAL HISTORY AND PRESENTATION RECOMMENDED. 11/21/2024 11:2 5 PM CDT [facility] Final Result [facility] [address] [place] [address], [place] [phone] * CTA CHEST PE PROTOCOL (11/21/2024 10:17 [...] 10:20 PM Narrative 11/21/2024 10:26 PM CDT [facility] [address] [place], [place] [address] EXAMINATION: CTA CHEST PE PROTOCOL EXAM DATE: [...] Procedure Note Michele Calderon DO - 11/21/[address] [address] EXAMINATION: CTA CHEST PE PROTOCOL EXAM DATE: [...] Lopez MD CT Final Resul t * ECG 12 lead (11/21/2024 8:07 PM CDT) Only the most recent of2 resultswithin the time period is included. 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: : 1975 Requested By: NASRA NARAYANAN Order Number: [id number] Reading MD: Jerrod De Luna Measurements Intervals [place] Rate: 91 P: 42 NE: 122 QRS: 17 QRSD: 93 T: 41 QT: 347 QTc: 428 Interpretive Statements SINUS RHYTHM Compared to ECG 10/31/2024 13:36:57 No significant changes No ischemic changes Preliminary EKG Interpretation by BOB Dominguez Procedure Note Jerrod De Luna MD - 11/22/[address] Test Date: 2024-11-21 Pat Name: MAHSA BEYER Department: 41 Room: [facility] Gender: Female 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: : 1975 Requested By: NASRA NARAYANAN Order Number: [id number] Reading MD: Jerrod De Luna Measurements Intervals [place] Rate: 91 P: 42 NE: 122 QRS: 17 QRSD: 93 T: 41 QT: 347 QTc: 428 Interpretive Statements SINUS RHYTHM Compared to ECG 10/31/2024 13:36:57 No significant changes No ischemic changes Preliminary EKG Interpretation by BOB Dominguez us Nasra ROJAS ECG ORDERABLES Final Result [facility] RAD * XR CHEST PA+LAT (10/31/2024 2:07 PM CDT) Anatomical Region Laterality Modality Chest Radiographic Adilia ging 10/31/2024 2:15 PM CDT Impressions 10/31/2024 2:17 PM CDT =====IMPRESSION:===== No acute findings. Ordered By: NARINDER PATINO Interpreted By: Placido Morel MD, 10/31/2024 2:15 PM Narrative 10/31/2024 2:[address] PM [address] [address] Examination: Chest x-ray 2 view Exam date/time: 10/31/2024 1:02 PM Reason For Exam: edema. Hypertension and atrial fibrillation. Comparison: 09/05/2024 Findings: Normal cardiac size. Slightly tortuous aorta. Pulmonary vessels are within normal limits. No acute airspace consolidation, pleural effusion or pneumothorax. Multiple external artifacts are noted. Mild thoracic spondylosis. Procedure Note Placido Morel MD - 10/31/2024 [facility] [address] [place], [place] [address] Examination: Chest x-ray 2 view Exam date/time: [...] Morel MD, 10/31/2024 2:[address] GENERAL IMAGING Final Resul t from Last 3 [place] [address] [place] Advance Directives * Full Code (Latest Code Status on File) Date Activated Date Inactivated Comments 03/12/2023 9:58 PM 03/15/2023 1:00 PM Care Teams Fireperson Relationship Specialty Start Date End Date None, Provider, PCP - General UNKNOWN PHYSICIAN SPECIALTY 06/29/24 Shaheen Vann MD 08/04/23 Christopher Aldana MD [address] [facility] [address] [place] [address] Referring Physician OTOLARYNGOLOGY 04/08/23
--- NOTE | 2024-12-22 08:26 | ED.GENADULT ---
HPI - General Adult General Chief complaint: Urogenital-Female Stated complaint: perineal pain - hematuria Time Seen by Provider: 12/22/24 07:58 History of Present Illness HPI narrative: 49-year-old female to the emergency department for evaluation for left lower quadrant pain. Patient states over the last 2 days she had some mild left flank pain and then began having worsening left lower quadrant pain yesterday. Patient did present to the [facility] asked them to call an ambulance. Patient was also complaining hematuria as well. Patient has no prior history of kidney stones. Related Data Allergies Allergy/AdvReac Type Severity Reaction Status Date / Time ibuprofen Allergy Severe Anaphylaxis Verified 12/22/24 03:42 latex Allergy Swelling Verified 12/22/24 03:42 lisinopril Allergy Wheezing Verified 12/22/24 03:42 Penicillins Allergy Other Verified 12/22/24 03:42 Sulfa (Sulfonamide Allergy Swelling Verified 12/22/24 03:42 Antibiotics) Review of Systems Review of Systems: All systems reviewed & are unremarkable except as noted in HPI and below PMFSH Past Medical History Medical History Arthritis Diabetes HLD (hyperlipidemia) HTN (hypertension) Surgical History Surgical History History of hysterectomy 2009 Social History Social History Smoking status: Never smoker Exam Narrative: APPEARANCE: Well appearing, no pain, no distress, well-nourished. HEAD: normocephalic, atraumatic. EYES: PERRLA/EOMI, conjunctivae clear. NOSE: Normal no drainage EARS:TMS clear with good light reflex. THROAT: Pharynx clear, no exudate. NECK: Supple. No adenopathy, no masses. RESPIRATORY: Airway patent, respirations nonlabored. Clear to auscultation bilaterally, no rales, rhonchi, wheezing. CARDIOVASCULAR: Regular rate and rhythm without murmurs rubs or gallops. ABDOMINAL: Left lower quadrant tenderness to palpation and left CVA tenderness to palpation MUSCULOSKELETAL: Moves all extremities. Strength/ROM intact, No edema, No calf tenderness. NEURO: Alert. Cranial nerves II through XII intact. Good gait. Good coordination SKIN: Warm, dry. Normal Color Course Vital Signs Vital signs: Vital Signs Temperature 97.7 F 12/22/24 03:52 Pulse Rate 72 12/22/24 03:52 Respiratory Rate 16 12/22/24 03:52 Blood Pressure 161/89 H 12/22/24 03:52 Pulse Oximetry 100 12/22/24 03:52 Oxygen Delivery Room Air 12/22/24 03:52 Temperature 97.7 F 12/22/24 03:52 Pulse Rate 80 12/22/24 08:48 Respiratory Rate 13 12/22/24 08:48 Blood Pressure 148/98 H 12/22/24 08:48 Pulse Oximetry 100 12/22/24 08:48 Oxygen Delivery Room Air 12/22/24 03:52 Medical Decision Making MDM Narrative Medical decision making narrative: 49-year-old female presents to the emergency department for evaluation for left flank pain. Patient does have hematuria on her UA with no evidence of underlying infection. Patient was afebrile with no leukocytosis hemoglobin 11.7. INR is 1.0. No acute abnormalities on her CMP. CT scan showed no acute intra-abdominal process. Patient was encouraged of close follow-up with her primary care physician for additional workup. Patient will also be provided follow-up with Urology. Low concern for ureteral calculi, urinary tract infection or colitis/diverticulitis. Patient was well-appearing at time of discharge. Differential Diagnosis Differential Diagnosis: Colitis, diverticulitis, bowel obstruction, constipation, UTI, ureteral calculi, bladder stone ovarian torsion Vital Signs Vital Signs: Vital Signs Temperature 97.7 F 12/22/24 03:52 Pulse Rate 72 12/22/24 03:52 Respiratory Rate 16 12/22/24 03:52 Blood Pressure 161/89 H 12/22/24 03:52 Pulse Oximetry 100 12/22/24 03:52 Oxygen Delivery Room Air 12/22/24 03:52 Temperature 97.7 F 12/22/24 03:52 Pulse Rate 80 12/22/24 08:48 Respiratory Rate 13 12/22/24 08:48 Blood Pressure 148/98 H 12/22/24 08:48 Pulse Oximetry 100 12/22/24 08:48 Oxygen Delivery Room Air 12/22/24 03:52 Lab Data Lab results reviewed: Yes I reviewed the patient's lab results. 12/22/24 08:47 12/22/24 08:47 Labs: Lab Results 12/22/24 12/22/24 12/22/24 Range/Units 03:50 03:52 08:47 WBC 5.8 (4.5-10.0) K/mm3 RBC 4.78 (4.2-5.4) M/mm3 Hgb 11.7 L (12.0-15.0) g/dL Hct 38.4 (37.0-47.0) % MCV 80.3 (80-100) fl MCH 24.5 L (26-34) pg MCHC 30.5 L (32-36) g/dl RDW 15.5 H (11.5-14.5) % Plt Count 238 (150-375) k/mm3 MPV 11.1 H (7.4-10.4) fl Immature Gran % (Auto) 0.2 (0-0.5) % Neut % (Auto) 60.3 (45.5-73.1) % Lymph % (Auto) 29.6 (18.3-44.2) % [place] % (Auto) 8.0 (2.6-8.5) % Eos % (Auto) 1.2 (0-4.4) % Baso % (Auto) 0.7 (0.2-1.2) % Lymph # (Auto) 1.71 (0.9-3.2) K/mm3 [place] # (Auto) 0.5 (0.1-0.6) K/mm3 Eos # (Auto) 0.1 (0-0.3) K/mm3 Baso # (Auto) 0.0 (0.0-0.1) K/mm3 Abs Immat Gran (auto) 0.01 (0.00-0.031) K/mm3 Absolute Neuts (auto) 3.5 (1.3-6.7) K/mm3 Absolute Nucleated RBC 0.000 (0.0-0.012) K/mm3 Nucleated RBC % 0.0 (0.0-0.2) % PT 13.3 (11.1-14.7) Seconds INR 1.0 APTT 24.3 (22.3-36.8) Seconds Sodium 140 (137-145) mmol/L Potassium 3.7 (3.4-5.0) mmol/L Chloride 103 (98-107) mmol/L Carbon Dioxide 30 (22-30) mmol/L Anion Gap 7 (4-12) mmol/L BUN 8 (7-17) mg/dL Creatinine 0.55 L (0.7-1.0) mg/dL Estim Creat Clear Calc Not Reportable Estimated GFR > 60 (59 - ) Glucose 98 (65-110) mg/dL Calcium 9.4 (8.4-10.2) mg/dL Total Bilirubin 0.4 (0.2-1.3) mg/dL AST 37 H (14-36) U/L ALT 35 (6-35) U/L Alkaline Phosphatase 105 (38-126) U/L Total Protein 7.6 (6.3-8.2) g/dL Albumin 4.0 (3.5-5.1) g/dL Urine Color Yellow (Yellow) Urine Appearance Cloudy H (Clear) Urine pH 8.0 (5.0-9.0) Ur Specific Nicholls 1.008 (1.001-1.035) Urine Protein Negative (Negative) mg/dL Urine Glucose (UA) Negative (Negative) mg/dL Urine Ketones Negative (Negative) mg/dL Ur Blood (Man) 3+ H (Negative) Urine Nitrate Negative (Negative) Urine Bilirubin Negative (Negative) Urine Urobilinogen 1.0 (<2.0) mg/dL Leukocyte Esterase Rfl Negative (Negative) YANCY/UL Urine RBC >100 H (0-2) /hpf Urine WBC 0-5 (0-3) /hpf Ur Squamous Epith Cells None seen (Few) /hpf Urine Bacteria None seen /hpf Urine Casts 0-2 POC Urine HCG, Qual Negative (Negative) Imaging Data Radiologist's impression: Impressions Abdomen/Pelvis CT 12/22/24 11:39 IMPRESSION: 1. No acute intra-abdominal process. Incidental findings as above Discharge Plan Discharge Clinical Impression: Hematuria, Flank pain Patient Disposition: Home Condition: Stable Instructions: Antibiotic Form, Hematuria (ED) Additional Instructions: Tylenol and ibuprofen for pain control. Have close follow-up with your primary care physician. Have close follow-up with Urology. If you have any worsening symptoms then please call or return to the emergency department. Patient Language: Wolof Prescriptions: No Action cefdinir 300 mg capsule 300 mg PO Q12H 7 Days Qty: 14 0RF azithromycin 250 mg tablet See Rx Instructions .ROUTE .COMPLEX Qty: 6 0RF Rx Instructions: For 250 mg dose pack: take 500 mg today (day 1), then 250 mg for 4 days (days 2-5) albuterol sulfate 90 mcg/actuation HFA aerosol inhaler 1 inh inhalation QID PRN (Reason: shortness of breath or wheezing) Qty: 6.7 0RF guaifenesin 400 mg tablet 400 mg PO QID PRN (Reason: cough) Qty: 30 0RF hydroxyzine HCl 25 mg tablet 25 mg PO TID PRN (Reason: anxiety) Qty: 30 0RF amlodipine 5 mg tablet 5 mg PO DAILY 30 Days Qty: 30 0RF metoprolol tartrate 25 mg tablet 12.5 mg PO BID 30 Days Qty: 30 0RF loratadine 10 mg tablet 10 mg PO DAILY Qty: 30 0RF ketorolac 10 mg tablet 10 mg PO Q6H PRN (Reason: pain) Qty: 20 0RF Rx Instructions: maximum total duration of 5 days from all oral, intranasal, or parenteral formulations diphenhydramine HCl [Benadryl Allergy] 12.5 mg/5 mL liquid 25 mg PO Q6-8H PRN (Reason: allergic reaction) Qty: 200 0RF prednisone 20 mg tablet 40 mg PO DAILY 5 Days Qty: 10 0RF furosemide [Lasix] 20 mg tablet 20 mg PO DAILY Qty: 5 0RF nystatin 100,000 unit/gram powder 1 applic topical TID Qty: 30 0RF cephalexin 500 mg capsule 500 mg PO Q12H 5 Days Qty: 10 0RF acetaminophen 500 mg capsule 1,000 mg PO Q6H PRN (Reason: pain) Qty: 20 0RF cyclobenzaprine 10 mg tablet 10 mg PO TID PRN (Reason: muscle spasm) Qty: 14 0RF Follow-up/Referrals: PHYSICIAN,[employer] [Primary Care Provider, Internal Medicine] Christopher Moyer MD [Physician, Urology]
[2024-12-22 08:48] VITALS: BP 148/98; PULSE 80; RESP 13; O2SAT 100
[2024-12-22 08:54] LABS: Hematocrit 38.4 % (37.0-47.0); Hemoglobin 11.7 g/dL (12.0-15.0); Immature Granulocyte Percent A 0.2 % (0-0.5); Lymphocytes Absolute Auto 1.71 K/mm3 (0.9-3.2); Mean Corpuscular HGB Conc 30.5 g/dl (32-36); Mean Corpuscular Hemoglobin 24.5 pg (26-34); Mean Corpuscular Volume 80.3 fl (80-100); Nucleated Red Blood Cells Absolute Auto 0.000 K/mm3 (0.0-0.012); Nucleated Red Blood Cells Perc 0.0 % (0.0-0.2); Platelet Count Result 238 k/mm3 (150-375); Red Blood Count 4.78 M/mm3 (4.2-5.4); White Blood Count 5.8 K/mm3 (4.5-10.0)
[2024-12-22 09:04] LABS: Alanine Aminotransferase 35 U/L (6-35); Albumin Level 4.0 g/dL (3.5-5.1); Alkaline Phosphatase 105 U/L (38-126); Anion Gap 7 mmol/L (4-12); Aspartate Amino Transferase 37 U/L (14-36); Bilirubin,Total 0.4 mg/dL (0.2-1.3); Blood Urea Nitrogen 8 mg/dL (7-17); Calcium 9.4 mg/dL (8.4-10.2); Carbon Dioxide 30 mmol/L (22-30); Chloride 103 mmol/L (98-107); Estimated Glomerular Filt Rate > 60; Glucose 98 mg/dL (65-110); Potassium 3.7 mmol/L (3.4-5.0); Sodium 140 mmol/L (137-145); Total Protein 7.6 g/dL (6.3-8.2)
[2024-12-22 09:05] LABS: INR 1.0; Partial Thromboplastin Time 24.3 Seconds (22.3-36.8); Prothrombin Time 13.3 Seconds (11.1-14.7)
== END 2024-12-22 09:47 | disposition home or self-care (01) ==
PROVIDERS: Emergency Medicine; Emergency Provider Emergency Medicine
DX: R31.9 Hematuria, unspecified (principal); R10.9 Unspecified abdominal pain; M19.90 Unspecified osteoarthritis, unspecified site; E11.9 Type 2 diabetes mellitus without complications; E78.5 Hyperlipidemia, unspecified; I10 Essential (primary) hypertension
CPT/HCPCS: 36415; 74176; 80053; 81001; 81025; 85025; 85610; 85730; 99284; A9270